=== PATIENT | female | born 1965 | race Caucasian/White ===

== ENCOUNTER 2016-09-12 19:22 | Inpatient (IN) | payer MEDICAID, MEDICARE ==
[~2016-09-12] VITALS: Ht 157.5 cm; Wt 50.3 kg
[~2016-09-12 19:22] MED LIST: ALBU18HF INH; ALBU2.5V15 IH; ATRINH INH; CYCL5TAB PO; DIF200 PO; GABA600T2 PO; GLUC1KIT IJ; HYDR-4003 PO; IBUP200C PO; INSU100I13 SUBQ; INSU100V28 SUBQ; LISI10TA2 PO; POTA99TA21 PO; PRAM0.252 PO; PRAV10TA2 PO; PREG100C PO; TRAM50TA2 PO; WOMENS DAILY FORMULA PO; ZOV800 PO
[2016-09-12 19:29] VITALS: BP 139/50; PULSE 108; RESP 23; O2SAT 100
--- NOTE | 2016-09-12 19:39 | ED.REPORT ---
HPI-General Illness Date of Service Sep 12, 2016 ED Provider: Jemal Rodriguez MD 51-year-old female insulin-dependent diabetic brought in by EMS. Found at home confused and agitated and hyperventilating. Glucose per EMS was too high to read. Diabetic ketoacidosis was suspected by EMS. On arrival here the patient is unable to provide any further history due to confusion and agitation. 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 Nursing Notes Stated Complaint: HYPERGLYCEMIA Chief Complaint: General Complaint Nursing Notes Reviewed: Yes Allergies: Coded Allergies: No Known Allergies (Verified Allergy, Unknown, 06/19/15) Scheduled ([Womens Daily Formula]) 1 CAP PO DAILY Fluconazole (Diflucan) 200 Mg Tab 200 MG PO DAILY Gabapentin (Gabapentin) 600 Mg Tablet 600 MG PO BID Glucagon,Human Recombinant (Glucagon Emergency Kit) 1 Mg Kit 1 MG IJ PRN UD Insulin Glargine (Lantus U100 Solostar Insulin Pen) 100 Unit/1 Ml Insuln.pen 15 UNIT SUBQ QPM-INSULIN Insulin Regular, Human (HUMulin-R U100 Insulin Vial) 100 Unit/1 Ml Vial 1 UNIT SUBQ TID-INSULIN SLIDING SCALE Ipratropium [place] (Atrovent HFA) 200 Puff/12.9 Gm Inhaler 2 PUFF INH Q 4HRS PRN Lisinopril (Lisinopril) 10 Mg Tablet 10 MG PO DAILY Potassium Gluconate (Potassium) 99 Mg Tablet 99 MG PO DAILY PLEASE VERIFY DOSAGE Pramipexole Dihydrochloride (Mirapex) 0.25 Mg Tablet 0.25 MG PO PM Pravastatin (Pravastatin) 10 Mg Tablet 10 MG PO HS Pregabalin (Lyrica) 100 Mg Capsule 100 MG PO TID Scheduled PRN Acyclovir (Acyclovir) 800 Mg Tab 800 MG PO BID PRN PRN PRN Albuterol Sulfate (Albuterol Inhalant Solution) 2.5 Mg/0.5 Ml Vial.neb 2.5 MG IH Q4 PRN PRN For Shortness of Breath Albuterol Sulfate (Ventolin HFA Inhaler) 200 Puff/18 Gm Inhaler 1-2 PUFF INH Q 4 -6HRS PRN PRN PRN For Wheezing Cyclobenzaprine (Cyclobenzaprine) N Tablet 5 MG PO BID PRN PRN For Spasm Hydrocodone-Acetaminophen 5-325 mg (Hydrocodone-Acetaminophen 5-325 mg) 1 Each Tablet 1 EACH PO TID PRN PRN For Pain Ibuprofen (Ibuprofen) 200 Mg Capsule 200 MG PO Q 6HRS PRN PRN PRN For Pain Tramadol (Tramadol) 50 Mg Tablet 50 MG PO Q6H PRN PRN For Pain General Time Seen by MD: 19:33 Chief Complaint Other (Hyperglycemia) Hx Obtained From: Patient, EMS Arrived By: Ambulance Onset Occurred: Onset unknown Past Medical History Past Medical History Reports: Asthma, COPD, Cancer (Cervical), Diabetes mellitus, GERD, Hyperlipidemia Past Surgical History R Humerus repair Reports: Hysterectomy Reports: Back/neck surgery Smoking History Current Every Day Smoker Social History Alcohol Use: Denies alcohol use Drug Use: Denies drug use Review of Systems Unable to Obtain ROS Patient condition Physical Exam Vital Signs Vital Signs Date Time Temp Pulse Resp B/P Pulse Ox O2 Delivery O2 Flow Rate FiO2 09/12/16 22:00 123 111/60 100 60 09/12/16 21:12 130 23 111/56 100 ET Tube 09/12/16 20:23 34.8 108 27 162/76 100 Room Air 09/12/16 19:29 108 23 139/50 100 Room Air Neck: Supple General/Constitutional: Awake, Well developed Alertness: Positive: Confused, Disoriented Behavior: Positive: Agitated Smells of ketones Head / Eyes: Atraumatic, Normocephalic, PERRL ENT: Airway patent, Pharynx NL, No facial swelling Mouth: Positive: Mucous membranes dry Respiratory / Chest: Breath sounds NL, Breath sounds = bilat Cardiovascular: Regular rhythm, Heart sounds NL Heart Rate / Rhythm: Positive: Tachycardia Periph CV / BP Differential: Positive: Capillary refill delayed (3 seconds ) Abdomen: BS normoactive, No palpable mass, No pulsatile mass Back: Atraumatic, Inspection NL Lymphatic: No gross adenopathy, No cervical adenopathy Skin: Dry, Intact Skin is cool to touch Neurologic: Speech NL, No motor deficits Mental Status: Positive: Confused, Disoriented to place, Disoriented to time Oriented x1 Moving all 4 extremities Interpretation & Diagnostics Interpretation & Diagnostics: Initial white count was 33,000. Initial glucose is greater than 600. Initial bicarbonate is 4. Initial potassium is greater than 5. Utox: positive benzodiazepines and tricyclic antidepressants. Lab Results Interpretation Result Diagram: 2/11/234 09/12/16 2314 Test 09/12/16 19:34 09/12/16 20:47 09/12/16 21:26 Metamyelocytes % 0% (0-0) Myelocytes % 1% (0-0) Prothrombin Time 10.0sec (8.1-12.5) Prothromb Time International Ratio 0.94ratio Activated Partial Thromboplast Time 40.4sec (22.8-33.0) Hold Blue Top Tube Received (Received) Magnesium Level 2.2mg/dL (1.6-2.6) Lipase 8U/L (13-60) Hold Red Top Tube Received (Received) Ketones 1:32 Urine Color Straw (YELLOW) Urine Appearance Clear (CLEAR,HAZY) Urine pH 5.5 (5.0-8.0) Urine Specific [place] 1.028 (1.003-1.035) Urine Protein 30mg/dL (NEG,TRACE) Urine Glucose (UA) 1000mg/dL (NEGATIVE) Urine Ketones 80mg/dL (NEGATIVE) Urine Occult Blood Moderate (NEGATIVE) Urine Nitrite Negative (NEGATIVE) Urine Bilirubin Negative (NEGATIVE) Urine Urobilinogen Normalmg/dL (NORMAL) Urine Leukocyte Esterase Negative (NEGATIVE) Urine RBC 3-10/hpf (0-2) Urine WBC 0-5/hpf (0-5) Urine Epithelial Cells None/hpf (NONE-MOD) Urine Crystals None seen (NONE SEEN) Urine Bacteria None/hpf (NONE-FEW) Urine Hyaline Casts None/lpf (NONE) Urine Granular Casts None seen (NONE SEEN) Urine Waxy Casts None seen (NONE SEEN) Urine Red Blood Cell Casts None seen (NONE SEEN) Urine White Blood Cell Casts None seen (NONE SEEN) Urine Mucus None seen (None Seen) Urine Trichomonas None seen (NONE SEEN) Urine Yeast None (NONE SEEN) Urinalysis Comment None Urine Culture Reflexed Not indicated CSF Appearance Hazy (CLEAR) CSF Color [place] (COLORLESS) CSF WBC 9/mm3 (0-5) CSF RBC 1125/mm3 CSF Mononuclear WBCs 65% CSF Polynuclear WBCs 35% CSF Other Cells 0 CSF Glucose 408mg/dL (45-90) CSF Total Protein 48mg/dL (15-45) ECG Interpretation ECG Interpretation: Sinus tachy rate 104 possible peaked T waves otherwise no acute ST segment changes Time: 20:03 Interpreted by: ED physician ABG Interpretation ABG Interpretation: venous 7:43 PM 09/12/2016 pH 6.867 pCO2 18 pO2 78.2 cHCO3- 3.1 cBase -29.4 Exam Performed by: Allied [facility] pract Exam Interpreted by: ED physician ABG Interpretation: Repeat: pH 6.685 pCO2 36 pO2 68.2 cHCO3- 4.3 cBase -29.8 X-Ray Chest Interpretation Chest Xray Interpretation: MPRESSION: No acute cardiopulmonary disease process. Dictated by: Reyna Walsh MD, PhD on 09/12/2016 at 20:19 Approved by: Reyna Walsh MD, PhD on 09/12/2016 at 20:20 View: Portable, 1 view Interpretation / Wet Read by: Interpret - Radiologist Chest Xray Interpretation: FINDINGS: Surgical changes and devices: ET tube is 4.1 cm superior to the alisa. NG tube crosses the GE junction.. Cervical spine fixation hardware Lungs and pleura: No pleural effusions or pneumothorax. Lungs are clear. Mediastinum: Mediastinal contours appear normal. Heart size is normal. Bones and chest wall: No suspicious bony lesions. Overlying soft tissues appear unremarkable. IMPRESSION: No acute cardiopulmonary disease process. Dictated by: Reyna Walsh MD, PhD on 09/12/2016 at 21:08 Approved by: Reyna Walsh MD, PhD on 09/12/2016 at 21:09 View: Portable, 1 view Interpretation / Wet Read by: Interpret - Radiologist CT Head Interpretation CT BRAIN: IMPRESSION: No acute intracranial disease process identified within limitations caused by motion artifact. Dictated by: Reyna Walsh MD, PhD on 09/12/2016 at 21:00 Approved by: Reyna Walsh MD, PhD on 09/12/2016 at 21:03 Study: Head CT no contrast Interpretation / Wet Read by: Interpret - Radiologist CT Abd / Pelvis Interpretation IMPRESSION: small amount of free pelvic fluid. No other acute findings. Lung base opacities atelectasis versus infiltrate. NG tube tip in the proximal stomach. Tatyana Mcdonald M.D. Study type: Abdominal CT IV contrast Interpretation / Wet Read by: Interpret - Radiologist Procedures Central Line Placement Central Line Placement Note: Patient was intubated prior to procedure. Timeout performed at 2317. Time: 23:23 Procedure Performed by: ED physician Consent / Setup / Site Prep: No consent - emergent, Time-out performed, Oxygen administered (Intubated ), Pulse oximeter applied, monitor car operator applied, Hand hygiene observed, Max barrier precaution, Sterile drapes applied, Position supine Skin Preparation Agent: Shurclens Local Anesthesia: Lidocaine 1% Procedural Sedation/Analgesia: Sedation: Etomidate, Sedation: Ketamine, Analgesia: Fentanyl Side / Location / Ultrasound: Internal jugular right, Ultrasound assisted Catheter / Lumen / Technique: Triple lumen, Good blood return, Secured w catheter device (15 cm) Post-Procedure / Complications: Condition improved, Tolerated procedure well , Patient stable Intubation Time: 20:20 Procedure Performed by: ED physician Consent / Setup / Site Prep: No consent - emergent, Time-out performed, Pulse oximeter applied, monitor car operator applied, Hand hygiene observed Patient Position: Sniff position Blade / ET Tube / Route: [place] scope Procedural Sedation/Analgesia: Sedation: Etomidate, Sedation: Ketamine, Analgesia: Fentanyl Neuromuscular Agent: Succinylcholine ET Confirmation: BS equal Secured / Marked: Tube marked at ___ cm (21), Tube marked at teeth Complications: None Post-Procedure: Tolerated procedure well Lumbar Puncture Text / Dict Note: Patient was intubation prior to procedure. Multiple unsuccessful passes made. Dr. Kent successfully obtained spinal fluid after multiple passes in L4 L5. Time: 21:20 Procedure Performed by: ED physician Consent / Setup / Site Prep: No consent - emergent, Time-out performed, Hand hygiene observed, Sterile drapes applied, Patient right lateral Skin Preparation Agent: Betadine Local Anesthesia: Lidocaine 1% Procedural Sedation/Analgesia: Sedation: Etomidate, Sedation: Ketamine, Analgesia: Fentanyl LP Needle Gauge: 22G Post-Procedure / Complications: No complications, Tolerated procedure well, Patient stable Re-Eval/Medical Decision Med Decision/Clinical Course 51-year-old female who presents critically ill with diabetic ketoacidosis. Minimal history is available, it is presently unclear what might a productive precipitated this episode of diabetic ketoacidosis. He was treated with IV normal saline hydration and once potassium was known and insulin drip was initiated. She was pancultured and started on empiric coverage of meropenem after discussion with the medicine service. Imaging does not reveal an acute abdominal or intracranial process that would explain her presentation. On chest x-ray appears that she may be developing a pneumonia as we hydrated her. Because of her profound acidosis, she was given IV bicarbonate. The patient was intubated due to severe agitation which we were not able to sedate her out of 12 point where she can be managed effectively. Admitted to the hospitalist service in critical condition. Lumbar puncture results are noted, she has a very small number of white blood cells and the presence of a traumatic tap. CSF protein is not significantly elevated above normal. I do not believe that her LP results are suggestive of meningitis. Time of Eval: 20:57 Patient Status: Mild relief Re-Evaluation/Progress Note: Rechecked patient. Less agitated and tolerating intubation. Time of Eval: 21:23 Patient Status: Mild relief Re-Evaluation/Progress Note: Rechecked patient. Tolerating intubation well. Time of Eval: 22:20 Re-Evaluation/Progress Note: Rechecked patient. Stable. Time of Eval: 22:47 Re-Evaluation/Progress Note: Rechecked patient. Stable Consultation #1: Referral / Consult Name: Patricia Oliveira DO Consulted With: Hospitalist Call Returned at: 22:14 Lead Ruby On Rails Developer: Will see patient, Agrees with eval, Agrees with plan, Accepts admit Note: Discussed patient's case. Accepts admit. Requests CT abd/pelvis. Consultation #2: Referral / Consult Name: Patricia Oliveira DO Consulted With: Hospitalist Call Returned at: 00:02 Lead Ruby On Rails Developer: Will see patient, Agrees with eval, Agrees with plan, Accepts admit Note: CT and LP results discussed. Discharge & Departure Primary Impression: Diabetic keto-acidosis Diabetes mellitus type: type 1 Diabetes mellitus complication detail: without coma Qualified Code: E10.10 - Type 1 diabetes mellitus with ketoacidosis without coma Additional Impression: Altered mental status Disposition: ADMITTED TO HOSPITAL Referrals: Katrina Dueñas (PCP) Crit Care Except Billable Proc Time Spent: 75-104 minutes Services Performed: Patient management by me, Time spent at bedside, Reviewing test results, Reviewing imaging, Discussing patient care, Documentation in record Scribe Attestation Portions of this note were transcribed by Venkat Portillo. I, Dr. Rodriguez personally performed the history, physical exam and medical decision-making; I reviewed and confirmed the accuracy of the information in the transcribed note. Signed by: Venkat Portillo 09/13/16, 0053 copies to: Katrina Dueñas Donald L MD Sep 12, 2016 19:39 BANDARVENKAT Sep 12, 2016 20:01 FINDINGS: Surgical changes and devices: ET tube is 4.1 cm superior to the alisa. NG tube crosses the GE junction.. Cervical spine fixation hardware Lungs and pleura: No pleural effusions or pneumothorax. Lungs are clear. Mediastinum: Mediastinal contours appear normal. Heart size is normal. Bones and chest wall: No suspicious bony lesions. Overlying soft tissues appear unremarkable. IMPRESSION: No acute cardiopulmonary disease process. Dictated by: Reyna Walsh MD, PhD on 09/12/2016 at 21:08 Approved by: Reyna Walsh MD, PhD on 09/12/2016 at 21:09 View: Portable, 1 view Interpretation / Wet Read by: Interpret - Radiologist CT Head Interpretation CT BRAIN: IMPRESSION: No acute intracranial disease process identified within limitations caused by motion artifact. Dictated by: Reyna Walsh MD, PhD on 09/12/2016 at 21:00 Approved by: Reyna Walsh MD, PhD on 09/12/2016 at 21:03 Study: Head CT no contrast Interpretation / Wet Read by: Interpret - Radiologist CT Abd / Pelvis Interpretation IMPRESSION: small amount of free pelvic fluid. No other acute findings. Lung base opacities atelectasis versus infiltrate. NG tube tip in the proximal stomach. Tatyana Mcdonald M.D. Study type: Abdominal CT IV contrast Interpretation / Wet Read by: Interpret - Radiologist Procedures Central Line Placement Central Line Placement Note: Patient was intubated prior to procedure. Timeout performed at 2317. Time: 23:23 Procedure Performed by: ED physician Consent / Setup / Site Prep: No consent - emergent, Time-out performed, Oxygen administered (Intubated ), Pulse oximeter applied, monitor car operator applied, Hand hygiene observed, Max barrier precaution, Sterile drapes applied, Position supine Skin Preparation Agent: Shurclens Local Anesthesia: Lidocaine 1% Procedural Sedation/Analgesia: Sedation: Etomidate, Sedation: Ketamine, Analgesia: Fentanyl Side / Location / Ultrasound: Internal jugular right, Ultrasound assisted Catheter / Lumen / Technique: Triple lumen, Good blood return, Secured w catheter device (15 cm) Post-Procedure / Complications: Condition improved, Tolerated procedure well , Patient stable Intubation Time: 20:20 Procedure Performed by: ED physician Consent / Setup / Site Prep: No consent - emergent, Time-out performed, Pulse oximeter applied, monitor car operator applied, Hand hygiene observed Patient Position: Sniff position Blade / ET Tube / Route: [place] scope Procedural Sedation/Analgesia: Sedation: Etomidate, Sedation: Ketamine, Analgesia: Fentanyl Neuromuscular Agent: Succinylcholine ET Confirmation: BS equal Secured / Marked: Tube marked at ___ cm (21), Tube marked at teeth Complications: None Post-Procedure: Tolerated procedure well Lumbar Puncture Text / Dict Note: Patient was intubation prior to procedure. Multiple unsuccessful passes made. Dr. Kent successfully obtained spinal fluid after multiple passes in L4 L5. Time: 21:20 Procedure Performed by: ED physician Consent / Setup / Site Prep: No consent - emergent, Time-out performed, Hand hygiene observed, Sterile drapes applied, Patient right lateral Skin Preparation Agent: Betadine Local Anesthesia: Lidocaine 1% Procedural Sedation/Analgesia: Sedation: Etomidate, Sedation: Ketamine, Analgesia: Fentanyl LP Needle Gauge: 22G Post-Procedure / Complications: No complications, Tolerated procedure well, Patient stable Re-Eval/Medical Decision Time of Eval: 20:57 Patient Status: Mild relief Re-Evaluation/Progress Note: Rechecked patient. Less agitated and tolerating intubation. Time of Eval: 21:23 Patient Status: Mild relief Re-Evaluation/Progress Note: Rechecked patient. Tolerating intubation well. Consultation #1: Referral / Consult Name: Patricia Oliveira DO Consulted With: Hospitalist Call Returned at: 22:14 Lead Ruby On Rails Developer: Will see patient, Agrees with eval, Agrees with plan, Accepts admit Note: Discussed patient's case. Accepts admit. Requests CT abd/pelvis. Consultation #2: Referral / Consult Name: Patricia Oliveira DO Consulted With: Hospitalist Call Returned at: 00:02 Lead Ruby On Rails Developer: Will see patient, Agrees with eval, Agrees with plan, Accepts admit Note: CT and LP results discussed. Discharge & Departure Primary Impression: Diabetic keto-acidosis Disposition: ADMITTED TO HOSPITAL Referrals: Katrina Dueñas (PCP) copies to: Katrina Dueñas Donald L MD Sep 12, 2016 19:39 VENKAT PORTILLO Sep 12, 2016 20:01 copies to: Katrina Dueñas Donald L MD Sep 12, 2016 19:39 VENKAT PORTILLO Sep 12, 2016 20:01
--- NOTE | 2016-09-12 19:41 | ABG ---
DateTimeAnalyzed 19:35:00 -_ pH ____6.867 - pCO2 ___18.3__ -mmHg pO2 ___78.4__ -mmHg HCO3- ____3.1__ -mmol/L ABE __-29.4__ -mmol/L tHb ___11.1__ -g/dL O2Hb ___82.0__ -% COHb ____1.7__ -% MetHb ____1.4__ -% sO2 ___84.6__ -% FIO2 ___21.0__ -% Drawn By LT - Date/Time Notified____ 19:40:00 -_ Notified By LT - Notified Whom ___DR.SLACK - B 746 -mmHg tO2 ___12.9__ -Vol% Stan test N/A -
[2016-09-12] MEDS ORDERED: Ondansetron 2 mg/mL 2 mL Inj IV PRN (19:45)
[2016-09-12] MEDS ORDERED: 0.9% Sodium Chloride 1,000 ML IV ONE (19:45)
[2016-09-12] MEDS ORDERED: Haloperidol 5 mg/mL Inj IVPUSH ONE (19:55)
[2016-09-12 20:03] LABS: Mean Corpuscular Hemoglobin 19.6 pg (27.0-35.0); Platelet Count 581 bil/L (150-400)
[2016-09-12 20:10] LABS: Magnesium 2.2 mg/dL (1.6-2.6)
[2016-09-12] MEDS ORDERED: fentaNYL-PF 50 mCg/mL 2 mL Inj ONE (20:15)
[2016-09-12 20:19] LABS: BASOPHILS % (AUTO) 0 % (0-3); EOSINOPHILS % (AUTO) 0 % (0-5); MONOCYTES % (AUTO) 6 % (4-12); NEUTROPHILS % (AUTO) 85 % (40-74)
--- NOTE | 2016-09-12 20:21 | DRSVH ---
PROCEDURE: X-RAY CHEST ONE VIEW, PORTABLE ([id number]) INDICATIONS: diabetic dyspnea TECHNIQUE: One view of the chest was acquired. COMPARISON: [facility], CR, XR CHEST 2VW, 02/27/2016, 9:17. FINDINGS: Surgical changes and devices: Cervical spine fixation hardware Lungs and pleura: No pleural effusions or pneumothorax. Lungs are clear. Mediastinum: Mediastinal contours appear normal. Heart size is normal. Bones and chest wall: No suspicious bony lesions. Overlying soft tissues appear unremarkable. IMPRESSION: No acute cardiopulmonary disease process. Dictated by: Reyna Walsh MD, PhD on 09/12/2016 at 20:19 Approved by: Reyna Walsh MD, PhD on 09/12/2016 at 20:20
[2016-09-12 20:23] VITALS: BP 162/76; PULSE 108; RESP 27; O2SAT 100
[2016-09-12] MEDS ORDERED: Propofol 10,000 mCg/mL 100 mL Inj ONE (20:24)
[2016-09-12] MEDS ORDERED: Insulin Human REGular Inj 100 UNIT in 0.9% Sodium Chloride-Pha MIX 100 ML IV ONE (20:25)
[2016-09-12] MEDS: Propofol Inj 1,000,000 MCG in IV Premix 1 EACH IV SCH (20:30)
[2016-09-12 20:31] LABS: Lipase 8 U/L (13-60); Phosphorus 7.8 mg/dL (2.5-4.9)
[2016-09-12 20:43] LABS: TROPONIN T < 0.010 ug/L (0.0-0.011)
[2016-09-12] MEDS ORDERED: fentaNYL-PF 50 mCg/mL 2 mL Inj IVPUSH ONE (20:55)
[2016-09-12] MEDS ORDERED: Vecuronium 1,000 mCg/mL 10 mL Inj IVPUSH ONE (21:00)
--- NOTE | 2016-09-12 21:05 | DRSVH ---
PROCEDURE: CT BRAIN WITHOUT CONTRAST ([id number]) INDICATIONS: altered mental status TECHNIQUE: Noncontrast 4.5 mm thick angled axial sections acquired from the foramen magnum to the vertex, with c oronal reformats. COMPARISON: [facility], CT, BRAIN W/O CONTRAST, 08/21/2014, 16:07. FINDINGS: Image quality: Limited by patient motion. CSF spaces: Basal cisterns are patent. No extra-axial fluid collections. Ventricles are normal in size and shape. Brain: No midline shift. No intracranial masses or hemorrhage. Gomes-white matter interface is norm al. Skull and face: Calvarium and visualized facial bones are intact, without suspicious lesions. Sinuses: Visualized sinuses and mastoids are clear. IMPRESSION: No acute intracranial disease process identified within limitations caused by motion art ifact. Dictated by: Reyna Walsh MD, PhD on 09/12/2016 at 21:00 Approved by: Reyna Walsh MD, PhD on 09/12/2016 at 21:03
--- NOTE | 2016-09-12 21:10 | DRSVH ---
PROCEDURE: X-RAY CHEST ONE VIEW, PORTABLE ([id number]) INDICATIONS: post intubation TECHNIQUE: One view of the chest was acquired. COMPARISON: [facility], CR, XR CHEST 1VW (PORTABLE), 09/12/2016, 19:44. FINDINGS: Surgical changes and devices: ET tube is 4.1 cm superior to the alisa. NG tube crosses the GE junc tion.. Cervical spine fixation hardware Lungs and pleura: No pleural effusions or pneumothorax. Lungs are clear. Mediastinum: Mediastinal contours appear normal. Heart size is normal. Bones and chest wall: No suspicious bony lesions. Overlying soft tissues appear unremarkable. IMPRESSION: No acute cardiopulmonary disease process. Dictated by: Reyna Walsh MD, PhD on 09/12/2016 at 21:08 Approved by: Reyna Walsh MD, PhD on 09/12/2016 at 21:09
[2016-09-12 21:12] VITALS: BP 111/56; PULSE 130; RESP 23; O2SAT 100
[2016-09-12 21:28] LABS: APPEARANCE,URINE CLEAR (CLEAR,HAZY); COLOR,URINE STRAW (YELLOW); PH,URINE 5.5 (5.0-8.0)
[2016-09-12 21:29] LABS: OCCULT BLOOD,URINE MODERATE (NEGATIVE); UROBILINOGEN,URINE NORMAL (NORMAL)
--- NOTE | 2016-09-12 21:52 | ABG ---
DateTimeAnalyzed 21:45:00 -_ pH ____6.685 - pCO2 ___35.7__ -mmHg pO2 ___68.2__ -mmHg HCO3- ____4.3__ -mmol/L ABE __-29.8__ -mmol/L tHb ___10.9__ -g/dL O2Hb ___76.6__ -% COHb ____1.2__ -% MetHb ____0.5__ -% sO2 ___77.9__ -% FIO2 ___40.0__ -% PEEP ____5.0__ -cmH2O Set_RR 26 -b/min Vt __400.0__ -L Drawn By LT - Date/Time Notified____ 21:50:00 -_ Spontaneous_RR 26 -b/min Notified By LT - Notified Whom _DR SLACK - B 745 -mmHg K+ ____4.8__ -mmol/L tO2 ___11.8__ -Vol% Stan test _Positive -
[2016-09-12 22:00] VITALS: BP 111/60; O2SAT 100
[2016-09-12] MEDS ORDERED: Sodium Bicarb (50 mEq) 8.4% 1 mEq/mL 50 mL Syringe IVPUSH ONE (22:00)
[2016-09-12] MEDS ORDERED: Meropenem Inj 1,000 MG in IV Premix 1 EACH IV ONE (22:20)
[2016-09-12] MEDS ORDERED: Acetaminophen IV 1,000 MG in IV Premix 1 EACH IV PRN (22:20)
[2016-09-12] MEDS ORDERED: Sodium Bicarb(50 mEq) 8.4% Inj 150 MEQ in Dextrose 5% 1,000 ML IV SCH (22:23)
[2016-09-12] MEDS ORDERED: Succinylcholine Chloride 20 mg/mL 5 mL Inj ONE (22:37)
[2016-09-12 23:09] LABS: APPEARANCE,CSF HAZY (CLEAR); COLOR,CSF PINK (COLORLESS); WHITE BLOOD CELL,CSF 9 /mm3 (0-5)
[2016-09-13] VITALS (14 sets, daily range): BP systolic 85–114; BP diastolic 44–62; PULSE 108–126; RESP 24–26; O2SAT 96–100
--- NOTE | 2016-09-13 00:09 | PCM.HPMED ---
Subjective Date of Service Sep 13, 2016 Primary Provider: Admitting Physician: Patricia Oliveira DO Primary Care Physician: Katrina Dueñas Attending Physician: Patricia Oliveira DO Admit Status: From the Emergency Department Chief Complaint: AMS History of Present Illness: 51yoF with history of type one diabetes, fibromyalgia, polysubstance abuse brought by EMS for further evaluation. On admission it is unclear how EMS was notified to assess the patient. As per ED RN boyfriend was with patient upon arrival. She was alert and oriented to self on presentation and intubated shortly after arrival due to respiratory failure and airway protection. Discussion with her aunt, Ammy Irizarry ), and her brother in [place], Santosh ([phone]), bring minimal information regarding past history. Social history of being estranged from her daughter and alone without close contacts. She used to live with her mother before she passed in 03/2016. Past history includes opioid abuse and ETOH use. Review of Systems: unable to obtain. patient sedated and intubated. Allergies Coded Allergies: No Known Allergies (Verified Allergy, Unknown, 06/19/15) Home Medications unknown PMH insulin dependant diabetes fibromyalgia reactive airway disease COPD/asthma GERD HLD Cervical cancer Surgical History R Humerus repair Reports: Hysterectomy Reports: Back/neck surgery Family History unable to obtain. patient sedated and intubated. Social History Hx Alcohol Use: No Hx Substance Use: Yes Hx Tobacco Use: Yes (38yrs) Smoking Status: Current Every Day Smoker Exam Vital Signs Vital Sign - Last Date Time Temp Pulse Resp B/P Pulse Ox O2 Delivery O2 Flow Rate FiO2 09/12/16 21:12 130 23 111/56 100 ET Tube 09/12/16 20:23 34.8 Intake and Output 09/12/16 09/12/16 09/13/16 Cumulative From/Thru 15:00 23:00 07:00 09/12/16 19:29 - 09/12/16 19:58 Intake Total 1000 ml 1000 ml Balance 1000 ml 1000 ml Intake IV Total 1000 ml 1000 ml Exam General: intubated and sedated Eyes: PERRL, Scleral Anicteric Mouth: Mucous Membranes dry/Homer/ dried blood around mouth, intubated Neck: Supple, no Thyromegaly, trachea central. Chest & Lungs: clear to auscultation, no wheezes, rhonchi, rales Cardiovascular: Normal S1, Normal S2, No Murmurs/Rubs/Gallops, Tachy/ Regular Rhythm, Other (No JVD, no peripheral edema) Pulses: Radial (present and equal), Dorsalis Pedi (present and equal) Abdomen: Soft, Non-distended, Normoactive bowel tones. : hwang in place Musculoskeletal: No erythema / edema joints Extremities: no edema, no cyanosis, no clubbing. Skin: No rashes. cool and dry, no erythematous areas, multiple abrasions of the lower extremities, eschars Neurological: Unable to assess. Non-responsive, sedated. PERRL Lymphatic: Lymph nodes Cervical and Axillary not palpable. psych: unable to assess Lab and Diagnostics Result Diagram: 09/12/16193309/12/162206 X-Rays, CTs and MRIs Patient Name: MAO TAYLOR MR#: [id number] Location: SED Ordering Phys: Jemal Rodriguez MD Date of Service: 09/12/162028 PROCEDURE: CT BRAIN WITHOUT CONTRAST ([id number]) INDICATIONS: altered mental status TECHNIQUE: Noncontrast 4.5 mm thick angled axial sections acquired from the foramen magnum to the vertex, with coronal reformats. COMPARISON: [facility], CT, BRAIN W/O CONTRAST, 08/21/2014, 16:07. FINDINGS: Image quality: Limited by patient motion. CSF spaces: Basal cisterns are patent. No extra-axial fluid collections. Ventricles are normal in size and shape. Brain: No midline shift. No intracranial masses or hemorrhage. Gomes-white matter interface is normal. Skull and face: Calvarium and visualized facial bones are intact, without suspicious lesions. Sinuses: Visualized sinuses and mastoids are clear. IMPRESSION: No acute intracranial disease process identified within limitations caused by motion artifact. Dictated by: Reyna Walsh MD, PhD on 09/12/2016 at 21:00 Approved by: Reyna Walsh MD, PhD on 09/12/2016 at 21:03 Patient Name: MAO TAYLOR MR#: [id number] Location: SED Ordering Phys: Jemal Rodriguez MD Date of Service: 09/12/162028 PROCEDURE: X-RAY CHEST ONE VIEW, PORTABLE ([id number]) INDICATIONS: post intubation TECHNIQUE: One view of the chest was acquired. COMPARISON: [facility], CR, XR CHEST 1VW (PORTABLE), 09/12/2016, 19: 44. FINDINGS: Surgical changes and devices: ET tube is 4.1 cm superior to the alisa. NG tube crosses the GE junction.. Cervical spine fixation hardware Lungs and pleura: No pleural effusions or pneumothorax. Lungs are clear. Mediastinum: Mediastinal contours appear normal. Heart size is normal. Bones and chest wall: No suspicious bony lesions. Overlying soft tissues appear unremarkable. IMPRESSION: No acute cardiopulmonary disease process. Dictated by: Reyna Walsh MD, PhD on 09/12/2016 at 21:08 Approved by: Reyna Walsh MD, PhD on 09/12/2016 at 21:09 CT Abd / Pelvis Interpretation IMPRESSION: small amount of free pelvic fluid. No other acute findings. Lung base opacities atelectasis versus infiltrate. NG tube tip in the proximal stomach. Tatyana Mcdonald M.D. Study type: Abdominal CT IV contrast Interpretation / Wet Read by: Interpret - Radiologist 12-lead ECG Sinus tach rate 104, no ST segment changes Additional Diagnostics: venous blood gas 7:43 PM 09/12/2016 pH 6.867 pCO2 18 pO2 78.2 cHCO3- 3.1 cBase -29.4 ABG Interpretation: Repeat: pH 6.685 pCO2 36 pO2 68.2 cHCO3- 4.3 cBase -29.8 Assessment & Plan 51yoF with history of type one diabetes, fibromyalgia, polysubstance abuse brought by EMS, found to be alert and oriented to self in DKA. Respiratory failure, acute, POA -intubated in ED -pulm consult, vent and critical care management, recs appreciate Septic shock, acute, POA -unclear source, most likely PNA -cont abx, norepinephrine with goal MAP >60 -follow up cx -ECHO pending DKA, acute, POA -severe metabolic acidosis on presentation pH 6.8 decreasing to 6.6 on repeat ABG, 2 gap 33 -1amp bicarb given in ED, bicarb gtt started upon arrival to floor - repeat ABG, likely decrease / dc bicarb when pH >6.9 -unclear etiology, possible non-compliance vs occult infection, trop neg -head CT negative, LP less likely meningitis, CT abd / pelvis with possible PNA , CXR neg -possible PNA, CAP vsHCAP - treatment with piperacillin-tazobactam / vanc ( pharm to dose) -DKA protocol Acute kidney disease, acute, POA -most likely pre-renal given DKA -continue to monitor, minimize nephrotoxic agents Leukocytosis, acute, POA -multifactorial, acute stress response 2/2 DKA possible underlying infection -broad coverage, piperacillin-tazobactam, vancomycin Anemia, microcytic, unknown chronicity -MCV 68 - decreased hgb from 12.3 to 10.4 following admission - BRB per OG tube - continue to monitor H&H q4HR - type and hold - INR / PTT pending - pantoprazole bolus and gtt started - DVT prophylaxis SCDs until proven stable H&H Type 1 Diabetes, chronic -history of uncontrolled diabetes -hgbA1c pending COPD, chronic -as per medical record Fibromyalgia -monitor H/o polysubstance abuse, chronic -as per brother history of narcotic use and ETOH use -monitor for withdrawal when appropriate -banana bag Tobacco dependence, chronic -as per EMR history of tobacco dependence 75 minutes of critical care time spent on patient management Pain Evaluation: Adequate Pain Control GI Prophylaxis: H2 ike VTE Prophylaxis Indicated: VTE on Admission VTE Prophylaxis: Sub-Q Heparin (Unfractionated) Resuscitation Status: CPR: Attempt Resuscitation Patricia Oliveira DO Sep 13, 2016 00:08
[2016-09-13] MEDS ORDERED: Pantoprazole Inj 80 MG in 0.9% Sodium Chloride 100 ML IV ONE (00:20)
[2016-09-13 00:29] LABS: Mean Corpuscular Hemoglobin 19.6 pg (27.0-35.0); Mean Corpuscular Volume 68.9 fL (81-100); Platelet Count 604 bil/L (150-400)
[2016-09-13] MEDS ORDERED: Heparin 5,000 Unit/mL Inj SUBQ SCH (00:30)
--- NOTE | 2016-09-13 00:30 | ABG ---
DateTimeAnalyzed 00:23:06 -_ pH ____6.887 - pCO2 ___32.7__ -mmHg pO2 ___74.2__ -mmHg HCO3- ____6.2__ -mmol/L ABE __-24.8__ -mmol/L tHb ___10.5__ -g/dL O2Hb ___88.7__ -% COHb ____1.3__ -% MetHb ____0.5__ -% sO2 ___90.3__ -% FIO2 ___21.0__ -% PEEP ____5.0__ -cmH2O Set_RR 26 -b/min Vt __400.0__ -L Drawn By RB - Date/Time Notified____ 00:29:00 -_ Spontaneous_RR 26 -b/min Notified Whom Dr - B 746 -mmHg K+ ____3.8__ -mmol/L tO2 ___13.2__ -Vol% Stan test _Positive -
[2016-09-13 00:41] LABS: INR 0.94 ratio
[2016-09-13 00:52] LABS: TROPONIN T 0.01 ug/L (0.0-0.011)
[2016-09-13] MEDS: Pantoprazole Inj 80 MG in 0.9% Sodium Chloride 80 ML IV SCH ×3 (00:58→21:46)
[2016-09-13 00:59] LABS: NEUTROPHILS % (AUTO) 79 % (40-74)
[2016-09-13 01:00] LABS: BASOPHILS % (AUTO) 1 % (0-3); EOSINOPHILS % (AUTO) 0 % (0-5); MONOCYTES % (AUTO) 5 % (4-12)
[2016-09-13] MEDS ORDERED: Insulin Human REGular-Omnicell 100 Unit/mL SUBQ PRN (01:05)
[2016-09-13] MEDS: Insulin Human REGular Inj 100 UNIT in 0.9% Sodium Chloride 100 ML IV SCH ×2 (01:05→07:57)
[2016-09-13] MEDS ORDERED: Vancomycin Inj 1,000 MG in IV Premix 1 EACH IV ONE (01:50)
[2016-09-13] MEDS: Propofol Inj 1,000,000 MCG in IV Premix 1 EACH IV SCH ×4 (01:55→22:53)
[2016-09-13] MEDS: Vancomycin Dose per Pharmacist XX SCH ×2 (01:56→08:47)
[2016-09-13] MEDS ORDERED: Piperacillin-Tazo 3.375 Gm Inj 3.375 GM in Dextrose 5% Minibag Plus 50 ML IV ONE (02:00)
[2016-09-13] MEDS: fentaNYL 2,500 mCg/250 mL 2,500 MCG in IV Premix 1 EACH IV SCH ×2 (02:07→22:52)
[2016-09-13] MEDS: Norepineph 8,000 mCg/250 mL NS 8,000 MCG in IV Premix 1 EACH IV SCH ×2 (02:07→18:25)
[2016-09-13] MEDS: Chlorhexidine 0.12% 15 mL Oral Solution MT SCH ×6 (02:07→21:45)
--- NOTE | 2016-09-13 02:40 | ABG ---
DateTimeAnalyzed 02:33:00 -_ pH ____7.098 - 7.350 7.450 pCO2 ___29.2__ -mmHg 35.0 45.0 pO2 238 -mmHg 69.0 116 HCO3- ____8.6__ -mmol/L 22.0 26.0 ABE __-19.7__ -mmol/L -2.0 2.0 tHb ____9.8__ -g/dL O2Hb ___96.2__ -% COHb ____1.9__ -% MetHb ____1.2__ -% sO2 ___99.3__ -% FIO2 ___60.0__ -% PRVC 439 - PEEP ____5.0__ -cmH2O Set_RR ___26.0__ -b/min Vt __400.0__ -L Drawn By RB - Date/Time Notified____ 02:39:00 -_ Spontaneous_RR ___26.0__ -b/min Notified By RB - Notified Whom DR - B 749 -mmHg tO2 ___13.9__ -Vol% Stan test _Positive -
[2016-09-13] MEDS ORDERED: Piper-Tazo 3.375 Gm/50 mL D5W Minibag Plus - Q8H over 4 hrs IV SCH ×2 (04:25)
[2016-09-13] MEDS: 0.9% Sodium Chloride 1,000 ML IV SCH ×2 (05:10→11:55)
[2016-09-13] MEDS: D5W1/2NS 1,000 mL IV PRN (05:11)
--- NOTE | 2016-09-13 06:19 | DRSVH ---
PROCEDURE: CT ABDOMEN AND PELVIS WITH CONTRAST ([id number]) INDICATIONS: 51-year-old intubated female with critical illness. TECHNIQUE: After the administration of intravenous contrast, 5 mm thick sections acquired from the diaphragm to the symphysis. 5 mm coronal and sagittal reformats were acquired. For radiation dose reduction, the following was used: automated exposure control, adjustment of mA and/or kV according to patient siz e. COMPARISON: [facility], CT, KUB - CT (ABD/PEL W/O CONT), 02/03/2014, 22:02. [facility], CT, CHEST/ABD/PELVIS W/CON (PNL), 05/08/2012, 21:35. FINDINGS: Preliminary interpretation rendered by [employer]. Image quality: Excellent. ABDOMEN: Lung bases: Patchy right lung base opacities are present. Heart size is normal. Nasogastric tube is present, with tip in the proximal gastric lumen. Solid organs: Liver and spleen are normal in size and enhancement. Gallbladder is now surgically ab sent. Biliary system is non dilated. Pancreas enhances normally. No adrenal nodules. Kidneys demo nstrate normal size and enhancement, without hydronephrosis. Peritoneum and bowel: Bowel loops demonstrate normal wall thickness and caliber. The appendix is un able to be visualized. No free fluid or air. Nodes and vessels: No retroperitoneal or mesenteric adenopathy by size criteria. Aorta and inferior vena cava are normal in size. There is mild aortoiliac atherosclerosis. Miscellaneous: No ventral hernias. PELVIS: Genitourinary: Bladder is incompletely decompressed by a Miles catheter. The uterus is surgically abs ent. The ovaries are nonvisualized, and may be small or surgically absent. Miscellaneous: No inguinal hernias or adenopathy. Bones: No suspicious bony lesions. No acute vertebral body compression fractures. Moderate T11-T12 and L3-L4 disc degeneration is again noted, along with mild nonacute T12 superior endplate compressio n fracture. IMPRESSION: 1. Status post interval cholecystectomy. No acute findings visualized within the abdomen or pelvis. 2. Patchy right lung base opacities, probably atelectasis. 3. Mild nonacute T12 vertebral body superior endplate compression fracture as before. No significant discrepancy with preliminary [employer] report. Dictated by: Azam Blanchard M.D. on 09/13/2016 at 6:05 Approved by: Azam Blanchard M.D. on 09/13/2016 at 6:17
--- NOTE | 2016-09-13 06:33 | ABG ---
DateTimeAnalyzed 06:28:00 -_ pH ____7.298 - 7.350 7.450 pCO2 ___33.6__ -mmHg 35.0 45.0 pO2 ___88.2__ -mmHg 69.0 116 HCO3- ___16.0__ -mmol/L 22.0 26.0 ABE ___-9.2__ -mmol/L -2.0 2.0 tHb ___10.2__ -g/dL O2Hb ___94.6__ -% COHb ____2.0__ -% MetHb ____1.2__ -% sO2 ___97.7__ -% FIO2 ___44.0__ -% PRVC 440 - PEEP ____5.0__ -cmH2O Set_RR ___26.0__ -b/min Vt __400.0__ -L Drawn By RB - Date/Time Notified____ 06:32:00 -_ Spontaneous_RR ___26.0__ -b/min Notified Whom RN - B 748 -mmHg tO2 ___13.7__ -Vol% Stan test _Positive -
--- NOTE | 2016-09-13 06:54 | PCM.CONPHA ---
Subjective Date of Service: Sep 13, 2016 Requesting Provider: Patricia Oliveira DO, AMS History of Present Illness DKA Reason for Pharmacy Consult: Vancomycin Dosing Objective Vital Signs Date Time Temp Pulse Resp B/P Pulse Ox O2 Delivery O2 Flow Rate FiO2 09/13/16 04:30 36.5 126 26 102/51 98 Mechanical Ventilator 09/13/16 00:50 108 24 111/52 100 ET Tube 09/13/16 00:30 36.5 118 26 95/47 100 Mechanical Ventilator 09/13/16 00:30 119 91/46 100 60 09/12/16 22:00 123 111/60 100 60 09/12/16 21:12 130 23 111/56 100 ET Tube 09/12/16 20:23 34.8 108 27 162/76 100 Room Air 09/12/16 19:29 108 23 139/50 100 Room Air Intake and Output 09/11/16 09/12/16 09/13/16 00:00 00:00 00:00 Intake Total 1000 ml Balance 1000 ml Weight (Kilograms): 48.300 Height (Feet): 5 Height (Inches): 2.00 Test 09/12/16 19:34 09/12/16 20:47 09/12/16 21:26 09/12/16 23:14 Metamyelocytes % 0% (0-0) Myelocytes % 1% (0-0) Prothrombin Time 10.0sec (8.1-12.5) Prothromb Time International Ratio 0.94ratio Activated Partial Thromboplast Time 40.4sec (22.8-33.0) Hold Blue Top Tube Received (Received) Magnesium Level 2.2mg/dL (1.6-2.6) Lipase 8U/L (13-60) Hold Red Top Tube Received (Received) Ketones 1:32 Urine Color Straw (YELLOW) Urine Appearance Clear (CLEAR,HAZY) Urine pH 5.5 (5.0-8.0) Urine Specific [place] 1.028 (1.003-1.035) Urine Protein 30mg/dL (NEG,TRACE) Urine Glucose (UA) 1000mg/dL (NEGATIVE) Urine Ketones 80mg/dL (NEGATIVE) Urine Occult Blood Moderate (NEGATIVE) Urine Nitrite Negative (NEGATIVE) Urine Bilirubin Negative (NEGATIVE) Urine Urobilinogen Normalmg/dL (NORMAL) Urine Leukocyte Esterase Negative (NEGATIVE) Urine RBC 3-10/hpf (0-2) Urine WBC 0-5/hpf (0-5) Urine Epithelial Cells None/hpf (NONE-MOD) Urine Crystals None seen (NONE SEEN) Urine Bacteria None/hpf (NONE-FEW) Urine Hyaline Casts None/lpf (NONE) Urine Granular Casts None seen (NONE SEEN) Urine Waxy Casts None seen (NONE SEEN) Urine Red Blood Cell Casts None seen (NONE SEEN) Urine White Blood Cell Casts None seen (NONE SEEN) Urine Mucus None seen (None Seen) Urine Trichomonas None seen (NONE SEEN) Urine Yeast None (NONE SEEN) Urinalysis Comment None Urine Culture Reflexed Not indicated CSF Appearance Hazy (CLEAR) CSF Color [place] (COLORLESS) CSF WBC 9/mm3 (0-5) CSF RBC 1125/mm3 CSF Mononuclear WBCs 65% CSF Polynuclear WBCs 35% CSF Other Cells 0 CSF Glucose 408mg/dL (45-90) CSF Total Protein 48mg/dL (15-45) White Blood Count 40.1th/mm3 (3.8-10.1) Red Blood Count 5.31mil/mm3 (3.90-5.20) Mean Corpuscular Volume 68.9fL (81-100) Mean Corpuscular Hemoglobin 19.6pg (27.0-35.0) Mean Corpuscular Hemoglobin Concent 28.4% (32.0-37.0) Red Cell Distribution Width 23.7% (12.3-15.4) Platelet Count 604bil/L (150-400) Neutrophils (%) (Auto) 79% (40-74) Lymphocytes (%) (Auto) 12% (14-46) Monocytes (%) (Auto) 5% (4-12) Eosinophils (%) (Auto) 0% (0-5) Basophils (%) (Auto) 1% (0-3) Band Neutrophils % 2% (1-5) Hold Purple Top Tube Received (Received) Lactic Acid Level 1.2mmol/L (0.4-2.0) Phosphorus Level 6.0mg/dL (2.5-4.9) Total Bilirubin 0.2mg/dL (0.0-1.2) Aspartate Amino Transf (AST/SGOT) 31U/L (0-50) Alanine Aminotransferase (ALT/SGPT) 46U/L (0-32) Alkaline Phosphatase 215U/L (25-150) Total Creatine Kinase 226U/L (21-215) Troponin T 0.010ug/L (0.0-0.011) Total Protein 6.2g/dL (6.4-8.4) Albumin 3.3g/dL (3.4-5.0) Triglycerides Level 446mg/dL (0-149) Cholesterol Level 159mg/dL (100-199) LDL Cholesterol, Calculated 46.800mg/dL (0-99) VLDL Cholesterol 89.200mg/dL HDL Cholesterol 23mg/dL (>39) Cholesterol/HDL Ratio 6.91 (0.0-4.4) Procalcitonin 1.38ng/mL (0.00-0.08) Hold [place] Top Tube Received (Received) Hold [place] Top Tube Received (Received) Test 09/13/16 02:30 Hemoglobin 9.8g/dL (12.0-15.6) Hematocrit 34.1% (35.0-46.0) Sodium Level 132mEq/L (134-144) Potassium Level 3.7mEq/L (3.5-5.2) Chloride Level 95mEq/L (97-108) Carbon Dioxide Level 9mmol/L (18-29) Blood Urea Nitrogen 39mg/dL (6-24) Creatinine 1.26mg/dL (0.57-1.00) Estimat Glomerular Filtration Rate 64mL/min (>59) Glucose Level 374mg/dL (60-99) Calcium Level 7.0mg/dL (8.5-10.1) Assessment/Plan Assessment/Plan A/ - 51 y/o female brought in ED by EMS for DKA. Patient is DM type 1, chronic renal injury, hx of cervical cancer, and polysubstance abuse. Shortly after arrived, she was intubated due to pH level dropped and increased shortness of breath. Vancomycin was ordered for empirical coverage - WBC: 33.5 at admission, then jumped up 40.1 at latter labs work. Blood cultures: pending - Wt: 47.7kg, ht:157.5 cm, SCr: 1.21 at admission, 1.26 at latter lab, estimated clearance ~ 39 mls/min - In ED, patient received Meropenem x1, and Vancomycin 1G iv loading dose @ 0240 when transferred onto the floor. Comitant antibiotic: Zosyn (dose renally adjusted) - Target trough: 15 - 20 P/ - Due to unstable SCr, day time pharmacy team will reassess and dose according after morning lab results Thank you Cornel Tello, PharmD, [facility] Jory Tello Sep 13, 2016 06:54
[2016-09-13] MEDS ORDERED: Influenza (Adult) Vaccine 0.5 mL Syringe IM ONE (08:30)
--- NOTE | 2016-09-13 08:42 | DRSVH ---
PROCEDURE: X-RAY CHEST ONE VIEW, PORTABLE ([id number]) INDICATIONS: 51 year-old female with central line placement. TECHNIQUE: One view of the chest was acquired. COMPARISON: [facility], CR, XR CHEST 1VW (PORTABLE), 09/12/2016, 20:39. [facility], CR, XR CHEST 1VW (PORTABLE), 09/12/2016, 19:44. [facility], CR, XR CHEST 2VW, , 9:17. FINDINGS: Surgical changes and devices: New right internal jugular central venous catheter is present, with tip in the upper superior vena cava. Endotracheal tube and esophagogastric tube remain in expected posit ions. Patient is status post lower cervical spine anterior fixation, cholecystectomy, and right humer al shaft fracture fixation as before. Lungs and pleura: No pleural effusions or pneumothorax. Lungs are clear, except for subtle patchy r ight lower lung opacities. Mediastinum: Mediastinal contours appear normal. Heart size is normal. Bones and chest wall: No suspicious bony lesions. Overlying soft tissues appear unremarkable. IMPRESSION: 1. Right internal jugular central venous catheter is in expected position. No pneumothorax. 2. Findings suggesting early right lower lung pneumonia or aspiration. Dictated by: Azam Blanchard M.D. on 09/13/2016 at 8:38 Approved by: Azam Blanchard M.D. on 09/13/2016 at 8:40
--- NOTE | 2016-09-13 09:50 | NUR ---
PT consult received but pt not alert/responsive for participation today. Min responsive only with flinching to oral care with nursing. Will recheck tomorrow.
--- NOTE | 2016-09-13 13:09 | PCM.PNMED ---
Subjective Date of Service Sep 13, 2016 Subjective Patient is intubated and sedated. She is reported to have been intubated in the field for unclear reasons and had been septic upon presentation with severe leukocytosis as well as hypotension. She has been fluid resuscitated and started on broad-spectrum antibiotics. There is a question of a small infiltrate in the right base of her lung. Her urine dip was positive for blood but otherwise negative. She has a history of polysubstance abuse but no clear history of injection use. Her urine tox in the ED was positive for benzos and TCA. Exam Vital Signs Vital Sign - Last Date Time Temp Pulse Resp B/P Pulse Ox O2 Delivery O2 Flow Rate FiO2 09/13/16 11:41 121 99/61 100 30 09/13/16 08:30 Ventilator 09/13/16 07:30 38.9 26 Intake and Output 09/12/16 09/12/16 09/13/16 Cumulative From/Thru 15:00 23:00 07:00 09/12/16 19:29 - 09/13/16 05:45 Intake Total 1000 ml 2564 ml 3564 ml Output Total 1850 ml 1850 ml Balance 1000 ml 714 ml 1714 ml Intake IV Total 1000 ml 2564 ml 3564 ml Output Urine Total 1250 ml 1250 ml Gastric Drainage Total 600 ml 600 ml Exam Intubated and sedated. No active breathing above the vent Anicteric sclera. Neck supple. Lungs are clear with no adventitious sounds. Heart is tachycardic without murmur or gallop. Abdomen is soft nontender Extremities are free of edema good pedal pulses Right buttock is examined there some chronic papules but no evidence of acute infection. Skin is otherwise fair rash or lesions. IVs and Medications Medications Reviewed: Medications were reviewed in detail Lab and Diagnostics Result Diagram: 09/13/16 0610 09/13/16 0610 X-Rays, CTs and MRIs Patient Name: MAO TAYLOR MR#: [id number] Location: SED Ordering Phys: Jemal Rodriguez MD Date of Service: 09/12/162028 PROCEDURE: CT BRAIN WITHOUT CONTRAST ([id number]) INDICATIONS: altered mental status TECHNIQUE: Noncontrast 4.5 mm thick angled axial sections acquired from the foramen magnum to the vertex, with coronal reformats. COMPARISON: [facility], CT, BRAIN W/O CONTRAST, 08/21/2014, 16:07. FINDINGS: Image quality: Limited by patient motion. CSF spaces: Basal cisterns are patent. No extra-axial fluid collections. Ventricles are normal in size and shape. Brain: No midline shift. No intracranial masses or hemorrhage. Gomse-white matter interface is normal. Skull and face: Calvarium and visualized facial bones are intact, without suspicious lesions. Sinuses: Visualized sinuses and mastoids are clear. IMPRESSION: No acute intracranial disease process identified within limitations caused by motion artifact. Dictated by: Reyna Walsh MD, PhD on 09/12/2016 at 21:00 Approved by: Reyna Walsh MD, PhD on 09/12/2016 at 21:03 Patient Name: MAO TAYLOR MR#: [id number] Location: SED Ordering Phys: Jemal Rodriguez MD Date of Service: 09/12/162028 PROCEDURE: X-RAY CHEST ONE VIEW, PORTABLE ([id number]) INDICATIONS: post intubation TECHNIQUE: One view of the chest was acquired. COMPARISON: [facility], CR, XR CHEST 1VW (PORTABLE), 09/12/2016, 19: 44. FINDINGS: Surgical changes and devices: ET tube is 4.1 cm superior to the alisa. NG tube crosses the GE junction.. Cervical spine fixation hardware Lungs and pleura: No pleural effusions or pneumothorax. Lungs are clear. Mediastinum: Mediastinal contours appear normal. Heart size is normal. Bones and chest wall: No suspicious bony lesions. Overlying soft tissues appear unremarkable. IMPRESSION: No acute cardiopulmonary disease process. Dictated by: Reyna Walsh MD, PhD on 09/12/2016 at 21:08 Approved by: Reyna Walsh MD, PhD on 09/12/2016 at 21:09 CT Abd / Pelvis Interpretation IMPRESSION: small amount of free pelvic fluid. No other acute findings. Lung base opacities atelectasis versus infiltrate. NG tube tip in the proximal stomach. Tatyana Mcdonald M.D. Study type: Abdominal CT IV contrast Interpretation / Wet Read by: Interpret - Radiologist 12-lead ECG Sinus tach rate 104, no ST segment changes Additional Diagnostics venous blood gas 7:43 PM 09/12/2016 pH 6.867 pCO2 18 pO2 78.2 cHCO3- 3.1 cBase -29.4 ABG Interpretation: Repeat: pH 6.685 pCO2 36 pO2 68.2 cHCO3- 4.3 cBase -29.8 Assessment & Plan 51yoF with history of type one diabetes, fibromyalgia, polysubstance abuse brought by EMS, found to be alert and oriented to self in DKA. 1. Acute hypoxic Respiratory failure,, POA -intubated in ED -pulm consult, vent and critical care management, recs appreciate . We will continue volume control with FiO2 0.3 and PEEP of 7. Currently sedated with propofol and fentanyl. 2. Septic shock, acute, POA -unclear source, most likely PNA -cont abx, norepinephrine with goal MAP >60 -follow up cx -ECHO pending, Continue fluid resuscitation for probable partial component of volume depletion. We will recheck a lactate her lactate was 1.2 at admission. We will check another white count as well. 3. DKA, acute, POA -severe metabolic acidosis on presentation pH 6.8 decreasing to 6.6 on repeat ABG, 2/2 gap 33 -1amp bicarb given in ED, bicarb gtt started upon arrival to floor - repeat ABG, likely decrease / dc bicarb when pH >6.9 -unclear etiology, possible non-compliance vs occult infection, trop neg -head CT negative, LP less likely meningitis, CT abd / pelvis with possible PNA , CXR neg -possible PNA, CAP vsHCAP - treatment with piperacillin-tazobactam / vanc ( pharm to dose) -DKA protocol, continue with IV fluids and insulin drip. 4. Acute kidney failure, acute, POA -most likely pre-renal given DKA -continue to monitor, minimize nephrotoxic agents 5. Leukocytosis, acute, POA -multifactorial, acute stress response 2/2 DKA possible underlying infection -broad coverage, piperacillin-tazobactam, vancomycin Follow clinically and with serial labs 6. Anemia, microcytic, unknown chronicity -MCV 68 - decreased hgb from 12.3 to 10.4 following admission - BRB per OG tube - continue to monitor H&H q4HR - type and hold - INR / PTT pending - pantoprazole bolus and gtt started - DVT prophylaxis SCDs until proven stable H&H 7. Type 1 Diabetes, chronic -history of uncontrolled diabetes -hgbA1c pending 8. COPD, chronic -as per medical record 9. Fibromyalgia -monitor 10. H/o polysubstance abuse, chronic -as per brother history of narcotic use and ETOH use -monitor for withdrawal when appropriate -banana bag Tobacco dependence, chronic -as per EMR history of tobacco dependence Pain Evaluation: Adequate Pain Control GI Prophylaxis: H2 ike VTE Prophylaxis: Sub-Q Heparin (Unfractionated) Resuscitation Status: CPR: Attempt Resuscitation Time spent 35 minutes Stan Flores MD Sep 13, 2016 13:09
[2016-09-13] MEDS ORDERED: Lactated Ringer's 1,000 ML IV ONE ×2 (13:25)
[2016-09-13] MEDS ORDERED: Sodium Chloride LOK Flush 10 mL Syringe IVFLUSH PRN ×2 (14:00)
[2016-09-13 14:40] LABS: Mean Corpuscular Hemoglobin 19.4 pg (27.0-35.0); Mean Corpuscular Volume 63.4 fL (81-100)
[2016-09-13] MEDS: Lactated Ringer's 1,000 ML IV SCH ×2 (16:12→22:52)
[2016-09-13] MEDS: Piper-Tazo 3.375 Gm/50 mL D5W Minibag Plus - Q8H over 4 hrs IV SCH ×2 (16:17)
--- NOTE | 2016-09-13 16:46 | CONS ---
[address] [address] CONSULTATION REPORT PATIENT: MAO TAYLOR : 1965 MR#: [id number] ADMIT: 09/12/2016 JOB ID: [id number] DATE OF SERVICE: 09/13/2016 PULMONARY CRITICAL CARE CONSULTATION NOTE: The patient is a 51-year-old woman, with history of polysubstance abuse and diabetes type 1, seen in consultation at the request of Dr. Burt for acute hypoxic respiratory failure and septic shock. HISTORY OF PRESENT ILLNESS: The patient is intubated by the time I met her, so all of the history is obtained per review of electronic medical record and emergency department physician notes. Patient reportedly has a history of opiate use and alcohol use, although it is not clear if there was any IV drug use history in the past. EMS was called to see the patient, who was reportedly alert but intubated shortly after due to respiratory failure. She is currently on mechanical ventilation, on vasopressors. In the emergency department, she had an abdominal CT that did not show any obvious source of sepsis except for some nonspecific right greater than left minimal pulmonary infiltrates. She is also in diabetic ketoacidosis with a pH of 6.86 on presentation. Past medical history, social history, review of systems, and family history could not be obtained directly from the patient because she is intubated. Per review of prior records, she does have a history of: 1. Right humerus osteomyelitis complicating fracture. 2. Type 1 diabetes. 3. Polysubstance abuse. 4. Right buttock wound. PHYSICAL EXAMINATION: Vital signs reviewed. T-max of 38.9, pulse 121, respirations 26, BP 113/58. Sats 98% on 35% FiO2. General: Intubated, sedated. Currently not responsive. Thin woman. Pupils equal, reactive. Neck: No cervical lymphadenopathy. HEENT: ET tube is in place. Tongue appears normal. Chest: Clear to auscultation. Heart: Regular rate, rhythm. Abdomen: Soft, nontender. No rebound or guarding. Skin: Skin over the arms has a few abrasions, specifically over the elbows. Skin over both legs has multiple superficial abrasions. There is nothing I can see that appears like track steve or joint swelling to suggest septic arthritis. No areas that would suggest cellulitis or necrotizing fasciitis. Extremities: No cyanosis, clubbing, or edema. No joint swelling. LABORATORIES: Reviewed. WBC up to 40 from 33. Platelets 600. Hemoglobin 10.1. Chemistry also reviewed. Creatinine 1.25. Serum bicarb is up to 14 from 9. Procalcitonin 1.38. Total CK of 220. Cultures, respiratory viral PCR is negative. Sputum and blood cultures are pending. Imaging of the abdomen shows that she has had a cholecystectomy and she has some patchy opacities at the right lung base. Arterial blood gas: On the initial blood gas at presentation, she had a pH of 7.86, pCO2 of 18, pO2 78, and bicarb of 3. The most recent blood gas shows pH of 7.29, pCO2 of 33, pO2 of 88, and bicarb 16. Chest x-ray reviewed and is actually clear except the ET tube seems somewhat low, barely 2 cm from the alisa. Lungs seemed clear. ASSESSMENT AND RECOMMENDATIONS: 1. Septic shock. 2. Acute hypoxic respiratory failure, on mechanical ventilation. 3. Severe leukocytosis, WBC 40. 4. Diabetic ketoacidosis. 5. Acute kidney injury. 6. Reported history of polysubstance abuse--urine tox positive for benzodiazepines and tricyclics only. A 51-year-old woman presenting, unresponsive with respiratory failure and diabetic ketoacidosis and presumed septic shock. She is currently on norepinephrine at 0.2 mcg. Of note, she did have a lumbar puncture in the emergency department which showed nine WBCs. There was concern for a traumatic tap, so I requested the lab to run another set of tests for cell count, glucose and protein on tube #3 or 4. This is in process. her glucose is high and her protein is slightly elevated. Overall, this is not particularly consistent with meningitis, but it would be reassuring to repeat the white cells. She had 1100 RBCs and nine WBCs which is in keeping with normal ratio for blood contamination rather than true meningitis. Also, she had some IV fluids in the emergency department, but I am going to repeat another liter bolus now to see if we can get her off pressors. For antibiotics, she is currently on vancomycin and Zosyn. I am going to add azithromycin for atypical coverage. I am going to recheck LFTs to make sure she does not have a hepatic process causing the sepsis. I suppose pneumonia is a possibility, but her pulmonary infiltrates are not particularly impressive at this time, so I would be cautious and look for other sources as well. She is on subcu heparin for DVT prophylaxis and famotidine for GI prophylaxis. She is on an insulin drip. She is getting propofol and fentanyl for sedation. CRITICAL CARE TIME: 60 minutes.
--- NOTE | 2016-09-13 17:27 | NUR ---
Endo/Cardiac: Pt's anion gap 14 as of 1418, MD aware, orders to continue insulin gtt for now. Tele ST 120s, MAP 50s-70s, Levophed gtt at 0.3mcg/kg/min. See CCU flowsheet for details. Q2h turn, heels floated. Pt minimally responsive, some flinching/gagging with suctioning, has not opened eyes, makes no attempts to follow commands. Propofol/Fentanyl for sedation. Multiple family phone calls, care ongoing.
[2016-09-13] MEDS ORDERED: Sodium Bicarb (50 mEq) 8.4% 1 mEq/mL 50 mL Syringe ONE (18:11)
--- NOTE | 2016-09-13 20:30 | DRSVH ---
[facility] [address] [place] [address] Echocardiogram Report Name: MAO TAYLORudy Date: 09/13/2016 Height: 62 in Hospital Exam Location: [facility] Weight: 110 lb Gender: Female BSA: 1.5 m2 : 1965 Age: 51 yrs BP: 121/59 mmHg Reason For Study: HYPOTENSION Ordering Physician: Performed By: Dede Talbot Referring Physician: Mckayla OSWALD Interpretation Summary Sinus tachycardia. Normal LV size,wall thickness, wall motion and LV systolic function. EF is 55 -60%. RV is mildly dilated and demonstrates normal function. No significant valvular abnormalities. Estimated PA systolic pressure is 50 mm Hg assuming RA pressure of 15 mm Hg. No prior study available for comparison. Procedure: A two-dimensional transthoracic echocardiogram with color flow and Doppler was performed. No parasternal window, off axis apical window. Patient is intubated. There is no prior echocardiogram noted for this patient. The study quality was technically adequate. The patient was in a tachycardic rhythm during the exam. Left Ventricle: The left ventricular cavity is small. There is normal left ventricular wall thickness. Left ventricular systolic function is normal. Right Ventricle: The right ventricle is normal in size and function. Atria: Both atria are normal in size. There is no Doppler evidence for an atrial septal defect. Mitral Valve: The mitral valve leaflets appear mildly thickened, but open well. There is no mitral regurgitation noted. Aortic Valve: The aortic valve opens well. The aortic valve is trileaflet. No aortic regurgitation is present. Tricuspid Valve: The tricuspid valve leaflets are thin and pliable. There is mild tricuspid regurgitation. Pulmonic Valve: The pulmonic valve is not well seen, but is grossly normal. There is no pulmonic valvular regurgitation. Great Vessels: The aortic root is normal size. The ascending aorta could not be visualized. The pulmonary artery is normal size. The IVC has a measurement of 19 mm. Pericardium/ Pleura There is no pericardial effusion. There is no pleural effusion. MMode/2D Measurements & Calculations LVIDd: 2.8 cm RA long axis LVOT diam: 1.9 cm LVIDs: 1.9 cm LA A4 area: 13.6 cm AoV Opening FS: 31.3 % LA length (vol) RA area IVSd: 0.83 cm Ao root diam LVPWd: 0.99 cm IVC diam: 1.9 cm : 7.8 cm RA vol Ao Arch Diam (Prox : 14.7 ml Trans): 2.3 cm RA : 9.9 mm/ RVDd major : 5.2 cm LV rosado. diameter/BSA LV sys. diameter/BSA RVD2 (mid) (cm/m^2): 1.9 (cm/m^2): 1.3 : 2.9 cm Doppler Measurements & Calculations Ao V2 max: 169.9 cm/sec MV E max enoc MV E/A: 0.86 TR max enoc Ao max P.6 mmHg : 37.3 cm/sec MV A dur : 293.8 cm/sec Ao mean P.6 mmHg MV A max enoc : 0.10 sec TR max PG LVOT Max Enoc : 43.5 cm/sec : 34.5 mmHg : 89.6 cm/sec MV P1/2t PA V2 max RUTH ANN(I,D): 1.5 cm : 25.5 msec : 114.3 cm/sec sev ratio: 0.52 PA mean PG PA Accel Time : 0.09 sec MV P1/2t max enoc Ao V2 mean LV V1 max PG PA V2 mean : 113.0 cm/sec : 77.9 cm/sec MVA(P1/2t): 8.6 cm2 Ao V2 VTI: 17.1 cm LV V1 VTI RUTH ANN(V,D): 1.5 cm2 : 8.9 cm RUTH ANN indexed to [facility] (cm^2/m^2): 1.0 Reading Physician:08:30 PM
[2016-09-14] VITALS (11 sets, daily range): BP systolic 94–145; BP diastolic 44–81; PULSE 91–107; RESP 22–26; O2SAT 97–100
[2016-09-14] MEDS: Chlorhexidine 0.12% 15 mL Oral Solution MT SCH ×6 (00:45→19:49)
[2016-09-14] MEDS ORDERED: Vancomycin Inj 750 MG in 0.9% Sodium Chloride 250 ML IV SCH ×2 (02:30→20:00)
[2016-09-14] MEDS: Piper-Tazo 3.375 Gm/50 mL D5W Minibag Plus - Q8H over 4 hrs IV SCH ×6 (04:52→17:02)
--- NOTE | 2016-09-14 05:01 | ABG ---
DateTimeAnalyzed 04:56:00 -_ pH ____7.375 - 7.350 7.450 pCO2 ___38.6__ -mmHg 35.0 45.0 pO2 ___36.9__ -mmHg 69.0 116 HCO3- ___22.1__ -mmol/L 22.0 26.0 ABE ___-2.3__ -mmol/L -2.0 2.0 tHb ___10.0__ -g/dL O2Hb ___70.5__ -% COHb ____1.4__ -% MetHb ____1.2__ -% sO2 ___72.4__ -% FIO2 ___30.0__ -% Drawn By RB - Date/Time Notified____ 05:01:00 -_ Notified By RB - Notified Whom RN - B 741 -mmHg tO2 ___10.0__ -Vol% Stan test _Positive -
--- NOTE | 2016-09-14 05:29 | ABG ---
DateTimeAnalyzed 05:14:00 -_ pH ____7.403 - pCO2 ___36.6__ -mmHg pO2 ___36.9__ -mmHg HCO3- ___22.4__ -mmol/L ABE ___-1.6__ -mmol/L tHb ____9.4__ -g/dL O2Hb ___72.3__ -% COHb ____1.5__ -% MetHb ____1.0__ -% sO2 ___74.2__ -% FIO2 ___30.0__ -% PEEP ____5.0__ -cmH2O Set_RR ___26.0__ -b/min Vt __400.0__ -L Drawn By RB - Date/Time Notified____ 05:27:00 -_ Spontaneous_RR ___26.0__ -b/min Notified By RB - Notified Whom Kammie Treviño RN - B 742 -mmHg tO2 ____9.6__ -Vol% Stan test _Positive -
--- NOTE | 2016-09-14 06:00 | NUR ---
BP/Blood sugar/temp Pt remains hypotensive through night requiring pressor agents to manage. Seemingly related to sedation as when pt is awake (with minimal stimulation) BP high. Increased sedation as pt was overbreathing vent and attempting to extubate along with extra movements. Not responsive or following any commands. Pt also remains on DKA protocol. Blood sugar stable throughout shift. Please see DKA flowsheet. Max temp 38.1. Placed fan on in room, and gave pt lukewarm bed bath for non pharmacological management. Will continue to monitor. Care ongoing
--- NOTE | 2016-09-14 06:08 | ABG ---
DateTimeAnalyzed 06:03:00 -_ pH ____7.431 - 7.350 7.450 pCO2 ___33.6__ -mmHg 35.0 45.0 pO2 ___71.1__ -mmHg 69.0 116 HCO3- ___21.9__ -mmol/L 22.0 26.0 ABE ___-1.4__ -mmol/L -2.0 2.0 tHb ____9.6__ -g/dL O2Hb ___94.6__ -% COHb ____1.6__ -% MetHb ____0.6__ -% sO2 ___96.7__ -% FIO2 ___30.0__ -% PEEP ____5.0__ -cmH2O Set_RR ___26.0__ -b/min Vt __400.0__ -L Drawn By md - Date/Time Notified____ 06:08:00 -_ Spontaneous_RR ___26.0__ -b/min Oxygen Device 1 VENTILATOR - Notified By blf - Notified Whom Kamey Treviño RN - B 742 -mmHg tO2 ___12.8__ -Vol% Stan test _Positive -
[2016-09-14] MEDS: Propofol Inj 1,000,000 MCG in IV Premix 1 EACH IV SCH ×2 (06:35→15:10)
[2016-09-14 07:35] LABS: BASOPHILS % (AUTO) 0.6 % (0-3); EOSINOPHILS % (AUTO) 1.7 % (0-5); MONOCYTES % (AUTO) 5.7 % (4-12); Mean Corpuscular Hemoglobin 19.5 pg (27.0-35.0); Mean Corpuscular Volume 62.2 fL (81-100); NEUTROPHILS % (AUTO) 76.5 % (40-74); Platelet Count 350 bil/L (150-400)
[2016-09-14] MEDS ORDERED: Polyethylene Glycol (PEG) 17 Gm Powder PO PRN (07:55)
[2016-09-14] MEDS: Senna-Docusate 8.6-50 mg Tablet PO SCH ×2 (08:30→19:49)
[2016-09-14] MEDS: Lactated Ringer's 1,000 ML IV SCH ×2 (08:47→17:01)
[2016-09-14] MEDS: Azithromycin Inj 500 MG in Dextrose 5% w/Vial Mate 250 ML IV SCH (08:48)
[2016-09-14] MEDS: KCl 40 mEq/100 mL IV Premix (K < 3 & Creat <2) IV SCH ×2 (08:49→12:33)
--- NOTE | 2016-09-14 10:17 | DRSVH ---
PROCEDURE: X-RAY CHEST ONE VIEW, PORTABLE ([id number]) INDICATIONS: intubated TECHNIQUE: One view of the chest was acquired. COMPARISON: [facility], CR, XR CHEST 1VW (PORTABLE), 09/12/2016, 23:41. FINDINGS: Surgical changes and devices: Stable positioning of ETT and right IJ CVL. Nasogastric tube has been slightly retracted and the tube tip now likely near the GE junction and the side port within the dist al esophagus. Lungs and pleura: No pleural effusions or pneumothorax. Subtle bibasilar patchy airspace opacity si milar to prior examination.. Mediastinum: Mediastinal contours appear normal. Heart size is normal. Bones and chest wall: No suspicious bony lesions. Overlying soft tissues appear unremarkable. IMPRESSION: 1. Slight interval retraction of nasogastric tube otherwise stable lines and tubes. 2. Bibasilar atelectasis versus aspiration or pneumonia not severely change. Dictated by: Laron Holm [facility] Interpreted: Fabián Talbot MD on 09/14/2016 at 10:15 Transcribed by: EVAN on 09/14/2016 at 10:16 Approved by: Fabián Talbot M.D. on 09/14/2016 at 12:11
[2016-09-14] MEDS ORDERED: Vancomycin Inj 750 MG in 0.9% Sodium Chloride 250 ML IV ONE (10:30)
[2016-09-14] MEDS ORDERED: KCl 40 mEq/D5W 500 mL 40 MEQ in IV Premix 1 EACH IV ONE (10:30)
[2016-09-14] MEDS: Pantoprazole Inj 80 MG in 0.9% Sodium Chloride 80 ML IV SCH ×2 (10:56→20:26)
--- NOTE | 2016-09-14 11:06 | PCM.PNMED ---
Subjective Date of Service Sep 14, 2016 Subjective ICU/pulmonary 51-year-old female who presented to the [facility] with acute mental status change and is currently on day 3 of intubation and a history of hospital stay. Overnight the patient had a recorded fever of 38.0. Patient has been unable to wean the ventilator due to reported agitation weaning of sedation. However when the sedation is reduced blood pressure is much better. currently still on Levophed. Exam Vital Signs Vital Sign - Last Date Time Temp Pulse Resp B/P Pulse Ox O2 Delivery O2 Flow Rate FiO2 09/14/16 07:43 96 123/62 97 30 09/14/16 05:00 38.0 26 Mechanical Ventilator Intake and Output 09/13/16 09/13/16 09/14/16 Cumulative From/Thru 15:00 23:00 07:00 09/12/16 19:29 - 09/14/16 06:00 Intake Total 3770 ml 3219 ml 87265 ml Output Total 1850 ml 2000 ml 5700 ml Balance 1920 ml 1219 ml 4853 ml Intake IV Total 3770 ml 3219 ml 95762 ml Output Urine Total 1150 ml 1600 ml 4000 ml Gastric Drainage Total 700 ml 400 ml 1700 ml # Bowel Movements 0 0 Exam Gen.: Patient is sedated and intubated, and some agitation with removal of sedation HEENT: NG tube in place, ET tube at 22 Cardio: Regular rate and rhythm no murmurs rubs gallops Respiratory: CTA bilaterally with wheezing throughout Abdomen: Positive bowel sounds, soft Extremities: No edema, appeared to be malnourished atrophy; mild swelling of the hands Psych: Agitated or sedated Neuro: Sedated Skin: No mass healing abrasion on the lower extremities, no rashes IVs and Medications Medications Reviewed: Medications were reviewed in detail Lab and Diagnostics Result Diagram: 09/14/1651409/14/16514 X-Rays, CTs and MRIs Patient Name: MAO TAYLOR MR#: [id number] Location: SED Ordering Phys: Jemal Rodriguez MD Date of Service: 09/12/162028 PROCEDURE: CT BRAIN WITHOUT CONTRAST ([id number]) INDICATIONS: altered mental status TECHNIQUE: Noncontrast 4.5 mm thick angled axial sections acquired from the foramen magnum to the vertex, with coronal reformats. COMPARISON: [facility], CT, BRAIN W/O CONTRAST, 08/21/2014, 16:07. FINDINGS: Image quality: Limited by patient motion. CSF spaces: Basal cisterns are patent. No extra-axial fluid collections. Ventricles are normal in size and shape. Brain: No midline shift. No intracranial masses or hemorrhage. Gomes-white matter interface is normal. Skull and face: Calvarium and visualized facial bones are intact, without suspicious lesions. Sinuses: Visualized sinuses and mastoids are clear. IMPRESSION: No acute intracranial disease process identified within limitations caused by motion artifact. Dictated by: Reyna Walsh MD, PhD on 09/12/2016 at 21:00 Approved by: Reyna Walsh MD, PhD on 09/12/2016 at 21:03 Patient Name: MAO TAYLOR MR#: [id number] Location: SED Ordering Phys: Jemal Rodriguez MD Date of Service: 09/12/162028 PROCEDURE: X-RAY CHEST ONE VIEW, PORTABLE ([id number]) INDICATIONS: post intubation TECHNIQUE: One view of the chest was acquired. COMPARISON: [facility], CR, XR CHEST 1VW (PORTABLE), 09/12/2016, 19: 44. FINDINGS: Surgical changes and devices: ET tube is 4.1 cm superior to the alisa. NG tube crosses the GE junction.. Cervical spine fixation hardware Lungs and pleura: No pleural effusions or pneumothorax. Lungs are clear. Mediastinum: Mediastinal contours appear normal. Heart size is normal. Bones and chest wall: No suspicious bony lesions. Overlying soft tissues appear unremarkable. IMPRESSION: No acute cardiopulmonary disease process. Dictated by: Reyna Walsh MD, PhD on 09/12/2016 at 21:08 Approved by: Reyna Walsh MD, PhD on 09/12/2016 at 21:09 CT Abd / Pelvis Interpretation IMPRESSION: small amount of free pelvic fluid. No other acute findings. Lung base opacities atelectasis versus infiltrate. NG tube tip in the proximal stomach. Tatyana Mcdonald M.D. Study type: Abdominal CT IV contrast Interpretation / Wet Read by: Interpret - Radiologist 12-lead ECG Sinus tach rate 104, no ST segment changes Additional Diagnostics venous blood gas 7:43 PM 09/12/2016 pH 6.867 pCO2 18 pO2 78.2 cHCO3- 3.1 cBase -29.4 ABG Interpretation: Repeat: pH 6.685 pCO2 36 pO2 68.2 cHCO3- 4.3 cBase -29.8 Assessment & Plan 51yoF with history of type one diabetes, fibromyalgia, polysubstance abuse brought by EMS due to acute mental status change and DKA. 1. Acute hypoxic Respiratory failure 2. Acute Septic shock 3. DKA; resolving 4. Acute kidney failure; resolved 5. Leukocytosis 6. Anemia, microcytic, unknown chronicity 7. Type 1 Diabetes, chronic 8. COPD, chronic 9. Fibromyalgia 10. H/o polysubstance abuse, chronic Neuro: Patient presents with acute mental status change her infection, however she did have a positive tox screen for benzos. Patient remains sedated with intermittent episodes of agitation. Right now we will attempt to wean down the propofol after the addition of 1 mg of lorazepam and scheduled 0.5 mg lorazepam IV with concern the patient may be going to benzo withdrawal. This will also help to control her agitation as we wean down the propofol should help her blood pressure and a spontaneous breathing trial tomorrow. We will wean down fentanyl as needed. Cardiovascular: The patient is stable on norepinephrine. There is a question as to whether the hypotension is due to septic shock versus propofol. Patient does have a high white count as discussed below propofol be weaned. Pressors will be weaned as well as needed. Respiratory: Blood gas this morning was improved with a pH of 7.4 and CO2 of 33.6. There was a small air leak and the cuff was able to be corrected with 3 situation tube. Patient is wheezy now be placed on DuoNeb's due to wheezing and her COPD. GI: Continue bowel regimen Infection: Patient presented with an exceedingly high white count of 40 which is resolving down into the mid teens. Pro-calcitonin is elevated but not remarkably increased. Patient continues on Zosyn, vancomycin, azithromycin. Repeat labs in the a.m. Endocrine: Patient's anion gap this morning he has resolved 14. Continuing on the insulin drip at this time with D10. We will consider stopping this after respiratory evaluation. Disposition: Patient is currently in stable condition in anticipation of decreasing sedation and hopefully trying for a spontaneous breathing trial tomorrow with extubation if she can tolerate breathing trial. GI Prophylaxis: H2 ike VTE Prophylaxis: Sub-Q Heparin (Unfractionated) Resuscitation Status: CPR: Attempt Resuscitation Attending Statement The patient was seen and examined together with Dr. Harris on 09/14/2016 and I agree with the history, exam and plan as outlined in the note above. Matt Harris DO Sep 14, 2016 11:06 Dougie Wayne MD Sep 20, 2016 13:31
[2016-09-14] MEDS: Norepineph 8,000 mCg/250 mL NS 8,000 MCG in IV Premix 1 EACH IV SCH (12:35)
--- NOTE | 2016-09-14 14:02 | PCM.PNMED ---
Subjective Date of Service Sep 14, 2016 Subjective Overnight: Remained hypotensive; pressors remained. T38.1. Today: No acute distress noted. Remains intubated and sedated. ROS could not be obtained. Febrile with T 38.0. Cooling measures in place. Info: Labs pending at time of examination include BMP; Hb remains stable at 9.4. Vent: PRVC FiO2 30, PEEP 5, R22, Vt 400 Exam Vital Signs Vital Sign - Last Date Time Temp Pulse Resp B/P Pulse Ox O2 Delivery O2 Flow Rate FiO2 09/14/16 07:43 96 123/62 97 30 09/14/16 05:00 38.0 26 Mechanical Ventilator Intake and Output 09/13/16 09/13/16 09/14/16 Cumulative From/Thru 15:00 23:00 07:00 09/12/16 19:29 - 09/14/16 06:00 Intake Total 3770 ml 3219 ml 91073 ml Output Total 1850 ml 2000 ml 5700 ml Balance 1920 ml 1219 ml 4853 ml Intake IV Total 3770 ml 3219 ml 40929 ml Output Urine Total 1150 ml 1600 ml 4000 ml Gastric Drainage Total 700 ml 400 ml 1700 ml # Bowel Movements 0 0 Exam General: Intubated and sedated; no acute distress HENT: Atraumatic; sclera anicteric, mucus membranes moist; ETT in place Neck: Soft, no lymphadenopathy; trachea midline by palpation Cardiac: Tachycardic rate and rhythm at time of examination; no murmurs appreciated Respiratory: Bilateral coarse sounds at bases extending to midfields with expiratory wheeze Abdomen: Soft, nontender, nondistended Extremities: No edema Skin: Warm and dry Neuro: Unable to assess secondary to intubation and sedation Psych: Unable to assess secondary to intubation and sedation Lab and Diagnostics Result Diagram: 09/14/16 0515 09/13/16 1419 X-Rays, CTs and MRIs Patient Name: MAO TAYLOR MR#: [id number] Location[place] [facility] [place] Ordering Phys: Jemal Rodriguez MD Date of Service: 09/12/162028 PROCEDURE: CT BRAIN WITHOUT CONTRAST ([id number]) INDICATIONS: altered mental status TECHNIQUE: Noncontrast 4.5 mm thick angled axial sections acquired from the foramen magnum to the vertex, with coronal reformats. COMPARISON: [facility], CT, BRAIN W/O CONTRAST, 08/21/2014, 16:07. FINDINGS: Image quality: Limited by patient motion. CSF spaces: Basal cisterns are patent. No extra-axial fluid collections. Ventricles are normal in size and shape. Brain: No midline shift. No intracranial masses or hemorrhage. Gomes-white matter interface is normal. Skull and face: Calvarium and visualized facial bones are intact, without suspicious lesions. Sinuses: Visualized sinuses and mastoids are clear. IMPRESSION: No acute intracranial disease process identified within limitations caused by motion artifact. Dictated by: Reyna Walsh MD, PhD on 09/12/2016 at 21:00 Approved by: Reyna Walsh MD, PhD on 09/12/2016 at 21:03 Patient Name: MAO TAYLOR MR#: [id number] Location: SED Ordering Phys: Jemal Rodriguez MD Date of Service: 09/12/162028 PROCEDURE: X-RAY CHEST ONE VIEW, PORTABLE ([id number]) INDICATIONS: post intubation TECHNIQUE: One view of the chest was acquired. COMPARISON: [facility], CR, XR CHEST 1VW (PORTABLE), 09/12/2016, 19: 44. FINDINGS: Surgical changes and devices: ET tube is 4.1 cm superior to the alisa. NG tube crosses the GE junction.. Cervical spine fixation hardware Lungs and pleura: No pleural effusions or pneumothorax. Lungs are clear. Mediastinum: Mediastinal contours appear normal. Heart size is normal. Bones and chest wall: No suspicious bony lesions. Overlying soft tissues appear unremarkable. IMPRESSION: No acute cardiopulmonary disease process. Dictated by: Reyna Walsh MD, PhD on 09/12/2016 at 21:08 Approved by: Reyna Walsh MD, PhD on 09/12/2016 at 21:09 CT Abd / Pelvis Interpretation IMPRESSION: small amount of free pelvic fluid. No other acute findings. Lung base opacities atelectasis versus infiltrate. NG tube tip in the proximal stomach. Tatyana Mcdonald M.D. Study type: Abdominal CT IV contrast Interpretation / Wet Read by: Interpret - Radiologist 12-lead ECG Sinus tach rate 104, no ST segment changes Additional Diagnostics venous blood gas 7:43 PM 09/12/2016 pH 6.867 pCO2 18 pO2 78.2 cHCO3- 3.1 cBase -29.4 ABG Interpretation: Repeat: pH 6.685 pCO2 36 pO2 68.2 cHCO3- 4.3 cBase -29.8 Assessment & Plan Ms. Mao Taylor is a 51yoF with history of type one diabetes, fibromyalgia, polysubstance abuse brought by EMS, found to be alert and oriented to self in DKA. She was later intubated in the ED secondary to respiratory distress and need to maintain her airway. She was admitted for evaluation and treatment of severe metabolic acidosis secondary to DKA with associated acute hypoxic respiratory failure, suspected PNA, and RAFA. - Hospital day 3 - Ventilator day 3 1. Acute hypoxic respiratory failure, POA; ongoing - intubated in ED secondary to respiratory distress and airway compromise - pulm consult, vent and critical care management, recs appreciated - vent: FiO2 0.3, PEEP 5, RR22, Vt 400 - propofol and fentanyl for sedation, decrease per pulm team for appropriateness of SBT/extubation plan - Ativan pushes prn for agitation - Consideration of changing propofol to ativan gtt for questionable history of use/abuse - Trend triglycerides q3d secondary to propofol use; previous TG level 10/10 elev at 446 2. Septic shock, acute, POA; ongoing - unclear source, most likely PNA - Resp PCR negative; BCx negative to date - CSF Cx/GS: No growth to date - cont abx: vanco, Zosyn, azithro - norepinephrine with goal MAP >60 3. DKA, acute, POA; improved -severe metabolic acidosis on presentation pH 6.8 decreasing to 6.6 on repeat ABG, 2/2 gap 33 - On admit: K 5.7; glc 623; + serum ketones - 1amp bicarb given in ED, bicarb gtt started upon arrival to floor; now DC'd - unclear etiology, possible non-compliance vs occult infection, trop neg - head CT negative, LP less likely meningitis, CT abd / pelvis with possible PNA , CXR neg - DKA protocol, continue with IV fluids and insulin drip - Med rec shows glargine 15U qhs + humulin-R sliding scale - Recheck gap with afternoon labs to ensure closure; transition to non-DKA gtt when stabilized 4. Hypokalemia, acute, not present on admission. Under therapy - K 2.6 - Replace with 80 mEq - Afternoon BMP - Replace prn 5. Acute kidney failure, acute, POA. Resolved -most likely pre-renal given DKA 6. Leukocytosis, acute, POA; improved - multifactorial, acute stress response 2/2 DKA vs possible underlying infection - possible PNA, CAP vs HCAP - treatment with piperacillin-tazobactam / vanc ( pharm to dose) - Follow clinically and with serial labs 7. Anemia, microcytic, hypochromic; unknown chronicity; stable - may be secondary to fluid resuscitation - decreased hgb from 12.3 to 10.4 to 9.8 following admission - pantoprazole bolus and gtt started Chronic Issues 8. Type 1 Diabetes, chronic -history of uncontrolled diabetes -hgbA1c pending 9. COPD, chronic -as per medical record 10. Fibromyalgia -monitor 11. H/o polysubstance abuse, chronic - On admit: UTox + benzos, + TCA -as per brother history of narcotic use and ETOH use -monitor for withdrawal when appropriate -banana bag given - Ativan IV prn pushes avail - Consideration of changing propofol to ativan, as noted above 12. Tobacco dependence, chronic -as per EMR history of tobacco dependence -consideration of patch/lozenge when stabilized - DVT: SCDs - GI: PPI gtt - Diet: NPO/none - PRN bowel, fever, antiemetic, pain - High risk meds: Norepi - Code: FULL CODE Dispo: Likely to remain > 2 days; patient remains intubated. Anticipate extubation within next 1-2 days, speech eval at that time to determine nutrition. Pain Evaluation: Adequate Pain Control GI Prophylaxis: H2 ike VTE Prophylaxis: Sub-Q Heparin (Unfractionated) Resuscitation Status: CPR: Attempt Resuscitation Time spent 45 minutes Attending Statement Patient seen and examined with resident, agree with all documentation. Jennifer Fox DO Sep 14, 2016 08:03 Stan Flores MD Sep 14, 2016 16:18
--- NOTE | 2016-09-14 14:40 | NUR ---
Wound Care K[facility] Patient assessed per pressure ulcer protocol. On CCU NAKUL bed. Patient intubated with soft wrist restraints. Nursing turning q2 hours, however RN reports patient fidgets and is restless in bed, often turning self back opposite way from how she was positioned. No redness or areas of pressure noted to skin. Recommended continue NAKUL bed and q2 hour turning schedule. Wound care to follow up as needed.
[2016-09-14] MEDS: LORazepam 100 mg/100 mL NS 100 MG in IV Premix 100 EACH IV SCH (15:02)
--- NOTE | 2016-09-14 15:24 | NUR ---
NUTRITION ASSESSMENT Assess: 51 yo female is a Type I Diabetic admitted w/ DKA and associated acute hypoxic respiratory failure. She is currently intubated and sedated. Attempts to wean from ventilator unsuccessful d/t pt agitation. Upon admission, pt experienced acute kidney failure, likely related to DKA, which has resolved. PMHx: Type I DM, COPD, Fibromyalgia, polysubstance abuse, tobacco dependence, cervical cancer LABS: K 2.6, Cl 110, Sales Professional 0.51, Gluc 149, Ca 7.0, Alb 2.3, Procalcitonin 1.74 MEDICATIONS: Propofol @ 12 ml/hr providing 317 kcal, Fentanyl, Norepinephrine, Insulin, Zofran CURRENT DIET: NPO x 2 days GI symptoms/stool: 0 BM noted SKIN: Obed 8 WC pending ANTHROPOMETRICS: Current Wt: 52.2 kg BMI: 21.0 kg/m2 IBW: 50.0 kg ESTIMATED NEEDS: Vented Calories: 9227-6702 kcal/day (20-25 kcal/kg BW) Protein: 80-95 g/day (1.5-1.8 g/kg BW) Fluids: ~1500 ml/day (Approx 1 ml/kcal/d) NUTRITION DIAGNOSIS: 1) Inadequate oral intake related to decreased ability to consume sufficient energy as evidenced by current NPO status x 2 days. INTERVENTION: 1) Recommend starting nutrition support if pt remains NPO another 24-28 hours. MONITOR/EVALUATE: NPO/vent status, labs, wt, GI, POC. Will continue to monitor per high nutritional risk guidelines. Addendum: 09/14/16 at [address] Auxiliary student documentation reviewed. I agree with above documentation. Eliezer Whittaker RDN, CD
[2016-09-14] MEDS: Albuterol-Ipratropium 3 mL Inhalation Solution NEB SCH ×2 (15:49→20:13)
[2016-09-14] MEDS ORDERED: 0.9% Sodium Chloride 250 ML ONE (16:17)
--- NOTE | 2016-09-14 18:48 | NUR ---
RESTLESSNESS/SEDATION/RESPIRATORY/HEMODYNAMICS Patient restless for most of shift, requiring multiple bolus doses of Fentanyl and Ativan, so Ativan gtt started at 2 mg/hr and Propofol slowly weaned, currently off. Patient currently sedated w/ Fentanyl at 50 mcg/hr and Ativan gtt at 2 mg/hr, and remains passive w/ these doses. Continues on ventilator at 30% FiO2/5 PEEP/22 Rate/400 Vt, she does not appear to be in respiratory distress, tolerating ventilator well. Continues to require Levophed at 0.15 mcg/kg/min to maintain MAP >65, BP decreased when attempted to wean. Will continue to monitor.
[2016-09-14] MEDS ORDERED: KCl 40 mEq/100 mL Premix (K 3 - 3.7 & Creat < 2) IV ONE (21:10)
--- NOTE | 2016-09-14 21:10 | CONS ---
[address] [address] CONSULTATION REPORT PATIENT: MAO TAYLOR : 1965 MR#: [id number] ADMIT: 09/12/2016 JOB ID: [id number] DATE OF SERVICE: 09/14/2016 REASON FOR FOLLOWUP: Sepsis as cause of diabetic ketoacidosis. I thank Dr. Norma Fox for this timely consult. HISTORY OF PRESENT ILLNESS: The patient is an unfortunate 51-year-old woman with underlying type 1 diabetes and a history of osteomyelitis of her right arm as well as polysubstance abuse. She was admitted other under rather unclear circumstances yesterday. Someone apparently called EMS to assess the patient and the boyfriend apparently came with her to the ED where she was initially found to be short of breath but alert and oriented. Very shortly after admission, though she became more short of breath, developed respiratory failure and required emergent intubation. Attempts by the ED and Internal Medicine staff to contact relatives indicated that she is estranged from her family and there was very little additional history available. Apparently, she lives with her mother and her mother about six months ago and, since then, it is a little unclear where she has been or what she has been doing. There is clearly a history of opioid and alcohol abuse in the past. We do have [facility] notes available from summer 2015 that report a right buttock deep decubitus ulcer as well as an abscess. The history from the [facility] indicates she did a lot of sitting to the point she developed a decubitus ulcer. Their notes indicate the patient was taking a variety of medicines when seen in the [facility] this summer including acyclovir, albuterol, fluconazole, gabapentin, insulin, lisinopril and tramadol. Review of the chart also indicates the patient had chronic cholecystitis in the past and underwent cholecystectomy. Otherwise, there is not too much to be learned from her old records. This afternoon, the patient is intubated and sedated on vasopressors in the ICU. I am obviously unable to get any more history. PAST MEDICAL HISTORY: 1. Type 1 diabetes mellitus. 2. Polysubstance abuse including opiates. 3. History of alcoholism. 4. Asthma. 5. GERD. 6. Hyperlipidemia. 7. History of decubitus ulcer March 2016, right buttock. 8. History of right humerus osteomyelitis, resolved. SOCIAL HISTORY: Positive for the opiate and alcohol use. The patient is also reported to be a heavy and ongoing cigarette smoker for the past 35-40 years. FAMILY HISTORY: Cannot be obtained. REVIEW OF SYSTEMS: Cannot be done as the patient is intubated and sedated. PHYSICAL EXAMINATION: Reveals a critically ill woman lying supine in the ICU. During her 36 hours in the hospital, she has had temperatures as high as 38.9 which was yesterday morning just after admission. This morning though she was still 38 degrees though right now she is 36.9. Her pulse is approximately 100, blood pressure 113/63, but she is on moderately high doses of norepinephrine to sustain that blood pressure. She is only on 30% FiO2 and 5 of PEEP and is saturating well. The respiratory therapist in the room says there are scant greenish secretions from her airway. Examination of the head reveals no evidence of trauma. The eyes are without conjunctival or scleral abnormalities. The nose is normal. Oral endotracheal tube and oral gastric tube in good position. The patient's neck is supple. Her right arm does not show evidence of ongoing infection or septic joint. The patient's multiple peripheral and central IV lines were examined and all appear uninfected which is not unexpected as they were all placed in the last 36 hours. An A-line is also present. The patient's lungs are notable for extensive wheezing bilaterally with a few crackles at both bases. Cardiac tones: Regular rate and rhythm without notable murmur. The abdomen is soft and nontender. A Miles catheter is present, draining clear yellow urine. The lower extremities are notable for multiple crusted lesions which would indicate recurrent minor trauma to the lower extremities on both sides. The feet are reasonably well perfused and without any heel ulcers. No skin rashes noted. Neurologic exam is not possible as the patient is intubated and sedated. There is no synovitis involving the joints or other notable abnormality. LABS: Include white count 17,000 yesterday, today 13. Platelets 350. Differential white count relatively normal. Creatinine is 0.51, down from 0.93 yesterday. Lactic acid 1.3. LFTs completely normal. Albumin 2.3. Pro calcitonin is 1.74, up from 1.38 when she was in the ED the night before last. Tox screen positive for amphetamines and cannabinoids. On prior visits, I do not see a tox screen from this admission. Ketones in urine positive 1-32. Note that a lumbar puncture was done which showed 9 white blood cells and 1100 red cells. The diff was 65% monocytes, 35% polys. The total protein was 47 in the spinal fluid and the glucose 412. Blood cultures negative. Sputum with rare polys and mixed luis felipe seen on Gram stain, but it is actually growing Staph aureus. The culture of the cerebrospinal fluid is negative and MRSA screen negative. Respiratory viral PCR panel negative. IMAGING: Includes a chest x-ray which shows bibasilar atelectasis versus pneumonia. These infiltrates are quite subtle. An abdominal CT was done shortly after admission. It shows that the gallbladder has been surgically removed. There are no acute findings in the abdomen and some patchy infiltrates at the bases consistent with atelectasis. A brain CT done because of her altered mental status was basically normal. IMPRESSION: This is a difficult case in that the woman presents with almost no history. Apparently, she was brought to the ED by EMS but her boyfriend came with her but left shortly thereafter. She was awake briefly in the ED and then developed respiratory failure requiring intubation. She was found to have diabetic ketoacidosis with a pH of only 6.8, and efforts are underway to correct her diabetic ketoacidosis and profound ketoacidosis. The precipitating cause of her DKA remains unclear though possibilities here might include a pulmonary infection or meningitis. There is nothing on the exam to suggest intra-abdominal infection or any other localizing source of soft tissue infection. Of interest is her sputum which is already growing Staph aureus, though her x-ray looks more like some minimal atelectasis bilaterally than a referring MRSA or MSSA pneumonia. Also of concern is her spinal fluid. Patient had only 9 cells but this is not normal. She did have 1100 white cells which could probably decrease her CSF white count to about 7, but this would still be slightly above the 6 cut-off we usually employee for a cut-off abnormality. RECOMMENDATIONS: 1. I have ordered that the CSF be tested with the multiplex PCR. The CSF is just on the borderline of being normal in terms a cell count, but I am nonetheless worried about the bizarre sequence of events which has led to this patient's intubation. I think it is incumbent upon us to make sure there is not evidence for a viral encephalitis or bacterial meningitis. 2. The patient is on azithromycin and Zosyn and received a single dose of vancomycin. These are reasonable places to start in terms of treating a possible pneumonia, as the Vanco will last for awhile while we figure out the nature of the Staph aureus present in her sputum. 3. ID will continue to follow closely in this most interesting case with you. I would leave open the possibility that the patient actually has no infection and that she rather just suffered a DKA with some other noninfectious cause, but I do agree at this point it is reasonable to keep her broadly covered as we sort things out.
[2016-09-14] MEDS: Insulin Human REGular Inj 100 UNIT in 0.9% Sodium Chloride 100 ML IV SCH (23:30)
[2016-09-15] VITALS (16 sets, daily range): BP systolic 87–125; BP diastolic 46–92; PULSE 96–108; RESP 18–28; O2SAT 96–100
[2016-09-15] MEDS: Chlorhexidine 0.12% 15 mL Oral Solution MT SCH ×6 (00:32→19:46)
[2016-09-15] MEDS: Norepineph 8,000 mCg/250 mL NS 8,000 MCG in IV Premix 1 EACH IV SCH ×2 (00:45→13:05)
[2016-09-15] MEDS: Lactated Ringer's 1,000 ML IV SCH ×4 (00:45→21:49)
[2016-09-15] MEDS: Pantoprazole Inj 80 MG in 0.9% Sodium Chloride 80 ML IV SCH ×2 (02:20→06:48)
[2016-09-15] MEDS: Piper-Tazo 3.375 Gm/50 mL D5W Minibag Plus - Q8H over 4 hrs IV SCH ×6 (02:40→17:06)
[2016-09-15] MEDS: fentaNYL 2,500 mCg/250 mL 2,500 MCG in IV Premix 1 EACH IV SCH (02:40)
[2016-09-15 03:03] LABS: BASOPHILS % (AUTO) 0.7 % (0-3); MONOCYTES % (AUTO) 5.7 % (4-12); Mean Corpuscular Hemoglobin 19.4 pg (27.0-35.0); Mean Corpuscular Volume 62.7 fL (81-100); NEUTROPHILS % (AUTO) 72.3 % (40-74); Platelet Count 338 bil/L (150-400)
[2016-09-15] MEDS ORDERED: Vancomycin Serum Trough XX ONE (03:30)
[2016-09-15 03:52] LABS: Magnesium 1.4 mg/dL (1.6-2.6); Phosphorus 1.9 mg/dL (2.5-4.9)
--- NOTE | 2016-09-15 04:53 | ABG ---
DateTimeAnalyzed 04:47:00 -_ pH ____7.462 - 7.350 7.450 pCO2 ___35.5__ -mmHg 35.0 45.0 pO2 ___75.6__ -mmHg 69.0 116 HCO3- ___25.0__ -mmol/L 22.0 26.0 ABE ____1.7__ -mmol/L -2.0 2.0 tHb ____9.1__ -g/dL O2Hb ___94.4__ -% COHb ____1.8__ -% MetHb ____0.9__ -% sO2 ___97.0__ -% FIO2 ___30.0__ -% PRVC 22 - PEEP ____5.0__ -cmH2O Set_RR ___22.0__ -b/min Vt __400.0__ -L Drawn By MM - Date/Time Notified____ 04:53:00 -_ Spontaneous_RR ___22.0__ -b/min Oxygen Device 1 VENTILATOR - Notified By MM - Notified Whom RN - B 750 -mmHg tO2 ___12.1__ -Vol% Stan test N/A -
[2016-09-15] MEDS ORDERED: DEXTROSE 5% IV ONE (05:45)
[2016-09-15] MEDS ORDERED: SODIUM PHOSPHATE IV ONE (05:45)
[2016-09-15] MEDS ORDERED: Mag Sulf 4 Gm/100 mL IV Premix (Mag < 1.6 & Creat < 2) IV ONE (05:45)
--- NOTE | 2016-09-15 05:45 | NUR ---
BP/Sedation/ Pt BP stable throughout night. Able to almost wean pt completely off Levophed gtt. Sedated with Ativan and Fentanyl with no signs of restlessness, overbreathing vent like previous NOC shift. Able to start to wean sedation as well, and pt tolerating fine. Will continue to monitor pt. Care ongoing
[2016-09-15] MEDS: Albuterol-Ipratropium 3 mL Inhalation Solution NEB SCH ×4 (06:19→20:40)
[2016-09-15] MEDS: Azithromycin Inj 500 MG in Dextrose 5% w/Vial Mate 250 ML IV SCH (07:31)
[2016-09-15] MEDS: Senna-Docusate 8.6-50 mg Tablet PO SCH ×2 (07:31→19:46)
[2016-09-15] MEDS ORDERED: Lactated Ringer's 500 ML IV ONE (07:55)
--- NOTE | 2016-09-15 09:27 | DRSVH ---
PROCEDURE: X-RAY CHEST ONE VIEW, PORTABLE ([id number]) INDICATIONS: intubated TECHNIQUE: One view of the chest was acquired. COMPARISON: [facility], CR, XR CHEST 1VW (PORTABLE), 09/14/2016, 9:42. FINDINGS: Surgical changes and devices: Stable position of ETT and right IJ CVL. Nasogastric tube has been fur ther advanced. Lungs and pleura: No pleural effusions or pneumothorax. Lungs are clear. Mediastinum: Mediastinal contours appear normal. Heart size is normal. Bones and chest wall: No suspicious bony lesions. Overlying soft tissues appear unremarkable. IMPRESSION: 1. Support lines and tubes as above. 2. No definite acute cardiopulmonary process. Dictated by: Laron Holm RRA Interpreted: Fabián Talbot MD on 09/15/2016 at 9:26 Transcribed by: EVAN on 09/15/2016 at 9:26 Approved by: Fabián Talbot M.D. on 09/15/2016 at 19:07
--- NOTE | 2016-09-15 09:32 | PCM.PNMED ---
Subjective Date of Service Sep 15, 2016 Subjective Overnight: No acute events reported, less agitation and restlessness noted with change to ativan from propofol. Today: Remains intubated and sedated. No acute distress noted. ROS could not be obtained. Aroused to touch, but non-purposeful. Vent: PRVC FiO2 30 PEEP 5 R22 Vt 400 Info: Mg 1.4, WBC 12.2, Phos 1.9, albu 2.3 Net + approx 5L; 24h UOP 4250 Exam Vital Signs Vital Sign - Last Date Time Temp Pulse Resp B/P Pulse Ox O2 Delivery O2 Flow Rate FiO2 09/15/16 07:16 105 90/46 98 30 09/15/16 04:35 37.5 22 Mechanical Ventilator Intake and Output 09/14/16 09/14/16 09/15/16 Cumulative From/Thru 15:00 23:00 07:00 09/12/16 19:29 - 09/15/16 05:41 Intake Total 2926 ml 1601 ml 24562 ml Output Total 2900 ml 1150 ml 9750 ml Balance 26 ml 451 ml 5330 ml Intake IV Total 2926 ml 1601 ml 63834 ml Output Urine Total 2650 ml 1000 ml 7650 ml Gastric Drainage Total 250 ml 150 ml 2100 ml # Bowel Movements 0 0 0 Exam General: Intubated and sedated; no acute distress HENT: Atraumatic; sclera anicteric, mucus membranes moist; ETT in place Neck: Soft, no lymphadenopathy; trachea midline by palpation Cardiac: Tachycardic rate and rhythm at time of examination; no murmurs appreciated Respiratory: Bilateral faint coarse sounds at bases extending to midfields without expiratory wheeze Abdomen: Soft, nontender, nondistended Extremities: No edema Skin: Warm and dry; cool distal extremities Neuro: Unable to assess secondary to intubation and sedation Psych: Unable to assess secondary to intubation and sedation Lab and Diagnostics Result Diagram: 09/15/1623409/15/16234 X-Rays, CTs and MRIs Patient Name: MAO TAYLOR MR#: [id number] Location: [facility] [place] Ordering Phys: Jemal Rodriguez MD Date of Service: 09/12/162028 PROCEDURE: CT BRAIN WITHOUT CONTRAST ([id number]) INDICATIONS: altered mental status TECHNIQUE: Noncontrast 4.5 mm thick angled axial sections acquired from the foramen magnum to the vertex, with coronal reformats. COMPARISON: [facility], CT, BRAIN W/O CONTRAST, 08/21/2014, 16:07. FINDINGS: Image quality: Limited by patient motion. CSF spaces: Basal cisterns are patent. No extra-axial fluid collections. Ventricles are normal in size and shape. Brain: No midline shift. No intracranial masses or hemorrhage. Gomes-white matter interface is normal. Skull and face: Calvarium and visualized facial bones are intact, without suspicious lesions. Sinuses: Visualized sinuses and mastoids are clear. IMPRESSION: No acute intracranial disease process identified within limitations caused by motion artifact. Dictated by: Reyna Walsh MD, PhD on 09/12/2016 at 21:00 Approved by: Ryena Walsh MD, PhD on 09/12/2016 at 21:03 Patient Name: MAO TAYLOR MR#: [id number] Location: [facility] Ordering Phys: Jemal Rodriguez MD Date of Service: 09/12/162028 PROCEDURE: X-RAY CHEST ONE VIEW, PORTABLE ([id number]) INDICATIONS: post intubation TECHNIQUE: One view of the chest was acquired. COMPARISON: [facility], CR, XR CHEST 1VW (PORTABLE), 09/12/2016, 19: 44. FINDINGS: Surgical changes and devices: ET tube is 4.1 cm superior to the alisa. NG tube crosses the GE junction.. Cervical spine fixation hardware Lungs and pleura: No pleural effusions or pneumothorax. Lungs are clear. Mediastinum: Mediastinal contours appear normal. Heart size is normal. Bones and chest wall: No suspicious bony lesions. Overlying soft tissues appear unremarkable. IMPRESSION: No acute cardiopulmonary disease process. Dictated by: Reyna Walsh MD, PhD on 09/12/2016 at 21:08 Approved by: Reyna Walsh MD, PhD on 09/12/2016 at 21:09 CT Abd / Pelvis Interpretation IMPRESSION: small amount of free pelvic fluid. No other acute findings. Lung base opacities atelectasis versus infiltrate. NG tube tip in the proximal stomach. Tatyana Mcdonald M.D. Study type: Abdominal CT IV contrast Interpretation / Wet Read by: Interpret - Radiologist 12-lead ECG Sinus tach rate 104, no ST segment changes Additional Diagnostics venous blood gas 7:43 PM 09/12/2016 pH 6.867 pCO2 18 pO2 78.2 cHCO3- 3.1 cBase -29.4 ABG Interpretation: Repeat: pH 6.685 pCO2 36 pO2 68.2 cHCO3- 4.3 cBase -29.8 Assessment & Plan Ms. Mao Taylor is a 51yoF with history of type one diabetes, fibromyalgia, polysubstance abuse brought by EMS, found to be alert and oriented to self in DKA. She was later intubated in the ED secondary to respiratory distress and need to maintain her airway. She was admitted for evaluation and treatment of severe metabolic acidosis secondary to DKA with associated acute hypoxic respiratory failure, suspected PNA, and RAFA. - Hospital day 4 - Ventilator day 4 1. Acute hypoxic respiratory failure, present on admission; ongoing - intubated in ED secondary to respiratory distress and presumed airway compromise - pulm consult, vent and critical care management, recs appreciated - vent: FiO2 0.3, PEEP 5, RR22, Vt 400 - Ativan and fentanyl for sedation, decrease per pulm team for appropriateness of SBT/extubation plan - Ativan utilized secondary to suspected benzo dependence/history of use, and effectiveness compared to propofol - Trended triglycerides q3d secondary to propofol use; previous TG level 10/10 elev at 446; repeat 09/15 74 - Decrease fentanyl as tolerated; maintain Ativan; continual assessments 2. Septic shock, acute, present on admission; ongoing - unclear source, most likely PNA - Sputum Cx: + probable staph - MRSA screen negative - Resp PCR negative; BCx negative to date - Initial CSF Cx/GS: No growth to date - cont abx: Merlysyn, bhaskarro - ID has been consulted, appreciate time and recommendations. We are failing to find a infectious source for sepsis at this point. We will attempt to wean vasopressors off with fluid resuscitation and will likely stop empiric antibiotics on September 16 if cultures remain negative. - Eval CSF PCR, completely negative - norepinephrine with goal MAP >60 - LR bolus 500 x1; repeat prn 3. DKA, acute, POA; improved - severe metabolic acidosis on presentation pH 6.8 decreasing to 6.6 on repeat ABG, 09/10 gap 33 - On admit: K 5.7; glc 623; + serum ketones - 1amp bicarb given in ED, bicarb gtt started upon arrival to floor; now DC'd - unclear etiology, possible non-compliance vs occult infection, trop neg - head CT negative, LP less likely meningitis, CT abd / pelvis with possible PNA , CXR neg - Non-DKA protocol initiated with D5 1/2 as solution - Med rec shows glargine 15U qhs + humulin-R sliding scale 4. Hypokalemia, acute, not present on admission. Resolved - K 2.6 09/14 - Replaced with 80 mEq - Replace prn 5. Acute kidney failure, acute, POA. Resolved -most likely pre-renal given DKA 6. Leukocytosis, acute, POA; improved - multifactorial, acute stress response 2/2 DKA vs possible underlying infection - possible PNA, CAP vs HCAP - treatment with piperacillin-tazobactam (pharm to dose) - Follow clinically and with serial labs 7. Anemia, microcytic, hypochromic; unknown chronicity; stable - may be secondary to fluid resuscitation - decreased hgb from 12.3 to 10.4 to 9.8 following admission - pantoprazole bolus and gtt started; change from gtt to pushes: 40mg IV BID Chronic Issues 8. Type 1 Diabetes, chronic -history of uncontrolled diabetes -hgbA1c pending 9. COPD, chronic -as per medical record 10. Fibromyalgia -monitor 11. H/o polysubstance abuse, chronic - On admit: UTox + benzos, + TCA - as per brother history of narcotic use and ETOH use - monitor for withdrawal when appropriate - banana bag given - Receiving ativan gtt for sedation - DUST BOX TENDER consult when appropriate 12. Tobacco dependence, chronic -as per EMR history of tobacco dependence -consideration of patch/lozenge when stabilized - DVT: SCDs - GI: PPI - Diet: NPO/none - PRN bowel, fever, antiemetic, pain - High risk meds: Norepi - Code: FULL CODE Dispo: Likely to remain > 2 days; patient remains intubated. Anticipate extubation within next 1-2 days, speech eval at that time to determine nutrition. D[employer] BOX TENDER needs may later include substance use counseling/services, when patient able to communicate use history and needs. Pain Evaluation: Adequate Pain Control GI Prophylaxis: H2 ike VTE Prophylaxis: Sub-Q Heparin (Unfractionated) Resuscitation Status: CPR: Attempt Resuscitation Time spent 60 minutes Attending Statement Patient was seen and examined with resident, agree with all attached documentation Jennifer Fox DO Sep 15, 2016 07:38 Stan Flores MD Sep 15, 2016 18:20
--- NOTE | 2016-09-15 11:03 | NUR ---
NUTRITION FOLLOW UP Assess: 51 yo female is a Type I Diabetic admitted w/ DKA and associated acute hypoxic respiratory failure. She is currently intubated and sedated. Attempts to wean from ventilator unsuccessful d/t pt agitation. Pt changed from propofol to ativan. Upon admission, pt experienced acute kidney failure, likely related to DKA, which has resolved. Mg and Phos low replacements scheduled. Per verbal orders from MD, start enteral feedings today. PMHx: Type I DM, COPD, Fibromyalgia, polysubstance abuse, tobacco dependence, cervical cancer LABS: Cl 110, BUN 5, Exit Booth Agent 0.34, Gluc 122, Ca 7.1, Phos 1.9, Mg 1.4, Alb 2.3, Procalcitonin 0.33 MEDICATIONS: Fentanyl, Norepinephrine, Insulin, Sodium Phosphate, Ativan CURRENT DIET: NPO x 3 days GI symptoms/stool: 0 BM noted Receiving Senna SKIN: Obed 8 No pressure ulcer per [facility] ANTHROPOMETRICS: Current Wt: 50 kg BMI: 20.2 kg/m2 IBW: 50.0 kg Admit Wt: 48.3 kg ESTIMATED NEEDS: Vented Calories: 3370-2098 kcal/day (20-25 kcal/kg BW) Protein: 75-90 g/day (1.5-1.8 g/kg BW) Fluids: 8280-0591 ml/day (Approx 1 ml/kcal/d) NUTRITION DIAGNOSIS: 1) Inadequate oral intake related to decreased ability to consume sufficient energy as evidenced by current NPO status x 2 days.---PERSISTS NPO X 3 DAYS INTERVENTION: 1) Recommend starting enteral nutrition of Glucerna 1.5 @ 10 ml/hr for 24 hours. Will monitor closely for refeeding. 2) Once tolerated, recommend increasing TF rate by 10 ml/hr q 4 hrs to goal rate of 38 ml/hr to provide 1254 kcal and 69g of protein, meeting 100% of calorie needs and 86% of protein needs. 3) Once tolerated, recommend adding one packet of Prosource to increase total protein intake to 80g, meeting 100% of needs. MONITOR/EVALUATE: TF start/lilly, vent status, labs, wt, GI, POC. Will continue to monitor per high nutritional risk guidelines. Addendum: 09/15/16 at [address] I have read and agree with above student documentation. Taylor Garza RD, CD
[2016-09-15] MEDS: D5W1/2NS 1,000 mL IV PRN (13:04)
--- NOTE | 2016-09-15 13:50 | PROG NOTE ---
[address] [address] PROGRESS NOTE PATIENT: MAO TAYLOR : 1965 MR#: [id number] ADMIT: 09/12/2016 JOB ID: [id number] DATE: 09/15/2016 INFECTIOUS DISEASE FOLLOWUP NOTE: REASON FOR FOLLOWUP: DKA with possible underlying sepsis. INTERVAL HISTORY: The patient remains intubated, sedated on the ventilator, and requiring vasopressor agents. When she is examined today she seems to withdraw, but otherwise is not interactive in any way and does not open her eyes or follow commands to voice. This case was discussed extensively during ICU rounds and personally with the attending physician, Dr. Flores. PHYSICAL EXAMINATION: Reveals a woman who is intermittently febrile. She was febrile yesterday to 38.9 and today 38.4 at 8 a.m. She is afebrile right now at 37. Pulse 96, respiratory rate 20, blood pressure 99/48. She is saturating well on the vent on 30% FiO2 and only 5 of PEEP. Examination of the head reveals no notable abnormalities. The eyes are without conjunctivitis. Oral endotracheal tube and orogastric tube were present. There are no herpetic lesions of the lips. Neck is supple. Lungs clear to auscultation bilaterally. Cardiac tones regular rate and rhythm to sinus rhythm on the monitor. Pulse in the 90s. The abdomen is slightly firm, perhaps diffusely to palpation, but this may be as the patient may anxious as she does withdrawal when she is touched and maybe reacting to her ICU situation. In any event, I cannot palpate liver, spleen, or anything abnormal. Miles catheter is present. There is no significant edema, cellulitis, or swelling of the lower extremities. LABORATORIES: Include a white count of 12,200, which is steadily coming down. Normal diff at this time. Creatinine 0.34. LFTs normal. Albumin 2.3. Procalcitonin was 1.74 yesterday and is all the way down to 0.33 today. Urinalysis had no pyuria on admission. Ketones were 1-32 on admission, not repeated. The spinal fluid recall had 9 cells with elevated glucose of course, given the patient's glucose was extremely elevated. The PCR of the spinal fluid was just reported as completely negative and the cultures of the spinal fluid are negative so far. Blood cultures are negative. MRSA screen is negative. A sputum culture is growing mixed organisms including what appears to be some Staph aureus and maybe some enterococci. The chest x-ray today is read as basically normal. No infiltrate. The abdominal CT done previously shows what appears to be atelectasis at the bases and no significant other abnormality. IMPRESSION: This is a bit of a confusing case of a woman on whom we have little history who presented with diabetic ketoacidosis related to her diabetes. Her pH was extraordinarily low and she required very aggressive resuscitation and intubation. Since her arrival here, now three and half days ago, she has been persistently hypotensive and continues to require moderate doses of norepinephrine to support her blood pressure. Because of her ongoing fevers and elevated procalcitonin we have certainly been concerned that a bacterial infection may be "pushing" her diabetic ketoacidosis. So far we have little evidence for that, as a lumbar puncture is basically normal with a borderline number of white cells but a negative PCR and culture. Likewise, there is little to suggest pulmonary infection, even though her airway does appear to be colonized with Staph aureus. We have basically a normal chest x-ray today and she oxygenates very well on 30% and produces minimal sputum. Her abdomen was completely CT'ed when she came in and it is also normal, and her urine is without pyuria. Despite all that, I think we should continue broad-spectrum antibiotics at least for the next day or so as she does have a dropping procalcitonin with antibiotics and intermittent spiking fevers. RECOMMENDATIONS: 1. Will continue with azithromycin and Zosyn. 2. We await further maturation of our multiple cultures including especially the blood cultures. 3. Attempts are underway to continue to wean off her vasopressor agents. 4. No additional MRSA drugs are indicated at this time as we so far have no evidence for a MRSA type infection. This case was discussed with Dr. Flores.
[2016-09-15] MEDS ORDERED: Albumin 25% 50 GM in IV Premix 1 EACH IV ONE (15:00)
[2016-09-15] MEDS: Pantoprazole 4 mg/mL 10 mL Inj IVPUSH SCH (16:42)
--- NOTE | 2016-09-15 16:50 | PCM.PNMED ---
Subjective Date of Service Sep 15, 2016 Subjective ICU/pulmonary Patient is doing well on Ativan overnight. Patient is very mildly arousable on Ativan 1 mg per hour. Unable to review systems is patient is unable to converse. Exam Vital Signs Vital Sign - Last Date Time Temp Pulse Resp B/P Pulse Ox O2 Delivery O2 Flow Rate FiO2 09/15/16 16:08 96 111/92 96 30 09/15/16 15:52 Ventilator 09/15/16 15:45 37.5 28 Intake and Output 09/14/16 09/14/16 09/15/16 Cumulative From/Thru 15:00 23:00 07:00 09/12/16 19:29 - 09/15/16 05:41 Intake Total 2926 ml 1601 ml 30542 ml Output Total 2900 ml 1150 ml 9750 ml Balance 26 ml 451 ml 5330 ml Intake IV Total 2926 ml 1601 ml 25712 ml Output Urine Total 2650 ml 1000 ml 7650 ml Gastric Drainage Total 250 ml 150 ml 2100 ml # Bowel Movements 0 0 0 Exam Gen.: Patient is sedated and intubated, and some agitation with removal of sedation HEENT: NG tube in place, ET tube at 22 Cardio: Regular rate and rhythm no murmurs rubs gallops Respiratory: Mild wheezes and periphery. Abdomen: Positive bowel sounds, soft Extremities: No edema, appeared to be malnourished atrophy; mild swelling of the hands Psych: Agitated or sedated Neuro: Sedated Skin: No mass healing abrasion on the lower extremities, no rashes IVs and Medications Medications Reviewed: Medications were reviewed in detail Lab and Diagnostics Result Diagram: 09/15/1623409/15/16234 X-Rays, CTs and MRIs Patient Name: MAO TAYLOR MR#: [id number] Location: SED Ordering Phys: Jemal Rodriguez MD Date of Service: 09/12/162028 PROCEDURE: CT BRAIN WITHOUT CONTRAST ([id number]) INDICATIONS: altered mental status TECHNIQUE: Noncontrast 4.5 mm thick angled axial sections acquired from the foramen magnum to the vertex, with coronal reformats. COMPARISON: [facility], CT, BRAIN W/O CONTRAST, 08/21/2014, 16:07. FINDINGS: Image quality: Limited by patient motion. CSF spaces: Basal cisterns are patent. No extra-axial fluid collections. Ventricles are normal in size and shape. Brain: No midline shift. No intracranial masses or hemorrhage. Gomes-white matter interface is normal. Skull and face: Calvarium and visualized facial bones are intact, without suspicious lesions. Sinuses: Visualized sinuses and mastoids are clear. IMPRESSION: No acute intracranial disease process identified within limitations caused by motion artifact. Dictated by: Reyna Walsh MD, PhD on 09/12/2016 at 21:00 Approved by: Reyna Walsh MD, PhD on 09/12/2016 at 21:03 Patient Name: MAO TAYLOR MR#: [id number] Location: SED Ordering Phys: Jemal Rodriguez MD Date of Service: 09/12/162028 PROCEDURE: X-RAY CHEST ONE VIEW, PORTABLE ([id number]) INDICATIONS: post intubation TECHNIQUE: One view of the chest was acquired. COMPARISON: [facility], CR, XR CHEST 1VW (PORTABLE), 09/12/2016, 19: 44. FINDINGS: Surgical changes and devices: ET tube is 4.1 cm superior to the alisa. NG tube crosses the GE junction.. Cervical spine fixation hardware Lungs and pleura: No pleural effusions or pneumothorax. Lungs are clear. Mediastinum: Mediastinal contours appear normal. Heart size is normal. Bones and chest wall: No suspicious bony lesions. Overlying soft tissues appear unremarkable. IMPRESSION: No acute cardiopulmonary disease process. Dictated by: Reyna Walsh MD, PhD on 09/12/2016 at 21:08 Approved by: Reyna Walsh MD, PhD on 09/12/2016 at 21:09 CT Abd / Pelvis Interpretation IMPRESSION: small amount of free pelvic fluid. No other acute findings. Lung base opacities atelectasis versus infiltrate. NG tube tip in the proximal stomach. Tatyana Mcdonald M.D. Study type: Abdominal CT IV contrast Interpretation / Wet Read by: Interpret - Radiologist 12-lead ECG Sinus tach rate 104, no ST segment changes Additional Diagnostics venous blood gas 7:43 PM 09/12/2016 pH 6.867 pCO2 18 pO2 78.2 cHCO3- 3.1 cBase -29.4 ABG Interpretation: Repeat: pH 6.685 pCO2 36 pO2 68.2 cHCO3- 4.3 cBase -29.8 Assessment & Plan 51yoF with history of type one diabetes, fibromyalgia, polysubstance abuse brought by EMS due to acute mental status change and DKA. 1. Acute hypoxic Respiratory failure 2. Acute Septic shock 3. DKA; resolving 4. Acute kidney failure; resolved 5. Leukocytosis 6. Anemia, microcytic, unknown chronicity 7. Type 1 Diabetes, chronic 8. COPD, chronic 9. Fibromyalgia 10. H/o polysubstance abuse, chronic Neuro: Patient currently sedated on fentanyl and Ativan receiving 1 mg an hour. Patient moves and can be agitated on this dose. Plan today is to reduce the Ativan to 0.5 and attempt SBT which was completed around 2 PM. Cardiovascular: Patient is currently stable on norepinephrine at 0.07. Patient still appears to be dry analyses received many liters of fluid, her urine output is also very high. She is currently fluid responsive with boluses of 500 and 250 increase her blood pressure. Respiratory: Blood gas this morning revealed a pH of 7.46, PCO2 of 35.5, PO2 of 75.6, a carb of 25, O2 sats ration 97%, on 5 of PEEP, and respiratory rate of 22. Spontaneous breathing trial was accomplished with the patient pulling approximately 400 mL tidal volume on 5 over 5 for a 1 hour duration. He is unlikely this patient will be awake and alert within the next few days and attempt tomorrow will be to extubate. Patient did well with spontaneous breathing trial and currently refill it is safe to attempt extubation she is able to duplicate results tomorrow. GI: Continue bowel regimen Infection: Patient is an extremely high white count but is so far not produced any concrete evidence of infection. It is possible that the patient presented in DKA noncompliance and recent viral infection that has yet to be identified. The white count was quick to resolve with fluid but still does not explain the elevated temperature the patient presented with. Endocrine: DKA is resolved. Patient on non-DKA insulin drip until extubation. Disposition: Patient is estimated tomorrow pending no further applications. Time spent: 45 minutes GI Prophylaxis: H2 ike VTE Prophylaxis: Sub-Q Heparin (Unfractionated) Resuscitation Status: CPR: Attempt Resuscitation Attending Statement The patient was seen and examined together with Dr. Harris on 09/15/2016 and I agree with the history, exam and plan as outlined in the note above. Matt Harris DO Sep 15, 2016 16:50 Dougie Wayne MD Oct 21, 2016 10:27
[2016-09-15] MEDS ORDERED: Calcium GLUCO 10% (Gm) 1 Gm/10 mL 50 mL Inj IV ONE (18:05)
[2016-09-15] MEDS ORDERED: Calcium GLUCOnate 10% 1 Gm/50 mL NS IV ONE ×2 (18:15)
--- NOTE | 2016-09-15 18:43 | NUR ---
Cardiac/Hemo/Respiratory/ SR/ST per manager cardiac. Maintaing MAP 65 or >, Levophed titrated down to 0.02mcg/kg/min this evening. Continues on PRVC with 30% fi02 & 5 peep. Ativan 0.5mg/hr and fentanyl 25mcg/hr for ventilator tolerance and pain management. Potassium 3.4, replacement ordered per protocol. Glucerna tube feeding at 10cchr & 30cc free water flushes q 4hrs. Blood glucose 8, insulin gtt paused. Will continue to monitor.
[2016-09-15] MEDS ORDERED: KCl 40 mEq/100 mL Premix (K 3 - 3.7 & Creat < 2) IV ONE (20:10)
[2016-09-15] MEDS: Propofol Inj 1,000,000 MCG in IV Premix 1 EACH IV SCH (20:40)
[2016-09-15] MEDS ORDERED: 0.9% Sodium Chloride 250 ML ONE (21:47)
[2016-09-15] MEDS: LORazepam 100 mg/100 mL NS 100 MG in IV Premix 100 EACH IV SCH (22:52)
[2016-09-15] MEDS ORDERED: Albumin 25% 25 GM in IV Premix 1 EACH IV ONE (23:00)
[2016-09-16] VITALS (13 sets, daily range): BP systolic 104–136; BP diastolic 50–90; PULSE 84–98; RESP 16–23; O2SAT 97–100
[2016-09-16] MEDS: Chlorhexidine 0.12% 15 mL Oral Solution MT SCH ×6 (00:20→19:49)
--- NOTE | 2016-09-16 00:48 | NUR ---
P) Cardiac/Respiratory/fever/LOC Pt.'s cardiac rhythm sinus/sinus tach, no ectopy noted so far this shift, was able to put norepinephrine on standby at 2030, so far maintaining MAP's above 65, good urine output. Edema noted in hands and sclera, per another RN her face is puffier. Peripheral pulses weak but present. Lungs with coarse breath sounds bilat and expiratory rales scattered throughout, suctioning a moderate amount of clear, yellow phlegm from ET tube, weak, spontaneous cough. Febrile again tonight, T-max so far 37.9c orally. Pt. initially very agitated, sitting up and rocking with face turning purple/red with eyes closed, pupils reactive to light but not opening eyes spontaneously that I have seen, does not track or follow any commands. I) Titrating sedation and pain meds for pt. comfort, passive cooling measures, turning q2h and floating heels, meds per 's orders, cont. close monitoring. E) Pt. now resting more quietly between care, still responds with agitation to any touch or turning but is more settled as soon as left alone.
[2016-09-16] MEDS: Piper-Tazo 3.375 Gm/50 mL D5W Minibag Plus - Q8H over 4 hrs IV SCH ×6 (01:38→17:36)
[2016-09-16] MEDS: fentaNYL 2,500 mCg/250 mL 2,500 MCG in IV Premix 1 EACH IV SCH ×2 (01:53→22:23)
[2016-09-16 02:24] LABS: Phosphorus 2.1 mg/dL (2.5-4.9)
[2016-09-16] MEDS: Lactated Ringer's 1,000 ML IV SCH ×3 (04:36→17:35)
[2016-09-16 04:57] LABS: BASOPHILS % (AUTO) 0.7 % (0-3); EOSINOPHILS % (AUTO) 2.5 % (0-5); MONOCYTES % (AUTO) 6.4 % (4-12); Mean Corpuscular Hemoglobin 19.7 pg (27.0-35.0); Mean Corpuscular Volume 63.8 fL (81-100); NEUTROPHILS % (AUTO) 69.1 % (40-74); Platelet Count 266 bil/L (150-400)
--- NOTE | 2016-09-16 05:31 | ABG ---
DateTimeAnalyzed 05:22:00 -_ pH ____7.420 - 7.350 7.450 pCO2 ___40.6__ -mmHg 35.0 45.0 pO2 ___78.1__ -mmHg 69.0 116 HCO3- ___25.9__ -mmol/L 22.0 26.0 ABE ____1.8__ -mmol/L -2.0 2.0 tHb ____8.4__ -g/dL O2Hb ___93.5__ -% COHb ____1.7__ -% MetHb ____0.9__ -% sO2 ___96.0__ -% FIO2 ___40.0__ -% PEEP ____5.0__ -cmH2O Set_RR ___16.0__ -b/min Vt __400.0__ -L Drawn By MD - Date/Time Notified____ 05:30:00 -_ Spontaneous_RR ___16.0__ -b/min Oxygen Device 1 VENTILATOR - Notified By MD - Notified Whom RN K. CARLIE - B 757 -mmHg tO2 ___11.1__ -Vol% Stan test N/A -
[2016-09-16 05:42] LABS: Phosphorus 2.5 mg/dL (2.5-4.9)
[2016-09-16] MEDS: Pantoprazole 4 mg/mL 10 mL Inj IVPUSH SCH ×2 (07:48→16:08)
[2016-09-16] MEDS: Azithromycin Inj 500 MG in Dextrose 5% w/Vial Mate 250 ML IV SCH (07:48)
[2016-09-16] MEDS: Albuterol-Ipratropium 3 mL Inhalation Solution NEB SCH ×4 (08:29→21:07)
[2016-09-16] MEDS: Senna-Docusate 8.6-50 mg Tablet PO SCH ×2 (08:58→19:48)
[2016-09-16] MEDS: D5W1/2NS 1,000 mL IV PRN (08:58)
--- NOTE | 2016-09-16 09:39 | PROG NOTE ---
[address] [address] PROGRESS NOTE PATIENT: MAO TAYLOR : 1965 MR#: [id number] ADMIT: 09/12/2016 JOB ID: [id number] DATE: 09/16/2016 REASON FOR FOLLOWUP: Sepsis in a patient with DKA. INTERVAL HISTORY: The patient remains intubated and sedated. She is not on vasopressor agents, and her overall situation seems to be stabilizing. PHYSICAL EXAMINATION: Reveals an afebrile, intubated woman. Her temperatures had been quite high during September 13, but in the last 24 hours, she has been afebrile, with a T-max 37.9 at midnight, now 37.6. Her pulse is in the 90s, blood pressure 114/64. She is oxygenating well on 30% and 5 of PEEP. There are no longer any vasopressor agents being employed here. The patient has no skin rash. Her eyes are without conjunctivitis. Oral endotracheal tube, orogastric tube in good position. The right neck central line is also in good position without evidence of inflammation. The lungs are quite clear to auscultation. Cardiac tones without murmur. The abdomen is soft, and without mass nor any apparent tenderness. Miles catheter is present. LABORATORIES: Include a white count that was initially quite elevated at 33,000, and is now down to 8000 after basically 4-1/2 days in the hospital. Her platelet count is now normal 266, and her diff on the white count is completely normal. Her procalcitonin was as high as 1.74 shortly after admission, is now down to 0.14, and approaching normal. Other LFTs are normal. A urinalysis was negative. No urine culture was done. Blood cultures have been consistently negative since admission. Cerebrospinal fluid showed 9 white cells, and a little over 1000 red cells, which is on the borderline of normal in terms of CSF white count. The CSF PCR panel was negative and the respiratory viral panel negative. A sputum did grow MSSA. Her chest x-rays have been basically clear. IMPRESSION: This is a difficult case of a woman who presented with severe acidosis due to diabetic ketoacidosis. She is now 4-1/2 days into a complicated hospital stay, and her blood pressure and fluid balance are stabilized. She initially had a very profound leukocytosis with fever of unknown source. It still remains unclear to me exactly where her fevers come from. Her sputum did grow methicillin-sensitive Staphylococcus aureus, but I suspect this is colonization rather than true infection as she never manifested much in the way of respiratory symptoms or findings on auscultation chest x-ray or nasotracheal suction. We have not identified any viral or bacterial cause in the cerebrospinal fluid, and I do not think that meningitis was part of her initial presentation. Likewise, her abdominal CT was normal. Nonetheless, the patient's fevers are moderating, and her procalcitonin and white count are rapidly dropping towards normal with our empiric antibiotics which include azithromycin and Zosyn. Though it is not elegant, I think we should continue these relatively broad-spectrum antibiotics as they seem to be having a salutary effect and we really do not know what the source of what appears to be a significant infection which precipitated her diabetic ketoacidosis. RECOMMENDATIONS: 1. Will continue with azithromycin and Zosyn for a probable seven day course which will take us for about three more days. 2. We continue to follow multiple cultures. 3. Will closely monitor her temperature curve over the next few days.
--- NOTE | 2016-09-16 09:57 | DRSVH ---
PROCEDURE: X-RAY CHEST ONE VIEW, PORTABLE ([id number]) INDICATIONS: intubated TECHNIQUE: One view of the chest was acquired. COMPARISON: [facility], CR, XR CHEST 1VW (PORTABLE), 09/15/2016, 5:42. FINDINGS: Surgical changes and devices: ETT tip projected 4.8 cm above the alisa. Stable positioning of nasog astric tube and right IJ CVL. Lower cervical spine fixation hardware redemonstrated. Lungs and pleura: No pleural effusions or pneumothorax. Bibasilar airspace opacities present increa sed from prior examination.. Mediastinum: Mediastinal contours appear normal. Heart size is normal. Bones and chest wall: No suspicious bony lesions. Overlying soft tissues appear unremarkable. IMPRESSION: Bibasilar atelectasis versus aspiration or pneumonia. Correlate clinically. Dictated by: Laron Holm [facility] Interpreted: Reyna Walsh MD on 09/16/2016 at 9:56 Transcribed by: LOCO on 09/16/2016 at 9:57 Approved by: Reyna Walsh MD, PhD on 09/16/2016 at 17:07
--- NOTE | 2016-09-16 10:13 | PCM.PNMED ---
Subjective Date of Service Sep 16, 2016 Subjective Overnight: No acute events. Mild temp elevation at T37.9, with intermittent periods of agitation. Today: Resting comfortably in bed, no acute distress. Molly remains on standby , BP stabilized at this time. Awakens to verbal stimuli, not following commands at this time. Labs: WBC 8.9; PCT 0.14 Net IO + 9458; 24hUOP 2300 Vent: FiO2 30 PEEP 5 Exam Vital Signs Vital Sign - Last Date Time Temp Pulse Resp B/P Pulse Ox O2 Delivery O2 Flow Rate FiO2 09/16/16 08:29 93 114/64 100 30 09/16/16 07:42 Ventilator 09/16/16 07:40 37.6 16 Intake and Output 09/15/16 09/15/16 09/16/16 Cumulative From/Thru 15:00 23:00 07:00 09/12/16 19:29 - 09/16/16 06:18 Intake Total 4001 ml 3427 ml 74898 ml Output Total 1400 ml 1900 ml 41737 ml Balance 2601 ml 1527 ml 9458 ml Intake IV Total 4001 ml 3109 ml 46933 ml Tube Feeding 128 ml 128 ml Tube Irrigant 190 ml 190 ml Output Urine Total 1300 ml 1900 ml 66924 ml Gastric Drainage Total 100 ml 2200 ml # Bowel Movements 0 Exam General: Intubated and sedated; no acute distress HENT: Atraumatic; sclera anicteric, mucus membranes moist; ETT in place Neck: Soft, no lymphadenopathy; trachea midline by palpation Cardiac: Tachycardic rate and rhythm in low 90s at time of examination; no murmurs appreciated Respiratory: Bilateral faint coarse sounds at bases extending to midfields without expiratory wheeze Abdomen: Soft, nontender, nondistended Extremities: No edema Skin: Warm and dry; cool distal extremities Neuro: Unable to assess secondary to intubation and sedation Psych: Unable to assess secondary to intubation and sedation Lab and Diagnostics Result Diagram: 09/16/1643909/16/16439 X-Rays, CTs and MRIs Patient Name: MAO TAYLOR MR#: [id number] Location: [facility] [place] Ordering Phys: Jemal Rodriguez MD Date of Service: 09/12/162028 PROCEDURE: CT BRAIN WITHOUT CONTRAST ([id number]) INDICATIONS: altered mental status TECHNIQUE: Noncontrast 4.5 mm thick angled axial sections acquired from the foramen magnum to the vertex, with coronal reformats. COMPARISON: [facility], CT, BRAIN W/O CONTRAST, 08/21/2014, 16:07. FINDINGS: Image quality: Limited by patient motion. CSF spaces: Basal cisterns are patent. No extra-axial fluid collections. Ventricles are normal in size and shape. Brain: No midline shift. No intracranial masses or hemorrhage. Gomes-white matter interface is normal. Skull and face: Calvarium and visualized facial bones are intact, without suspicious lesions. Sinuses: Visualized sinuses and mastoids are clear. IMPRESSION: No acute intracranial disease process identified within limitations caused by motion artifact. Dictated by: Reyna Walsh MD, PhD on 09/12/2016 at 21:00 Approved by: Reyna Walsh MD, PhD on 09/12/2016 at 21:03 Patient Name: MAO TAYLOR MR#: [id number] Location: SED Ordering Phys: Jemal Rodriguez MD Date of Service: 09/12/162028 PROCEDURE: X-RAY CHEST ONE VIEW, PORTABLE ([id number]) INDICATIONS: post intubation TECHNIQUE: One view of the chest was acquired. COMPARISON: [facility], CR, XR CHEST 1VW (PORTABLE), 09/12/2016, 19: 44. FINDINGS: Surgical changes and devices: ET tube is 4.1 cm superior to the alisa. NG tube crosses the GE junction.. Cervical spine fixation hardware Lungs and pleura: No pleural effusions or pneumothorax. Lungs are clear. Mediastinum: Mediastinal contours appear normal. Heart size is normal. Bones and chest wall: No suspicious bony lesions. Overlying soft tissues appear unremarkable. IMPRESSION: No acute cardiopulmonary disease process. Dictated by: Reyna Walsh MD, PhD on 09/12/2016 at 21:08 Approved by: Reyna Walsh MD, PhD on 09/12/2016 at 21:09 CT Abd / Pelvis Interpretation IMPRESSION: small amount of free pelvic fluid. No other acute findings. Lung base opacities atelectasis versus infiltrate. NG tube tip in the proximal stomach. Tatyana Mcdonald M.D. Study type: Abdominal CT IV contrast Interpretation / Wet Read by: Interpret - Radiologist 12-lead ECG Sinus tach rate 104, no ST segment changes Additional Diagnostics venous blood gas 7:43 PM 09/12/2016 pH 6.867 pCO2 18 pO2 78.2 cHCO3- 3.1 cBase -29.4 ABG Interpretation: Repeat: pH 6.685 pCO2 36 pO2 68.2 cHCO3- 4.3 cBase -29.8 Assessment & Plan Ms. Mao Taylor is a 51yoF with history of type one diabetes, fibromyalgia, polysubstance abuse brought by EMS, found to be alert and oriented to self in DKA. She was later intubated in the ED secondary to respiratory distress and need to maintain her airway. She was admitted for evaluation and treatment of severe metabolic acidosis secondary to DKA with associated acute hypoxic respiratory failure, suspected PNA, and RAFA. - Hospital day 5 - Ventilator day 5 1. Acute hypoxic respiratory failure, present on admission; ongoing - intubated in ED secondary to respiratory distress and presumed airway compromise - pulm consult, vent and critical care management, recs appreciated - vent: FiO2 0.3, PEEP 5, RR22, Vt 400 - Ativan and fentanyl for sedation, decrease per pulm team for appropriateness of SBT/extubation plan - Ativan utilized secondary to suspected benzo dependence/history of use, and effectiveness compared to propofol - Trended triglycerides q3d secondary to propofol use; previous TG level 10/10 elev at 446; repeat 09/15 74 - Decrease fentanyl as tolerated; maintain Ativan; continual assessments - Possible extubation later today pending stability of SBT - Speech eval to be ordered post-extubation 2. Septic shock, acute, present on admission; resolved - unclear source, most likely PNA - Sputum Cx: + probable staph - MRSA screen negative - Resp PCR negative; BCx negative to date - Initial CSF Cx/GS: No growth to date - ID has been consulted, appreciated time and recommendations. - Eval CSF PCR: completely negative - Per ID, continue abx until 09/18: azithro and Zosyn 3. DKA, acute, POA; Resolved - severe metabolic acidosis on presentation pH 6.8 decreasing to 6.6 on repeat ABG, 09/10 gap 33 - On admit: K 5.7; glc 623; + serum ketones - 1amp bicarb given in ED, bicarb gtt started upon arrival to floor; now DC'd - unclear etiology, possible non-compliance vs occult infection, trop neg - head CT negative, LP less likely meningitis, CT abd / pelvis with possible PNA , CXR remains neg - Non-DKA protocol initiated with D5 1/2 as solution; will transition to correctional scale post-extubation/swallow eval - Med rec shows glargine 15U qhs + humulin-R sliding scale 4. Hypokalemia, acute, not present on admission. Resolved - K 2.6 09/14 - Replaced with 80 mEq - Replace prn 5. Acute kidney failure, acute, POA. Resolved -most likely pre-renal given DKA 6. Leukocytosis, acute, POA; Resolved - multifactorial, acute stress response 2/2 DKA vs possible underlying infection - possible PNA, CAP vs HCAP - treatment with piperacillin-tazobactam (pharm to dose); completed - Follow clinically and with serial labs 7. Anemia, microcytic, hypochromic; unknown chronicity; stable - may be secondary to fluid resuscitation - decreased hgb from 12.3 to 10.4 to 9.8 to 8.2 following admission - pantoprazole bolus and gtt started; change from gtt to pushes: 40mg IV BID - Repeat afternoon - Monitor daily Chronic Issues 8. Type 1 Diabetes, chronic -history of uncontrolled diabetes -hgbA1c pending 9. COPD, chronic -as per medical record 10. Fibromyalgia -monitor 11. 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 Tobacco dependence, chronic -as per EMR history of tobacco dependence -consideration of patch/lozenge when stabilized - DVT: SCDs - GI: PPI - Diet: Tube feeds - PRN bowel, fever, antiemetic, pain - High risk meds: Norepi - Code: FULL CODE Dispo: Likely to remain > 2 days; patient remains intubated. Anticipate extubation within next 1-2 days, speech eval at that time to determine dietary tolerance. DESIGN PRINTING MACHINE SET UP OPERATOR needs may later include substance use counseling/services, when patient able to communicate use history and needs. GI Prophylaxis: H2 ike VTE Prophylaxis: Sub-Q Heparin (Unfractionated) VTE Mechanical Devices: Intermittant Pneumatic CD Resuscitation Status: CPR: Attempt Resuscitation Attending Statement The patient was seen and examined together with Dr. Fox on 09/16/16 and I agree with the history, exam and plan as outlined in the note above. Jennifer Fox DO Sep 16, 2016 08:57 Jocelyn Holt DO Sep 16, 2016 16:37
--- NOTE | 2016-09-16 11:13 | NUR ---
NUTRITION FOLLOW UP Assess: 51 yo female is a Type I Diabetic admitted w/ DKA and associated acute hypoxic respiratory failure. She is currently intubated and sedated. Trickle TF started last night around 15:00, and appears to be tolerating w/ limited residuals. Per MD notes, possible extubation today. Mg and Phos WNL. PMHx: Type I DM, COPD, Fibromyalgia, polysubstance abuse, tobacco dependence, cervical cancer LABS: BUN 4, Hospital Pharmacy Director 0.30, Gluc 127, Ca 7.4, Alb 2.9, Prealbumin 6, Procalcitonin 0.14 MEDICATIONS: Fentanyl, Norepinephrine, Insulin CURRENT DIET: NPO x 4 days NUTRITION SUPPORT: Glucerna 1.5 @ 10 ml/hr. GI symptoms/stool: 0 BM noted - Receiving Senna SKIN: Obed 12 - No pressure ulcer per [facility] ANTHROPOMETRICS: Current Wt: 55 kg BMI: 22.2 kg/m2 IBW: 50.0 kg Admit Wt: 48.3 kg (BMI: 19.5 kg/m2) ESTIMATED NEEDS: Vented Calories: 0421-9009 kcal/day (22-25 kcal/kg Admit BW) Protein: 70-85 g/day (1.5-1.8 g/kg Admit BW) Fluids: 0123-0346 ml/day (Approx 1 ml/kcal/d) NUTRITION DIAGNOSIS: 1) Inadequate oral intake related to decreased ability to consume sufficient energy as evidenced by current NPO status x 2 days.--- IMPROVED W/ TRICKLE TF STARTED 09/15 INTERVENTION: 1) After 24 hrs, recommend increasing TF rate by 10 ml/hr q 4 hrs to goal rate of 38 ml/hr to provide 1254 kcal and 69g of protein, meeting 100% of calorie needs and 99% of protein needs. 2) Once tolerated, recommend adding one packet of Prosource to increase total protein intake to 80g, meeting 100% of needs. MONITOR/EVALUATE: TF lilly/adv, vent status, labs, wt, GI, POC. Will continue to monitor per high nutritional risk guidelines. Addendum: 09/16/16 at [address] Student documentation reviewed and I agree w/ the above assessment. Ivania Perez, MS, RDN, CD
[2016-09-16] MEDS: LORazepam 100 mg/100 mL NS 100 MG in IV Premix 100 EACH IV SCH (14:07)
[2016-09-16] MEDS: Dexmedetomidine 400 mCg/100 mL NS Premix IV SCH (15:46)
--- NOTE | 2016-09-16 16:32 | PCM.PNMED ---
Subjective Date of Service Sep 16, 2016 Subjective Mild temperature elevation overnight. Patient is comfortable on 1 mg per hour of Ativan. Responds to verbal stimulus but does not follow commands, does not make attempt to respond verbally or open eyes. Exam Vital Signs Vital Sign - Last Date Time Temp Pulse Resp B/P Pulse Ox O2 Delivery O2 Flow Rate FiO2 09/16/16 16:06 37.2 97 17 116/61 98 Mechanical Ventilator 30 Intake and Output 09/15/16 09/15/16 09/16/16 Cumulative From/Thru 15:00 23:00 07:00 09/12/16 19:29 - 09/16/16 06:18 Intake Total 4001 ml 3427 ml 18071 ml Output Total 1400 ml 1900 ml 59793 ml Balance 2601 ml 1527 ml 9458 ml Intake IV Total 4001 ml 3109 ml 94487 ml Tube Feeding 128 ml 128 ml Tube Irrigant 190 ml 190 ml Output Urine Total 1300 ml 1900 ml 96859 ml Gastric Drainage Total 100 ml 2200 ml # Bowel Movements 0 Exam General: Intubated and sedated; no acute distress HENT: ETT in place Neck: Soft, no lymphadenopathy; trachea midline by palpation Cardiac: Tachycardic rate and rhythm Respiratory: Bilateral coarse sounds Abdomen: Soft, nontender, nondistended Extremities: No edema Skin: Warm and dry; cool distal extremities Neuro: Unable to assess secondary to intubation and sedation Psych: Unable to assess secondary to intubation and sedation IVs and Medications Medications Reviewed: Medications were reviewed in detail Lab and Diagnostics Result Diagram: 09/16/1643909/16/16439 X-Rays, CTs and MRIs Patient Name: MAO TAYLOR MR#: [id number] Location: [facility] Ordering Phys: Jemal Rodriguez MD Date of Service: 09/12/162028 PROCEDURE: CT BRAIN WITHOUT CONTRAST ([id number]) INDICATIONS: altered mental status TECHNIQUE: Noncontrast 4.5 mm thick angled axial sections acquired from the foramen magnum to the vertex, with coronal reformats. COMPARISON: [facility], CT, BRAIN W/O CONTRAST, 08/21/2014, 16:07. FINDINGS: Image quality: Limited by patient motion. CSF spaces: Basal cisterns are patent. No extra-axial fluid collections. Ventricles are normal in size and shape. Brain: No midline shift. No intracranial masses or hemorrhage. Gomes-white matter interface is normal. Skull and face: Calvarium and visualized facial bones are intact, without suspicious lesions. Sinuses: Visualized sinuses and mastoids are clear. IMPRESSION: No acute intracranial disease process identified within limitations caused by motion artifact. Dictated by: Reyna Walsh MD, PhD on 09/12/2016 at 21:00 Approved by: Reyna Walsh MD, PhD on 09/12/2016 at 21:03 Patient Name: MAO TAYLOR MR#: [id number] Location: [facility] Ordering Phys: Jemal Rodriguez MD Date of Service: 09/12/162028 PROCEDURE: X-RAY CHEST ONE VIEW, PORTABLE ([id number]) INDICATIONS: post intubation TECHNIQUE: One view of the chest was acquired. COMPARISON: [facility], CR, XR CHEST 1VW (PORTABLE), 09/12/2016, 19: 44. FINDINGS: Surgical changes and devices: ET tube is 4.1 cm superior to the alisa. NG tube crosses the GE junction.. Cervical spine fixation hardware Lungs and pleura: No pleural effusions or pneumothorax. Lungs are clear. Mediastinum: Mediastinal contours appear normal. Heart size is normal. Bones and chest wall: No suspicious bony lesions. Overlying soft tissues appear unremarkable. IMPRESSION: No acute cardiopulmonary disease process. Dictated by: Reyna Walsh MD, PhD on 09/12/2016 at 21:08 Approved by: Reyna Walsh MD, PhD on 09/12/2016 at 21:09 CT Abd / Pelvis Interpretation IMPRESSION: small amount of free pelvic fluid. No other acute findings. Lung base opacities atelectasis versus infiltrate. NG tube tip in the proximal stomach. Tatyana Mcdonald M.D. Study type: Abdominal CT IV contrast Interpretation / Wet Read by: Interpret - Radiologist 12-lead ECG Sinus tach rate 104, no ST segment changes Additional Diagnostics venous blood gas 7:43 PM 09/12/2016 pH 6.867 pCO2 18 pO2 78.2 cHCO3- 3.1 cBase -29.4 ABG Interpretation: Repeat: pH 6.685 pCO2 36 pO2 68.2 cHCO3- 4.3 cBase -29.8 Assessment & Plan 51yoF with history of type one diabetes, fibromyalgia, polysubstance abuse brought by EMS due to acute mental status change and DKA. 1. Acute hypoxic Respiratory failure 2. Acute Septic shock 3. DKA; resolved 4. Acute kidney failure; resolved 5. Leukocytosis 6. Anemia, microcytic, unknown chronicity 7. Type 1 Diabetes, chronic 8. COPD, chronic Neuro: Patient currently sedated on no and Ativan receiving 1 mg an hour. Plan to decrease sedation tomorrow during spontaneous breathing trial. Patient was not aware more alert enough to protect the airway and tomorrow we will attempt to decrease Ativan needs to improve her alertness but anticipate that will be difficult due to her agitation. If encephalopathy continues we will consider imaging. Cardiovascular: Blood pressure is stable off of pressors as afternoon. Her output has been over 4 L last 2 days but today was around 2L.. Patient has markedly improved will wait for her neurological status to improve before extubating. Respiratory: ABG this morning was excellent with a pH of 7.42, PCO2 of 40.6, PO2 of 78.1, bicarbonate 26, with an oxygen saturation of 96%. Patient is remarkably stable on the vent is doing well the spontaneous breathing trials but is not alert enough to protect airway should we extubated. Agitation that she will experience may be due to endotracheal tube and this will be given consideration when attempting to extubate an encephalopathic patient. No changes are being made to the vent will forego an ABG in the a.m. Patient did have a positive MSSA sputum culture was infectious disease believes may be a colonization rather than infecting organism. GI: Continue bowel regimen Infection: Her fevers are resolving white count improved calcitonin with a positive MSSA sputum culture. Infectious disease has been following and feels that this is likely colonization but is unable to be determined whether the MSSA was causing an active infection. Patient on azithromycin and Zosyn and Dr. Oquendo wishes to proceed with this regimen. Disposition: Attempt to extubate the patient tomorrow pending reassessment of her neurological status. Time spent: 45 minutes. GI Prophylaxis: H2 ike VTE Prophylaxis: Sub-Q Heparin (Unfractionated) VTE Mechanical Devices: Intermittant Pneumatic CD Resuscitation Status: CPR: Attempt Resuscitation Attending Statement The patient was seen and examined together with Dr. Harris on 09/16/2016 and I agree with the history, exam and plan as outlined in the note above. Matt Harris DO Sep 16, 2016 16:32 Dougie Wayne MD Oct 21, 2016 10:28
[2016-09-16] MEDS: Insulin Human REGular Inj 100 UNIT in 0.9% Sodium Chloride-Pha MIX 100 ML IV SCH (18:01)
--- NOTE | 2016-09-16 18:13 | NUR ---
Cardiac/respiratory/sedation Restlessness & agitation noted when stimulated by touch; however, her eyes remain closed & she continues to be unable to follow any verbal commands. Continues on PRVC. Pressure support trial failed today, plan to turn off fentanyl & ativan medication at 6:00 09/17 in preparation for pressure support trial.
[2016-09-16] MEDS: Propofol Inj 1,000,000 MCG in IV Premix 1 EACH IV SCH (18:59)
[2016-09-16] MEDS: Norepineph 8,000 mCg/250 mL NS 8,000 MCG in IV Premix 1 EACH IV SCH (18:59)
[2016-09-17] VITALS (14 sets, daily range): BP systolic 109–145; BP diastolic 56–81; PULSE 78–117; RESP 16–30; O2SAT 92–100
[2016-09-17] MEDS ORDERED: 0.9% Sodium Chloride 250 ML ONE ×2 (00:28→08:42)
[2016-09-17] MEDS: Dexmedetomidine 400 mCg/100 mL NS Premix IV SCH ×2 (00:30→23:13)
[2016-09-17] MEDS: Lactated Ringer's 1,000 ML IV SCH (00:30)
[2016-09-17] MEDS: Chlorhexidine 0.12% 15 mL Oral Solution MT SCH ×6 (00:31→20:15)
[2016-09-17] MEDS: Piper-Tazo 3.375 Gm/50 mL D5W Minibag Plus - Q8H over 4 hrs IV SCH ×6 (01:01→20:15)
[2016-09-17] MEDS: D5W1/2NS 1,000 mL IV PRN ×2 (04:09→23:14)
[2016-09-17 04:27] LABS: BASOPHILS % (AUTO) 0.3 % (0-3); EOSINOPHILS % (AUTO) 3.9 % (0-5); Mean Corpuscular Hemoglobin 19.7 pg (27.0-35.0); NEUTROPHILS % (AUTO) 67.6 % (40-74); Platelet Count 313 bil/L (150-400)
[2016-09-17 05:12] LABS: Magnesium 1.9 mg/dL (1.6-2.6); Phosphorus 3.1 mg/dL (2.5-4.9)
--- NOTE | 2016-09-17 06:03 | NUR ---
Sedation Pt is titrated off Fentanyl and Ativan since 2300. Definitely moves more with stimulation and activity including bed bath. Continues to follow no commands. HR and BP tolerated being somewhat awake and were stable throughout night. Will continue to monitor. Care ongoing
[2016-09-17] MEDS: Senna-Docusate 8.6-50 mg Tablet PO SCH ×2 (07:33→19:10)
[2016-09-17] MEDS: Pantoprazole 4 mg/mL 10 mL Inj IVPUSH SCH ×2 (07:33→16:21)
[2016-09-17] MEDS: Azithromycin Inj 500 MG in Dextrose 5% w/Vial Mate 250 ML IV SCH (07:35)
[2016-09-17] MEDS: Albuterol-Ipratropium 3 mL Inhalation Solution NEB SCH ×4 (07:54→20:00)
[2016-09-17] MEDS ORDERED: Furosemide 10 mg/mL 4 mL Inj IVPUSH ONE (08:30)
--- NOTE | 2016-09-17 11:18 | PROG NOTE ---
[address] [address] PROGRESS NOTE PATIENT: MAO TAYLOR : 1965 MR#: [id number] ADMIT: 09/12/2016 JOB ID: [id number] DATE: 09/17/2016 INFECTIOUS DISEASE FOLLOW UP NOTE: REASON FOR FOLLOW UP: DKA with sepsis. INTERVAL HISTORY: The patient continues to be intubated and sedated. Attempts are being made to lessen her sedation and the patient will open her eyes and track but follow no commands. She does not interact at all during my examination today other than to open her eyes and look at me, but beyond that, nothing else. PHYSICAL EXAMINATION: Reveals a woman who has been febrile to 38 degrees this morning. She is currently 37.3, pulse in the 70s to low 80s. Blood pressure 111/59. She is saturating very well on the ventilator at 30% FiO2 and 5 of PEEP. The eyes are without conjunctivitis. Oral cavity notable for oral endotracheal tube and orogastric tube. Lungs are notable for bilateral scattered rales at the bases. No rhonchi. Abdomen soft and nontender. Miles catheter is present. Right neck central line present. LABORATORIES: White blood count normalized at 8800. Creatinine less than 0.3. LFTs are normal. Procalcitonin has been steadily declining from a peak of 1.74 three days ago. It is now down to 0.11. The patient's blood cultures remain negative including some done on the . The sputum did grow MSSA which may be a colonizing organism rather than an infecting organism. Cerebrospinal fluid and nasopharyngeal multiplex PCR studies were negative. CSF culture is also negative. Yesterday's chest x-ray shows some bibasilar atelectasis. IMPRESSION: This is a woman who presented with severe DKA. The precipitant of her DKA was likely infection as she had unexplained fevers as well as a leukocytosis and elevated procalcitonin. We have not come up with a good source for infection though her sputum is colonized with MSSA which does not definitively implicate the Staph as a cause of her fevers. Other explorations including multiplex PCR studies and CT scanning have not shown a focal pneumonia or intra-abdominal process. The patient's fever curve and procalcitonins are improving but she is still spiking including this morning. RECOMMENDATIONS: 1. I would continue azithro and Zosyn for two more days through September 19 and then stop and watch. 2. I note that the azithro and Zosyn have been stopped already this morning and I will endeavor to figure out whose plan that was and discuss with them. I do not think it would be a terrible mistake by any means to stop today after five days of broad-spectrum antibiotics, but I think it may be reasonable to continue for a couple more days given that she still has some degree of fever and we are not exactly certain where this infection proceeded from.
--- NOTE | 2016-09-17 11:23 | PCM.PNMED ---
Subjective Date of Service Sep 17, 2016 Subjective Overnight: Ativan and fentanyl turned off at 2300; T38.0; tolerated PST well yesterday at 5/5 for 4 hours. Today: Remains unresponsive, precedex continued at 0.35. PST initiated, tolerating quite well. Tube feeds continued, BP stable. No acute distress. Vent: PST Net IO +13L; 24hUOP 3400 Labs: WBC 8.8; HH stable 8.6/28; K 5.5 Exam Vital Signs Vital Sign - Last Date Time Temp Pulse Resp B/P Pulse Ox O2 Delivery O2 Flow Rate FiO2 09/17/16 04:35 38.0 85 22 118/67 96 Mechanical Ventilator 30 Intake and Output 09/16/16 09/16/16 09/17/16 Cumulative From/Thru 15:00 23:00 07:00 09/12/16 19:29 - 09/17/16 05:59 Intake Total 2735 ml 3471 ml 75623 ml Output Total 1500 ml 1200 ml 91137 ml Balance 1235 ml 2271 ml 93440 ml Intake IV Total 2404 ml 3102 ml 29925 ml Tube Feeding 230 ml 339 ml 697 ml Tube Irrigant 101 ml 30 ml 321 ml Output Urine Total 1500 ml 1200 ml 48265 ml Gastric Drainage Total 2200 ml # Bowel Movements 1 1 Exam General: Intubated and sedated; no acute distress; not responsive to voice stimuli HENT: Atraumatic; sclera anicteric, mucus membranes moist; ETT in place Neck: Soft, no lymphadenopathy Cardiac: Regular rate and rhythm in 80s at time of examination; no murmurs appreciated Respiratory: Improved sounds; clear bilateral; adequate air flow all norman; no wheeze Abdomen: Soft, nontender, nondistended Extremities: No edema Skin: Warm and dry; cool distal extremities Neuro: Unable to assess secondary to intubation and sedation Psych: Unable to assess secondary to intubation and sedation Lab and Diagnostics Result Diagram: 09/17/1639909/17/16399 X-Rays, CTs and MRIs Patient Name: MAO TAYLOR MR#: [id number] Location: SED Ordering Phys: Jemal Rodriguez MD Date of Service: 09/12/162028 PROCEDURE: CT BRAIN WITHOUT CONTRAST ([id number]) INDICATIONS: altered mental status TECHNIQUE: Noncontrast 4.5 mm thick angled axial sections acquired from the foramen magnum to the vertex, with coronal reformats. COMPARISON: [facility], CT, BRAIN W/O CONTRAST, 08/21/2014, 16:07. FINDINGS: Image quality: Limited by patient motion. CSF spaces: Basal cisterns are patent. No extra-axial fluid collections. Ventricles are normal in size and shape. Brain: No midline shift. No intracranial masses or hemorrhage. Gomes-white matter interface is normal. Skull and face: Calvarium and visualized facial bones are intact, without suspicious lesions. Sinuses: Visualized sinuses and mastoids are clear. IMPRESSION: No acute intracranial disease process identified within limitations caused by motion artifact. Dictated by: Reyna Walsh MD, PhD on 09/12/2016 at 21:00 Approved by: Reyna Walsh MD, PhD on 09/12/2016 at 21:03 Patient Name: MAO TAYLOR MR#: [id number] Location: SED Ordering Phys: Jemal Rodriguez MD Date of Service: 09/12/162028 PROCEDURE: X-RAY CHEST ONE VIEW, PORTABLE ([id number]) INDICATIONS: post intubation TECHNIQUE: One view of the chest was acquired. COMPARISON: [facility], CR, XR CHEST 1VW (PORTABLE), 09/12/2016, 19: 44. FINDINGS: Surgical changes and devices: ET tube is 4.1 cm superior to the alisa. NG tube crosses the GE junction.. Cervical spine fixation hardware Lungs and pleura: No pleural effusions or pneumothorax. Lungs are clear. Mediastinum: Mediastinal contours appear normal. Heart size is normal. Bones and chest wall: No suspicious bony lesions. Overlying soft tissues appear unremarkable. IMPRESSION: No acute cardiopulmonary disease process. Dictated by: Reyna Walsh MD, PhD on 09/12/2016 at 21:08 Approved by: Reyna Walsh MD, PhD on 09/12/2016 at 21:09 CT Abd / Pelvis Interpretation IMPRESSION: small amount of free pelvic fluid. No other acute findings. Lung base opacities atelectasis versus infiltrate. NG tube tip in the proximal stomach. Tatyana Mcdonald M.D. Study type: Abdominal CT IV contrast Interpretation / Wet Read by: Interpret - Radiologist 12-lead ECG Sinus tach rate 104, no ST segment changes Additional Diagnostics venous blood gas 7:43 PM 09/12/2016 pH 6.867 pCO2 18 pO2 78.2 cHCO3- 3.1 cBase -29.4 ABG Interpretation: Repeat: pH 6.685 pCO2 36 pO2 68.2 cHCO3- 4.3 cBase -29.8 Assessment & Plan Ms. Mao Taylor is a 51yoF with history of type one diabetes, fibromyalgia, polysubstance abuse brought by EMS, found to be alert and oriented to self in DKA. She was later intubated in the ED secondary to respiratory distress and need to maintain her airway. She was admitted for evaluation and treatment of severe metabolic acidosis secondary to DKA with associated acute hypoxic respiratory failure, suspected PNA, and RAFA. - Hospital day 6 - Ventilator day 6 Acute hypoxic respiratory failure, present on admission; Resolved - intubated in ED secondary to respiratory distress and presumed airway compromise - pulm consult, vent and critical care management, recs appreciated - Ativan was utilized for sedation secondary to suspected benzo dependence/ history of use, and effectiveness compared to propofol - Trended triglycerides q3d secondary to propofol use; previous TG level 10/10 elev at 446; repeat 09/15 74 - OFF ativan and fentanyl: Precedex remains - Possible extubation later today pending stability of SBT and patient safety - Speech eval to be ordered post-extubation - Keep ativan and fentanyl OFF; decrease precedex as tolerated - Patient likely to remain intubated secondary to inability to keep airway secure, not due to poor pulmonary function - Will need to keep patient off sedatives to maximize alertness to maintain airway Septic shock, acute, present on admission; resolved - unclear source, most likely PNA - Sputum Cx: + MSSA - MRSA screen negative - Resp PCR negative; BCx negative to date - Initial CSF Cx/GS: No growth to date - ID has been consulted, appreciated time and recommendations. - Eval CSF PCR: completely negative - Per ID, continue abx until 09/18: kristen and Merlysyn DKA, acute, POA; Resolved - severe metabolic acidosis on presentation pH 6.8 decreasing to 6.6 on repeat ABG, / gap 33 - On admit: K 5.7; glc 623; + serum ketones - 1amp bicarb given in ED, bicarb gtt started upon arrival to floor; now DC'd - unclear etiology, possible non-compliance vs occult infection, trop neg - head CT negative, LP less likely meningitis, CT abd / pelvis with possible PNA , CXR remains neg - Non-DKA protocol initiated with D5 1/2 as solution; will transition to correctional scale post-extubation/swallow eval - Med rec shows glargine 15U qhs + humulin-R sliding scale Hyperkalemia, acute, not present on admission. Under therapy - K has been fluctuant throughout admission - 09/17: K 5.5 - Remains on insulin gtt; no FMS in place - DC'd LR - Lasix 40mg IV x1; repeat labs afternoon Hypokalemia, acute, not present on admission. Resolved - K 2.6 09/14 - Replaced with 80 mEq - Replace prn Acute kidney failure, acute, POA. Resolved - most likely pre-renal given DKA - Maintaining adequate UOP Leukocytosis, acute, POA; Resolved - multifactorial, acute stress response 2/2 DKA vs possible underlying infection - possible PNA, CAP vs HCAP - treatment with piperacillin-tazobactam (pharm to dose) - Follow clinically and with serial labs - Abx course as above Anemia, microcytic, hypochromic; unknown chronicity; stable - may be secondary to fluid resuscitation - decreased hgb from 12.3 to 10.4 to 9.8 to 8.2 following admission; currently stable - pantoprazole bolus and gtt started; change from gtt to pushes: 40mg IV BID - Monitor daily Chronic Issues Type 1 Diabetes, chronic -history of uncontrolled diabetes -hgbA1c 9.8 COPD, chronic -as per medical record Fibromyalgia -monitor H/o polysubstance abuse, chronic - On admit: UTox + benzos, + TCA - as per brother history of narcotic use and ETOH use - monitor for withdrawal when appropriate - banana bag given - Receiving ativan gtt for sedation - SECOND MATE consult when appropriate Tobacco dependence, chronic -as per EMR history of tobacco dependence -consideration of patch/lozenge when stabilized - DVT: hep q8 - GI: PPI - Diet: Tube feeds - PRN bowel, fever, antiemetic, pain - Code: FULL CODE Dispo: Likely to remain > 2 days; patient remains intubated. Anticipate extubation within next 1-2 days, speech eval at that time to determine dietary tolerance. SECOND MATE needs may later include substance use counseling/services, when patient able to communicate use history and needs. Pain Evaluation: Adequate Pain Control GI Prophylaxis: H2 ike VTE Prophylaxis: Sub-Q Heparin (Unfractionated) VTE Mechanical Devices: Intermittant Pneumatic CD Resuscitation Status: CPR: Attempt Resuscitation Attending Statement The patient was seen and examined together with Dr. Fox on 09/17/16 and I agree with the history, exam and plan as outlined in the note above. Jennifer Fox DO Sep 17, 2016 07:32 Jocelyn Holt DO Sep 17, 2016 17:10
[2016-09-17] MEDS: 0.9% Sodium Chloride 1,000 ML IV SCH ×2 (11:28→23:14)
--- NOTE | 2016-09-17 13:17 | NUR ---
NUTRITION FOLLOW UP Assess: 51 yo female is a Type I Diabetic admitted w/ DKA and associated acute hypoxic respiratory failure. She remains intubated but is weaning off Ativan and Fentayl. TF advanced to goal rate and tolerating well w/ minimal residuals. Per MD notes, possible extubation today. PMHx: Type I DM, COPD, Fibromyalgia, polysubstance abuse, tobacco dependence, cervical cancer LABS: K 5.5, Continuous Churn Buttermaker<0.30, Gluc 195, Ca 7.6, Alb 2.9, Prealbumin 6, Procalcitonin 0.11 MEDICATIONS: Insulin CURRENT DIET: NPO NUTRITION SUPPORT: Glucerna 1.5 @ 38 ml/hr GI symptoms/stool: 1 BM (09/17) - Receiving Senna SKIN: Obed 12 - No pressure ulcer per [facility] ANTHROPOMETRICS: Current Wt: 58 kg BMI: 23.4 kg/m2 IBW: 50.0 kg Admit Wt: 48.3 kg (BMI: 19.5 kg/m2) ESTIMATED NEEDS: Vented Calories: 9539-1112 kcal/day (22-25 kcal/kg Admit BW) Protein: 70-85 g/day (1.5-1.8 g/kg Admit BW) Fluids: 9894-0846 ml/day (Approx 1 ml/kcal/d) NUTRITION DIAGNOSIS: 1) Inadequate oral intake related to decreased ability to consume sufficient energy as evidenced by current NPO status x 2 days.--- IMPROVED W/ TF @ GOAL RATE INTERVENTION: 1) Recommend continuing enteral nutrition of Glucerna 1.5 at goal rate of 38 ml/hr to provide 1254 kcal and 69g of protein, meeting 100% of calorie needs and 99% of protein needs. 2) Recommend adding one packet of Prosource to increase total protein intake to 80g, meeting 100% of needs. MONITOR/EVALUATE: TF tolerance, vent status, labs, wt, GI, POC. Will continue to monitor per high nutritional risk guidelines. Addendum: 09/17/16 at [address] Student documentation reviewed and I agree with the above assessment. Ivania Perez, MS, RDN, CD
[2016-09-17] MEDS: LORazepam 100 mg/100 mL NS 100 MG in IV Premix 100 EACH IV SCH (14:07)
--- NOTE | 2016-09-17 14:32 | NUR ---
Pt to CT
[2016-09-17] MEDS ORDERED: Propofol 10,000 mCg/mL 100 mL Inj ONE (14:38)
[2016-09-17] MEDS ORDERED: Propofol 10 mg/mL 20 mL Inj IVPUSH ONE (14:55)
--- NOTE | 2016-09-17 15:03 | PCM.PNMED ---
Subjective Date of Service Sep 17, 2016 Subjective Patient was moved from sedation this evening. (Started for agitation patient has not awake and alert. Precedex was weaned and patient remains arousable but not awake. Vent is stable, patient was weaned from pressor support. Exam Vital Signs Vital Sign - Last Date Time Temp Pulse Resp B/P Pulse Ox O2 Delivery O2 Flow Rate FiO2 09/17/16 13:33 95 125/57 95 30 09/17/16 11:16 Ventilator 09/17/16 11:14 37.7 17 Intake and Output 09/16/16 09/16/16 09/17/16 Cumulative From/Thru 15:00 23:00 07:00 09/12/16 19:29 - 09/17/16 05:59 Intake Total 2735 ml 3471 ml 49217 ml Output Total 1500 ml 1200 ml 56380 ml Balance 1235 ml 2271 ml 36932 ml Intake IV Total 2404 ml 3102 ml 82681 ml Tube Feeding 230 ml 339 ml 697 ml Tube Irrigant 101 ml 30 ml 321 ml Output Urine Total 1500 ml 1200 ml 93510 ml Gastric Drainage Total 2200 ml # Bowel Movements 1 1 Exam General: Intubated and sedated; no acute distress HENT: ETT in place; pupils nonresponsive to light and approximate 2 mm Neck: Soft, no lymphadenopathy; trachea midline by palpation Cardiac: Regular rate and rhythm Respiratory: Bilateral coarse sounds that are improved from yesterday Abdomen: Soft, nontender, nondistended Extremities: No edema Skin: Warm and dry; cool distal extremities Neuro: Unable to assess secondary to intubation and sedation; pupils as above. Patient has intermittently opening her eyes but not tracking or focusing. Psych: Unable to assess secondary to intubation and sedation IVs and Medications Medications Reviewed: Medications were reviewed in detail Lab and Diagnostics Result Diagram: 09/17/16 0400 09/17/16 1350 X-Rays, CTs and MRIs Patient Name: MAO TAYLOR MR#: [id number] Location[place] [facility] [place] Ordering Phys: Jemal Rodriguez MD Date of Service: 09/12/162028 PROCEDURE: CT BRAIN WITHOUT CONTRAST ([id number]) INDICATIONS: altered mental status TECHNIQUE: Noncontrast 4.5 mm thick angled axial sections acquired from the foramen magnum to the vertex, with coronal reformats. COMPARISON: [facility], CT, BRAIN W/O CONTRAST, 08/21/2014, 16:07. FINDINGS: Image quality: Limited by patient motion. CSF spaces: Basal cisterns are patent. No extra-axial fluid collections. Ventricles are normal in size and shape. Brain: No midline shift. No intracranial masses or hemorrhage. Gomes-white matter interface is normal. Skull and face: Calvarium and visualized facial bones are intact, without suspicious lesions. Sinuses: Visualized sinuses and mastoids are clear. IMPRESSION: No acute intracranial disease process identified within limitations caused by motion artifact. Dictated by: Reyna Walsh MD, PhD on 09/12/2016 at 21:00 Approved by: Reyna Walsh MD, PhD on 09/12/2016 at 21:03 Patient Name: MAO TAYLOR MR#: [id number] Location: SED Ordering Phys: Jemal Rodriguez MD Date of Service: 09/12/162028 PROCEDURE: X-RAY CHEST ONE VIEW, PORTABLE ([id number]) INDICATIONS: post intubation TECHNIQUE: One view of the chest was acquired. COMPARISON: [facility], CR, XR CHEST 1VW (PORTABLE), 09/12/2016, 19: 44. FINDINGS: Surgical changes and devices: ET tube is 4.1 cm superior to the alisa. NG tube crosses the GE junction.. Cervical spine fixation hardware Lungs and pleura: No pleural effusions or pneumothorax. Lungs are clear. Mediastinum: Mediastinal contours appear normal. Heart size is normal. Bones and chest wall: No suspicious bony lesions. Overlying soft tissues appear unremarkable. IMPRESSION: No acute cardiopulmonary disease process. Dictated by: Reyna Walsh MD, PhD on 09/12/2016 at 21:08 Approved by: Reyna Walsh MD, PhD on 09/12/2016 at 21:09 CT Abd / Pelvis Interpretation IMPRESSION: small amount of free pelvic fluid. No other acute findings. Lung base opacities atelectasis versus infiltrate. NG tube tip in the proximal stomach. Tatyana Mcdonald M.D. Study type: Abdominal CT IV contrast Interpretation / Wet Read by: Interpret - Radiologist 12-lead ECG Sinus tach rate 104, no ST segment changes Additional Diagnostics venous blood gas 7:43 PM 09/12/2016 pH 6.867 pCO2 18 pO2 78.2 cHCO3- 3.1 cBase -29.4 ABG Interpretation: Repeat: pH 6.685 pCO2 36 pO2 68.2 cHCO3- 4.3 cBase -29.8 Assessment & Plan 51yoF with history of type one diabetes, fibromyalgia, polysubstance abuse brought by EMS due to acute mental status change and DKA. 1. Acute hypoxic Respiratory failure 2. Acute Septic shock 3. DKA; resolved 4. Acute kidney failure; resolved 5. Leukocytosis 6. Anemia, microcytic, unknown chronicity 7. Type 1 Diabetes, chronic 8. COPD, chronic 9. Encephalopathy Neuro: Patient remains arousable but non-responsive, unable to follow commands, unreactive pupils, movement and agitation intact. Patient is now off all forms of sedation including propofol, Ativan, fentanyl, and is also off Precedex. Patient will go for CT scan of the head this afternoon and we await the results. We will send her down with 2 mg of Ativan and 30 mg of propofol for any agitation. Cardiovascular: Patient is currently off of pressors as of yesterday afternoon. Blood pressure is stable heart rate is intermittently tachycardic due to agitation. Respiratory: Patient's ABG is stable and there are no issues with the vent. We are unable to history of this time due to encephalopathy and at this time extubation is entirely due to patient's neurological status. Infection: White count has normalized to 8.8, protest is normalizing, no new fevers overnight although patient was recorded at 37.7. Recommendation by Infectious Disease we will continue azithromycin and Zosyn next 2 days. Disposition: We await the CT scan results at this time will prolong her ventilation until she is able to protect her airway. Time spent: 45 minutes GI Prophylaxis: H2 ike VTE Prophylaxis: Sub-Q Heparin (Unfractionated) VTE Mechanical Devices: Intermittant Pneumatic CD Resuscitation Status: CPR: Attempt Resuscitation Attending Statement The patient was seen and examined together with Dr. Harris on 09/17/2016 and I agree with the history, exam and plan as outlined in the note above. Matt Harris DO Sep 17, 2016 15:03 Dougie Wayne MD Oct 09, 2016 09:07
--- NOTE | 2016-09-17 15:13 | DRSVH ---
PROCEDURE: CT BRAIN WITHOUT CONTRAST ([id number]) INDICATIONS: encephalopathy TECHNIQUE: Noncontrast 4.5 mm thick angled axial sections acquired from the foramen magnum to the vertex, with c oronal reformats. COMPARISON: [facility], CT, CT BRAIN WO CON, 09/12/2016, 20:38. FINDINGS: Image quality: Excellent. CSF spaces: Basal cisterns are patent. No extra-axial fluid collections. The ventricles are symmet lianne in size and shape. Brain: No intracranial bleeds or masses. There is cerebral volume loss for age, with resultant vent ricular and sulcal prominence. There are periventricular and deep white matter chronic small vessel ischemic changes. There is intracranial internal carotid artery atherosclerosis. Skull and face: Calvarium and visualized facial bones appear intact, without suspicious lesions. Sinuses: Visualized sinuses and mastoids are clear. IMPRESSION: 1. No acute intracranial findings. 2. Mild findings likely associated with chronic microvascular ischemic changes. Dictated by: Quita Roy M.D. on 09/17/2016 at 15:08 Approved by: Quita Roy M.D. on 09/17/2016 at 15:12
--- NOTE | 2016-09-17 15:18 | NUR ---
Social Work: Initial Assessment: Data & Assessment: EMR Reviewed. See Initial Assessment. Patient is a 51 y/o female that is vented and admitted due to DKA. SW completed initial assessment by speaking with patient's aunt Ammy Irizarry- [phone] who is also a patient at the hospital. SW also reviewed SW role and discussed possible discharge plans. Patient primary physician is Katrina ALMODOVAR. Patient primary insurance is Medicare. Patient does not have any LTC or VA benefits. Patient's re-admit score is high at 6. Patient does not have an Advance directive. SW provided patient's aunt with the information. Patient is independent at baseline and live in a 1 story home alone with two steps to enter. Patient does not have any DME and no HH or SNF history.Depending on patient's medical course, patient will either discharge home, possibly with HH, or go to SNF if needed. CLEANER AND PREPARER will continue to follow patient's progress and continue updating patient's family. patient's aunt also provided the following family members as people tot can be contacted in reference to the patient [id number]-[phone] and daughter Angeline Davila [phone] Plan: Patient will discharge when medically stable. SW will continue to follow and assist patient and family. Mamadou Turner LMSW, AUGUSTINA Addendum: 09/19/16 at 0914 by MAMADOU GANN Amended: Links added.
[2016-09-17] MEDS: Heparin 5,000 Unit/mL Inj SUBQ SCH (16:31)
--- NOTE | 2016-09-17 18:38 | NUR ---
Precedex gtt turned off shortly after 11:00 am this AM. 2mg ativan and propofol administered for CT; otherwise, pt has remained off sedation. Spontaneously opening eyes, does not track with eyes or follow verbal commands. Drawing legs up to chest, and shrugging shoulders. EEG planned. Continues on PRVC. Moderate amount of thin clear oral secretions. SR/ST per mold stacker. Afebrile. Tolerating glucerna tube feeding, residuals < 20cc. Insulin gtt continued per orders.
[2016-09-17] MEDS: fentaNYL 2,500 mCg/250 mL 2,500 MCG in IV Premix 1 EACH IV SCH (19:10)
[2016-09-17] MEDS: Norepineph 8,000 mCg/250 mL NS 8,000 MCG in IV Premix 1 EACH IV SCH (19:11)
--- NOTE | 2016-09-17 21:16 | NUR ---
Sedation/Neuro Sedation was turned off since start of shift. Pt awake with open eyes and agitated and seemingly confused. Does potentially follow some commands (asked to wiggle toes and she moved feet). Pt was also able to turn head in direction of voice (asked her questions from both sides of beds and she turned head towards me each time). Pupils equal and reactive. Still not following all commands, and is overbreathing vent. MD called. Was told plan was to not extubate at night, and received orders to restart Precedex and attempt to wean for day shift. Precedex started. Will continue to monitor pt closely. Care ongoing
[2016-09-18] VITALS (13 sets, daily range): BP systolic 113–140; BP diastolic 56–96; PULSE 78–88; RESP 16–32; O2SAT 97–100
--- NOTE | 2016-09-18 00:20 | NUR ---
Central line Pt had leaking R IJ at start of shift. IV therapy called to re-assess and redress. Per IV therapy, OK to continue to use. Central line continued to leak, and it appeared as if pt might not have been getting medications going into IJ (Pt would not calm down despite IV Precedex titration, and blood sugar increasing despite non DKA insulin gtt protocol.) PIV started and meds switched to PIV> will continue to monitor. Care ongoing
[2016-09-18] MEDS: Heparin 5,000 Unit/mL Inj SUBQ SCH ×4 (00:34→23:54)
[2016-09-18] MEDS: Chlorhexidine 0.12% 15 mL Oral Solution MT SCH ×7 (00:34→23:53)
[2016-09-18] MEDS ORDERED: fentaNYL-PF 50 mCg/mL 2 mL Inj IVPUSH PRN (00:50)
[2016-09-18] MEDS: Piper-Tazo 3.375 Gm/50 mL D5W Minibag Plus - Q8H over 4 hrs IV SCH ×6 (03:03→19:33)
[2016-09-18 06:16] LABS: BASOPHILS % (AUTO) 0.6 % (0-3); EOSINOPHILS % (AUTO) 3.6 % (0-5); MONOCYTES % (AUTO) 10.3 % (4-12); Mean Corpuscular Hemoglobin 19.5 pg (27.0-35.0); NEUTROPHILS % (AUTO) 69.5 % (40-74); Platelet Count 363 bil/L (150-400)
[2016-09-18 06:47] LABS: Magnesium 1.9 mg/dL (1.6-2.6)
[2016-09-18] MEDS: Senna-Docusate 8.6-50 mg Tablet PO SCH ×2 (07:59→19:50)
[2016-09-18] MEDS: Pantoprazole 4 mg/mL 10 mL Inj IVPUSH SCH ×2 (07:59→18:11)
--- NOTE | 2016-09-18 10:15 | DRSVH ---
PROCEDURE: X-RAY CHEST ONE VIEW, PORTABLE ([id number]) INDICATIONS: intubated TECHNIQUE: One view of the chest was acquired. COMPARISON: [facility], CR, XR CHEST 1VW (PORTABLE), 09/16/2016, 5:21. FINDINGS: Surgical changes and devices: ET tube tip projected 3.9 cm above the alisa. Stable position nasogas tric tube and right IJ CVL. Lungs and pleura: Slight decrease in bibasilar airspace opacities. Mediastinum: Mediastinal contours appear normal. Heart size is normal. Bones and chest wall: No suspicious bony lesions. Overlying soft tissues appear unremarkable. IMPRESSION: Decreasing bibasilar airspace opacities. Dictated by: Laron Holm RRA Interpreted: Eric Abdul MD on 09/18/2016 at 10:14 Transcribed by: DYANA on 09/18/2016 at 10:15 Approved by: Eric Abdul M.D. on 09/18/2016 at 13:45
--- NOTE | 2016-09-18 10:26 | PCM.PNMED ---
Subjective Date of Service Sep 18, 2016 Subjective All sedation was removed. Patient did receive 0.5 mg of Ativan last night as well as a standing order. Will DC this. Patient is on Precedex and this will be maintained on most part. Patient to undergo EEG today. Patient not is purposely responsive to command. However she is moving and intermittently initiating process on the ventilator. Exam Vital Signs Vital Sign - Last Date Time Temp Pulse Resp B/P Pulse Ox O2 Delivery O2 Flow Rate FiO2 09/18/16 10:01 30 09/18/16 08:13 80 113/67 100 09/18/16 04:35 37.5 22 Mechanical Ventilator Intake and Output 09/17/16 09/17/16 09/18/16 Cumulative From/Thru 15:00 23:00 07:00 09/12/16 19:29 - 09/18/16 06:45 Intake Total 1835 ml 2314 ml 11831 ml Output Total 4025 ml 1950 ml 32731 ml Balance -2190 ml 364 ml 12154 ml Intake IV Total 1374 ml 1731 ml 79043 ml Tube Feeding 371 ml 493 ml 1561 ml Tube Irrigant 90 ml 90 ml 501 ml Output Urine Total 4025 ml 1950 ml 89957 ml Gastric Drainage Total 2200 ml # Bowel Movements 4 5 Exam General: Intubated and not sedated; no acute distress; pt not purposefully responding to stimulus HEENT: ETT in place; Neck: Soft, no lymphadenopathy; trachea midline by palpation Cardiac: Regular rate and rhythm Respiratory: Bilateral coarse sounds that are improved from yesterday Abdomen: Soft, nontender, nondistended Extremities: No edema Skin: Warm and dry; cool distal extremities Neuro: Unable to assess secondary to intubation and sedation; pupils as above. Patient has intermittently opening her eyes but not tracking or focusing. Psych: Unable to assess secondary to intubation and sedation IVs and Medications Medications Reviewed: Medications were reviewed in detail Medications All sedation off; precedex continued Lab and Diagnostics Result Diagram: 09/18/1660909/18/16609 X-Rays, CTs and MRIs Patient Name: MAO TAYLOR MR#: [id number] Location: SED Ordering Phys: Jemal Rodriguez MD Date of Service: 09/12/162028 PROCEDURE: CT BRAIN WITHOUT CONTRAST ([id number]) INDICATIONS: altered mental status TECHNIQUE: Noncontrast 4.5 mm thick angled axial sections acquired from the foramen magnum to the vertex, with coronal reformats. COMPARISON: [facility], CT, BRAIN W/O CONTRAST, 08/21/2014, 16:07. FINDINGS: Image quality: Limited by patient motion. CSF spaces: Basal cisterns are patent. No extra-axial fluid collections. Ventricles are normal in size and shape. Brain: No midline shift. No intracranial masses or hemorrhage. Gomes-white matter interface is normal. Skull and face: Calvarium and visualized facial bones are intact, without suspicious lesions. Sinuses: Visualized sinuses and mastoids are clear. IMPRESSION: No acute intracranial disease process identified within limitations caused by motion artifact. Dictated by: Reyna Walsh MD, PhD on 09/12/2016 at 21:00 Approved by: Reyna Walsh MD, PhD on 09/12/2016 at 21:03 Patient Name: MAO TAYLOR MR#: [id number] Location: SED Ordering Phys: Jemal Rodriguez MD Date of Service: 09/12/162028 PROCEDURE: X-RAY CHEST ONE VIEW, PORTABLE ([id number]) INDICATIONS: post intubation TECHNIQUE: One view of the chest was acquired. COMPARISON: [facility], CR, XR CHEST 1VW (PORTABLE), 09/12/2016, 19: 44. FINDINGS: Surgical changes and devices: ET tube is 4.1 cm superior to the alisa. NG tube crosses the GE junction.. Cervical spine fixation hardware Lungs and pleura: No pleural effusions or pneumothorax. Lungs are clear. Mediastinum: Mediastinal contours appear normal. Heart size is normal. Bones and chest wall: No suspicious bony lesions. Overlying soft tissues appear unremarkable. IMPRESSION: No acute cardiopulmonary disease process. Dictated by: Reyna Walsh MD, PhD on 09/12/2016 at 21:08 Approved by: Reyna Walsh MD, PhD on 09/12/2016 at 21:09 CT Abd / Pelvis Interpretation IMPRESSION: small amount of free pelvic fluid. No other acute findings. Lung base opacities atelectasis versus infiltrate. NG tube tip in the proximal stomach. Tatyana Mcdonald M.D. Study type: Abdominal CT IV contrast Interpretation / Wet Read by: Interpret - Radiologist 12-lead ECG Sinus tach rate 104, no ST segment changes Additional Diagnostics venous blood gas 7:43 PM 09/12/2016 pH 6.867 pCO2 18 pO2 78.2 cHCO3- 3.1 cBase -29.4 ABG Interpretation: Repeat: pH 6.685 pCO2 36 pO2 68.2 cHCO3- 4.3 cBase -29.8 Assessment & Plan 51yoF with history of type one diabetes, fibromyalgia, polysubstance abuse brought by EMS due to acute mental status change and DKA. 1. Acute hypoxic Respiratory failure 2. Acute Septic shock 3. DKA; resolved 4. Acute kidney failure; resolved 5. Leukocytosis 6. Anemia, microcytic, unknown chronicity 7. Type 1 Diabetes, chronic 8. COPD, chronic 9. Encephalopathy Neuro: Patient remains arousable but non-responsive, unable to follow commands, pupils are reactive, movement and agitation intact. Patient is now off all forms of sedation including propofol, Ativan, fentanyl, but remains on Precedex. CT of the head did not reveal any new etiology for sedation. Cardiovascular: Stable Respiratory: Patient does well on the vent. Once more awake we will plan for extubation. Infection: White count has increased slightly to 10.3, pro-calcitonin, no new fevers overnight although patient was recorded at 37.7. Recommendation by Infectious Disease we will stop the azithromycin and Zosyn after today. Disposition: EEG is ordered although we doubt that this will shed much light on situation. Patient has more agitated today and hopefully wake up. Suspicions that she took some medication until such time screening. We will check with ED without any new drugs circulating in the community. Time spent: 30 minutes GI Prophylaxis: H2 ike VTE Prophylaxis: Sub-Q Heparin (Unfractionated) VTE Mechanical Devices: Intermittant Pneumatic CD Resuscitation Status: CPR: Attempt Resuscitation Attending Statement The patient was seen and examined together with Dr. Harris on 09/18/2016 and I agree with the history, exam and plan as outlined in the note above. Matt Harris DO Sep 18, 2016 10:26 Dougie Wayne MD Oct 09, 2016 09:15
--- NOTE | 2016-09-18 10:40 | PCM.PNMED ---
Subjective Date of Service Sep 18, 2016 Subjective Overnight: Reported possible leaking IJ; corrected. No fevers reported. No acute events. Ativan and fentanyl remained off. Tolerates SBT quite well. Today: Precedex at 0.3; fentanyl and ativan remain off. Movement noted, not purposeful; not following commands. No acute distress. Exam Vital Signs Vital Sign - Last Date Time Temp Pulse Resp B/P Pulse Ox O2 Delivery O2 Flow Rate FiO2 09/18/16 08:13 80 113/67 100 30 09/18/16 04:35 37.5 22 Mechanical Ventilator Intake and Output 09/17/16 09/17/16 09/18/16 Cumulative From/Thru 15:00 23:00 07:00 09/12/16 19:29 - 09/18/16 06:45 Intake Total 1835 ml 2314 ml 42108 ml Output Total 4025 ml 1950 ml 63195 ml Balance -2190 ml 364 ml 05427 ml Intake IV Total 1374 ml 1731 ml 64386 ml Tube Feeding 371 ml 493 ml 1561 ml Tube Irrigant 90 ml 90 ml 501 ml Output Urine Total 4025 ml 1950 ml 00269 ml Gastric Drainage Total 2200 ml # Bowel Movements 4 5 Exam General: Intubated and sedated; no acute distress; not responsive to voice stimuli; visible agitation without purposeful movement HENT: Atraumatic; sclera anicteric, mucus membranes moist; ETT in place Neck: Soft, no lymphadenopathy Cardiac: Regular rate and rhythm in 80s at time of examination; no murmurs appreciated Respiratory: Improved sounds; clear bilateral; adequate air flow all norman; no wheeze Abdomen: Soft, nontender, nondistended Extremities: No edema Skin: Warm and dry; cool distal extremities Neuro: Unable to assess secondary to intubation and sedation; does not follow commands Psych: Unable to assess secondary to intubation and sedation Lab and Diagnostics Result Diagram: 09/18/1660909/18/16609 X-Rays, CTs and MRIs Patient Name: MAO TAYLOR MR#: [id number] [place] [facility] [place] Phys: Jemal Rodriguez MD Date of Service: 09/12/162028 PROCEDURE: CT BRAIN WITHOUT CONTRAST ([id number]) INDICATIONS: altered mental status TECHNIQUE: Noncontrast 4.5 mm thick angled axial sections acquired from the foramen magnum to the vertex, with coronal reformats. COMPARISON: [facility], CT, BRAIN W/O CONTRAST, 08/21/2014, 16:07. FINDINGS: Image quality: Limited by patient motion. CSF spaces: Basal cisterns are patent. No extra-axial fluid collections. Ventricles are normal in size and shape. Brain: No midline shift. No intracranial masses or hemorrhage. Gomes-white matter interface is normal. Skull and face: Calvarium and visualized facial bones are intact, without suspicious lesions. Sinuses: Visualized sinuses and mastoids are clear. IMPRESSION: No acute intracranial disease process identified within limitations caused by motion artifact. Dictated by: Reyna Walsh MD, PhD on 09/12/2016 at 21:00 Approved by: Reyna Walsh MD, PhD on 09/12/2016 at 21:03 Patient Name: MAO TAYLOR MR#: [id number] Location: SED Ordering Phys: Jemal Rodriguez MD Date of Service: 09/12/162028 PROCEDURE: X-RAY CHEST ONE VIEW, PORTABLE ([id number]) INDICATIONS: post intubation TECHNIQUE: One view of the chest was acquired. COMPARISON: [facility], CR, XR CHEST 1VW (PORTABLE), 09/12/2016, 19: 44. FINDINGS: Surgical changes and devices: ET tube is 4.1 cm superior to the alisa. NG tube crosses the GE junction.. Cervical spine fixation hardware Lungs and pleura: No pleural effusions or pneumothorax. Lungs are clear. Mediastinum: Mediastinal contours appear normal. Heart size is normal. Bones and chest wall: No suspicious bony lesions. Overlying soft tissues appear unremarkable. IMPRESSION: No acute cardiopulmonary disease process. Dictated by: Reyna Walsh MD, PhD on 09/12/2016 at 21:08 Approved by: Reyna Walsh MD, PhD on 09/12/2016 at 21:09 CT Abd / Pelvis Interpretation IMPRESSION: small amount of free pelvic fluid. No other acute findings. Lung base opacities atelectasis versus infiltrate. NG tube tip in the proximal stomach. Tatyana Mcdonald M.D. Study type: Abdominal CT IV contrast Interpretation / Wet Read by: Interpret - Radiologist 12-lead ECG Sinus tach rate 104, no ST segment changes Additional Diagnostics venous blood gas 7:43 PM 09/12/2016 pH 6.867 pCO2 18 pO2 78.2 cHCO3- 3.1 cBase -29.4 ABG Interpretation: Repeat: pH 6.685 pCO2 36 pO2 68.2 cHCO3- 4.3 cBase -29.8 Assessment & Plan Ms. Mao Taylor is a 51yoF with history of type one diabetes, fibromyalgia, polysubstance abuse brought by EMS, found to be alert and oriented to self in DKA. She was later intubated in the ED secondary to respiratory distress and need to maintain her airway. She was admitted for evaluation and treatment of severe metabolic acidosis secondary to DKA with associated acute hypoxic respiratory failure, suspected PNA, and RAFA. - Hospital day 7 - Ventilator day 7 Acute hypoxic respiratory failure, present on admission; Resolved - intubated in ED secondary to respiratory distress and presumed airway compromise - pulm consult, vent and critical care management, recs appreciated - Ativan was utilized for sedation secondary to suspected benzo dependence/ history of use, and effectiveness compared to propofol - Trended triglycerides q3d secondary to propofol use; previous TG level 10/10 elev at 446; repeat 09/18 82 - OFF ativan and fentanyl: Precedex remains - Ct brain 09/17: No acute abnormalities to indicate reason for impaired neuro status - Possible extubation later today pending stability of SBT and patient safety - Speech eval to be ordered post-extubation - Keep ativan and fentanyl OFF; decrease precedex as tolerated - Patient likely to remain intubated secondary to inability to keep airway secure, not due to poor pulmonary function - Will need to keep patient off sedatives to maximize alertness to maintain airway - Discussion of EEG; may not be beneficial; and patient may not be able to remain still until completion - Current question: If any substances not seen on UTox present - Continue to monitor for neurological improvements throughout day Septic shock, acute, present on admission; resolved - unclear source, most likely PNA - Sputum Cx: + MSSA - MRSA screen negative - Resp PCR negative; BCx negative to date - Initial CSF Cx/GS: No growth to date - ID has been consulted, appreciated time and recommendations. - Eval CSF PCR: completely negative - Per ID, continue abx until 09/18: azithro and Zosyn; stop dates placed DKA, acute, POA; Resolved - severe metabolic acidosis on presentation pH 6.8 decreasing to 6.6 on repeat ABG, 2/2 gap 33 - On admit: K 5.7; glc 623; + serum ketones - 1amp bicarb given in ED, bicarb gtt started upon arrival to floor; now DC'd - unclear etiology, possible non-compliance vs occult infection, trop neg - head CT negative, LP less likely meningitis, CT abd / pelvis with possible PNA , CXR remains neg - Non-DKA protocol initiated with D5 1/2 as solution; will transition to correctional scale post-extubation/swallow eval - Med rec shows glargine 15U qhs + humulin-R sliding scale Hyperkalemia, acute, not present on admission. Resolved - K has been fluctuant throughout admission - 09/17: K 5.5 - Remains on insulin gtt; no FMS in place - DC'd LR Hypokalemia, acute, not present on admission. Resolved - K 2.6 09/14 - Replaced with 80 mEq - Replace prn Acute kidney failure, acute, POA. Resolved - most likely pre-renal given DKA - Maintaining adequate UOP Leukocytosis, acute, POA; Resolved - multifactorial, acute stress response 2/2 DKA vs possible underlying infection - possible PNA, CAP vs HCAP - treatment with piperacillin-tazobactam (pharm to dose) - Follow clinically and with serial labs - Abx course as above Anemia, microcytic, hypochromic; unknown chronicity; stable - may be secondary to fluid resuscitation - decreased hgb from 12.3 to 10.4 to 9.8 to 8.2 following admission; currently stable - pantoprazole bolus and gtt started; change from gtt to pushes: 40mg IV BID - Monitor daily Chronic Issues Type 1 Diabetes, chronic -history of uncontrolled diabetes -hgbA1c 9.8 COPD, chronic -as per medical record Fibromyalgia -monitor H/o polysubstance abuse, chronic - On admit: UTox + benzos, + TCA - as per brother history of narcotic use and ETOH use - monitor for withdrawal when appropriate - banana bag given - Receiving ativan gtt for sedation - BOTTOM SCRUBBER consult when appropriate Tobacco dependence, chronic -as per EMR history of tobacco dependence -consideration of patch/lozenge when stabilized - DVT: hep q8 - GI: PPI - Diet: Tube feeds - PRN bowel, fever, antiemetic, pain - Code: FULL CODE Dispo: Likely to remain > 2 days; patient remains intubated with minimal to zero sedation. Anticipate extubation within next 1-2 days, speech eval at that time to determine dietary tolerance. BOTTOM SCRUBBER needs may later include substance use counseling/services, when patient able to communicate use history and needs. Main barrier at this time is delay in extubation secondary to patient's inability to safely maintain airway, and why her neurological status has been slow to recover. Pain Evaluation: Adequate Pain Control GI Prophylaxis: H2 ike VTE Prophylaxis: Sub-Q Heparin (Unfractionated) VTE Mechanical Devices: Intermittant Pneumatic CD Resuscitation Status: CPR: Attempt Resuscitation Attending Statement The patient was seen and examined together with Dr. Fox on 09/18/16 I agree with the history, exam and plan as outlined in the note above. Jennifer Fox DO Sep 18, 2016 08:31 Jocelyn Holt DO Sep 18, 2016 14:37
--- NOTE | 2016-09-18 11:02 | ABG ---
DateTimeAnalyzed 10:55:00 -_ pH ____7.484 - 7.350 7.450 pCO2 ___37.6__ -mmHg 35.0 45.0 pO2 ___63.4__ -mmHg 69.0 116 HCO3- ___28.0__ -mmol/L 22.0 26.0 ABE ____4.6__ -mmol/L -2.0 2.0 tHb ____8.3__ -g/dL O2Hb ___91.4__ -% COHb ____1.5__ -% MetHb ____0.8__ -% sO2 ___93.6__ -% FIO2 ___30.0__ -% Pressure_Support ____5.0__ -cmH2O PEEP ____5.0__ -cmH2O Drawn By MT - Date/Time Notified____ 11:01:00 -_ Notified By MT - Notified Whom fry - B 748 -mmHg tO2 ___10.7__ -Vol% Stan test _Positive -
[2016-09-18] MEDS: Albuterol-Ipratropium 3 mL Inhalation Solution NEB SCH ×4 (12:37→20:55)
[2016-09-18] MEDS: 0.9% Sodium Chloride 1,000 ML IV SCH (13:12)
--- NOTE | 2016-09-18 13:24 | PROG NOTE ---
[address] [address] PROGRESS NOTE PATIENT: MAO TAYLOR : 1965 MR#: [id number] ADMIT: 09/12/2016 JOB ID: [id number] DATE: 09/18/2016 INFECTIOUS DISEASE FOLLOWUP NOTE: REASON FOR FOLLOWUP: DKA with sepsis. INTERVAL HISTORY: The patient continues to be intubated and sedated. She is now completely awake. When asked if she is okay, the patient shakes her head violently, otherwise attempts to communicate with her seem to be futile, but it is very clear that she is upset about her current state being restrained and intubated, and she would definitely like to be extubated. As far as I can tell she denies having have having fevers or chills but it is a bit difficult to get any history from her as her overall mean sentiment is one of being unhappy and wanting to get off the ventilator. PHYSICAL EXAMINATION: Shows an intubated woman who is not very sedated and completely awake in the ICU. She has been afebrile. Her most recent temp was 38 degrees at 4 a.m. yesterday, so about 30 hours ago. Her pulse is 80, blood pressure 113/67. She is saturating well on 30% and 5 of PEEP. Her eyes are without conjunctivitis or scleral icterus, though it does appear she has been crying. Her nose normal. Oral gastric and oral endotracheal tube in good position. Her central line is without evidence of inflammation. Her lungs are quite clear anteriorly. Cardiac tones crisp. Regular rate and rhythm. No murmur. Abdomen soft, nontender. No skin rashes noted. LABORATORIES: Include a white count 10,000 with completely normal diff. Creatinine less than 0.3. Procalcitonin yesterday was 0.11 and it has not been repeated. Micro studies include the sputum which grew MSSA Staph aureus; though the Gram stain showed only mixed luis felipe, the sputum did grow MSSA. Blood cultures are negative and a respiratory viral panel negative. IMAGING: Chest x-ray shows decreasing bibasilar infiltrates. IMPRESSION: The patient seems to be steadily improving. It would seem that an infection did precipitate her severe diabetic ketoacidosis as she did have unexplained leukocytosis as well as elevated procalcitonin which have responded to broad-spectrum antibiotics. Her sputum is colonized with MSSA but I am not sure that is the causative agent of any of her fever or any of her other problems. RECOMMENDATIONS: 1. We discussed this case extensively yesterday and today during rounds. The decision has been taken to stop her azithromycin and I agree with that. 2. I would continue Zosyn through tomorrow and then stop unless there are changes in her condition. 3. I will be out of town the next three days, but I can be reached by telephone or e-mail as needed to discuss this or any other case. 4. ID will go ahead and sign off as there is little in the way of active ID issues on this case right now, but if that changes give me a call.
[2016-09-18] MEDS: LORazepam 100 mg/100 mL NS 100 MG in IV Premix 100 EACH IV SCH ×2 (14:07→20:28)
--- NOTE | 2016-09-18 15:08 | NUR ---
BIBI Patient is vented. Patient daughter, Angeline Davila [phone], gave a verbal to sign BIBI via phone.
--- NOTE | 2016-09-18 15:12 | NUR ---
Evaluation completed. Please go to "Notes" then click on "Assessments and Notes" (bottom left corner of screen). Then select appropriate discipline tab on top of screen.
--- NOTE | 2016-09-18 15:30 | NUR ---
Mentation/Oxygenation.. Remains intubated, and after having precedex reduced was able to do pressure support trials throughout the morning and lilly this well. Has been increasingly more responsive, and nodding appropriately to questions asked. Becomes restless at times, kicking legs in the bed and pushing herself down in the bed. Was able to work with PT and dangled on the edge of the bed with assist. Is having loose diarrhea stools. Softners held. Is lilly tube feed well with minimal residuals
[2016-09-18] MEDS: Dexmedetomidine 400 mCg/100 mL NS Premix IV SCH (19:06)
[2016-09-18] MEDS: fentaNYL 2,500 mCg/250 mL 2,500 MCG in IV Premix 1 EACH IV SCH (20:49)
--- NOTE | 2016-09-18 20:50 | NUR ---
P) LOC/Agitation/fever Pt. extremely agitated at beginning of shift, refusing, ie. kicking off pillows for legs, kicking legs, trying to grab tubes, opening eyes spontaneously and appears to track nurse but does not follow any commands, did shake her head when asked if in pain, bolus'd Precedex, gave ativan and maxed Precedex rate with no positive result which lasted longer than 60 seconds. I) Restarted ativan gtt. to keep pt. in the bed, will try to titrate down in am. E) Currently has eyes closed, still moving legs.
[2016-09-18] MEDS: Norepineph 8,000 mCg/250 mL NS 8,000 MCG in IV Premix 1 EACH IV SCH (22:53)
[2016-09-18] MEDS: D5W1/2NS 1,000 mL IV PRN (22:53)
[2016-09-19] VITALS (12 sets, daily range): BP systolic 107–134; BP diastolic 51–74; PULSE 74–94; RESP 17–35; O2SAT 96–100
--- NOTE | 2016-09-19 02:23 | NUR ---
P) fever/weight Pt. continues febrile, T-max now 37.3c orally, gave full bedbath and moved pt. to a more appropriate bed now that one is available, IJ lost during transfer, no bleeding at site. Attempting to turn pt. q2h but she wiggles back on to her back almost immediately. Frequent loose stools and arturo area becoming macerated. I) Passive cooling measures, FMS placed, turning q2h, pt. will not tolerate floating heels, kicks pillows out immediately. E) Resting with eyes closed, frequently kicking even on sedation, wakes easily with ativan at 3mg/hr and precedex at 0.7mcg/kg/hr.
[2016-09-19] MEDS: 0.9% Sodium Chloride 1,000 ML IV SCH ×2 (02:45→16:33)
[2016-09-19] MEDS: Piper-Tazo 3.375 Gm/50 mL D5W Minibag Plus - Q8H over 4 hrs IV SCH ×4 (02:46→12:08)
[2016-09-19] MEDS: Chlorhexidine 0.12% 15 mL Oral Solution MT SCH ×5 (04:36→19:51)
[2016-09-19 04:37] LABS: BASOPHILS % (AUTO) 0.8 % (0-3); EOSINOPHILS % (AUTO) 4.7 % (0-5); MONOCYTES % (AUTO) 9.3 % (4-12); Mean Corpuscular Hemoglobin 19.9 pg (27.0-35.0); Mean Corpuscular Volume 64.7 fL (81-100); NEUTROPHILS % (AUTO) 65.1 % (40-74); Platelet Count 513 bil/L (150-400)
--- NOTE | 2016-09-19 04:45 | ABG ---
DateTimeAnalyzed 04:40:00 -_ pH ____7.457 - 7.350 7.450 pCO2 ___37.1__ -mmHg 35.0 45.0 pO2 101 -mmHg 69.0 116 HCO3- ___25.8__ -mmol/L 22.0 26.0 ABE ____2.3__ -mmol/L -2.0 2.0 tHb ____7.8__ -g/dL O2Hb ___96.1__ -% COHb ____1.4__ -% MetHb ____0.7__ -% sO2 ___98.2__ -% FIO2 ___30.0__ -% PEEP ____5.0__ -cmH2O Set_RR ___16.0__ -b/min Vt __400.0__ -L Drawn By AF - Date/Time Notified____ 04:45:00 -_ Oxygen Device 1 VENTILATOR - Notified By AF - Notified Whom ____Nurse - B 765 -mmHg tO2 ___10.7__ -Vol% Stan test N/A -
[2016-09-19] MEDS: Dexmedetomidine 400 mCg/100 mL NS Premix IV SCH (06:27)
[2016-09-19] MEDS: Insulin Human REGular Inj 100 UNIT in 0.9% Sodium Chloride-Pha MIX 100 ML IV SCH (06:30)
[2016-09-19] MEDS: Senna-Docusate 8.6-50 mg Tablet PO SCH ×2 (07:39→19:51)
[2016-09-19] MEDS: Albuterol-Ipratropium 3 mL Inhalation Solution NEB SCH ×4 (07:55→20:26)
[2016-09-19] MEDS: Heparin 5,000 Unit/mL Inj SUBQ SCH ×2 (08:41→16:10)
[2016-09-19] MEDS: Pantoprazole 4 mg/mL 10 mL Inj IVPUSH SCH ×2 (08:41→16:10)
--- NOTE | 2016-09-19 10:11 | DRSVH ---
PROCEDURE: X-RAY CHEST ONE VIEW, PORTABLE ([id number]) INDICATIONS: intubated TECHNIQUE: One view of the chest was acquired. COMPARISON: [facility], CR, XR CHEST 1VW (PORTABLE), 09/18/2016, 5:10. FINDINGS: Surgical changes and devices: Right central venous catheter has been removed. Cervical fixation hardw are is unchanged. The endotracheal tube and NG tube are unchanged. Lungs and pleura: No pleural effusions or pneumothorax. There is improved aeration of the bilateral lungs when compared with the prior study. Mediastinum: Mediastinal contours appear normal. Heart size is normal. Bones and chest wall: No suspicious bony lesions. Overlying soft tissues appear unremarkable. IMPRESSION: Improved aeration of the lungs when compared with the prior study. Dictated by: Quita Roy M.D. on 09/19/2016 at 10:09 Approved by: Quita Roy M.D. on 09/19/2016 at 10:09
--- NOTE | 2016-09-19 14:26 | NUR ---
NUTRITION FOLLOW UP Assess: 51 YO female is a type I Diabetic admitted w/ DKA and associated acute hypoxic respiratory failure. She remains intubated but is managing pressure support trials well. Unfortunately she requires Precedex, with the new addition of Ativan, due to agitation. Her behavior precludes extubation. PMHx: Type I DM, COPD, Fibromyalgia, polysubstance abuse, tobacco dependence, cervical cancer LABS: Reviewed. BUN 5, Cr < 0.30, Glu 108, Ca 7.8. MEDICATIONS: Insulin, Precedex, Ativan. CURRENT DIET: NPO NUTRITION SUPPORT: Glucerna 1.5 @ goal rate 38 ml/hr, providing 1254 kcal and 69g of protein, meeting 100% of calorie needs and 99% of protein needs. GI symptoms/stool: Frequent loose stools via FMA. SKIN: Obed 12 - No pressure ulcer per [facility]; however, nursing noting macerated arturo-area. ANTHROPOMETRICS: Current Wt: 58.6 kg BMI: 23.0 kg/m2 IBW: 50.0 kg Admit Wt: 48.3 kg (BMI: 19.5 kg/m2) ESTIMATED NEEDS: Vented Calories: 7131-1807 kcal/day (22-25 kcal/kg Admit BW) Protein: 70-85 g/day (1.5-1.8 g/kg Admit BW) Fluids: 0617-7766 ml/day (Approx 1 ml/kcal/d) NUTRITION DIAGNOSIS: 1) Inadequate oral intake related to decreased ability to consume sufficient energy as evidenced by current NPO status x 2 days - IMPROVED W/ TF @ GOAL RATE. INTERVENTION: 1) Recommend continuing enteral nutrition of Glucerna 1.5 at goal rate. MONITOR/EVALUATE: Enteral feeding tolerance, vent status, labs, wt, GI, POC. Will continue to monitor per high nutritional risk guidelines.
[2016-09-19] MEDS ORDERED: Propofol 10 mg/mL 20 mL Inj IVPUSH PRN (14:45)
--- NOTE | 2016-09-19 14:53 | PCM.PNMED ---
Subjective Date of Service Sep 19, 2016 Subjective Patient was seen and examined at bedside today. Patient is still intubated. Overnight the patient seemed to be agitated and restless and was then placed on an Ativan drip. The patient is now no longer responding to commands and does not seem to be able to protect her airway she is now on a propofol drip. Exam Vital Signs Vital Sign - Last Date Time Temp Pulse Resp B/P Pulse Ox O2 Delivery O2 Flow Rate FiO2 09/19/16 12:30 81 107/51 100 30 09/19/16 12:30 26 09/19/16 12:12 Ventilator 09/19/16 12:12 36.5 Intake and Output 09/18/16 09/18/16 09/19/16 Cumulative From/Thru 15:00 23:00 07:00 09/12/16 19:29 - 09/19/16 06:33 Intake Total 2131 ml 2469 ml 92541 ml Output Total 2200 ml 2350 ml 97682 ml Balance -69 ml 119 ml 73573 ml Intake IV Total 1601 ml 1855 ml 12610 ml Tube Feeding 440 ml 454 ml 2455 ml Tube Irrigant 90 ml 160 ml 751 ml Output Urine Total 2200 ml 2350 ml 93811 ml Gastric Drainage Total 2200 ml # Bowel Movements 3 1 9 Exam Physical Exam: GEN: Patient is intubated, not able to respond to commands HEENT: PERRLA,Neck soft supple, trachea midline, nomocephalic/atraumatic, ET tube in place CV: +S1/S2, RRR, no murmurs auscultated Respiratory: Coarse breath sounds, no wheezes, rales, rhonchi GI: +bowel sounds x4, soft, compressible EXT: no c/c/e skin: Warm, moist IVs and Medications Medications Reviewed: Medications were reviewed in detail Medications Current Medications Heparin Sodium (Porcine) 5,000 unit Q8 SUBQ Last administered on 09/19/16 08:41 ; Admin Dose 5,000 UNIT; Start 09/17/16 at 16:30 Fentanyl Citrate 50 mcg Q3H PRN IVPUSH Last administered on 09/18/16 01:14; Admin Dose 50 MCG; Start 09/18/16 at 00:50 Lab and Diagnostics Result Diagram: 2/11/17 0425 2/11/17 0425 X-Rays, CTs and MRIs Patient Name: MAO TAYLOR MR#: [id number] Location: SED Ordering Phys: Jemal Rodriguez MD Date of Service: 09/12/162028 PROCEDURE: CT BRAIN WITHOUT CONTRAST ([id number]) INDICATIONS: altered mental status TECHNIQUE: Noncontrast 4.5 mm thick angled axial sections acquired from the foramen magnum to the vertex, with coronal reformats. COMPARISON: [facility], CT, BRAIN W/O CONTRAST, 08/21/2014, 16:07. FINDINGS: Image quality: Limited by patient motion. CSF spaces: Basal cisterns are patent. No extra-axial fluid collections. Ventricles are normal in size and shape. Brain: No midline shift. No intracranial masses or hemorrhage. Gomes-white matter interface is normal. Skull and face: Calvarium and visualized facial bones are intact, without suspicious lesions. Sinuses: Visualized sinuses and mastoids are clear. IMPRESSION: No acute intracranial disease process identified within limitations caused by motion artifact. Dictated by: Reyna Walsh MD, PhD on 09/12/2016 at 21:00 Approved by: Reyna Walsh MD, PhD on 09/12/2016 at 21:03 Patient Name: MAO TAYLOR MR#: [id number] Location: SED Ordering Phys: Jemal Rodriguez MD Date of Service: 09/12/162028 PROCEDURE: X-RAY CHEST ONE VIEW, PORTABLE ([id number]) INDICATIONS: post intubation TECHNIQUE: One view of the chest was acquired. COMPARISON: [facility], CR, XR CHEST 1VW (PORTABLE), 09/12/2016, 19: 44. FINDINGS: Surgical changes and devices: ET tube is 4.1 cm superior to the alisa. NG tube crosses the GE junction.. Cervical spine fixation hardware Lungs and pleura: No pleural effusions or pneumothorax. Lungs are clear. Mediastinum: Mediastinal contours appear normal. Heart size is normal. Bones and chest wall: No suspicious bony lesions. Overlying soft tissues appear unremarkable. IMPRESSION: No acute cardiopulmonary disease process. Dictated by: Reyna Walsh MD, PhD on 09/12/2016 at 21:08 Approved by: Reyna Walsh MD, PhD on 09/12/2016 at 21:09 CT Abd / Pelvis Interpretation IMPRESSION: small amount of free pelvic fluid. No other acute findings. Lung base opacities atelectasis versus infiltrate. NG tube tip in the proximal stomach. Tatyana Mcdonald M.D. Study type: Abdominal CT IV contrast Interpretation / Wet Read by: Interpret - Radiologist 12-lead ECG Sinus tach rate 104, no ST segment changes Additional Diagnostics venous blood gas 7:43 PM 09/12/2016 pH 6.867 pCO2 18 pO2 78.2 cHCO3- 3.1 cBase -29.4 ABG Interpretation: Repeat: pH 6.685 pCO2 36 pO2 68.2 cHCO3- 4.3 cBase -29.8 Assessment & Plan Ms. Mao Taylor is a 51yoF with history of type one diabetes, fibromyalgia, polysubstance abuse brought by EMS, found to be alert and oriented to self in DKA. She was later intubated in the ED secondary to respiratory distress and need to maintain her airway. She was admitted for evaluation and treatment of severe metabolic acidosis secondary to DKA with associated acute hypoxic respiratory failure, suspected PNA, and RAFA. - Hospital day 7 - Ventilator day 7 Acute hypoxic respiratory failure, present on admission; Resolved - intubated in ED secondary to respiratory distress and presumed airway compromise - pulm consult, vent and critical care management, recs appreciated - Ativan was utilized for sedation secondary to suspected benzo dependence/ history of use, and effectiveness compared to propofol - Trended triglycerides q3d secondary to propofol use; previous TG level 10/10 elev at 446; repeat 09/18 82 - OFF ativan and fentanyl: Precedex remains - Ct brain 09/17: No acute abnormalities to indicate reason for impaired neuro status - Possible extubation on Wednesday09/21/13 pending ability to maintain own airway and patient safety - Speech eval to be ordered post-extubation - Keep ativan and fentanyl OFF; decrease precedex as tolerated - Patient likely to remain intubated secondary to inability to keep airway secure, not due to poor pulmonary function - Will need to keep patient off sedatives to maximize alertness to maintain airway - Discussion of EEG; may not be beneficial; and patient may not be able to remain still until completion - Current question: If any substances not seen on UTox present - Continue to monitor for neurological improvements throughout day Septic shock, acute, present on admission; resolved - unclear source, most likely PNA - Sputum Cx: + MSSA - MRSA screen negative - Resp PCR negative; BCx negative to date - Initial CSF Cx/GS: No growth to date - ID has been consulted, appreciated time and recommendations. - Eval CSF PCR: completely negative - Per ID, discontinued abx today: azithro and Zosyn; patient has had a full course DKA, acute, POA; Resolved - severe metabolic acidosis on presentation pH 6.8 decreasing to 6.6 on repeat ABG, 2/ gap 33 - On admit: K 5.7; glc 623; + serum ketones - 1amp bicarb given in ED, bicarb gtt started upon arrival to floor; now DC'd - unclear etiology, possible non-compliance vs occult infection, trop neg - head CT negative, LP less likely meningitis, CT abd / pelvis with possible PNA , CXR remains neg - Non-DKA protocol initiated with D5 1/2 as solution; will transition to correctional scale post-extubation/swallow eval - Med rec shows glargine 15U qhs + humulin-R sliding scale Hyperkalemia, acute, not present on admission. Resolved - K has been fluctuant throughout admission - 09/17: K 5.5 - Remains on insulin gtt; no FMS in place - DC'd LR Hypokalemia, acute, not present on admission. Resolved - K 2.6 09/14 - Replaced with 80 mEq - Replace prn Acute kidney failure, acute, POA. Resolved - most likely pre-renal given DKA - Maintaining adequate UOP Leukocytosis, acute, POA; Resolved - multifactorial, acute stress response 2/2 DKA vs possible underlying infection - possible PNA, CAP vs HCAP - treatment with piperacillin-tazobactam (pharm to dose) - Follow clinically and with serial labs - Abx course as above Anemia, microcytic, hypochromic; unknown chronicity; stable - may be secondary to fluid resuscitation - decreased hgb from 12.3 to 10.4 to 9.8 to 8.2 following admission; currently stable - pantoprazole bolus and gtt started; change from gtt to pushes: 40mg IV BID - Monitor daily Chronic Issues Type 1 Diabetes, chronic -history of uncontrolled diabetes -hgbA1c 9.8 COPD, chronic -as per medical record Fibromyalgia -monitor H/o polysubstance abuse, chronic - On admit: UTox + benzos, + TCA - as per brother history of narcotic use and ETOH use - monitor for withdrawal when appropriate - banana bag given - Receiving ativan gtt for sedation - COOK SHORT ORDER consult when appropriate Tobacco dependence, chronic -as per EMR history of tobacco dependence -consideration of patch/lozenge when stabilized - DVT: hep q8 - GI: PPI - Diet: Tube feeds - PRN bowel, fever, antiemetic, pain - Code: FULL CODE Dispo: The plan was to x-ray the patient today however because she was placed back on an Ativan drip overnight she is once again become lethargic and not responding to commands. The patient is now on a propofol drip which is more easily reversible. Patient will most likely be extubated on Wednesday. The patient has done well on her weaning trials however today she seemed to be a little lethargic and working a little harder in order to maintain her breathing. We will give the patient one day of rest tomorrow and then stop the propofol drip and the Precedex and attempt a weaning trial with possible extubation on Wednesday. This plan was discussed with critical care Dr. Braun who agrees with this plan. Likely to remain > 2 days; patient remains intubated with minimal to zero sedation. Anticipate extubation within next 1-2 days, speech eval at that time to determine dietary tolerance. COOK SHORT ORDER needs may later include substance use counseling/services, when patient able to communicate use history and needs. Main barrier at this time is delay in extubation secondary to patient's inability to safely maintain airway, and why her neurological status has been slow to recover. GI Prophylaxis: H2 ike VTE Prophylaxis: Sub-Q Heparin (Unfractionated) VTE Mechanical Devices: Intermittant Pneumatic CD Resuscitation Status: CPR: Attempt Resuscitation Time spent Greater than 35 minutes Jocelyn Holt DO Sep 19, 2016 14:53
--- NOTE | 2016-09-19 15:29 | NUR ---
Mentation/Sedation/PS trial.. Pt noted to be a -2 to -3 RASS and unable to follow commands. Seen by MD and precedex and Ativan gtts weaned off. Pt has been slowly awakening throughout shift and is now able to nod slowly to questions asked. Is restless at times, kicking off blankets. Recognized family member at the bedside. Did several hours of pressure support trial and lilly well without any desats or resp distress. Pt's brother Santosh reached and updated on her status.
[2016-09-19] MEDS: Propofol Inj 1,000,000 MCG in IV Premix 1 EACH IV SCH (16:05)
--- NOTE | 2016-09-19 16:43 | PROG NOTE ---
[address] [address] PROGRESS NOTE PATIENT: MAO TAYLOR : 1965 MR#: [id number] ADMIT: 09/12/2016 JOB ID: [id number] DATE: 09/19/2016 PULMONARY CRITICAL CARE FOLLOWUP NOTE: PROBLEM LIST: 1. Acute hypoxemic respiratory failure. 2. Respiratory muscle weakness. 3. Encephalopathy. SUBJECTIVE: None. OBJECTIVE: Vital signs: Temperature 36.5 with T-max being 37.3, pulse 74-81, respiratory rate 17 on ventilator. Blood pressure 116/60. O2 sat on FiO2 of 30%, PEEP of 5, is 98%. I and O shows 4.4 liters in, 4.1 liters out. General appearance: Currently sedated. Chest: Fairly good breath sounds bilaterally. Clear. Heart: Somewhat distant heart tones. Heart tones seem normal otherwise. Abdomen: Soft. Quiet. Extremities: Maybe trace pretibial edema. LABORATORY DATA: Shows a white count of 10,100 with a normal differential. Hemoglobin stable at 8, platelet count rising at 513. Sodium 142, potassium 3.8, chloride 108, CO2 is 24, BUN 5, with a creatinine of less than 0.3. Calcium 7.8. Phosphorus 3 and magnesium 2. TSH low normal at 0.9. Free T4 somewhat low at 0.6, lower limits of normal being 0.82. Chest x-ray reported improved aeration of the lungs. The patient did a pressure support trial 10/5 today. Did about 4 hours. Did reasonably well. ASSESSMENT: Respiratory muscle weakness. Doing reasonably well with pressure support trials. Her oxygenation is improved. X-ray is clearing. The big problem is ventilatory muscle weakness. Yesterday she did fine on a pressure support trial of 10/5 but failed miserably a pressure support trial of 5/5 with tidal volumes in the mid 200s at best. I gather she was a bit more awake today, however would like to hold the Ativan so that is not a problem for us tomorrow. Will utilize propofol for any sedative needs. PLAN: 1. Pressure support trial 5/5 in the morning. 2. Discontinue all Ativan. 3. Propofol for sedation p.r.n.
[2016-09-19] MEDS ORDERED: 0.9% Sodium Chloride 250 ML ONE (18:06)
[2016-09-19] MEDS: D5W1/2NS 1,000 mL IV PRN (18:12)
[2016-09-19] MEDS: fentaNYL 2,500 mCg/250 mL 2,500 MCG in IV Premix 1 EACH IV SCH (22:23)
[2016-09-20] VITALS (11 sets, daily range): BP systolic 116–155; BP diastolic 55–86; PULSE 86–112; RESP 19–34; O2SAT 94–99
[2016-09-20] MEDS: Chlorhexidine 0.12% 15 mL Oral Solution MT SCH ×6 (00:03→20:49)
[2016-09-20] MEDS: Propofol Inj 1,000,000 MCG in IV Premix 1 EACH IV SCH ×4 (00:03→22:21)
[2016-09-20] MEDS: Heparin 5,000 Unit/mL Inj SUBQ SCH ×3 (00:10→16:12)
[2016-09-20] MEDS: Norepineph 8,000 mCg/250 mL NS 8,000 MCG in IV Premix 1 EACH IV SCH (00:12)
[2016-09-20 03:23] LABS: Mean Corpuscular Hemoglobin 19.7 pg (27.0-35.0); Mean Corpuscular Volume 64.6 fL (81-100)
--- NOTE | 2016-09-20 04:52 | ABG ---
DateTimeAnalyzed 04:47:00 -_ pH ____7.461 - 7.350 7.450 pCO2 ___37.3__ -mmHg 35.0 45.0 pO2 ___82.5__ -mmHg 69.0 116 HCO3- ___26.2__ -mmol/L 22.0 26.0 ABE ____2.7__ -mmol/L -2.0 2.0 tHb ____8.1__ -g/dL O2Hb ___95.2__ -% COHb ____1.3__ -% MetHb ____0.6__ -% sO2 ___97.0__ -% FIO2 ___21.0__ -% PEEP ____5.0__ -cmH2O Set_RR ___16.0__ -b/min Vt __400.0__ -L Drawn By MK - Date/Time Notified____ 04:52:00 -_ Oxygen Device 1 VENTILATOR - Notified By MK - B 769 -mmHg tO2 ___10.9__ -Vol% Stan test _Positive -
[2016-09-20] MEDS: 0.9% Sodium Chloride 1,000 ML IV SCH ×2 (05:31→19:37)
--- NOTE | 2016-09-20 06:37 | NUR ---
P) Fever/LOC Pt. continues febrile at night, T-max 37/6c orally, eyes seem to track what she is interested in, pupils equal and reactive, still does not follow any commands, legs moved almost constantly all night, bicycling but no swinging them over the side of the bed. I) Passive cooling, refrained from increasing sedation though I do not believe pt. slept at all until after 0600. E) Currently resting quietly with eyes closed.
[2016-09-20] MEDS: Senna-Docusate 8.6-50 mg Tablet PO SCH ×2 (07:46→20:49)
[2016-09-20] MEDS: Pantoprazole 4 mg/mL 10 mL Inj IVPUSH SCH ×2 (07:46→16:10)
[2016-09-20] MEDS: Albuterol-Ipratropium 3 mL Inhalation Solution NEB SCH ×4 (08:54→20:44)
--- NOTE | 2016-09-20 13:52 | PCM.PNMED ---
Subjective Date of Service Sep 20, 2016 Subjective Overnight: Mild temp T37.6; not following commands; eyes tracked. Remained active throughout night. Today: Remains on minimal propofol; Ativan remains off. At time of examination, eyes open, not following commands, no acute distress noted. ROS could not be obtained secondary to intubation and sedation. Info: Net IO + 11L; 24hUOP 4150, UOP today 2600; afebrile Exam Vital Signs Vital Sign - Last Date Time Temp Pulse Resp B/P Pulse Ox O2 Delivery O2 Flow Rate FiO2 09/20/16 09:00 94 137/72 97 30 09/20/16 08:01 Ventilator 09/20/16 08:01 37.1 20 Intake and Output 09/19/16 09/19/16 09/20/16 Cumulative From/Thru 15:00 23:00 07:00 09/12/16 19:29 - 09/20/16 06:36 Intake Total 2193 ml 2525 ml 78770 ml Output Total 1850 ml 2800 ml 34852 ml Balance 343 ml -275 ml 73903 ml Intake IV Total 1614 ml 1885 ml 29171 ml Tube Feeding 414 ml 455 ml 3324 ml Tube Irrigant 165 ml 185 ml 1101 ml Output Urine Total 1800 ml 2600 ml 56819 ml Stool Total 50 ml 200 ml 250 ml Gastric Drainage Total 2200 ml # Bowel Movements 1 10 Exam General: Intubated and sedated; no acute distress; not responsive to voice stimuli; eyes open; nonpurposeful movements HENT: Atraumatic; sclera anicteric, mucus membranes moist; ETT in place Neck: Soft, no lymphadenopathy Cardiac: Regular rate and rhythm in 80s at time of examination; no murmurs appreciated Respiratory: Improved sounds; clear bilateral; adequate air flow all norman; no wheeze Abdomen: Soft, nontender, nondistended Extremities: Significant left wrist pain with any palpation or range of motion. It was no pain in the elbow, shoulder or the hand. Skin: Warm and dry; cool distal extremities Neuro: Unable to assess secondary to intubation and sedation; does not follow commands Psych: Unable to assess secondary to intubation and sedation Lab and Diagnostics Result Diagram: 09/20/1630509/20/16305 Microbiology Name: MAO CHUNG Age/Sex: 51/F Attend Dr: Patricia Oliveira Acct: [id number] Unit: [id number] Status: ADM IN Location: [facility] [id number] Re09/12/16 Disch: Specimen: [id number] Collected: 09/13/16 Status: COMP Req#: [id number] Received: 09/13/16 Source: SPUTUM EXP Sp Desc : Subm Dr: Patricia Oliveira DO Ordered: GRAM SPT REFLEX, SPUTUM CULTURE Comments: Collected by Nurse/Unit? Y/N Y Procedure Result Verified Site Microbiology JELLY CULT SPUTUM GS Final 09/13/16-1410 SPT GRAM STAIN RARE POLYS RARE MIXED NORMAL LAZARO This Spec is of good Quality and acceptable for Cult RESPIRATORY CULTURE Final 09/16/16 Organism 1 STAPHYLOCOCCUS AUREUS COLONY COUNT/QUANTITY MODERATE GROWTH Oxacillin Susceptible Penicillin Resistant Staph spp. are Susceptible to Penicillin stable penicillins, Blactam/Blactamase inhibitor combinations, antistaphyloccal cephems, and carbapenems. 1. STAPHYLOCOCCUS AUREUS M.I.C Interp --------- ------ * CEFAZOLIN S * CLINDAMYCIN <=0.25 S * ERYTHROMYCIN <=0.25 S * LINEZOLID 2 S * MOXIFLOXACIN 2 R * OXACILLIN JELLY 1 S * RIFAMPIN <=0.5 S * TETRACYCLINE <=1 S * TRIMETHOPRIM/SULFAMETHOXAZOLE <=10 S * VANCOMYCIN <=0.5 S X-Rays, CTs and MRIs Patient Name: MAO CHUNG MR#: [id number] Location: SED Ordering Phys: Jemal Rodriguez MD Date of Service: 09/12/162028 PROCEDURE: CT BRAIN WITHOUT CONTRAST ([id number]) INDICATIONS: altered mental status TECHNIQUE: Noncontrast 4.5 mm thick angled axial sections acquired from the foramen magnum to the vertex, with coronal reformats. COMPARISON: [facility], CT, BRAIN W/O CONTRAST, 08/21/2014, 16:07. FINDINGS: Image quality: Limited by patient motion. CSF spaces: Basal cisterns are patent. No extra-axial fluid collections. Ventricles are normal in size and shape. Brain: No midline shift. No intracranial masses or hemorrhage. Gomes-white matter interface is normal. Skull and face: Calvarium and visualized facial bones are intact, without suspicious lesions. Sinuses: Visualized sinuses and mastoids are clear. IMPRESSION: No acute intracranial disease process identified within limitations caused by motion artifact. Dictated by: Reyna Walsh MD, PhD on 09/12/2016 at 21:00 Approved by: Reyna Walsh MD, PhD on 09/12/2016 at 21:03 Patient Name: MAO CHUNG MR#: [id number] Location: SED Ordering Phys: Jemal Rodriguez MD Date of Service: 09/12/162028 PROCEDURE: X-RAY CHEST ONE VIEW, PORTABLE ([id number]) INDICATIONS: post intubation TECHNIQUE: One view of the chest was acquired. COMPARISON: [facility], CR, XR CHEST 1VW (PORTABLE), 09/12/2016, 19: 44. FINDINGS: Surgical changes and devices: ET tube is 4.1 cm superior to the alisa. NG tube crosses the GE junction.. Cervical spine fixation hardware Lungs and pleura: No pleural effusions or pneumothorax. Lungs are clear. Mediastinum: Mediastinal contours appear normal. Heart size is normal. Bones and chest wall: No suspicious bony lesions. Overlying soft tissues appear unremarkable. IMPRESSION: No acute cardiopulmonary disease process. Dictated by: Reyna Walsh MD, PhD on 09/12/2016 at 21:08 Approved by: Reyna Walsh MD, PhD on 09/12/2016 at 21:09 CT Abd / Pelvis Interpretation IMPRESSION: small amount of free pelvic fluid. No other acute findings. Lung base opacities atelectasis versus infiltrate. NG tube tip in the proximal stomach. Tatyana Mcdonald M.D. Study type: Abdominal CT IV contrast Interpretation / Wet Read by: Interpret - Radiologist 12-lead ECG Sinus tach rate 104, no ST segment changes Cardiac Echo Impressions Echocardiogram Report Name: MAO CHUNG GStudy Date: 09/13/2016 Height: 62 in Hospital Exam Location: [facility] Weight: 110 lb Gender: Female BSA: 1.5 m2 : 1965 Age: 51 yrs BP: 121/59 mmHg Reason For Study: HYPOTENSION Ordering Physician: Performed By: Dede Talbot Referring Physician: Mckayla OSWALD Interpretation Summary Sinus tachycardia. Normal LV size,wall thickness, wall motion and LV systolic function. EF is 55 -60%. RV is mildly dilated and demonstrates normal function. No significant valvular abnormalities. Estimated PA systolic pressure is 50 mm Hg assuming RA pressure of 15 mm Hg. No prior study available for comparison Additional Diagnostics venous blood gas 7:43 PM 09/12/2016 pH 6.867 pCO2 18 pO2 78.2 cHCO3- 3.1 cBase -29.4 ABG Interpretation: Repeat: pH 6.685 pCO2 36 pO2 68.2 cHCO3- 4.3 cBase -29.8 Assessment & Plan Ms. Mao Chung is a 51yoF with history of type one diabetes, fibromyalgia, polysubstance abuse brought by EMS, found to be alert and oriented to self in DKA. She was later intubated in the ED secondary to respiratory distress and need to maintain her airway. She was admitted for evaluation and treatment of severe metabolic acidosis secondary to DKA with associated acute hypoxic respiratory failure, suspected PNA, and RAFA. - Hospital day 9 - Ventilator day 9 Acute hypoxic respiratory failure, present on admission; Resolved - intubated in ED secondary to respiratory distress and presumed airway compromise - pulm consult, vent and critical care management, recs appreciated - Ativan was utilized for sedation secondary to suspected benzo dependence/ history of use, and effectiveness compared to propofol - Trended triglycerides q3d secondary to propofol use; previous TG level 10/10 elev at 446; repeat 09/18 82 - OFF ativan and fentanyl: Precedex remains - Ct brain 09/17: No acute abnormalities to indicate reason for impaired neuro status - Possible extubation on Wednesday09/21/13 pending ability to maintain own airway and patient safety - Speech eval to be ordered post-extubation - Patient remains intubated secondary to inability to keep airway secure, not due to poor pulmonary function - Will need to keep patient off sedatives/minimize to maximize alertness to maintain airway - Discussion of EEG; may not be beneficial; and patient may not be able to remain still until completion - Current question: If any substances not seen on UTox present - Continue to monitor for neurological improvements throughout day - Continue breathing trials Septic shock, acute, present on admission; resolved - unclear source, most likely PNA - Sputum Cx: + MSSA - MRSA screen negative - Resp PCR negative; BCx negative to date - Initial CSF Cx/GS: No growth to date - ID has been consulted, appreciated time and recommendations. - Eval CSF PCR: completely negative - Per ID, discontinued abx azithro and Zosyn; patient has had a full course DKA, acute, POA; Resolved - severe metabolic acidosis on presentation pH 6.8 decreasing to 6.6 on repeat ABG, 2/ gap 33 - On admit: K 5.7; glc 623; + serum ketones - 1amp bicarb given in ED, bicarb gtt started upon arrival to floor; now DC'd - unclear etiology, possible non-compliance vs occult infection, trop neg - head CT negative, LP less likely meningitis, CT abd / pelvis with possible PNA , CXR remains neg - Non-DKA protocol initiated with D5 1/2 as solution; will transition to correctional scale post-extubation/swallow eval - D5 1/2NS currently off; glucose levels well controlled - Med rec shows glargine 15U qhs + humulin-R sliding scale Hyperkalemia, acute, not present on admission. Resolved - K has been fluctuant throughout admission - 09/17: K 5.5 - Remains on insulin gtt; no FMS in place - DC'd LR Hypokalemia, acute, not present on admission. Resolved - K 2.6 09/14 - Replaced with 80 mEq - Replace prn Acute kidney failure, acute, POA. Resolved - most likely pre-renal given DKA - Maintaining adequate UOP Leukocytosis, acute, POA; Resolved - multifactorial, acute stress response 2/2 DKA vs possible underlying infection - possible PNA, CAP vs HCAP - treatment with piperacillin-tazobactam (pharm to dose) - Follow clinically and with serial labs - Abx course completed as above Anemia, microcytic, hypochromic; unknown chronicity; stable - may be secondary to fluid resuscitation - decreased hgb from 12.3 to 10.4 to 9.8 to 8.2 following admission; currently stable - pantoprazole bolus and gtt started; change from gtt to pushes: 40mg IV BID - Monitor daily Chronic Issues Type 1 Diabetes, chronic -history of uncontrolled diabetes -hgbA1c 9.8 COPD, chronic -as per medical record Fibromyalgia -monitor H/o polysubstance abuse, chronic - On admit: UTox + benzos, + TCA - as per brother history of narcotic use and ETOH use - monitor for withdrawal when appropriate - banana bag given - Receiving ativan gtt for sedation - TIMING INSPECTOR consult when appropriate Tobacco dependence, chronic -as per EMR history of tobacco dependence -consideration of patch/lozenge when stabilized - DVT: hep q8 - GI: PPI - Diet: Tube feeds - PRN bowel, fever, antiemetic, pain - Code: FULL CODE Dispo: Likely to remain > 2 days; patient remains intubated with minimal to zero sedation. Anticipate extubation within next 1-2 days, speech eval at that time to determine dietary tolerance. TIMING INSPECTOR needs may later include substance use counseling/services, when patient able to communicate use history and needs. Main barrier at this time is delay in extubation secondary to patient's inability to safely maintain airway, and why her neurological status has been slow to recover. The patient is now on a propofol drip which is more easily reversible. Patient will most likely be extubated on Wednesday. We will give the patient one day of rest and then stop the propofol drip and attempt a weaning trial with possible extubation on Wednesday. GI Prophylaxis: H2 ike VTE Prophylaxis: Sub-Q Heparin (Unfractionated) VTE Mechanical Devices: Intermittant Pneumatic CD Resuscitation Status: CPR: Attempt Resuscitation Attending Statement Patient seen and examined. Patient chart reviewed and discussed with Dr. Norma Fox. I agree with the above note. Jennifer Fox DO Sep 20, 2016 11:37 Michael Tamez MD Sep 20, 2016 19:24
[2016-09-20] MEDS: Dexmedetomidine 400 mCg/100 mL NS Premix IV SCH (15:20)
--- NOTE | 2016-09-20 15:56 | NUR ---
BIBI signed Patient is vented. BIBI signed by patientEkta Irizarry
--- NOTE | 2016-09-20 15:57 | NUR ---
Social Work: Brief Note Data And Assessment: EMR Review. Patient discussed in daily rounds. Patient is on eight day of hospitalization and is still vented. Patient remains on minimal propofol. Depending on pt's medical progress, pt will either d/c home, possibly with HH, or go to SNF if needed. Allergist/Pediatric Pulmonologist will continue to follow pt's progress and continue updating pt's family. Plan: Patient will either discharge home with HH or to a SNF pending her medical course. SW will continue to follow patient and keep patient's family updated. Shauna Turner LMSW, ACCherry
--- NOTE | 2016-09-20 18:18 | NUR ---
Oxygenation... Pt remains intubated, and was able to do several hours of pressure support trial. Did lilly it well but displays her baseline restlessness. This afternoon sedation increased after her trial to allow her to get some sleep and this has been effective. Noted that her L hand is exquisitly tender and she grimaces every time the hand is moved. Dr Fox updated and hand/wrist films ordered and completed. Pt's daughter Angeline who lives in [place] was updated by phone today. In talking to her she states she has been in contact with her mother by phone usually once a week and has noted her behavior to not be herself the last couple weeks. Stated her mom has hx of narcotic abuse while she was growing up.
--- NOTE | 2016-09-20 18:40 | DRSVH ---
PROCEDURE: X-RAY LEFT WRIST COMPLETE, MINIMUM THREE VIEWS ([id number]) INDICATIONS: pain at L wrist TECHNIQUE: 4 views of the wrist were acquired. COMPARISON: None. FINDINGS: Bones: No fractures or dislocations. No suspicious bony lesions. Scaphoid view: No fracture Soft tissues: No suspicious soft tissue calcifications. IMPRESSION: No fracture Dictated by: Renny Nascimento M.D. on 09/20/2016 at 18:37 Approved by: Renny Nascimento M.D. on 09/20/2016 at 18:39
[2016-09-20] MEDS ORDERED: 0.9% Sodium Chloride 250 ML ONE (19:19)
[2016-09-20] MEDS: fentaNYL 2,500 mCg/250 mL 2,500 MCG in IV Premix 1 EACH IV SCH (21:00)
[2016-09-20] MEDS: Insulin Human REGular Inj 100 UNIT in 0.9% Sodium Chloride-Pha MIX 100 ML IV SCH (22:25)
[2016-09-21] VITALS (13 sets, daily range): BP systolic 106–129; BP diastolic 53–71; PULSE 77–104; RESP 18–30; O2SAT 96–100
[2016-09-21] MEDS: Heparin 5,000 Unit/mL Inj SUBQ SCH ×3 (00:30→16:56)
[2016-09-21] MEDS: Chlorhexidine 0.12% 15 mL Oral Solution MT SCH ×6 (00:30→20:34)
[2016-09-21] MEDS: Norepineph 8,000 mCg/250 mL NS 8,000 MCG in IV Premix 1 EACH IV SCH (01:29)
[2016-09-21] MEDS: Propofol Inj 1,000,000 MCG in IV Premix 1 EACH IV SCH ×3 (02:34→13:45)
[2016-09-21 03:40] LABS: EOSINOPHILS % (AUTO) 2.9 % (0-5); MONOCYTES % (AUTO) 10.4 % (4-12); Mean Corpuscular Hemoglobin 19.4 pg (27.0-35.0); Mean Corpuscular Volume 65.1 fL (81-100); NEUTROPHILS % (AUTO) 54.5 % (40-74); Platelet Count 913 bil/L (150-400)
--- NOTE | 2016-09-21 03:49 | NUR ---
vent/sedation .30 per vent, sats upper 90's, hob up, resp rate 16-/16, ls- rhonchi on right , course left, sx thin whitish sputum per ett, oral care done, pt on propofol at 50mcg/kg/min, pt intermittently restless legs, intermittent cough on vent, opens eyes to voice and [place] but does not follow direction, plan to decrease sedation in am for possible extubation in am, insulin gtt per non dka protocol, see ccu sheet for gtt rates, bg initially 254 now in low 100's, tf lilly well per orders with low residuals, liquid stool per fms, hob up, tele=sr, bp stable, afebrile, plan:ps trial in am, chest ct in am,
[2016-09-21 03:57] LABS: Magnesium 2.1 mg/dL (1.6-2.6); Phosphorus 4.3 mg/dL (2.5-4.9)
--- NOTE | 2016-09-21 04:46 | ABG ---
DateTimeAnalyzed 04:39:00 -_ pH ____7.459 - 7.350 7.450 pCO2 ___38.0__ -mmHg 35.0 45.0 pO2 ___77.5__ -mmHg 69.0 116 HCO3- ___26.6__ -mmol/L 22.0 26.0 ABE ____3.0__ -mmol/L -2.0 2.0 tHb ____7.6__ -g/dL O2Hb ___93.8__ -% COHb ____1.4__ -% MetHb ____0.8__ -% sO2 ___95.9__ -% FIO2 ___30.0__ -% PEEP ____5.0__ -cmH2O Set_RR ___16.0__ -b/min Vt __400.0__ -L Drawn By cf - Date/Time Notified____ 04:46:00 -_ Spontaneous_RR ___20.0__ -b/min Oxygen Device 1 VENTILATOR - Notified By cf - Notified Whom ___Dr. Fox, Jennifer - B 766 -mmHg tO2 ___10.2__ -Vol% Stan test N/A -
[2016-09-21] MEDS: Albuterol-Ipratropium 3 mL Inhalation Solution NEB SCH ×4 (07:59→20:17)
--- NOTE | 2016-09-21 08:27 | DRSVH ---
PROCEDURE: X-RAY CHEST ONE VIEW, PORTABLE ([id number]) INDICATIONS: 50 year-old woman intubated. TECHNIQUE: One view of the chest was acquired. COMPARISON: [facility], CR, XR CHEST 1VW (PORTABLE), 09/19/2016, 5:12. FINDINGS: Surgical changes and devices: ETT tip projected 4 cm above the alisa. Stable positioning of nasogas tric tube. Lungs and pleura: No pleural effusions or pneumothorax. Minimal residual airspace opacity involving the medial left lung base. Mediastinum: Mediastinal contours appear normal. Heart size is normal. Bones and chest wall: No suspicious bony lesions. Overlying soft tissues appear unremarkable. IMPRESSION: Subtle medial left basilar airspace opacity consistent with atelectasis or pneumonia. Dictated by: Laron Holm A Interpreted: Fabián Talbot MD on 09/21/2016 at 8:25 Transcribed by: EVAN on 09/21/2016 at 8:27 Approved by: Fabián Talbot M.D. on 09/21/2016 at 9:58
[2016-09-21] MEDS: 0.9% Sodium Chloride 1,000 ML IV SCH (08:40)
[2016-09-21] MEDS: Senna-Docusate 8.6-50 mg Tablet PO SCH ×2 (08:45→20:34)
[2016-09-21] MEDS: Pantoprazole 4 mg/mL 10 mL Inj IVPUSH SCH ×2 (08:46→17:05)
[2016-09-21] MEDS: Dexmedetomidine 400 mCg/100 mL NS Premix IV SCH ×2 (09:51→18:43)
--- NOTE | 2016-09-21 11:33 | NUR ---
NUTRITION FOLLOW UP Assess: 51 YO female is a type I Diabetic admitted w/ DKA and associated acute hypoxic respiratory failure. She remains intubated but is managing pressure support trials well. Attempt at extubation possible today. Pt remains agitated w/ attempts to wean. Pt back on Propofol, but plan to decrease sedation for possible extubation. TF at goal rate, and tolerating well. PMHx: Type I DM, COPD, Fibromyalgia, polysubstance abuse, tobacco dependence, cervical cancer LABS: Reviewed. Na 146, Cl 109, Security Installation Technician 0.34, Gluc 140, Ca 7.9, Alb 2.8 MEDICATIONS: Insulin, Senna, Propofol @ 15.2 ml/hr providing 401 kcal CURRENT DIET: NPO NUTRITION SUPPORT: Glucerna 1.5 @ goal rate 38 ml/hr, providing 1254 kcal and 69g of protein, meeting 100% of calorie and protein needs. GI symptoms/stool: 50 ml output via FMS (09/21) SKIN: Obed 14 - No pressure ulcer per [facility]. ANTHROPOMETRICS: Current Wt: 57 kg BMI: 23.0 kg/m2 IBW: 50.0 kg Admit Wt: 48.3 kg (BMI: 19.5 kg/m2) ESTIMATED NEEDS: COPD (Re-estimated 09/21) Calories: 9021-7551 kcal/day (30-35 kcal/kg Admit BW) Protein: 60-75 g/day (1.2-1.5 g/kg Admit BW) Fluids: 9160-4736 ml/day (Approx 1 ml/kcal/d) NUTRITION DIAGNOSIS: 1) Inadequate oral intake related to decreased ability to consume sufficient energy as evidenced by current NPO status. - IMPROVED W/ TF @ GOAL RATE. INTERVENTION: 1) Recommend continuing enteral nutrition of Glucerna 1.5 at goal rate of 38 ml/hr, providing 1655 kcal (1254 formula + 401 Propofol) and 69g protein. 2) Will monitor Propofol rate daily and adjust TF rate as needed. 3) If extubated, will monitor pt for diet advancement per ST evaluation. MONITOR/EVALUATE: Enteral feeding lilly, medications, vent status, labs, wt, GI, POC. Will continue to monitor per high nutritional risk guidelines. Addendum: 09/21/16 at [address] Student documentation reviewed and I agree with above note. MONE.
--- NOTE | 2016-09-21 13:03 | PCM.PNMED ---
Subjective Date of Service Sep 21, 2016 Subjective Overnight: No acute events reported. Tolerated breathing trials well yesterday. Left wrist ROM caused distress and appeared painful to patient; stat XR did not reveal any fractures. Today: Plan for CT chest with contrast today to eval septic emboli. No acute distress noted on exam. Tolerated 5/5 PST trial well for approx 1.5hours. RR increased into upper 20s-low 30s. Moving spontaneously; not following commands, non-purposeful movement. Exam Vital Signs Vital Sign - Last Date Time Temp Pulse Resp B/P Pulse Ox O2 Delivery O2 Flow Rate FiO2 09/21/16 09:15 103 120/59 98 30 09/21/16 08:30 37.3 30 Mechanical Ventilator Intake and Output 09/20/16 09/20/16 09/21/16 Cumulative From/Thru 15:00 23:00 07:00 09/12/16 19:29 - 09/21/16 06:00 Intake Total 1586 ml 1940 ml 20742 ml Output Total 2850 ml 1550 ml 22262 ml Balance -1264 ml 390 ml 99091 ml Intake IV Total 1058 ml 1380 ml 67418 ml Tube Feeding 363 ml 500 ml 4187 ml Tube Irrigant 165 ml 60 ml 1326 ml Output Urine Total 2850 ml 1500 ml 74177 ml Stool Total 50 ml 300 ml Gastric Drainage Total 2200 ml # Bowel Movements 1 11 Exam General: Intubated and sedated; no acute distress; not responsive to voice stimuli; eyes open; nonpurposeful movements HENT: Atraumatic; sclera anicteric, mucus membranes moist; ETT in place Neck: Soft, no lymphadenopathy Cardiac: Regular rate and rhythm in 80s at time of examination; no murmurs appreciated Respiratory: Improved sounds; clear bilateral; adequate air flow all norman; no wheeze Abdomen: Soft, nontender, nondistended Extremities: Significant left wrist pain continues with any palpation or range of motion.No pain elicited with RUE, L shoulder, or L elbow Skin: Warm and dry; cool distal extremities Neuro: Unable to assess secondary to intubation and sedation; does not follow commands Psych: Unable to assess secondary to intubation and sedation Lab and Diagnostics Result Diagram: 09/21/1630109/21/16301 Microbiology Name: MAO CHUNG Age/Sex: 51/F Attend Dr: Patricia Oliveira Acct: [id number] Unit: [id number] Status: ADM IN Location: [facility] [id number] Re09/12/16 Disch: Specimen: [id number] Collected: 09/13/16 Status: COMP Req#: [id number] Received: 09/13/16 Source: SPUTUM EXP Sp Desc : Subm Dr: Patricia Oliveira DO Ordered: GRAM SPT REFLEX, SPUTUM CULTURE Comments: Collected by Nurse/Unit? Y/N Y Procedure Result Verified Site Microbiology JELLY CULT SPUTUM GS Final 09/13/16-1410 SPT GRAM STAIN RARE POLYS RARE MIXED NORMAL LAZARO This Spec is of good Quality and acceptable for Cult RESPIRATORY CULTURE Final 09/16/16 Organism 1 STAPHYLOCOCCUS AUREUS COLONY COUNT/QUANTITY MODERATE GROWTH Oxacillin Susceptible Penicillin Resistant Staph spp. are Susceptible to Penicillin stable penicillins, Blactam/Blactamase inhibitor combinations, antistaphyloccal cephems, and carbapenems. 1. STAPHYLOCOCCUS AUREUS M.I.C Interp --------- ------ * CEFAZOLIN S * CLINDAMYCIN <=0.25 S * ERYTHROMYCIN <=0.25 S * LINEZOLID 2 S * MOXIFLOXACIN 2 R * OXACILLIN JELLY 1 S * RIFAMPIN <=0.5 S * TETRACYCLINE <=1 S * TRIMETHOPRIM/SULFAMETHOXAZOLE <=10 S * VANCOMYCIN <=0.5 S X-Rays, CTs and MRIs Patient Name: MAO CHUNG MR#: [id number] Location: SED Ordering Phys: Jemal Rodriguez MD Date of Service: 09/12/162028 PROCEDURE: CT BRAIN WITHOUT CONTRAST ([id number]) INDICATIONS: altered mental status TECHNIQUE: Noncontrast 4.5 mm thick angled axial sections acquired from the foramen magnum to the vertex, with coronal reformats. COMPARISON: [facility], CT, BRAIN W/O CONTRAST, 08/21/2014, 16:07. FINDINGS: Image quality: Limited by patient motion. CSF spaces: Basal cisterns are patent. No extra-axial fluid collections. Ventricles are normal in size and shape. Brain: No midline shift. No intracranial masses or hemorrhage. Gomes-white matter interface is normal. Skull and face: Calvarium and visualized facial bones are intact, without suspicious lesions. Sinuses: Visualized sinuses and mastoids are clear. IMPRESSION: No acute intracranial disease process identified within limitations caused by motion artifact. Dictated by: Reyna Walsh MD, PhD on 09/12/2016 at 21:00 Approved by: Reyna Walsh MD, PhD on 09/12/2016 at 21:03 Patient Name: MAO CHUNG MR#: [id number] Location: SED Ordering Phys: Jemal Rodriguez MD Date of Service: 09/12/162028 PROCEDURE: X-RAY CHEST ONE VIEW, PORTABLE ([id number]) INDICATIONS: post intubation TECHNIQUE: One view of the chest was acquired. COMPARISON: [facility], CR, XR CHEST 1VW (PORTABLE), 09/12/2016, 19: 44. FINDINGS: Surgical changes and devices: ET tube is 4.1 cm superior to the alisa. NG tube crosses the GE junction.. Cervical spine fixation hardware Lungs and pleura: No pleural effusions or pneumothorax. Lungs are clear. Mediastinum: Mediastinal contours appear normal. Heart size is normal. Bones and chest wall: No suspicious bony lesions. Overlying soft tissues appear unremarkable. IMPRESSION: No acute cardiopulmonary disease process. Dictated by: Reyna Walsh MD, PhD on 09/12/2016 at 21:08 Approved by: Reyna Walsh MD, PhD on 09/12/2016 at 21:09 CT Abd / Pelvis Interpretation IMPRESSION: small amount of free pelvic fluid. No other acute findings. Lung base opacities atelectasis versus infiltrate. NG tube tip in the proximal stomach. Tatyana Mcdonald M.D. Study type: Abdominal CT IV contrast Interpretation / Wet Read by: Interpret - Radiologist 12-lead ECG Sinus tach rate 104, no ST segment changes Cardiac Echo Impressions Echocardiogram Report Name: MAO CHUNG GStudy Date: 09/13/2016 Height: 62 in Hospital Exam Location: [facility] Weight: 110 lb Gender: Female BSA: 1.5 m2 : 1965 Age: 51 yrs BP: 121/59 mmHg Reason For Study: HYPOTENSION Ordering Physician: Performed By: Dede Talbot Referring Physician: Mckayla OSWALD Interpretation Summary Sinus tachycardia. Normal LV size,wall thickness, wall motion and LV systolic function. EF is 55 -60%. RV is mildly dilated and demonstrates normal function. No significant valvular abnormalities. Estimated PA systolic pressure is 50 mm Hg assuming RA pressure of 15 mm Hg. No prior study available for comparison Additional Diagnostics venous blood gas 7:43 PM 09/12/2016 pH 6.867 pCO2 18 pO2 78.2 cHCO3- 3.1 cBase -29.4 ABG Interpretation: Repeat: pH 6.685 pCO2 36 pO2 68.2 cHCO3- 4.3 cBase -29.8 Assessment & Plan Ms. Mao Chung is a 51yoF with history of type one diabetes, fibromyalgia, polysubstance abuse brought by EMS, found to be alert and oriented to self in DKA. She was later intubated in the ED secondary to respiratory distress and need to maintain her airway. She was admitted for evaluation and treatment of severe metabolic acidosis secondary to DKA with associated acute hypoxic respiratory failure, suspected PNA, and RAFA. - Hospital day 10 - Ventilator day 10 Acute hypoxic respiratory failure, present on admission; Resolved - Intubated in ED secondary to respiratory distress and presumed airway compromise - Pulm consult, vent and critical care management, recs appreciated - Ativan was utilized for sedation secondary to suspected benzo dependence/ history of use, and effectiveness compared to propofol. The Ativan was discontinued to reduce sedative effect. - Trended triglycerides q3d secondary to propofol use; previous TG level 10/10 elev at 446; repeat 09/18 82 - OFF ativan and fentanyl: Precedex remains. Patient will also receive propofol when necessary - Ct brain 09/17: No acute abnormalities to indicate reason for impaired neuro status - Possible extubation on 09/22 pending ability to maintain own airway and patient safety - Speech eval to be ordered post-extubation - Patient remains intubated secondary to inability to keep airway secure, not due to poor pulmonary function - Will need to keep patient off sedatives/minimize to maximize alertness to maintain airway - Discussion of EEG; may not be beneficial; and patient may not be able to remain still until completion - Current question: If any substances not seen on UTox present - Continue to monitor for neurological improvements throughout day - Continue breathing trials to strengthen respiratory muscles - Continue PT sessions to increase strength Septic shock, acute, present on admission; resolved - unclear source, most likely PNA - Sputum Cx: + MSSA - MRSA screen negative - Resp PCR negative; BCx negative to date - Initial CSF Cx/GS: No growth to date - ID has been consulted, appreciated time and recommendations. - Eval CSF PCR: completely negative - Per ID, discontinued abx azithro and Zosyn; patient has had a full course H/o polysubstance abuse, chronic - On admit: UTox + benzos, + TCA - as per brother history of narcotic use and ETOH use - monitor for withdrawal when appropriate - banana bag given - EXECUTIVE ASSOCIATE consult when appropriate - CT chest with contrast showed no evidence for septic emboli. However, did show bilateral pleural effusions and groundglass appearance suggestive of pulmonary edema. Will order Lasix 20 mg IV 1 tonight. And reassess in a.m. Left wrist pain, acute, unknown chronicity. Under evaluation - Left wrist exhibits acute distress when mobilized and palpated - XR left wrist 09/20: No fracture found - Consideration of additional studies, such as MR, when stabilized DKA, acute, POA; Resolved - severe metabolic acidosis on presentation pH 6.8 decreasing to 6.6 on repeat ABG, 2/ gap 33 - On admit: K 5.7; glc 623; + serum ketones - 1amp bicarb given in ED, bicarb gtt started upon arrival to floor; now DC'd - unclear etiology, possible non-compliance vs occult infection, trop neg - head CT negative, LP less likely meningitis, CT abd / pelvis with possible PNA , CXR remains neg - Non-DKA protocol initiated with D5 1/2 as solution; will transition to correctional scale post-extubation/swallow eval - Med rec shows glargine 15U qhs + humulin-R sliding scale Hyperkalemia, acute, not present on admission. Resolved - K has been fluctuant throughout admission - 09/17: K 5.5 - Remains on insulin gtt as needed; no FMS in place - DC'd LR Hypokalemia, acute, not present on admission. Resolved - K 2.6 09/14 - Replaced with 80 mEq - Replace prn Acute kidney failure, acute, POA. Resolved - most likely pre-renal given DKA - Maintaining adequate UOP Leukocytosis, acute, POA; Resolved - multifactorial, acute stress response 2/2 DKA vs possible underlying infection - possible PNA, CAP vs HCAP - treatment with piperacillin-tazobactam (pharm to dose) - Follow clinically and with serial labs - Abx course completed as above Anemia, microcytic, hypochromic; unknown chronicity; stable - may be secondary to fluid resuscitation - decreased hgb from 12.3 to 10.4 to 9.8 to 8.2 following admission; currently stable - pantoprazole bolus and gtt started; change from gtt to pushes: 40mg IV BID - Monitor daily Chronic Issues Type 1 Diabetes, chronic -history of uncontrolled diabetes -hgbA1c 9.8 COPD, chronic -as per medical record Fibromyalgia -monitor Tobacco dependence, chronic -as per EMR history of tobacco dependence -consideration of patch/lozenge when stabilized - DVT: hep q8 - GI: PPI - Diet: Tube feeds - PRN bowel, fever, antiemetic, pain - Code: FULL CODE Dispo: Likely to remain > 2 days; patient remains intubated with minimal to zero sedation. Anticipate extubation within next 1-2 days, speech eval at that time to determine dietary tolerance. EXECUTIVE ASSOCIATE needs may later include substance use counseling/services, when patient able to communicate use history and needs. Main barrier at this time is delay in extubation secondary to patient's inability to safely maintain airway, and why her neurological status has been slow to recover. The patient is now on a propofol drip which is more easily reversible. Patient will most likely be extubated on Wednesday. Pain Evaluation: Adequate Pain Control GI Prophylaxis: H2 ike VTE Prophylaxis: Sub-Q Heparin (Unfractionated) VTE Mechanical Devices: Intermittant Pneumatic CD Resuscitation Status: CPR: Attempt Resuscitation Attending Statement Patient seen and examined, chart reviewed and case discussed with Dr. Norma Fox. I agree with the above note. Jennifer Fox DO Sep 21, 2016 13:03 Michael Tamez MD Sep 21, 2016 19:22
[2016-09-21] MEDS: Dextrose 5% 0.45% NaCl 1,000 ML IV SCH (13:45)
--- NOTE | 2016-09-21 14:48 | PCM.PNMED ---
Subjective Date of Service Sep 21, 2016 Subjective Patient remains minimally responsive and intermittently agitated. Patient does turn eyes to voice. Currently off all pressors and sedation Exam Vital Signs Vital Sign - Last Date Time Temp Pulse Resp B/P Pulse Ox O2 Delivery O2 Flow Rate FiO2 09/21/16 12:45 37.1 79 19 108/54 98 Mechanical Ventilator 30 Intake and Output 09/20/16 09/20/16 09/21/16 Cumulative From/Thru 15:00 23:00 07:00 09/12/16 19:29 - 09/21/16 06:00 Intake Total 1586 ml 1940 ml 56334 ml Output Total 2850 ml 1550 ml 92362 ml Balance -1264 ml 390 ml 50725 ml Intake IV Total 1058 ml 1380 ml 71015 ml Tube Feeding 363 ml 500 ml 4187 ml Tube Irrigant 165 ml 60 ml 1326 ml Output Urine Total 2850 ml 1500 ml 92315 ml Stool Total 50 ml 300 ml Gastric Drainage Total 2200 ml # Bowel Movements 1 11 Exam General: Intubated and sedated; no acute distress; not responsive to voice stimuli; eyes open; nonpurposeful movements HENT: Atraumatic; sclera anicteric, mucus membranes moist; ETT in place Neck: Soft, no lymphadenopathy Cardiac: Regular rate and rhythm Respiratory: CTA bilaterally Abdomen: Soft, nontender, nondistended Extremities: No edema Skin: Warm and dry; cool distal extremities Neuro: Unable to assess secondary to intubation and sedation; does not follow commands Psych: Unable to assess secondary to intubation and sedation IVs and Medications Medications Reviewed: Medications were reviewed in detail Lab and Diagnostics Result Diagram: 09/21/1630109/21/16301 Microbiology Name: MAO TAYLOR Gonsalo Age/Sex: 51/F Attend Dr: Patricia Oliveira Acct: [id number] Unit: [id number] Status: ADM IN Location: U [id number] Re09/12/16 Disch: Specimen: [id number] Collected: 09/13/16 Status: JAMARCUS Morrell#: [id number] Received: 09/13/16 Source: SPUTUM EXP Sp Desc : Subm Dr: Patricia Oliveira DO Ordered: GRAM SPT REFLEX, SPUTUM CULTURE Comments: Collected by Nurse/Unit? Y/N Y Procedure Result Verified Site Microbiology JELLY CULT SPUTUM GS Final 09/13/16 SPT GRAM STAIN RARE POLYS RARE MIXED NORMAL LAZARO This Spec is of good Quality and acceptable for Cult RESPIRATORY CULTURE Final 09/16/16 Organism 1 STAPHYLOCOCCUS AUREUS COLONY COUNT/QUANTITY MODERATE GROWTH Oxacillin Susceptible Penicillin Resistant Staph spp. are Susceptible to Penicillin stable penicillins, Blactam/Blactamase inhibitor combinations, antistaphyloccal cephems, and carbapenems. 1. STAPHYLOCOCCUS AUREUS M.I.C Interp --------- ------ * CEFAZOLIN S * CLINDAMYCIN <=0.25 S * ERYTHROMYCIN <=0.25 S * LINEZOLID 2 S * MOXIFLOXACIN 2 R * OXACILLIN JELLY 1 S * RIFAMPIN <=0.5 S * TETRACYCLINE <=1 S * TRIMETHOPRIM/SULFAMETHOXAZOLE <=10 S * VANCOMYCIN <=0.5 S X-Rays, CTs and MRIs Patient Name: MAO TAYLOR MR#: [id number] Location: SED Ordering Phys: Jemal Rodriguez MD Date of Service: 09/12/162028 PROCEDURE: CT BRAIN WITHOUT CONTRAST ([id number]) INDICATIONS: altered mental status TECHNIQUE: Noncontrast 4.5 mm thick angled axial sections acquired from the foramen magnum to the vertex, with coronal reformats. COMPARISON: [facility], CT, BRAIN W/O CONTRAST, 08/21/2014, 16:07. FINDINGS: Image quality: Limited by patient motion. CSF spaces: Basal cisterns are patent. No extra-axial fluid collections. Ventricles are normal in size and shape. Brain: No midline shift. No intracranial masses or hemorrhage. Gomes-white matter interface is normal. Skull and face: Calvarium and visualized facial bones are intact, without suspicious lesions. Sinuses: Visualized sinuses and mastoids are clear. IMPRESSION: No acute intracranial disease process identified within limitations caused by motion artifact. Dictated by: Reyna Walsh MD, PhD on 09/12/2016 at 21:00 Approved by: Reyna Walsh MD, PhD on 09/12/2016 at 21:03 Patient Name: MAO TAYLOR MR#: [id number] Location: SED Ordering Phys: Jemal Rodriguez MD Date of Service: 09/12/162028 PROCEDURE: X-RAY CHEST ONE VIEW, PORTABLE ([id number]) INDICATIONS: post intubation TECHNIQUE: One view of the chest was acquired. COMPARISON: [facility], CR, XR CHEST 1VW (PORTABLE), 09/12/2016, 19: 44. FINDINGS: Surgical changes and devices: ET tube is 4.1 cm superior to the alisa. NG tube crosses the GE junction.. Cervical spine fixation hardware Lungs and pleura: No pleural effusions or pneumothorax. Lungs are clear. Mediastinum: Mediastinal contours appear normal. Heart size is normal. Bones and chest wall: No suspicious bony lesions. Overlying soft tissues appear unremarkable. IMPRESSION: No acute cardiopulmonary disease process. Dictated by: Reyna Walsh MD, PhD on 09/12/2016 at 21:08 Approved by: Reyna Walsh MD, PhD on 09/12/2016 at 21:09 CT Abd / Pelvis Interpretation IMPRESSION: small amount of free pelvic fluid. No other acute findings. Lung base opacities atelectasis versus infiltrate. NG tube tip in the proximal stomach. Tatyana Mcdonald M.D. Study type: Abdominal CT IV contrast Interpretation / Wet Read by: Interpret - Radiologist 12-lead ECG Sinus tach rate 104, no ST segment changes Cardiac Echo Impressions Echocardiogram Report Name: MAO TAYLOR GStudy Date: 09/13/2016 Height: 62 in Hospital Exam Location: [facility] Weight: 110 lb Gender: Female BSA: 1.5 m2 : 1965 Age: 51 yrs BP: 121/59 mmHg Reason For Study: HYPOTENSION Ordering Physician: Performed By: Dede Talbot Referring Physician: Mckayla OSWALD Interpretation Summary Sinus tachycardia. Normal LV size,wall thickness, wall motion and LV systolic function. EF is 55 -60%. RV is mildly dilated and demonstrates normal function. No significant valvular abnormalities. Estimated PA systolic pressure is 50 mm Hg assuming RA pressure of 15 mm Hg. No prior study available for comparison Additional Diagnostics venous blood gas 7:43 PM 09/12/2016 pH 6.867 pCO2 18 pO2 78.2 cHCO3- 3.1 cBase -29.4 ABG Interpretation: Repeat: pH 6.685 pCO2 36 pO2 68.2 cHCO3- 4.3 cBase -29.8 Assessment & Plan Problem list 1. Acute hypoxic Respiratory failure 2. Acute Septic shock 3. DKA; resolved 4. Acute kidney failure; resolved 5. Leukocytosis 6. Anemia, microcytic, unknown chronicity 7. Type 1 Diabetes, chronic 8. COPD, chronic 9. Encephalopathy Neuro: Patient remains arousable and minimally responsive. Unsure etiology at this time. Pupils are reactive and patient is moving well. All sedation has been withheld. Agitation was under control. Still awaiting patient to become more responsive. CT has been negative, and there does not seem to be any seizure activity. Cardiovascular: Stable Respiratory: Stable. Vent and ABG are appropriate Infection: No abnormalities stopped. White count is normalized. Disposition: EEG was knocked over the weekend. Unsure of the utility of this. We will continue to follow and see if we can extubate patient when she is more awake. GI Prophylaxis: H2 ike VTE Prophylaxis: Sub-Q Heparin (Unfractionated) VTE Mechanical Devices: Intermittant Pneumatic CD Resuscitation Status: CPR: Attempt Resuscitation Attending Statement The patient was seen and examined together with Dr. Harris on 09/21/2016 and I agree with the history, exam and plan as outlined in the note above. Matt Harris DO Sep 21, 2016 14:48 Dougie Wayne MD Oct 09, 2016 09:21
--- NOTE | 2016-09-21 15:35 | DRSVH ---
PROCEDURE: CT CHEST WITH CONTRAST ([id number]) INDICATIONS: possible septic emboli to lungs TECHNIQUE: After the administration of intravenous contrast, 5 mm thick sections acquired from the pulmonary api roxanna to the posterior costophrenic angles. 7 mm thick coronal and sagittal MIP reformats were acquire d. For radiation dose reduction, the following was used: automated exposure control, adjustment of mA and/or kV according to patient size. COMPARISON: [facility], CT, CT ABD PELVIS W CON, 09[facility]12[facility]2016[facility] 22:[facility]D/PELVIS W/CON (PNL), 05/08/2012, 21:35. [facility], CR, XR CHEST 1VW (PO RTABLE), 09/21/2016, 4:35. FINDINGS: Image quality: There is metallic streak artifact from patient's right humeral hardware. Lungs and pleura: There is an endotracheal tube redemonstrated with the tip approximately 2.6 cm fro m the alisa. There are small bilateral pleural effusions with associated compressive atelectasis as well as a small amount of posterior consolidation in the left lower lobe. There is mild septal thic kening with patchy indistinct ground glass opacities bilaterally likely reflecting pulmonary edema. No pneumothorax. Mediastinum: Heart size is normal. No pericardial effusion. There is coronary arterial vascular ca lcification. Thoracic aorta and central pulmonary arteries are normal in size. There are a few mild ly enlarged mediastinal lymph nodes including a precarinal node measuring up to 1.1 cm short axis. T here is a nasogastric tube extending into the stomach with the tip not included on the current study. Bones and chest wall: No suspicious bony lesions. No vertebral body compression fractures. No axil karoline or supraclavicular adenopathy by size criteria. Thyroid gland is partially visualized and demon strates small thyroid nodules measuring up to approximately 1.1 cm within the right lobe. Abdomen: Visualized upper abdomen demonstrates heterogeneous appearance of the liver with scattered ill-defined small foci of hypervascular enhancement. IMPRESSION: 1. Small bilateral pleural effusions with compressive atelectasis and a small region of consolidatio n in the left lower lobe which may represent pneumonia. No definite specific findings of septic embo li. 2. Mild septal thickening and scattered indistinct ground glass opacities in the lungs suggestive of pulmonary edema. 3. Mildly enlarged mediastinal lymph nodes are nonspecific and may be reactive. 4. Heterogeneous enhancement of the liver with small scattered indistinct foci of hypervascular enha ncement. The finding is new compared to the prior studies and may reflect possible vascular shunting versus scattered hepatic lesions. Further evaluation may be obtained with ultrasound or a liver pro tocol CT/MRI. 5. Endotracheal tube tip approximately 2.6 cm from the alisa. Consider withdrawal by approximately 1.5 cm. 6. Small right thyroid nodule measuring up to 1.1 cm. Further evaluation may be obtained with thyro id ultrasound. Dictated by: Clay Angeles M.D. on 09/21/2016 at 15:18 Approved by: Clay Angeles M.D. on 09/21/2016 at 15:33
--- NOTE | 2016-09-21 17:50 | NUR ---
Neuro/respiratory Precedex gtt infusing at 0.7mcg/kg/hr & propofol titrated down from 40mcg/kg/min to 15mcg/kg/min. Pt restless, sitting with eyes open. Nodding "yes" and "no" to questions and following some verbal commands this evening. Continues on PRVC. SR per track repair supervisor. Normotensive. MD notified of change in pt status, plan to d/c propofol gtt and add seroquel at HS.
[2016-09-21] MEDS ORDERED: Propofol 10 mg/mL 20 mL Inj IVPUSH PRN (18:15)
[2016-09-21] MEDS ORDERED: Furosemide 10 mg/mL 2 mL Inj IVPUSH ONE (19:15)
[2016-09-21] MEDS: fentaNYL 2,500 mCg/250 mL 2,500 MCG in IV Premix 1 EACH IV SCH (20:34)
[2016-09-21] MEDS: Nystatin 100,000 Unit/Gm 15 Gm Powder TOPICAL SCH (23:33)
[2016-09-22] VITALS (14 sets, daily range): BP systolic 102–141; BP diastolic 49–72; PULSE 69–92; RESP 16–25; O2SAT 94–100
[2016-09-22] MEDS: Heparin 5,000 Unit/mL Inj SUBQ SCH ×4 (00:18→23:51)
[2016-09-22] MEDS: Norepineph 8,000 mCg/250 mL NS 8,000 MCG in IV Premix 1 EACH IV SCH ×2 (00:18→19:16)
[2016-09-22] MEDS: Chlorhexidine 0.12% 15 mL Oral Solution MT SCH ×6 (00:18→19:17)
[2016-09-22 02:59] LABS: BASOPHILS % (AUTO) 1.4 % (0-3); EOSINOPHILS % (AUTO) 4.4 % (0-5); Mean Corpuscular Hemoglobin 19.7 pg (27.0-35.0); Mean Corpuscular Volume 65.4 fL (81-100); NEUTROPHILS % (AUTO) 55.2 % (40-74)
[2016-09-22] MEDS: Dextrose 5% 0.45% NaCl 1,000 ML IV SCH ×2 (03:19→16:29)
[2016-09-22 03:26] LABS: Platelet Count 1135 bil/L (150-400)
--- NOTE | 2016-09-22 03:56 | NUR ---
P) LOC/Respiratory/Skin Pt. initially not following commands, explained to her in order to remove the ET tube we need to know how aware she is, pt. then tracking, shaking her head and nodding to questions, much easier with her care and moving her legs less tonight. Lungs decreased and suctioning small to moderate amounts of white phlegm from ET tube with cough. Has developed red rash withtiny raised areas in R groin and bilateral posterior axilla, may be yeast or appears like an eczema rash though when I asked pt. if she had any history of eczema she thought about it a minute and then shook er head. T-max so far 37.1c orally. I) Meds per 's orders, cont. to encourage interaction, turning q2h and floating heels. E) Resting quietly with eyes closed, legs not bicycling tonight.
[2016-09-22 03:58] LABS: Phosphorus 3.6 mg/dL (2.5-4.9)
--- NOTE | 2016-09-22 04:28 | ABG ---
DateTimeAnalyzed 04:19:58 -_ pH ____7.482 - 7.350 7.450 pCO2 ___40.3__ -mmHg 35.0 45.0 pO2 ___72.4__ -mmHg 70.0 100 HCO3- ___30.2__ -mmol/L 22.0 26.0 ABE ____6.1__ -mmol/L -2.0 2.0 tHb ____8.6__ -g/dL 12.0 18.0 O2Hb ___94.5__ -% 95.0 COHb ____1.2__ -% 1.5 MetHb ___-0.2__ -% 0.4 1.5 sO2 ___95.5__ -% FIO2 ___30.0__ -% PEEP ____5.0__ -cmH2O Set_RR 16 -b/min Vt __400.0__ -L Drawn By AF - Date/Time Notified____ 04:27:00 -_ Spontaneous_RR 20 -b/min Oxygen Device 1 VENTILATOR - Notified By AF - Notified Whom ____NURSE - B 758 -mmHg K+ ____3.6__ -mmol/L tO2 ___11.5__ -Vol% Stan test _Positive -
[2016-09-22] MEDS: Dexmedetomidine 400 mCg/100 mL NS Premix IV SCH (05:38)
[2016-09-22] MEDS: Pantoprazole 4 mg/mL 10 mL Inj IVPUSH SCH ×2 (07:29→16:29)
[2016-09-22] MEDS: Senna-Docusate 8.6-50 mg Tablet PO SCH ×2 (07:29→19:17)
[2016-09-22] MEDS: Nystatin 100,000 Unit/Gm 15 Gm Powder TOPICAL SCH ×2 (07:30→19:37)
[2016-09-22] MEDS: Albuterol-Ipratropium 3 mL Inhalation Solution NEB SCH ×4 (07:48→20:02)
--- NOTE | 2016-09-22 10:42 | DRSVH ---
PROCEDURE: X-RAY CHEST ONE VIEW, PORTABLE ([id number]) INDICATIONS: intubated TECHNIQUE: One view of the chest was acquired. COMPARISON: [facility], CT, CT CHEST W CON, 09/21/2016, 14:30. [facility], C R, XR CHEST 1VW (PORTABLE), 09/21/2016, 4:35. FINDINGS: Surgical changes and devices: Stable position of ETT and nasogastric tube. Lower cervical spine fixa tion. Lungs and pleura: Mild pulmonary edema present in small pleural effusions. Mediastinum: Mediastinal contours appear normal. Heart size is normal. Bones and chest wall: No suspicious bony lesions. Overlying soft tissues appear unremarkable. IMPRESSION: Pulmonary edema and small effusions redemonstrated. Dictated by: Laron GARRETT Interpreted: Kayleen Kennedy MD on 09/22/2016 at 10:40 Transcribed by: MONSERRAT on 09/22/2016 at 10:41 Approved by: Kayleen Kennedy M.D. on 09/22/2016 at 15:01
--- NOTE | 2016-09-22 11:30 | PCM.PNMED ---
Subjective Date of Service Sep 22, 2016 Subjective Patient improving. More awake today than yesterday. She is maintained on Seroquel, propofol, and Precedex as needed overnight. Patient will require the Seroquel and propofol. Patient awake this morning and able to give a meaningful answers to questions. His tube still in place. Vent and ABG looked great. Exam Vital Signs Vital Sign - Last Date Time Temp Pulse Resp B/P Pulse Ox O2 Delivery O2 Flow Rate FiO2 09/22/16 09:40 80 116/58 94 30 09/22/16 09:40 20 09/22/16 07:24 Ventilator 09/22/16 07:17 36.9 Intake and Output 09/21/16 09/21/16 09/22/16 Cumulative From/Thru 15:00 23:00 07:00 09/12/16 19:29 - 09/22/16 06:30 Intake Total 1519 ml 1893 ml 36202 ml Output Total 2400 ml 2575 ml 02736 ml Balance -881 ml -682 ml 8819 ml Intake IV Total 1083 ml 1193 ml 52683 ml Tube Feeding 376 ml 509 ml 5072 ml Tube Irrigant 60 ml 191 ml 1577 ml Output Urine Total 2300 ml 2525 ml 53020 ml Stool Total 100 ml 50 ml 450 ml Gastric Drainage Total 2200 ml # Bowel Movements 11 Exam General: Intubated; no acute distress; responsive to voice and answering questions HENT: Atraumatic; sclera anicteric, mucus membranes moist; ETT in place Neck: Soft, no lymphadenopathy Cardiac: Regular rate and rhythm Respiratory: CTA bilaterally Abdomen: Soft, nontender, nondistended Extremities: No edema Skin: Warm and dry; cool distal extremities Neuro: Unable to assess secondary to intubation and sedation; does not follow commands Psych: Unable to assess secondary to intubation and sedation IVs and Medications Medications Reviewed: Medications were reviewed in detail Lab and Diagnostics Result Diagram: 09/22/1623609/22/16236 Microbiology Name: MAO TAYLOR Age/Sex: 51/F Attend Dr: Patricia Oliveira Acct: [id number] Unit: [id number] Status: ADM IN Location: CCU [id number] Re09/12/16 Disch: Specimen: [id number] Collected: 09/13/16 Status: JAMARCUS Re#: [id number] Received: 09/13/16 Source: SPUTUM EXP Sp Desc : Subm Dr: Patricia Oliveira DO Ordered: GRAM SPT REFLEX, SPUTUM CULTURE Comments: Collected by Nurse/Unit? Y/N Y Procedure Result Verified Site Microbiology JELLY CULT SPUTUM GS Final 09/13/16141 SPT GRAM STAIN RARE POLYS RARE MIXED NORMAL LAZARO This Spec is of good Quality and acceptable for Cult RESPIRATORY CULTURE Final 09/16/16 Organism 1 STAPHYLOCOCCUS AUREUS COLONY COUNT/QUANTITY MODERATE GROWTH Oxacillin Susceptible Penicillin Resistant Staph spp. are Susceptible to Penicillin stable penicillins, Blactam/Blactamase inhibitor combinations, antistaphyloccal cephems, and carbapenems. 1. STAPHYLOCOCCUS AUREUS M.I.C Interp --------- ------ * CEFAZOLIN S * CLINDAMYCIN <=0.25 S * ERYTHROMYCIN <=0.25 S * LINEZOLID 2 S * MOXIFLOXACIN 2 R * OXACILLIN JELLY 1 S * RIFAMPIN <=0.5 S * TETRACYCLINE <=1 S * TRIMETHOPRIM/SULFAMETHOXAZOLE <=10 S * VANCOMYCIN <=0.5 S X-Rays, CTs and MRIs Patient Name: MAO TAYLOR MR#: [id number] Location: SED Ordering Phys: Jemal Rodriguez MD Date of Service: 09/12/162028 PROCEDURE: CT BRAIN WITHOUT CONTRAST ([id number]) INDICATIONS: altered mental status TECHNIQUE: Noncontrast 4.5 mm thick angled axial sections acquired from the foramen magnum to the vertex, with coronal reformats. COMPARISON: [facility], CT, BRAIN W/O CONTRAST, 08/21/2014, 16:07. FINDINGS: Image quality: Limited by patient motion. CSF spaces: Basal cisterns are patent. No extra-axial fluid collections. Ventricles are normal in size and shape. Brain: No midline shift. No intracranial masses or hemorrhage. Gomes-white matter interface is normal. Skull and face: Calvarium and visualized facial bones are intact, without suspicious lesions. Sinuses: Visualized sinuses and mastoids are clear. IMPRESSION: No acute intracranial disease process identified within limitations caused by motion artifact. Dictated by: Reyna Walsh MD, PhD on 09/12/2016 at 21:00 Approved by: Reyna Walsh MD, PhD on 09/12/2016 at 21:03 Patient Name: MAO TAYLOR MR#: [id number] Location: SED Ordering Phys: Jemal Rodriguez MD Date of Service: 09/12/162028 PROCEDURE: X-RAY CHEST ONE VIEW, PORTABLE ([id number]) INDICATIONS: post intubation TECHNIQUE: One view of the chest was acquired. COMPARISON: [facility], CR, XR CHEST 1VW (PORTABLE), 09/12/2016, 19: 44. FINDINGS: Surgical changes and devices: ET tube is 4.1 cm superior to the alisa. NG tube crosses the GE junction.. Cervical spine fixation hardware Lungs and pleura: No pleural effusions or pneumothorax. Lungs are clear. Mediastinum: Mediastinal contours appear normal. Heart size is normal. Bones and chest wall: No suspicious bony lesions. Overlying soft tissues appear unremarkable. IMPRESSION: No acute cardiopulmonary disease process. Dictated by: Reyna Walsh MD, PhD on 09/12/2016 at 21:08 Approved by: Reyna Walsh MD, PhD on 09/12/2016 at 21:09 CT Abd / Pelvis Interpretation IMPRESSION: small amount of free pelvic fluid. No other acute findings. Lung base opacities atelectasis versus infiltrate. NG tube tip in the proximal stomach. Tatyana Mcdonald M.D. Study type: Abdominal CT IV contrast Interpretation / Wet Read by: Interpret - Radiologist 12-lead ECG Sinus tach rate 104, no ST segment changes Cardiac Echo Impressions Echocardiogram Report Name: MAO TAYLOR GStudy Date: 09/13/2016 Height: 62 in Hospital Exam Location: [facility] Weight: 110 lb Gender: Female BSA: 1.5 m2 : 1965 Age: 51 yrs BP: 121/59 mmHg Reason For Study: HYPOTENSION Ordering Physician: Performed By: Dede Talbot Referring Physician: Mckayla OSWALD Interpretation Summary Sinus tachycardia. Normal LV size,wall thickness, wall motion and LV systolic function. EF is 55 -60%. RV is mildly dilated and demonstrates normal function. No significant valvular abnormalities. Estimated PA systolic pressure is 50 mm Hg assuming RA pressure of 15 mm Hg. No prior study available for comparison Additional Diagnostics venous blood gas 7:43 PM 09/12/2016 pH 6.867 pCO2 18 pO2 78.2 cHCO3- 3.1 cBase -29.4 ABG Interpretation: Repeat: pH 6.685 pCO2 36 pO2 68.2 cHCO3- 4.3 cBase -29.8 Assessment & Plan Problem list 1. Acute hypoxic Respiratory failure 2. Acute Septic shock 3. DKA; resolved 4. Acute kidney failure; resolved 5. Leukocytosis 6. Anemia, microcytic, unknown chronicity 7. Type 1 Diabetes, chronic 8. COPD, chronic 9. Encephalopathy Neuro: Patient remains arousable and minimally responsive. Unsure etiology at this time. Pupils are reactive and patient is moving well. All sedation has been withheld. Agitation was under control. Still awaiting patient to become more responsive. CT has been negative, and there does not seem to be any seizure activity. Cardiovascular: Stable Respiratory: Stable. Vent and ABG are appropriate; plan for extubation today Infection: No abnormalities stopped. White count is normalized. Disposition: Patient was extubated. We will sign off at this time. Are there any other questions please let us know. We are more than happy to assist in any meaningful way we can Time spent: One hour GI Prophylaxis: H2 ike VTE Prophylaxis: Sub-Q Heparin (Unfractionated) VTE Mechanical Devices: Intermittant Pneumatic CD Resuscitation Status: CPR: Attempt Resuscitation Attending Statement The patient was seen and examined together with Dr. Harris on 09/22/2016 and I agree with the history, exam and plan as outlined in the note above. Matt Harris DO Sep 22, 2016 11:30 Dougie Wayne MD Oct 09, 2016 09:39
--- NOTE | 2016-09-22 14:12 | PCM.PNMED ---
Subjective Date of Service Sep 22, 2016 Subjective Overnight: No acute events; improved in mentation overnight Today: Patient was alert and responsive; appropriately following commands. Denied pain. Patient was resting in room without need of additional sedatives or behaviour control medications. Precedex continued. Propofol and fentanyl remained off. Exam Vital Signs Vital Sign - Last Date Time Temp Pulse Resp B/P Pulse Ox O2 Delivery O2 Flow Rate FiO2 09/22/16 11:49 73 16 98 Nasal Cannula 3.00 09/22/16 11:32 36.7 108/56 09/22/16 09:40 30 Intake and Output 09/21/16 09/21/16 09/22/16 Cumulative From/Thru 15:00 23:00 07:00 09/12/16 19:29 - 09/22/16 06:30 Intake Total 1519 ml 1893 ml 00671 ml Output Total 2400 ml 2575 ml 17207 ml Balance -881 ml -682 ml 8819 ml Intake IV Total 1083 ml 1193 ml 13560 ml Tube Feeding 376 ml 509 ml 5072 ml Tube Irrigant 60 ml 191 ml 1577 ml Output Urine Total 2300 ml 2525 ml 52681 ml Stool Total 100 ml 50 ml 450 ml Gastric Drainage Total 2200 ml # Bowel Movements 11 Exam General: Intubated; no acute distress; responded to voice stimuli, and able to follow commands HENT: Atraumatic; sclera anicteric, mucus membranes moist; ETT in place Neck: Soft, no lymphadenopathy Cardiac: Regular rate and rhythm in 70s at time of examination; no murmurs appreciated Respiratory: Improved sounds; clear bilateral; adequate air flow all norman; no wheeze Abdomen: Soft, nontender, nondistended Extremities: No pain of left wrist noted on today's examination Skin: Warm and dry; cool distal extremities Neuro: Unable to fully assess secondary to medication load, but she is following commands and responding appropriately to yes/no questions Psych: Unable to assess secondary to intubation and sedation at this time Lab and Diagnostics Result Diagram: 09/22/1623609/22/16236 Microbiology Name: MAO CHUNG Age/Sex: 51/F Attend Dr: Patricia Oliveira Acct: [id number] Unit: [id number] Status: ADM IN Location: CCU [id number] Re09/12/16 Disch: Specimen: [id number] Collected: 09/13/16 Status: COMP Req#: [id number] Received: 09/13/16 Source: SPUTUM EXP Sp Desc : Subm Dr: Patricia Oliveira DO Ordered: GRAM SPT REFLEX, SPUTUM CULTURE Comments: Collected by Nurse/Unit? Y/N Y Procedure Result Verified Site Microbiology JELLY CULT SPUTUM GS Final 09/13/16 SPT GRAM STAIN RARE POLYS RARE MIXED NORMAL LAZARO This Spec is of good Quality and acceptable for Cult RESPIRATORY CULTURE Final 09/16/16 Organism 1 STAPHYLOCOCCUS AUREUS COLONY COUNT/QUANTITY MODERATE GROWTH Oxacillin Susceptible Penicillin Resistant Staph spp. are Susceptible to Penicillin stable penicillins, Blactam/Blactamase inhibitor combinations, antistaphyloccal cephems, and carbapenems. 1. STAPHYLOCOCCUS AUREUS M.I.C Interp --------- ------ * CEFAZOLIN S * CLINDAMYCIN <=0.25 S * ERYTHROMYCIN <=0.25 S * LINEZOLID 2 S * MOXIFLOXACIN 2 R * OXACILLIN JELLY 1 S * RIFAMPIN <=0.5 S * TETRACYCLINE <=1 S * TRIMETHOPRIM/SULFAMETHOXAZOLE <=10 S * VANCOMYCIN <=0.5 S X-Rays, CTs and MRIs Patient Name: MAO CHUNG MR#: [id number] Location: SED Ordering Phys: Jemal Rodriguez MD Date of Service: 09/12/162028 PROCEDURE: CT BRAIN WITHOUT CONTRAST ([id number]) INDICATIONS: altered mental status TECHNIQUE: Noncontrast 4.5 mm thick angled axial sections acquired from the foramen magnum to the vertex, with coronal reformats. COMPARISON: [facility], CT, BRAIN W/O CONTRAST, 08/21/2014, 16:07. FINDINGS: Image quality: Limited by patient motion. CSF spaces: Basal cisterns are patent. No extra-axial fluid collections. Ventricles are normal in size and shape. Brain: No midline shift. No intracranial masses or hemorrhage. Gomes-white matter interface is normal. Skull and face: Calvarium and visualized facial bones are intact, without suspicious lesions. Sinuses: Visualized sinuses and mastoids are clear. IMPRESSION: No acute intracranial disease process identified within limitations caused by motion artifact. Dictated by: Reyna Walsh MD, PhD on 09/12/2016 at 21:00 Approved by: Reyna Walsh MD, PhD on 09/12/2016 at 21:03 Patient Name: MAO CHUNG MR#: [id number] Location: SED Ordering Phys: Jemal Rodriguez MD Date of Service: 09/12/162028 PROCEDURE: X-RAY CHEST ONE VIEW, PORTABLE ([id number]) INDICATIONS: post intubation TECHNIQUE: One view of the chest was acquired. COMPARISON: [facility], CR, XR CHEST 1VW (PORTABLE), 09/12/2016, 19: 44. FINDINGS: Surgical changes and devices: ET tube is 4.1 cm superior to the alisa. NG tube crosses the GE junction.. Cervical spine fixation hardware Lungs and pleura: No pleural effusions or pneumothorax. Lungs are clear. Mediastinum: Mediastinal contours appear normal. Heart size is normal. Bones and chest wall: No suspicious bony lesions. Overlying soft tissues appear unremarkable. IMPRESSION: No acute cardiopulmonary disease process. Dictated by: Reyna Walsh MD, PhD on 09/12/2016 at 21:08 Approved by: Reyna Walsh MD, PhD on 09/12/2016 at 21:09 CT Abd / Pelvis Interpretation IMPRESSION: small amount of free pelvic fluid. No other acute findings. Lung base opacities atelectasis versus infiltrate. NG tube tip in the proximal stomach. Tatyana Mcdonald M.D. Study type: Abdominal CT IV contrast Interpretation / Wet Read by: Interpret - Radiologist 12-lead ECG Sinus tach rate 104, no ST segment changes Cardiac Echo Impressions Echocardiogram Report Name: MAO CHUNG GStudy Date: 09/13/2016 Height: 62 in Hospital Exam Location: [facility] Weight: 110 lb Gender: Female BSA: 1.5 m2 : 1965 Age: 51 yrs BP: 121/59 mmHg Reason For Study: HYPOTENSION Ordering Physician: Performed By: Dede Talbot Referring Physician: Mcakyla OSWALD Interpretation Summary Sinus tachycardia. Normal LV size,wall thickness, wall motion and LV systolic function. EF is 55 -60%. RV is mildly dilated and demonstrates normal function. No significant valvular abnormalities. Estimated PA systolic pressure is 50 mm Hg assuming RA pressure of 15 mm Hg. No prior study available for comparison Additional Diagnostics venous blood gas 7:43 PM 09/12/2016 pH 6.867 pCO2 18 pO2 78.2 cHCO3- 3.1 cBase -29.4 ABG Interpretation: Repeat: pH 6.685 pCO2 36 pO2 68.2 cHCO3- 4.3 cBase -29.8 Assessment & Plan Ms. Mao Chung is a 51yoF with history of type one diabetes, fibromyalgia, polysubstance abuse brought by EMS, found to be alert and oriented to self in DKA. She was later intubated in the ED secondary to respiratory distress and need to maintain her airway. She was admitted for evaluation and treatment of severe metabolic acidosis secondary to DKA with associated acute hypoxic respiratory failure, suspected PNA, and RAFA. - Hospital day 11 - Ventilator day total: 11 Acute hypoxic respiratory failure, present on admission; Resolved - Intubated in ED secondary to respiratory distress and presumed airway compromise - Pulm consult, vent and critical care management, recs appreciated - Trended triglycerides q3d secondary to propofol use; previous TG level 10/10 elev at 446; repeat 09/18 82 - OFF ativan and fentanyl: Precedex remains. Patient will also receive propofol when necessary - Ct brain 09/17: No acute abnormalities to indicate reason for impaired neuro status - Possible extubation on 09/22 pending ability to maintain own airway and patient safety - Speech eval to be ordered post-extubation - Continue to monitor for neurological improvements throughout day - Continue PT sessions to increase strength Septic shock, acute, present on admission; resolved - unclear source, most likely PNA - Sputum Cx: + MSSA - MRSA screen negative - Resp PCR negative; BCx negative to date - Initial CSF Cx/GS: No growth to date - ID has been consulted, appreciated time and recommendations. 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 However, did show bilateral pleural effusions and groundglass appearance suggestive of pulmonary edema - Consider additional Lasix 20mg Left wrist pain, acute, unknown chronicity. Under evaluation - Left wrist exhibits acute distress when mobilized and palpated - XR left wrist 09/20: No fracture found - Consideration of additional studies, such as MR, when stabilized - Re-evaluate post-extubation Thrombocytosis, acute, not present on admission. Monitored - Increased to 1135 09/22 - ASA therapy initiated DKA, acute, POA; Resolved - severe metabolic acidosis on presentation pH 6.8 decreasing to 6.6 on repeat ABG, 2/2 gap 33 - On admit: K 5.7; glc 623; + serum ketones - 1amp bicarb given in ED, bicarb gtt started upon arrival to floor; now DC'd - unclear etiology, possible non-compliance vs occult infection, trop neg - head CT negative, LP less likely meningitis, CT abd / pelvis with possible PNA , CXR remains neg - Non-DKA protocol initiated with D5 1/2 as solution; will transition to correctional scale post-extubation/swallow eval - Med rec shows glargine 15U qhs + humulin-R sliding scale Hyperkalemia, acute, not present on admission. Resolved - K has been fluctuant throughout admission - 09/17: K 5.5 - Remains on insulin gtt as needed; no FMS in place - DC'd LR Hypokalemia, acute, not present on admission. Resolved - K 2.6 09/14 - Replaced with 80 mEq - Replace prn Acute kidney failure, acute, POA. Resolved - most likely pre-renal given DKA - Maintaining adequate UOP Leukocytosis, acute, POA; Resolved - multifactorial, acute stress response 2/2 DKA vs possible underlying infection - possible PNA, CAP vs HCAP - treatment with piperacillin-tazobactam (pharm to dose) - Follow clinically and with serial labs - Abx course completed as above Anemia, microcytic, hypochromic; unknown chronicity; stable - may be secondary to fluid resuscitation - decreased hgb from 12.3 to 10.4 to 9.8 to 8.2 following admission; currently stable - pantoprazole bolus and gtt started; change from gtt to pushes: 40mg IV BID - Monitor daily Chronic Issues Type 1 Diabetes, chronic -history of uncontrolled diabetes -hgbA1c 9.8 COPD, chronic -as per medical record Fibromyalgia -monitor Tobacco dependence, chronic -as per EMR history of tobacco dependence -consideration of patch/lozenge when stabilized - DVT: hep q8 - GI: PPI - Diet: Tube feeds - PRN bowel, fever, antiemetic, pain - Code: FULL CODE Dispo: Likely to remain > 2 days; patient remains intubated with minimal to zero sedation. Anticipate extubation today, speech eval at that time to determine dietary tolerance. LENS GRINDING MACHINE OPERATOR needs may later include substance use counseling/services, when patient able to communicate use history and needs. Patient will most likely be extubated today. Pain Evaluation: Adequate Pain Control GI Prophylaxis: H2 ike VTE Prophylaxis: Sub-Q Heparin (Unfractionated) VTE Mechanical Devices: Intermittant Pneumatic CD Resuscitation Status: CPR: Attempt Resuscitation Time spent Time taken to care for this critically ill patient was over 60 minutes, over half of which was involved in counseling and coordination of care. Attending Statement Patient seen and examined. Case chart reviewed and case discussed with Dr. Norma Fox at length. I agree with the above note. Jennifer Fox DO Sep 22, 2016 14:12 Michael Tamez MD Sep 22, 2016 19:09
--- NOTE | 2016-09-22 15:38 | NUR ---
Evaluation completed. Please go to "Notes" then click on "Assessments and Notes" (bottom left corner of screen). Then select appropriate discipline tab on top of screen.
--- NOTE | 2016-09-22 17:25 | NUR ---
Patient status Pt calm and cooperative. Oriented to person, place and occasionally time. Denies pain. Precedex gtt off. SR per playground monitor. Normotensive. Oxygen saturation >92% on 1L 02 per NC. Denies SOA. Ambulated in room with walker and assist x 1, tolerating activity. Insulin gtt continued per orders. Will continue to monitor.
[2016-09-22] MEDS: fentaNYL 2,500 mCg/250 mL 2,500 MCG in IV Premix 1 EACH IV SCH (19:16)
[2016-09-22] MEDS: Insulin Human REGular Inj 100 UNIT in 0.9% Sodium Chloride-Pha MIX 100 ML IV SCH (20:39)
[2016-09-23] VITALS (7 sets, daily range): BP systolic 121–143; BP diastolic 64–77; PULSE 86–106; RESP 16–24; O2SAT 92–95
[2016-09-23] MEDS: Dextrose 5% 0.45% NaCl 1,000 ML IV SCH (04:50)
--- NOTE | 2016-09-23 05:02 | NUR ---
Mentation/Resp/Cardiac/GI Patient awake and alert all shift watching TV, did not sleep this shift, A&Ox4 and pleasant, no confusion noted this shift, did will on 1L NC O2 and sats 94-97%, Afebrile and VSS, BP 130's/60's, 1 BM this shift, NPO except ice chips, patient stated she is hungry and would like to eat, explained that she needs to pass swallow evaluation with speech therapy, insulin gtt at 0.8units/hr and D51/2NS at 75, BS averaging in the 120's, uneventful shift, denies pain, will continue to monitor. Addendum: 09/23/16 at 0507 by SEDA REICH RN Amended: Links added.
[2016-09-23 05:26] LABS: Mean Corpuscular Hemoglobin 19.6 pg (27.0-35.0); Mean Corpuscular Volume 65.8 fL (81-100)
[2016-09-23 05:28] LABS: BASOPHILS % (AUTO) 1.8 % (0-3); EOSINOPHILS % (AUTO) 3.4 % (0-5); MONOCYTES % (AUTO) 7.8 % (4-12); NEUTROPHILS % (AUTO) 58.3 % (40-74); Platelet Count 1241 bil/L (150-400)
[2016-09-23 05:31] LABS: Magnesium 1.9 mg/dL (1.6-2.6)
[2016-09-23] MEDS: Pantoprazole 4 mg/mL 10 mL Inj IVPUSH SCH ×2 (07:16→15:48)
[2016-09-23] MEDS: Chlorhexidine 0.12% 15 mL Oral Solution MT SCH (07:16)
[2016-09-23] MEDS: Nystatin 100,000 Unit/Gm 15 Gm Powder TOPICAL SCH ×2 (07:25→20:30)
[2016-09-23] MEDS ORDERED: Albuterol-Ipratropium 3 mL Inhalation Solution NEB PRN (07:25)
[2016-09-23] MEDS: Heparin 5,000 Unit/mL Inj SUBQ SCH ×3 (08:30→22:10)
[2016-09-23] MEDS: Senna-Docusate 8.6-50 mg Tablet PO SCH ×2 (08:30→20:30)
--- NOTE | 2016-09-23 10:36 | DRSVH ---
PROCEDURE: X-RAY CHEST ONE VIEW, PORTABLE ([id number]) INDICATIONS: post-extubation TECHNIQUE: One view of the chest was acquired. COMPARISON: [facility], CR, XR CHEST 1VW (PORTABLE), 09/22/2016, 4:35. FINDINGS: Surgical changes and devices: Lower cervical spine fixation hardware. Lungs and pleura: Mild interstitial prominence suggesting mild pulmonary edema. Mediastinum: Mediastinal contours appear normal. Heart size is normal. Bones and chest wall: No suspicious bony lesions. Overlying soft tissues appear unremarkable. IMPRESSION: 1. ? Mild pulmonary edema. Dictated by: Laron Holm RRA Interpreted: Fabián Talbot MD on 09/23/2016 at 10:34 Transcribed by: EVAN on 09/23/2016 at 10:35 Approved by: Fabián Talbot M.D. on 09/23/2016 at 12:35
--- NOTE | 2016-09-23 13:20 | NUR ---
NUTRITION FOLLOW UP Assess: 51 YO female is a type I Diabetic admitted w/ DKA and associated acute hypoxic respiratory failure. Pt was extubated on 09/22. Pt is weak, but awake and alert. Per notes, pt states feeling hungry. Pt advanced to stimulation diet per ST on 09/23. Observed pt eating magic cup and applesauce at lunch. PMHx: Type I DM, COPD, Fibromyalgia, polysubstance abuse, tobacco dependence, cervical cancer LABS: Reviewed. BUN 4, Insurance Claims Supervisor <0.30, Gluc 131, Ca 8.3, Alb 2.8 MEDICATIONS: Insulin CURRENT DIET: Stimulation diet w/ mashed potatoes & gravy, yogurt all trays per ST 09/23 GI symptoms/stool: BMx1 (09/23) SKIN: Obed 17 - No pressure ulcer per [facility]. ANTHROPOMETRICS: Current Wt: 51.5 kg BMI: 20.8 kg/m2 IBW: 50.0 kg Admit Wt: 48.3 kg (BMI: 19.5 kg/m2) ESTIMATED NEEDS: COPD (Re-estimated 09/21) Calories: 4407-4791 kcal/day (30-35 kcal/kg Admit BW) Protein: 60-75 g/day (1.2-1.5 g/kg Admit BW) Fluids: 1143-6592 ml/day (Approx 1 ml/kcal/d) NUTRITION DIAGNOSIS: 1) Inadequate oral intake related to decreased ability to consume sufficient energy as evidenced by current NPO status. - IMPROVED W/ DIET ADVANCEMENT. INTERVENTION: 1) Will monitor pt for diet advancement per ST recommendations. 2) Will consider adding supplements to ensure adequate calorie and protein intake once diet advanced. MONITOR/EVALUATE: PO intake, medications, labs, wt, GI, nutrition status, POC. Will continue to monitor per moderate nutritional risk guidelines. Addendum: 09/23/16 at [address] Student documentation reviewed and I agree with the above assessment. Ivania Perez, MS, RDN, CD
[2016-09-23] MEDS ORDERED: Glucose 40% Oral Gel 15 Gm Tube PO PRN (14:45)
[2016-09-23] MEDS: 0.9% NaCl + KCl 20 mEq/L 1,000 ML IV SCH (15:48)
--- NOTE | 2016-09-23 16:24 | NUR ---
Mentation/Oxygenation... Has been increasingly more alert, and conversant. Was able to transition to room air and no desats or resp distress noted this shift. Was able to work with PT, amb around the bed and has been up to the chair for several hours and lilly well. Was started on a stim diet. Noted to have rare cough, but otherwise is lilly well. Is having diarrhea stools. Leonardo marie.
--- NOTE | 2016-09-23 17:12 | NUR ---
Social Work Note: Continued Discharge Planning Data& Assessment: Pt has been extubated. PT is recommending SNF at this time. SW met with pt at bedside to check in and provide SNF list for preferences. Pt plans to think about SNF stay and review the list. SW to follow up with pt regarding preferences. Pt denies any other needs at this time. SW to continue to follow. Plan: Anticipated discharge to SNF when medically ready. SW to follow up with pt regarding preferences. Pt denies any other needs at this time. SW to continue to follow. CARLIE Stephens
[2016-09-23] MEDS: Insulin LISPRO 300 Unit/3 mL Inj SUBQ SCH ×2 (18:23→22:07)
--- NOTE | 2016-09-23 19:06 | PCM.PNMED ---
Subjective Date of Service Sep 23, 2016 Subjective Yesterday/overnight: Patient was successfully extubated 09/22; no complications overnight Today: Patient denied any pain; reported that she felt hungry. Had not yet worked with PT at time of examination. Denied SOB, chest pain, nausea, vomiting , fever, chills. Does not recall events prior to admission, other than she had asked her roommate to call 9-1-1 for her because she felt 'ill.' Does not recall her home insulin schedule or regimen. States her recollection is foggy. Exam Vital Signs Vital Sign - Last Date Time Temp Pulse Resp B/P Pulse Ox O2 Delivery O2 Flow Rate FiO2 09/23/16 16:09 Supplement Oxygen 09/23/16 16:00 36.8 104 24 143/69 93 09/23/16 08:51 1.00 09/22/16 20:01 95 Intake and Output 09/22/16 09/22/16 09/23/16 Cumulative From/Thru 15:00 23:00 07:00 09/12/16 19:29 - 09/23/16 05:00 Intake Total 884 ml 61044 ml Output Total 1725 ml 73545 ml Balance -841 ml 7978 ml IV Total 884 ml 03267 ml Tube Feeding 0 ml 5072 ml Tube Irrigant 0 ml 1577 ml Output Urine Total 1725 ml 95012 ml Stool Total 450 ml Gastric Drainage Total 2200 ml # Bowel Movements 1 12 Exam General: Awake, alert, responsive; oriented to self, place; appears fatigued; follows commands HENT: Atraumatic; sclera anicteric, mucus membranes moist Neck: Soft, no lymphadenopathy; No pain with ROM Cardiac: Regular rate and rhythm in 80s at time of examination; no murmurs appreciated Respiratory: Clear bilaterally; adequate air flow all norman; no wheeze Abdomen: Soft, nontender, nondistended Extremities: No pain of left wrist reported this morning on examination Skin: Warm and dry Neuro: CNII-XII grossly intact; speech without slur; facial expressions symmetric Psych: Appropriate mood, affect somewhat flat, and responses to questioning; admits to confusion at time of admission, and at current Lab and Diagnostics Result Diagram: 09/23/1643609/23/16436 Microbiology Name: CHUNGMAO G Age/Sex: 51/F Attend Dr: Patricia Oliveira Acct: [id number] Unit: [id number] Status: ADM IN Location: [facility] [id number] Re09/12/16 Disch: Specimen: [id number] Collected: 09/13/16 Status: COMP Req#: [id number] Received: 09/13/16 Source: SPUTUM EXP Sp Desc : Subm Dr: Patricia Oliveira DO Ordered: GRAM SPT REFLEX, SPUTUM CULTURE Comments: Collected by Nurse/Unit? Y/N Y Procedure Result Verified Site Microbiology JELLY CULT SPUTUM GS Final 09/13/16 SPT GRAM STAIN RARE POLYS RARE MIXED NORMAL LAZARO This Spec is of good Quality and acceptable for Cult RESPIRATORY CULTURE Final 09/16/16 Organism 1 STAPHYLOCOCCUS AUREUS COLONY COUNT/QUANTITY MODERATE GROWTH Oxacillin Susceptible Penicillin Resistant Staph spp. are Susceptible to Penicillin stable penicillins, Blactam/Blactamase inhibitor combinations, antistaphyloccal cephems, and carbapenems. 1. STAPHYLOCOCCUS AUREUS M.I.C Interp --------- ------ * CEFAZOLIN S * CLINDAMYCIN <=0.25 S * ERYTHROMYCIN <=0.25 S * LINEZOLID 2 S * MOXIFLOXACIN 2 R * OXACILLIN JELLY 1 S * RIFAMPIN <=0.5 S * TETRACYCLINE <=1 S * TRIMETHOPRIM/SULFAMETHOXAZOLE <=10 S * VANCOMYCIN <=0.5 S X-Rays, CTs and MRIs Patient Name: MAO CHUNG MR#: [id number] Location: [facility] Ordering Phys: Jemal Rodriguez MD Date of Service: 09/12/162028 PROCEDURE: CT BRAIN WITHOUT CONTRAST ([id number]) INDICATIONS: altered mental status TECHNIQUE: Noncontrast 4.5 mm thick angled axial sections acquired from the foramen magnum to the vertex, with coronal reformats. COMPARISON: [facility], CT, BRAIN W/O CONTRAST, 08/21/2014, 16:07. FINDINGS: Image quality: Limited by patient motion. CSF spaces: Basal cisterns are patent. No extra-axial fluid collections. Ventricles are normal in size and shape. Brain: No midline shift. No intracranial masses or hemorrhage. Gomes-white matter interface is normal. Skull and face: Calvarium and visualized facial bones are intact, without suspicious lesions. Sinuses: Visualized sinuses and mastoids are clear. IMPRESSION: No acute intracranial disease process identified within limitations caused by motion artifact. Dictated by: Reyna Walsh MD, PhD on 09/12/2016 at 21:00 Approved by: Reyna Walsh MD, PhD on 09/12/2016 at 21:03 Patient Name: MAO CHUNG MR#: [id number] Location: SED Ordering Phys: Jemal Rodriguez MD Date of Service: 09/12/162028 PROCEDURE: X-RAY CHEST ONE VIEW, PORTABLE ([id number]) INDICATIONS: post intubation TECHNIQUE: One view of the chest was acquired. COMPARISON: [facility], CR, XR CHEST 1VW (PORTABLE), 09/12/2016, 19: 44. FINDINGS: Surgical changes and devices: ET tube is 4.1 cm superior to the alisa. NG tube crosses the GE junction.. Cervical spine fixation hardware Lungs and pleura: No pleural effusions or pneumothorax. Lungs are clear. Mediastinum: Mediastinal contours appear normal. Heart size is normal. Bones and chest wall: No suspicious bony lesions. Overlying soft tissues appear unremarkable. IMPRESSION: No acute cardiopulmonary disease process. Dictated by: Reyna Walsh MD, PhD on 09/12/2016 at 21:08 Approved by: Reyna Walsh MD, PhD on 09/12/2016 at 21:09 CT Abd / Pelvis Interpretation IMPRESSION: small amount of free pelvic fluid. No other acute findings. Lung base opacities atelectasis versus infiltrate. NG tube tip in the proximal stomach. Tatyana Mcdonald M.D. Study type: Abdominal CT IV contrast Interpretation / Wet Read by: Interpret - Radiologist 12-lead ECG Sinus tach rate 104, no ST segment changes Cardiac Echo Impressions Echocardiogram Report Name: MAO CHUNG GStudy Date: 09/13/2016 Height: 62 in Hospital Exam Location: [facility] Weight: 110 lb Gender: Female BSA: 1.5 m2 : 1965 Age: 51 yrs BP: 121/59 mmHg Reason For Study: HYPOTENSION Ordering Physician: Performed By: Dede Talbot Referring Physician: Mckayla OSWALD Interpretation Summary Sinus tachycardia. Normal LV size,wall thickness, wall motion and LV systolic function. EF is 55 -60%. RV is mildly dilated and demonstrates normal function. No significant valvular abnormalities. Estimated PA systolic pressure is 50 mm Hg assuming RA pressure of 15 mm Hg. No prior study available for comparison Additional Diagnostics venous blood gas 7:43 PM 09/12/2016 pH 6.867 pCO2 18 pO2 78.2 cHCO3- 3.1 cBase -29.4 ABG Interpretation: Repeat: pH 6.685 pCO2 36 pO2 68.2 cHCO3- 4.3 cBase -29.8 Assessment & Plan Ms. Mao Chung is a 51yoF with history of type one diabetes, fibromyalgia, polysubstance abuse brought by EMS, found to be alert and oriented to self in DKA. She was later intubated in the ED secondary to respiratory distress and need to maintain her airway. She was admitted for evaluation and treatment of severe metabolic acidosis secondary to DKA with associated acute hypoxic respiratory failure, suspected PNA, and RAFA. - Hospital day 12 - Ventilator day total: 11 Diabetes mellitus, type 1, insulin-dependent, chronic. Presumed stable - Admitting Dx: DKA - 09/12 A1c 9.8 - Patient unable to recall home medication - Low dose correctional scale in place at this time - Add long acting when appropriate and calculated - Med rec shows glargine 15U qhs + humulin-R sliding scale: will need to verify with patient home dosing Acute hypoxic respiratory failure, present on admission; Resolved - Intubated in ED secondary to respiratory distress and presumed airway compromise - Pulm consult, vent and critical care management, recs appreciated - Trended triglycerides q3d secondary to propofol use; previous TG level 10/10 elev at 446; repeat 09/18 82 - OFF ativan and fentanyl: Precedex remains. Patient will also receive propofol when necessary - Ct brain 09/17: No acute abnormalities to indicate reason for impaired neuro status - Continue to monitor for neurological improvements throughout day and ability to recall events leading to admission - Continue PT sessions to increase strength - Continue speech eval/swallow eval to advance diet H/o polysubstance abuse, chronic - On admit: UTox + benzos, + TCA - as per brother history of narcotic use and ETOH use; daughter conformed similar history - banana bag given - CT chest with contrast showed no evidence for septic emboli. 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 - Eval CSF PCR: completely negative - Per ID, discontinued abx azithro and Zosyn; patient has had a full course Left wrist pain, acute, unknown chronicity. Under evaluation - Left wrist exhibits acute distress when mobilized and palpated - XR left wrist 09/20: No fracture found - Consideration of additional studies, such as MR, when stabilized - Re-evaluation did not reveal pain - Continue to monitor as patient progresses Thrombocytosis, acute, not present on admission. Monitored - Increased to 1135 09/22; 1241 09/23 - ASA therapy initiated DKA, acute, POA; Resolved - severe metabolic acidosis on presentation pH 6.8 decreasing to 6.6 on repeat ABG, 09/10 gap 33 - On admit: K 5.7; glc 623; + serum ketones - 1amp bicarb given in ED, bicarb gtt started upon arrival to floor; now DC'd - unclear etiology, possible non-compliance vs occult infection, trop neg - head CT negative, LP less likely meningitis, CT abd / pelvis with possible PNA , CXR remains neg - utilized DKA gtt wth transition to non-DKA until extubation Hyperkalemia, acute, not present on admission. Resolved - K has been fluctuant throughout admission - Max achieved 09/12, K 5.7, and 09/17: K 5.5 - Monitor Hypokalemia, acute, not present on admission. Resolved - K 2.6 09/14 - Replaced with 80 mEq - Replace prn Acute kidney failure, acute, POA. Resolved - most likely pre-renal given DKA - Maintaining adequate UOP Leukocytosis, acute, POA; Resolved - multifactorial, acute stress response 2/ DKA vs possible underlying infection - possible PNA, CAP vs HCAP - Abx course completed as above Anemia, microcytic, hypochromic; unknown chronicity; stable - may be secondary to fluid resuscitation - decreased hgb from 12.3 to 10.4 to 9.8 to 8.2 following admission; currently stable - pantoprazole bolus and gtt started; change from gtt to pushes: 40mg IV BID - Monitor daily Chronic Issues COPD, chronic -as per medical record Fibromyalgia -monitor Tobacco dependence, chronic -as per EMR history of tobacco dependence -consideration of patch/lozenge when stabilized - DVT: hep q8 - GI: PPI - Diet: Stim, adv per ST - PRN bowel, fever, antiemetic, pain - Code: FULL CODE Dispo: Likely to remain > 2 days; Needs include PT sessions. Current rec is SNF. 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 Daughter has contacted staff, and confirms that patient does have history of substance use, known narcotic abuse. Pain Evaluation: Adequate Pain Control GI Prophylaxis: H2 ike VTE Prophylaxis: Sub-Q Heparin (Unfractionated) VTE Mechanical Devices: Intermittant Pneumatic CD Resuscitation Status: CPR: Attempt Resuscitation Attending Statement Patient was seen and examined. Case was discussed with Dr. Norma Fox at length. Chart was reviewed. I agree with the above note. Jennifer Fox DO Sep 23, 2016 19:06 Michael Tamez MD Sep 23, 2016 20:19
--- NOTE | 2016-09-23 21:11 | NUR ---
TRANSFER/MENTATION Pt was transferred [facility] @ 1930, tele on SR-ST 90-100's. Pt off insulin drip and was given 4 units of coverage insulin by day shift before shift change for 308 BS. Pt A&Ox3, able to make needs known. Tolerating stim diet well, states that she is "hungry for real food" tomorrow morning. Pt on RA sating low 90's, no pain noted other than right wrist was tender, no PRN pain meds requested. No other issues noted at this time.
[2016-09-24] VITALS (8 sets, daily range): BP systolic 124–145; BP diastolic 68–76; PULSE 87–118; RESP 16–20; O2SAT 90–97
[2016-09-24] MEDS: 0.9% NaCl + KCl 20 mEq/L 1,000 ML IV SCH ×2 (04:10→20:59)
[2016-09-24 05:35] LABS: Mean Corpuscular Hemoglobin 19.8 pg (27.0-35.0)
[2016-09-24 05:38] LABS: BASOPHILS % (AUTO) 1.4 % (0-3); EOSINOPHILS % (AUTO) 1.3 % (0-5); MONOCYTES % (AUTO) 5.9 % (4-12); NEUTROPHILS % (AUTO) 66.1 % (40-74); Platelet Count 1209 bil/L (150-400)
[2016-09-24 05:51] LABS: Magnesium 1.9 mg/dL (1.6-2.6); Phosphorus 3.2 mg/dL (2.5-4.9)
[2016-09-24] MEDS: Pantoprazole 4 mg/mL 10 mL Inj IVPUSH SCH (08:04)
[2016-09-24] MEDS: Insulin LISPRO 300 Unit/3 mL Inj SUBQ SCH ×4 (08:05→21:03)
[2016-09-24] MEDS: Heparin 5,000 Unit/mL Inj SUBQ SCH ×2 (08:06→18:25)
[2016-09-24] MEDS: Senna-Docusate 8.6-50 mg Tablet PO SCH ×2 (08:30→20:30)
--- NOTE | 2016-09-24 09:59 | NUR ---
Mentation/Ambulation/Temp Pt able to answer and respond to questions appropriately. Pt states she is ready to get up and ambulate in room. Pt temperature 37.2. Notified MD. Care continues.
[2016-09-24 11:07] LABS: Hepatitis A Antibody IgM Negative (Negative); Hepatitis B Core Antibody IgM Negative (Negative)
[2016-09-24] MEDS ORDERED: Albuterol-Ipratropium 3 mL Inhalation Solution NEB PRN (11:25)
[2016-09-24] MEDS: Nystatin 100,000 Unit/Gm 15 Gm Powder TOPICAL SCH ×2 (13:11→21:00)
--- NOTE | 2016-09-24 15:27 | PCM.PNMED ---
Subjective Date of Service Sep 24, 2016 Subjective Overnight: No acute events Today: Denies pain, SOB, nausea, vomiting, fever, and chills. Does not recall events prior to admission, other than calling her roommate to ask him to dial 9- 1-1. Denies any EtOH, substance use. Tolerating po intake well, on stim diet at time of examination. Exam Vital Signs Vital Sign - Last Date Time Temp Pulse Resp B/P Pulse Ox O2 Delivery O2 Flow Rate FiO2 09/24/16 13:24 37.0 90 124/68 96 Room Air 09/24/16 11:24 18 09/23/16 08:51 1.00 09/22/16 20:01 95 Intake and Output 09/23/16 09/23/16 09/24/16 Cumulative From/Thru 15:00 23:00 07:00 09/12/16 19:29 - 09/24/16 06:43 Intake Total 1149 ml 1050 ml 48975 ml Output Total 1550 ml 500 ml 82860 ml Balance -401 ml 550 ml 8127 ml Intake Oral 145 ml 200 ml 345 ml IV Total 1004 ml 850 ml 21373 ml Tube Feeding 5072 ml Tube Irrigant 1577 ml Output Urine Total 1350 ml 500 ml 68882 ml Stool Total 200 ml 650 ml Gastric Drainage Total 2200 ml # Bowel Movements 0 12 Exam General: Awake, alert, responsive; appears fatigued and confused; follows commands HENT: Atraumatic; sclera anicteric, mucus membranes moist Neck: No pain with ROM, trachea midline Cardiac: Regular rate and rhythm in 80s at time of examination; no murmurs appreciated Respiratory: Clear bilaterally; adequate air flow all norman; mild wheeze bilateral upper norman Abdomen: Soft, nontender, nondistended Extremities: No edema Skin: Warm and dry Neuro: CNII-XII grossly intact; speech without slur; facial expressions symmetric Psych: Appropriate mood, affect somewhat flat, and appropiate responses to questioning; admits to confusion, and states she feels 'brain ' Lab and Diagnostics Result Diagram: 09/24/1644409/24/16444 Microbiology Name: MAO CHUNG Age/Sex: 51/F Attend Dr: Patricia Oliveira Acct: [id number] Unit: [id number] Status: ADM IN Location: CCU [id number] Re09/12/16 Disch: Specimen: [id number] Collected: 09/13/16 Status: JAMARCUS Req#: [id number] Received: 09/13/16 Source: SPUTUM EXP Sp Desc : Subm Dr: Patricia Oliveira DO Ordered: GRAM SPT REFLEX, SPUTUM CULTURE Comments: Collected by Nurse/Unit? Y/N Y Procedure Result Verified Site Microbiology JELLY CULT SPUTUM GS Final 09/13/16-141 SPT GRAM STAIN RARE POLYS RARE MIXED NORMAL LAZARO This Spec is of good Quality and acceptable for Cult RESPIRATORY CULTURE Final 09/16/16 Organism 1 STAPHYLOCOCCUS AUREUS COLONY COUNT/QUANTITY MODERATE GROWTH Oxacillin Susceptible Penicillin Resistant Staph spp. are Susceptible to Penicillin stable penicillins, Blactam/Blactamase inhibitor combinations, antistaphyloccal cephems, and carbapenems. 1. STAPHYLOCOCCUS AUREUS M.I.C Interp --------- ------ * CEFAZOLIN S * CLINDAMYCIN <=0.25 S * ERYTHROMYCIN <=0.25 S * LINEZOLID 2 S * MOXIFLOXACIN 2 R * OXACILLIN JELLY 1 S * RIFAMPIN <=0.5 S * TETRACYCLINE <=1 S * TRIMETHOPRIM/SULFAMETHOXAZOLE <=10 S * VANCOMYCIN <=0.5 S X-Rays, CTs and MRIs Patient Name: MAO CHUNG MR#: [id number] Location: SED Ordering Phys: Jemal Rodriguez MD Date of Service: 09/12/162028 PROCEDURE: CT BRAIN WITHOUT CONTRAST ([id number]) INDICATIONS: altered mental status TECHNIQUE: Noncontrast 4.5 mm thick angled axial sections acquired from the foramen magnum to the vertex, with coronal reformats. COMPARISON: [facility], CT, BRAIN W/O CONTRAST, 08/21/2014, 16:07. FINDINGS: Image quality: Limited by patient motion. CSF spaces: Basal cisterns are patent. No extra-axial fluid collections. Ventricles are normal in size and shape. Brain: No midline shift. No intracranial masses or hemorrhage. Gomes-white matter interface is normal. Skull and face: Calvarium and visualized facial bones are intact, without suspicious lesions. Sinuses: Visualized sinuses and mastoids are clear. IMPRESSION: No acute intracranial disease process identified within limitations caused by motion artifact. Dictated by: Reyna Walsh MD, PhD on 09/12/2016 at 21:00 Approved by: Reyna Walsh MD, PhD on 09/12/2016 at 21:03 Patient Name: MAO CHUNG MR#: [id number] Location: SED Ordering Phys: Jemal Rodriguez MD Date of Service: 09/12/162028 PROCEDURE: X-RAY CHEST ONE VIEW, PORTABLE ([id number]) INDICATIONS: post intubation TECHNIQUE: One view of the chest was acquired. COMPARISON: [facility], CR, XR CHEST 1VW (PORTABLE), 09/12/2016, 19: 44. FINDINGS: Surgical changes and devices: ET tube is 4.1 cm superior to the alisa. NG tube crosses the GE junction.. Cervical spine fixation hardware Lungs and pleura: No pleural effusions or pneumothorax. Lungs are clear. Mediastinum: Mediastinal contours appear normal. Heart size is normal. Bones and chest wall: No suspicious bony lesions. Overlying soft tissues appear unremarkable. IMPRESSION: No acute cardiopulmonary disease process. Dictated by: Reyna Walsh MD, PhD on 09/12/2016 at 21:08 Approved by: Reyna Walsh MD, PhD on 09/12/2016 at 21:09 CT Abd / Pelvis Interpretation IMPRESSION: small amount of free pelvic fluid. No other acute findings. Lung base opacities atelectasis versus infiltrate. NG tube tip in the proximal stomach. Tatyana Mcdonald M.D. Study type: Abdominal CT IV contrast Interpretation / Wet Read by: Interpret - Radiologist 12-lead ECG Sinus tach rate 104, no ST segment changes Cardiac Echo Impressions Echocardiogram Report Name: MAO CHUNG GStudy Date: 09/13/2016 Height: 62 in Hospital Exam Location: [facility] Weight: 110 lb Gender: Female BSA: 1.5 m2 : 1965 Age: 51 yrs BP: 121/59 mmHg Reason For Study: HYPOTENSION Ordering Physician: Performed By: Dede Talbot Referring Physician: Mckayla OSWALD Interpretation Summary Sinus tachycardia. Normal LV size,wall thickness, wall motion and LV systolic function. EF is 55 -60%. RV is mildly dilated and demonstrates normal function. No significant valvular abnormalities. Estimated PA systolic pressure is 50 mm Hg assuming RA pressure of 15 mm Hg. No prior study available for comparison Additional Diagnostics venous blood gas 7:43 PM 09/12/2016 pH 6.867 pCO2 18 pO2 78.2 cHCO3- 3.1 cBase -29.4 ABG Interpretation: Repeat: pH 6.685 pCO2 36 pO2 68.2 cHCO3- 4.3 cBase -29.8 Assessment & Plan Ms. Mao Chung is a 51yoF with history of type one diabetes, fibromyalgia, polysubstance abuse brought by EMS, found to be alert and oriented to self in DKA. She was later intubated in the ED secondary to respiratory distress and need to maintain her airway. She was admitted for evaluation and treatment of severe metabolic acidosis secondary to DKA with associated acute hypoxic respiratory failure, suspected PNA, and RAFA. - Hospital day 13 - Ventilator day total: 11 Diabetes mellitus, type 1, insulin-dependent, chronic. Presumed stable - Admitting Dx: DKA; Dx when patient was 19 years of age - 02/04 A1c 9.8 - Patient unable to recall home medication - Low dose correctional scale in place at this time - [facility] records 09/03 PCP: Lantus 14U qam + 16U qpm + Humalog 7-9U per meal - Start Lantus 09/24 pm at 8U, titrate up - Will decide am dose based on overnight readings Acute hypoxic respiratory failure, present on admission; Resolved. Patient has a history of severe COPD per outpatient notes dated September [address] Terrence Mejia - Intubated in ED secondary to respiratory distress and presumed airway compromise - Pulm consult, vent and critical care management, recs appreciated - Trended triglycerides q3d secondary to propofol use; previous TG level 10/10 elev at 446; repeat 09/18 82 - OFF ativan and fentanyl: Precedex remains. Patient will also receive propofol when necessary - Ct brain 09/17: No acute abnormalities to indicate reason for impaired neuro status - Continue to monitor for neurological improvements throughout day and ability to recall events leading to admission - Continue PT sessions to increase strength - Continue speech eval/swallow eval to advance diet H/o polysubstance abuse, chronic - On admit: UTox + benzos, + TCA - as per brother history of narcotic use and ETOH use; daughter conformed similar history - banana bag given - CT chest with contrast showed no evidence for septic emboli. However, did show bilateral pleural effusions and groundglass appearance suggestive of pulmonary edema - Per outpatient pulm documentation: H/o cocaine, methamphetamine use; No EtOH or marijuana at that time - PCP OV 09/03/16: Reports of recent DUI 04/2016 - AFFILIATE MARKETING MANAGER consult for possible substance use Altered mental status, acute, uncertain if present on admission. Ongoing - May be secondary to prolonged intubation and hospitalization - Promote healthy sleep hygiene: Awake and up to chair during day, sleep at night - Continue Seroquel nightly - MMSE to assess cognition Septic shock, acute, present on admission; resolved - unclear source, most likely PNA - Sputum Cx: + MSSA - MRSA screen negative - Resp PCR negative; BCx negative to date - Initial CSF Cx/GS: No growth to date - ID had been consulted, appreciated time and recommendations. - Eval CSF PCR: completely negative - Per ID, discontinued abx azithro and Zosyn; patient has had a full course Left wrist pain, acute, unknown chronicity. Under evaluation - Left wrist exhibits acute distress when mobilized and palpated - XR left wrist 09/20: No fracture found - Consideration of additional studies, such as MR, when stabilized - Re-evaluation did not reveal pain - Continue to monitor as patient progresses Thrombocytosis, acute, not present on admission. Monitored - Increased to 1135 09/22; 1241 09/23 - ASA therapy initiated DKA, acute, POA; Resolved - Severe metabolic acidosis on presentation pH 6.8 decreasing to 6.6 on repeat ABG, 09/10 gap 33 - On admit: K 5.7; glc 623; + serum ketones - 1amp bicarb given in ED, bicarb gtt started upon arrival to floor; now DC'd - Unclear etiology, possible non-compliance vs occult infection, trop neg - Head CT negative, LP less likely meningitis, CT abd / pelvis with possible PNA , CXR remains neg - We utilized DKA protocol drip wth transition to non-DKA protocol drip until extubation Hyperkalemia, acute, not present on admission. Resolved - K has been fluctuant throughout admission - Max achieved 09/12, K 5.7, and 09/17: K 5.5 - Monitor Hypokalemia, acute, not present on admission. Resolved - K 2.6 09/14 - Replaced with 80 mEq - Replace prn we will continue to monitor electrolytes daily Acute kidney failure, acute, POA. Resolved - most likely pre-renal given DKA - Maintaining adequate UOP Leukocytosis, acute, POA; Resolved - multifactorial, acute stress response 2/ DKA vs possible underlying infection - possible PNA, CAP vs HCAP - Abx course completed as above Anemia, microcytic, hypochromic; unknown chronicity; stable - May be secondary to fluid resuscitation - Possibly due to acute blood loss anemia. However, blood counts are normal stable. - Decreased hgb from 12.3 to 10.4 to 9.8 to 8.2 following admission; currently stable - Pantoprazole po daily - Monitor daily Chronic Issues Depression, chronic. 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 Current rec is SNF. AFFILIATE MARKETING MANAGER needs may later include substance use counseling/services, when patient able to communicate substance use history and needs. Daughter has contacted staff, and confirms that patient does have history of substance use, known narcotic abuse. Unknown mentation baseline, as patient appears delayed. Will continue to monitor. Pain Evaluation: Adequate Pain Control GI Prophylaxis: H2 ike VTE Prophylaxis: Sub-Q Heparin (Unfractionated) VTE Mechanical Devices: Intermittant Pneumatic CD Resuscitation Status: CPR: Attempt Resuscitation Jennifer Fox DO Sep 24, 2016 15:27 Michael Tamez MD Sep 24, 2016 19:15
--- NOTE | 2016-09-24 17:36 | NUR ---
Social Work: Continued Discharge Planning D: Pt discussed in am rounds. Pt not medically stable for discharge at this time. Pt anticipated to be ready in 1-2 days. MD requesting CD assessment on pt as family has expressed concern for narcotic abuse. GAS ENGINEER met with pt at bedside to review discharge plan and to engage pt in CD conversation. GAS ENGINEER reviewed PT notes and recommendation with pt. Pt states she does not want to go to a SNF and that she wants to go home with her s/o who lives in [place]. Through much reflection and open ended conversation, pt is agreeable to dual planning and referrals sent for possible SNF placement if she needs it at time of discharge. SNF choice List Provided. Pt preference [facility] although she hopes to be able to go home directly. PASSR lvl II Exemption required- in folder for MD signature. GAS ENGINEER attempted to engage pt with CD assessment however pt decline to speak with GAS ENGINEER about narcotic use. Pt requesting that GAS ENGINEER return at a later date. GAS ENGINEER agreed and will return to complete assessment prior to d/c. A: Pt who is ambulating 30 feet with PT. P: Evolving; Anticipate SNF discharge if pt does not progress with mobility; [facility] are reviewing. GAS ENGINEER to continue to follow CARLIE Mtz
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
[2016-09-24] MEDS ORDERED: Insulin GLARgine 100 Unit/mL Syringe SUBQ SCH (21:00)
[2016-09-25] VITALS (9 sets, daily range): BP systolic 116–179; BP diastolic 67–90; PULSE 68–98; RESP 15–18; O2SAT 93–98
[2016-09-25] MEDS: Heparin 5,000 Unit/mL Inj SUBQ SCH ×4 (01:09→20:11)
[2016-09-25 04:18] LABS: Mean Corpuscular Hemoglobin 19.6 pg (27.0-35.0); Mean Corpuscular Volume 65.8 fL (81-100); Platelet Count 1172 bil/L (150-400)
[2016-09-25 04:19] LABS: BASOPHILS % (AUTO) 1.9 % (0-3); MONOCYTES % (AUTO) 6.7 % (4-12); NEUTROPHILS % (AUTO) 60.5 % (40-74)
[2016-09-25 04:32] LABS: Magnesium 1.9 mg/dL (1.6-2.6); Phosphorus 2.9 mg/dL (2.5-4.9)
--- NOTE | 2016-09-25 05:15 | NUR ---
NEURO Pt A&O to self and place. Pt's communication to nursing staff was better than reported during day shift report. Pt had 342 BS, given 8 units Lantus and 3 units Lispro. BS current BS 163. Pt was ambulating off and on back and forth to the chair throughout the night. Pt slept very little, slightly restless. Pt c/o of a slight lower back ache from the bed, no pain PRN meds administered. Continue to monitor neuros.
[2016-09-25] MEDS: 0.9% NaCl + KCl 20 mEq/L 1,000 ML IV SCH ×2 (07:53→20:09)
[2016-09-25] MEDS: Pantoprazole 40 mg ER24 Tablet PO SCH (07:54)
[2016-09-25] MEDS: Insulin LISPRO 300 Unit/3 mL Inj SUBQ SCH ×4 (07:56→20:12)
[2016-09-25] MEDS: Nystatin 100,000 Unit/Gm 15 Gm Powder TOPICAL SCH ×2 (08:05→20:13)
[2016-09-25] MEDS: Senna-Docusate 8.6-50 mg Tablet PO SCH ×2 (08:30→20:13)
[2016-09-25] MEDS ORDERED: Insulin GLARgine 100 Unit/mL Syringe SUBQ SCH (08:30)
--- NOTE | 2016-09-25 08:56 | NUR ---
NUTRITION FOLLOW UP Assess: 51 YO female is a type I Diabetic admitted w/ DKA and associated acute hypoxic respiratory failure. Pt was extubated on 09/22. Diet advanced per ST to soft diet w/ nectar thickened liquids. Per nursing, pt alert and oriented to self and place. PMHx: Type I DM, COPD, Fibromyalgia, polysubstance abuse, tobacco dependence, cervical cancer LABS: Reviewed. Cr 0.37, Glu 224, Ca 8.2 MEDICATIONS: Reviewd. Insulin CURRENT DIET: Soft w/ NTL, PO 50-100% GI symptoms/stool: BMx1 (09/23) SKIN: Obed 17 - No pressure ulcer per WCS. ANTHROPOMETRICS: Current Wt: 51.1 kg BMI: 20.6 kg/m2 IBW: 50.0 kg Admit Wt: 48.3 kg (BMI: 19.5 kg/m2) ESTIMATED NEEDS: COPD (Re-estimated 09/21) Calories: 8368-4579 kcal/day (30-35 kcal/kg Admit BW) Protein: 60-75 g/day (1.2-1.5 g/kg Admit BW) Fluids: 2447-1481 ml/day (Approx 1 ml/kcal/d) NUTRITION DIAGNOSIS: 1) Inadequate oral intake related to decreased ability to consume sufficient energy as evidenced by current NPO status. - IMPROVED INTERVENTION: 1) Diet per ST recommendations. Will not add supplements as pt has adequate PO intake. MONITOR/EVALUATE: PO intake, labs, wt, GI, nutrition status, POC. Will continue to monitor per moderate nutritional risk guidelines.
--- NOTE | 2016-09-25 12:25 | NUR ---
Ambulate w/Nsg Pt is released to ambulate w/nsg w/FWW 2-3x/day as pt tolerates. PT will cont to see 2x/week for progression of AD.
[2016-09-25] MEDS: Albuterol-Ipratropium 3 mL Inhalation Solution NEB SCH ×2 (12:50→20:30)
--- NOTE | 2016-09-25 15:39 | NUR ---
[facility] denied pt for acceptance.
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
--- NOTE | 2016-09-25 18:11 | NUR ---
Mentation Pt. oriented to person, place and situation this morning, but thought it was October. This afternoon, she was AOX4. However, pt. is forgetful at times and high fall risk. She forgets to use call light, and today she stood up and grabbed her walker saying she needed to "go to the third floor to get coffee". Reminded pt. of fall risk. [place] alarm on.
[2016-09-25] MEDS: Insulin GLARgine 100 Unit/mL Syringe SUBQ SCH (20:10)
--- NOTE | 2016-09-25 20:35 | NUR ---
MENTATION/AMBULATION Pt was A&Ox3 with in and out confusion. Pt able to communicate some needs, nursing staff to anticipate all other needs. Pt is forgetful of her IV pull and impulsive at times, fall risk. Pt has [place] alarm on for safety. Pt's gait was slightly unsteady at times, SBA for ambulation to bathroom. Addendum: 09/26/16 at 0526 by CECY SEGOVIA RN Pt became more confused throughout the night and did start to hallucinate that there were spiders on the whiteboard. Pt still tried to get out of bed even though she was repeatedly reminded to push her call light for assistance. Pt still high fall risk with unsteady gait, impulsiveness and inability to move IV pole.
--- NOTE | 2016-09-25 20:43 | PCM.PNMED ---
Subjective Date of Service Sep 25, 2016 Subjective Overnight: Reports of back pain and restlessness. No acute events Today: Sitting upright at edge of bed working with PT, no apparent difficulties. Still appears slowed, delayed, but apparent improvement in energy compared to previous examinations. Tolerating po intake well. Urinating well. Pleasant and willing to work with staff. Does not wish to go to skilled facility. Exam Vital Signs Vital Sign - Last Date Time Temp Pulse Resp B/P Pulse Ox O2 Delivery O2 Flow Rate FiO2 09/25/16 12:08 Room Air 09/25/16 11:37 36.9 68 15 179/78 95 09/24/16 19:29 0.00 09/22/16 20:01 95 Intake and Output 09/24/16 09/24/16 09/25/16 Cumulative From/Thru 15:00 23:00 07:00 09/12/16 19:29 - 09/25/16 06:50 Intake Total 1268 ml 1200 ml 62912 ml Output Total 1450 ml 1600 ml 77013 ml Balance -182 ml -400 ml 7545 ml Intake Oral 450 ml 400 ml 1195 ml IV Total 818 ml 800 ml 51103 ml Tube Feeding 5072 ml Tube Irrigant 1577 ml Output Urine Total 1450 ml 1600 ml 71509 ml Stool Total 650 ml Gastric Drainage Total 2200 ml # Bowel Movements 12 Exam General: Awake, alert, responsive; appears fatigued and confused; follows commands; working with PT at edge of bed HEENT: Atraumatic; sclera anicteric, external ears without defect; mucus membranes moist Neck: No pain with ROM, trachea midline Cardiac: Regular rate and rhythm in 70-80s at time of examination; no murmurs appreciated Respiratory: Clear bilaterally; adequate air flow all norman; mild wheeze bilateral mid-upper norman Abdomen: Soft, nontender, nondistended Extremities: No edema; bilateral anterior lower leg scrapes x2 without active bleeding or surrounding erythema Skin: Warm and dry Neuro: CNII-XII grossly intact; speech without slur; facial expressions symmetric Psych: Appropriate mood, affect somewhat flat but improved, and appropriate responses to questioning; delayed recall and slowed speech, but not slurred Lab and Diagnostics Result Diagram: 09/25/16 0350 09/25/16 035 Microbiology Name: BRANDONJIE G Age/Sex: 51/F Attend Dr: Patricia Oliveira Acct: [id number] Unit: [id number] Status: ADM IN Location: [facility] [id number] Re09/12/16 Disch: Specimen: [id number] Collected: 09/13/16 Status: COMP Req#: [id number] Received: 09/13/16 Source: SPUTUM EXP Sp Desc : Subm Dr: Patricia Oliveira DO Ordered: GRAM SPT REFLEX, SPUTUM CULTURE Comments: Collected by Nurse/Unit? Y/N Y Procedure Result Verified Site Microbiology JELLY CULT SPUTUM GS Final 09/13/16141 SPT GRAM STAIN RARE POLYS RARE MIXED NORMAL LAZARO This Spec is of good Quality and acceptable for Cult RESPIRATORY CULTURE Final 09/16/16 Organism 1 STAPHYLOCOCCUS AUREUS COLONY COUNT/QUANTITY MODERATE GROWTH Oxacillin Susceptible Penicillin Resistant Staph spp. are Susceptible to Penicillin stable penicillins, Blactam/Blactamase inhibitor combinations, antistaphyloccal cephems, and carbapenems. 1. STAPHYLOCOCCUS AUREUS M.I.C Interp --------- ------ * CEFAZOLIN S * CLINDAMYCIN <=0.25 S * ERYTHROMYCIN <=0.25 S * LINEZOLID 2 S * MOXIFLOXACIN 2 R * OXACILLIN JELLY 1 S * RIFAMPIN <=0.5 S * TETRACYCLINE <=1 S * TRIMETHOPRIM/SULFAMETHOXAZOLE <=10 S * VANCOMYCIN <=0.5 S X-Rays, CTs and MRIs Patient Name: JIE CHUNG MR#: [id number] Location: [facility] Ordering Phys: Jemal Rodriguez MD Date of Service: 09/12/162028 PROCEDURE: CT BRAIN WITHOUT CONTRAST ([id number]) INDICATIONS: altered mental status TECHNIQUE: Noncontrast 4.5 mm thick angled axial sections acquired from the foramen magnum to the vertex, with coronal reformats. COMPARISON: [facility], CT, BRAIN W/O CONTRAST, 08/21/2014, 16:07. FINDINGS: Image quality: Limited by patient motion. CSF spaces: Basal cisterns are patent. No extra-axial fluid collections. Ventricles are normal in size and shape. Brain: No midline shift. No intracranial masses or hemorrhage. Gomes-white matter interface is normal. Skull and face: Calvarium and visualized facial bones are intact, without suspicious lesions. Sinuses: Visualized sinuses and mastoids are clear. IMPRESSION: No acute intracranial disease process identified within limitations caused by motion artifact. Dictated by: Reyna Walsh MD, PhD on 09/12/2016 at 21:00 Approved by: Reyna Walsh MD, PhD on 09/12/2016 at 21:03 Patient Name: JIE CHUNG MR#: [id number] Location: [facility] Ordering Phys: Jemal Rodriguez MD Date of Service: 09/12/162028 PROCEDURE: X-RAY CHEST ONE VIEW, PORTABLE ([id number]) INDICATIONS: post intubation TECHNIQUE: One view of the chest was acquired. COMPARISON: [facility], CR, XR CHEST 1VW (PORTABLE), 09/12/2016, 19: 44. FINDINGS: Surgical changes and devices: ET tube is 4.1 cm superior to the alisa. NG tube crosses the GE junction.. Cervical spine fixation hardware Lungs and pleura: No pleural effusions or pneumothorax. Lungs are clear. Mediastinum: Mediastinal contours appear normal. Heart size is normal. Bones and chest wall: No suspicious bony lesions. Overlying soft tissues appear unremarkable. IMPRESSION: No acute cardiopulmonary disease process. Dictated by: Reyna Walsh MD, PhD on 09/12/2016 at 21:08 Approved by: Reyna Walsh MD, PhD on 09/12/2016 at 21:09 CT Abd / Pelvis Interpretation IMPRESSION: small amount of free pelvic fluid. No other acute findings. Lung base opacities atelectasis versus infiltrate. NG tube tip in the proximal stomach. Tatyana Mcdonald M.D. Study type: Abdominal CT IV contrast Interpretation / Wet Read by: Interpret - Radiologist 12-lead ECG Sinus tach rate 104, no ST segment changes Cardiac Echo Impressions Echocardiogram Report Name: JIE CHUNG GStudy Date: 09/13/2016 Height: 62 in Hospital Exam Location: [facility] Weight: 110 lb Gender: Female BSA: 1.5 m2 : 1965 Age: 51 yrs BP: 121/59 mmHg Reason For Study: HYPOTENSION Ordering Physician: Performed By: Dede Talbot Referring Physician: Mckayla OSWALD Interpretation Summary Sinus tachycardia. Normal LV size,wall thickness, wall motion and LV systolic function. EF is 55 -60%. RV is mildly dilated and demonstrates normal function. No significant valvular abnormalities. Estimated PA systolic pressure is 50 mm Hg assuming RA pressure of 15 mm Hg. No prior study available for comparison Additional Diagnostics venous blood gas 7:43 PM 09/12/2016 pH 6.867 pCO2 18 pO2 78.2 cHCO3- 3.1 cBase -29.4 ABG Interpretation: Repeat: pH 6.685 pCO2 36 pO2 68.2 cHCO3- 4.3 cBase -29.8 Assessment & Plan Ms. Jie Chung is a 51yoF with history of type one diabetes, fibromyalgia, polysubstance abuse brought by EMS, found to be alert and oriented to self in DKA. She was later intubated in the ED secondary to respiratory distress and need to maintain her airway. She was admitted for evaluation and treatment of severe metabolic acidosis secondary to DKA with associated acute hypoxic respiratory failure, suspected PNA, and RAFA. - Hospital day 14 - Ventilator day total: 11 Diabetes mellitus, type 1, insulin-dependent, chronic. Presumed stable - Admitting Dx: DKA; Dx when patient was 19 years of age - 02/04 A1c 9.8 - Patient unable to recall home medication - Low dose correctional scale in place at this time - [facility] records 09/03 PCP: Lantus 14U qam + 16U qpm + Humalog 7-9U per meal - Current: Lantus 10U qam + Lantus 10 qpm + low dose correctional Acute hypoxic respiratory failure, present on admission; Resolved. - Patient has a history of severe COPD per outpatient notes dated September [address] Kisha Mejia - Intubated in ED secondary to respiratory distress and presumed airway compromise - Pulm/critical care managed mechanical ventilation - Trended triglycerides q3d secondary to propofol use; previous TG level 10/10 elev at 446; repeat 09/18 82 - Ct brain 09/17: No acute abnormalities to indicate reason for impaired neuro status - Continue to monitor for neurological improvements throughout day and ability to recall events leading to admission - Continue PT sessions to increase strength; current DC recs HHPT - Continue speech eval/swallow eval to safely advance diet: ST also recs outpatient barium swallow study H/o polysubstance abuse, chronic - On admit: UTox: + benzos, + TCA - Home meds per chart review include tramadol - as per brother history of narcotic use and ETOH use; daughter conformed similar history - banana bag given - CT chest with contrast showed no evidence for septic emboli. 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 Ongoing, but slightly improved - May be secondary to prolonged intubation and hospitalization - Promote healthy sleep hygiene: Awake and up to chair during day, sleep at night - Continue Seroquel nightly - MMSE to assess cognition. Patient scored a 20 out of 30. Septic shock, acute, present on admission; resolved - unclear source, most likely PNA - Sputum Cx: + MSSA - MRSA screen negative - Resp PCR negative; BCx negative to date - Initial CSF Cx/GS: No growth to date - ID had been consulted, appreciated time and recommendations. - Eval CSF PCR: completely negative - Per ID, discontinued abx azithro and Zosyn; patient has had a full course Left wrist pain, acute, unknown chronicity. Resolved - Left wrist exhibited acute distress when mobilized and palpated when pt was intubated - XR left wrist 09/20: No fracture found - Consideration of additional studies, such as MR, when stabilized and if pain persists/returns - Re-evaluation today did not reveal pain; working well with PT - Continue to monitor as patient progresses Thrombocytosis, acute, not present on admission. Monitored - Increased to 1135 09/22; 1241 09/23; 1172 09/25 - ASA therapy initiated DKA, acute, POA; Resolved - Severe metabolic acidosis on presentation pH 6.8 decreasing to 6.6 on repeat ABG, / gap 33 - On admit: K 5.7; glc 623; + serum ketones - 1amp bicarb given in ED, bicarb gtt started upon arrival to floor; now DC'd - Unclear etiology, possible non-compliance vs occult infection, trop neg - Head CT negative, LP less likely meningitis, CT abd / pelvis with possible PNA , CXR remains neg - We utilized DKA protocol drip with transition to non-DKA protocol drip until extubation - Currently stable with Lantus and correctional scale Hyperkalemia, acute, not present on admission. Resolved - K has been fluctuant throughout admission - Max achieved 09/12, K 5.7, and 09/17: K 5.5 - Monitor Hypokalemia, acute, not present on admission. Resolved - K 2.6 09/14 - Replaced with 80 mEq - Replace prn we will continue to monitor electrolytes daily Acute kidney failure, acute, POA. Resolved - most likely pre-renal given DKA - Maintaining adequate UOP Leukocytosis, acute, POA; Resolved - multifactorial, acute stress response 2/2 DKA vs possible underlying infection - possible PNA, CAP vs HCAP - Abx course completed as above Anemia, microcytic, hypochromic; unknown chronicity; stable - May be secondary to fluid resuscitation - Possibly due to acute blood loss anemia. However, blood counts are normal stable. - Decreased hgb from 12.3 to 10.4 to 9.8 to 8.2 following admission; currently stable - Pantoprazole po daily - Monitor daily Chronic Issues Depression, chronic. 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 Current rec is HH, + PT. Will need to determine if patient has support at home to care for her while she is weak and unsteady. [employer]ITT[employer] MACHINE OPERATOR needs may later include substance use counseling/services, when patient able to communicate substance use history and needs. Daughter has contacted staff, and confirms that patient does have history of substance use, known narcotic abuse. Unknown mentation baseline, as patient appears delayed. Will continue to monitor. Family visited 09/25: Stated that patient is not safe to return home, and will not be able to care for self. Family reports she is not compliant with diabetic medications and glucose checks. Family is concerned that she will need more intensive care at discharge. They have spoken to [employer] KNITTING MACHINE OPERATOR about their concerns. MMSE completed by speech therapy 09/25 revealed a score 20: moderate cognitive impairment; patient continually reported during MMSE that she was 'brain .' Anticipate DC 1-2 days pending stability and ability to set up services at DC. Pain Evaluation: Adequate Pain Control GI Prophylaxis: H2 ike VTE Prophylaxis: Sub-Q Heparin (Unfractionated) VTE Mechanical Devices: Intermittant Pneumatic CD Resuscitation Status: CPR: Attempt Resuscitation Attending Statement Patient was seen and examined with Dr. Norma Fox. Chart reviewed and case was discussed with Dr. Norma Monsivais at length. I agree with the above note. Jennifer Fox DO Sep 25, 2016 13:51 Michael Tamez MD Sep 25, 2016 20:43
[2016-09-26] VITALS (8 sets, daily range): BP systolic 119–138; BP diastolic 56–81; PULSE 72–98; RESP 15–18; O2SAT 97–98
[2016-09-26 04:01] LABS: Magnesium 1.9 mg/dL (1.6-2.6); Phosphorus 3.4 mg/dL (2.5-4.9)
[2016-09-26 04:11] LABS: Mean Corpuscular Hemoglobin 20.2 pg (27.0-35.0); Mean Corpuscular Volume 65.6 fL (81-100)
[2016-09-26 04:14] LABS: BASOPHILS % (AUTO) 1.4 % (0-3); EOSINOPHILS % (AUTO) 1.5 % (0-5); MONOCYTES % (AUTO) 6.2 % (4-12); Platelet Count 1168 bil/L (150-400)
[2016-09-26] MEDS: Insulin LISPRO 300 Unit/3 mL Inj SUBQ SCH ×4 (07:53→21:31)
[2016-09-26] MEDS: Nystatin 100,000 Unit/Gm 15 Gm Powder TOPICAL SCH ×2 (07:54→20:19)
[2016-09-26] MEDS: Pantoprazole 40 mg ER24 Tablet PO SCH (07:54)
[2016-09-26] MEDS: Senna-Docusate 8.6-50 mg Tablet PO SCH ×2 (07:55→20:19)
[2016-09-26] MEDS: Heparin 5,000 Unit/mL Inj SUBQ SCH ×2 (07:56→18:19)
[2016-09-26] MEDS: Insulin GLARgine 100 Unit/mL Syringe SUBQ SCH ×2 (07:58→21:34)
[2016-09-26] MEDS: Albuterol-Ipratropium 3 mL Inhalation Solution NEB SCH ×2 (08:30→20:30)
[2016-09-26] MEDS: 0.9% NaCl + KCl 20 mEq/L 1,000 ML IV SCH ×2 (09:39→22:57)
--- NOTE | 2016-09-26 11:35 | PCM.PNMED ---
Subjective Date of Service Sep 26, 2016 Subjective - Pt seen and examined this morning. c/o mild low back pain. Denies any chest pain, shortness of breath. Exam Vital Signs Vital Sign - Last Date Time Temp Pulse Resp B/P Pulse Ox O2 Delivery O2 Flow Rate FiO2 09/26/16 10:07 87 09/26/16 07:42 36.8 18 134/69 98 Room Air 09/24/16 19:29 0.00 09/22/16 20:01 95 Intake and Output 09/25/16 09/25/16 09/26/16 Cumulative From/Thru 15:00 23:00 07:00 09/12/16 19:29 - 09/26/16 06:13 Intake Total 1544 ml 1190 ml 05681 ml Output Total 1450 ml 1660 ml 85025 ml Balance 94 ml -470 ml 7169 ml Intake Oral 680 ml 300 ml 2175 ml IV Total 864 ml 890 ml 93343 ml Tube Feeding 5072 ml Tube Irrigant 1577 ml Output Urine Total 1450 ml 1660 ml 95112 ml Stool Total 650 ml Gastric Drainage Total 2200 ml # Voids 4 4 # Bowel Movements 2 0 14 Exam General: Awake, alert, responsive; appears fatigued and confused; follows commands; working with PT at edge of bed HEENT: Atraumatic; sclera anicteric, external ears without defect; mucus membranes moist Neck: No pain with ROM, trachea midline Cardiac: Regular rate and rhythm in 70-80s at time of examination; no murmurs appreciated Respiratory: Clear bilaterally; adequate air flow all norman; mild wheeze bilateral mid-upper norman Abdomen: Soft, nontender, nondistended Extremities: No edema; bilateral anterior lower leg scrapes x2 without active bleeding or surrounding erythema Skin: Warm and dry Neuro: CNII-XII grossly intact; speech without slur; facial expressions symmetric Psych: Appropriate mood, affect somewhat flat but improved, and appropriate responses to questioning; delayed recall and slowed speech, but not slurred IVs and Medications Medications Reviewed: Medications were reviewed in detail Lab and Diagnostics Result Diagram: 09/26/16 0300 09/26/16 0300 Microbiology Name: MAO CHUNG Age/Sex: 51/F Attend Dr: Patricia Oliveira Acct: [id number] Unit: [id number] Status: ADM IN Location: CCU [id number] Re09/12/16 Disch: Specimen: [id number] Collected: 09/13/16 Status: COMP Req#: [id number] Received: 09/13/16 Source: SPUTUM EXP Sp Desc : Subm Dr: Patricia Oliveira DO Ordered: GRAM SPT REFLEX, SPUTUM CULTURE Comments: Collected by Nurse/Unit? Y/N Y Procedure Result Verified Site Microbiology JELLY CULT SPUTUM GS Final 09/13/16-1410 SPT GRAM STAIN RARE POLYS RARE MIXED NORMAL LAZARO This Spec is of good Quality and acceptable for Cult RESPIRATORY CULTURE Final 09/16/16 Organism 1 STAPHYLOCOCCUS AUREUS COLONY COUNT/QUANTITY MODERATE GROWTH Oxacillin Susceptible Penicillin Resistant Staph spp. are Susceptible to Penicillin stable penicillins, Blactam/Blactamase inhibitor combinations, antistaphyloccal cephems, and carbapenems. 1. STAPHYLOCOCCUS AUREUS M.I.C Interp --------- ------ * CEFAZOLIN S * CLINDAMYCIN <=0.25 S * ERYTHROMYCIN <=0.25 S * LINEZOLID 2 S * MOXIFLOXACIN 2 R * OXACILLIN JELLY 1 S * RIFAMPIN <=0.5 S * TETRACYCLINE <=1 S * TRIMETHOPRIM/SULFAMETHOXAZOLE <=10 S * VANCOMYCIN <=0.5 S X-Rays, CTs and MRIs Patient Name: MAO CHUNG MR#: [id number] Location: SED Ordering Phys: Jemal Rodriguez MD Date of Service: 09/12/162028 PROCEDURE: CT BRAIN WITHOUT CONTRAST ([id number]) INDICATIONS: altered mental status TECHNIQUE: Noncontrast 4.5 mm thick angled axial sections acquired from the foramen magnum to the vertex, with coronal reformats. COMPARISON: [facility], CT, BRAIN W/O CONTRAST, 08/21/2014, 16:07. FINDINGS: Image quality: Limited by patient motion. CSF spaces: Basal cisterns are patent. No extra-axial fluid collections. Ventricles are normal in size and shape. Brain: No midline shift. No intracranial masses or hemorrhage. Gomes-white matter interface is normal. Skull and face: Calvarium and visualized facial bones are intact, without suspicious lesions. Sinuses: Visualized sinuses and mastoids are clear. IMPRESSION: No acute intracranial disease process identified within limitations caused by motion artifact. Dictated by: Reyna Walsh MD, PhD on 09/12/2016 at 21:00 Approved by: Reyna Walsh MD, PhD on 09/12/2016 at 21:03 Patient Name: MAO CHUNG MR#: [id number] Location: SED Ordering Phys: Jemal Rodriguez MD Date of Service: 09/12/162028 PROCEDURE: X-RAY CHEST ONE VIEW, PORTABLE ([id number]) INDICATIONS: post intubation TECHNIQUE: One view of the chest was acquired. COMPARISON: [facility], CR, XR CHEST 1VW (PORTABLE), 09/12/2016, 19: 44. FINDINGS: Surgical changes and devices: ET tube is 4.1 cm superior to the alisa. NG tube crosses the GE junction.. Cervical spine fixation hardware Lungs and pleura: No pleural effusions or pneumothorax. Lungs are clear. Mediastinum: Mediastinal contours appear normal. Heart size is normal. Bones and chest wall: No suspicious bony lesions. Overlying soft tissues appear unremarkable. IMPRESSION: No acute cardiopulmonary disease process. Dictated by: Reyna Walsh MD, PhD on 09/12/2016 at 21:08 Approved by: Reyna Walsh MD, PhD on 09/12/2016 at 21:09 CT Abd / Pelvis Interpretation IMPRESSION: small amount of free pelvic fluid. No other acute findings. Lung base opacities atelectasis versus infiltrate. NG tube tip in the proximal stomach. Tatyana Mcdonald M.D. Study type: Abdominal CT IV contrast Interpretation / Wet Read by: Interpret - Radiologist 12-lead ECG Sinus tach rate 104, no ST segment changes Cardiac Echo Impressions Echocardiogram Report Name: MAO CHUNG GStudy Date: 09/13/2016 Height: 62 in Hospital Exam Location: [facility] Weight: 110 lb Gender: Female BSA: 1.5 m2 : 1965 Age: 51 yrs BP: 121/59 mmHg Reason For Study: HYPOTENSION Ordering Physician: Performed By: Dede Talbot Referring Physician: Mckayla OSWALD Interpretation Summary Sinus tachycardia. Normal LV size,wall thickness, wall motion and LV systolic function. EF is 55 -60%. RV is mildly dilated and demonstrates normal function. No significant valvular abnormalities. Estimated PA systolic pressure is 50 mm Hg assuming RA pressure of 15 mm Hg. No prior study available for comparison Additional Diagnostics venous blood gas 7:43 PM 09/12/2016 pH 6.867 pCO2 18 pO2 78.2 cHCO3- 3.1 cBase -29.4 ABG Interpretation: Repeat: pH 6.685 pCO2 36 pO2 68.2 cHCO3- 4.3 cBase -29.8 Assessment & Plan Ms. Mao Chung is a 51yoF with history of type one diabetes, fibromyalgia, polysubstance abuse brought by EMS, found to be alert and oriented to self in DKA. She was later intubated in the ED secondary to respiratory distress and need to maintain her airway. She was admitted for evaluation and treatment of severe metabolic acidosis secondary to DKA with associated acute hypoxic respiratory failure, suspected PNA, and RAFA. Diabetes mellitus, type 1, insulin-dependent, chronic. Presumed stable - Admitting Dx: DKA; Dx when patient was 19 years of age - 02/04 A1c 9.8 - Patient unable to recall home medication - Low dose correctional scale in place at this time - [facility] records 09/03 PCP: Lantus 14U qam + 16U qpm + Humalog 7-9U per meal - Current: Lantus 10U qam + Lantus 10 qpm + low dose correctional Acute hypoxic respiratory failure, present on admission; Resolved. - Patient has a history of severe COPD per outpatient notes dated September [address] Kisha Mejia - Intubated in ED secondary to respiratory distress and presumed airway compromise - Ct brain 09/17: No acute abnormalities to indicate reason for impaired neuro status - s/p extubation on 09/21 H/o polysubstance abuse, chronic - On admit: UTox: + benzos, + TCA - Home meds per chart review include tramadol - as per brother history of narcotic use and ETOH use; daughter conformed similar history - CT chest with contrast showed no evidence for septic emboli. However, did show bilateral pleural effusions and groundglass appearance suggestive of pulmonary edema - Per outpatient pulm documentation: H/o cocaine, methamphetamine use; No EtOH or marijuana at that time - PCP OV 09/03/16: Reports of recent DUI 04/2016 - FILING CLERK consult for possible substance use Altered mental status, acute, uncertain if present on admission. Ongoing, but slightly improved - May be secondary to prolonged intubation and hospitalization - Promote healthy sleep hygiene: Awake and up to chair during day, sleep at night - Continue Seroquel nightly - MMSE to assess cognition. Patient scored a 20 out of 30. Septic shock, acute, present on admission; resolved - unclear source, most likely PNA - Sputum Cx: + MSSA - MRSA screen negative - Resp PCR negative; BCx negative to date - Initial CSF Cx/GS: No growth to date - ID had been consulted, appreciated time and recommendations. - Eval CSF PCR: completely negative - Per ID, discontinued abx azithro and Zosyn; patient has had a full course Left wrist pain, acute, unknown chronicity. Resolved - Left wrist exhibited acute distress when mobilized and palpated when pt was intubated - XR left wrist 09/20: No fracture found - Consideration of additional studies, such as MR, when stabilized and if pain persists/returns - Re-evaluation today did not reveal pain; working well with PT - Continue to monitor as patient progresses Thrombocytosis, acute, not present on admission. Monitored - Platelet count trending down - ASA therapy initiated DKA, acute, POA; Resolved - Severe metabolic acidosis on presentation pH 6.8 decreasing to 6.6 on repeat ABG, 2/ gap 33 - On admit: K 5.7; glc 623; + serum ketones - 1amp bicarb given in ED, bicarb gtt started upon arrival to floor; now DC'd - Unclear etiology, possible non-compliance vs occult infection, trop neg - Head CT negative, LP less likely meningitis, CT abd / pelvis with possible PNA , CXR remains neg - We utilized DKA protocol drip with transition to non-DKA protocol drip until extubation - Currently stable with Lantus and correctional scale Acute kidney failure, acute, POA. Resolved - most likely pre-renal given DKA - Maintaining adequate UOP Leukocytosis, acute, POA; Resolved - multifactorial, acute stress response 2/2 DKA vs possible underlying infection - possible PNA, CAP vs HCAP - Abx course completed as above Anemia, microcytic, hypochromic; unknown chronicity; stable - May be secondary to fluid resuscitation - Possibly due to acute blood loss anemia. However, blood counts are normal stable. - Decreased hgb from 12.3 to 10.4 to 9.8 to 8.2 following admission; currently stable - Pantoprazole po daily - Monitor daily Chronic Issues Depression, chronic. 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 Current rec is HH, + PT. Will need to determine if patient has support at home to care for her while she is weak and unsteady. FILING CLERK needs may later include substance use counseling/services, when patient able to communicate substance use history and needs. Daughter has contacted staff, and confirms that patient does have history of substance use, known narcotic abuse. Unknown mentation baseline, as patient appears delayed. Will continue to monitor. Family visited 09/25: Stated that patient is not safe to return home, and will not be able to care for self. Family reports she is not compliant with diabetic medications and glucose checks. Family is concerned that she will need more intensive care at discharge. They have spoken to FILING CLERK about their concerns. MMSE completed by speech therapy 09/25 revealed a score 20: moderate cognitive impairment; patient continually reported during MMSE that she was 'brain .' Anticipate DC 1-2 days pending stability and ability to set up services at DC. GI Prophylaxis: H2 ike VTE Prophylaxis: Sub-Q Heparin (Unfractionated) VTE Mechanical Devices: Intermittant Pneumatic CD Resuscitation Status: CPR: Attempt Resuscitation Ryan Funes MD Sep 26, 2016 11:35
[2016-09-27] MEDS: Heparin 5,000 Unit/mL Inj SUBQ SCH ×2 (02:27→08:04)
[2016-09-27 03:35] VITALS: BP 127/76; PULSE 56; RESP 16; O2SAT 99
[2016-09-27 05:58] VITALS: PULSE 71
--- NOTE | 2016-09-27 06:40 | NUR ---
Anxiety/Mentation/BGs Pt repeatedly tried to get OOB without using the call light to put clothing on with the anticipation of being discharged at that moment. Pt was reoriented to the time and that the doctor's would not be discharging at this time and pt would then lie back down and go to sleep. Pt has a bertha pad on the bed and the chair by the bedside to ensure that staff knows that pt is up and ambulating in the room since pt forgets the IV line and does not carry the pole to prevent the IV catheter from dislodging from pt's arm. Pt's HS BG was 190 and no coverage was needed.
[2016-09-27 07:46] VITALS: BP 114/74; PULSE 79; RESP 16; O2SAT 96
[2016-09-27] MEDS: Pantoprazole 40 mg ER24 Tablet PO SCH (08:04)
[2016-09-27] MEDS: Senna-Docusate 8.6-50 mg Tablet PO SCH (08:04)
[2016-09-27] MEDS: Insulin GLARgine 100 Unit/mL Syringe SUBQ SCH (08:11)
[2016-09-27] MEDS: Insulin LISPRO 300 Unit/3 mL Inj SUBQ SCH (08:11)
[2016-09-27] MEDS: Nystatin 100,000 Unit/Gm 15 Gm Powder TOPICAL SCH (08:12)
[2016-09-27 10:04] VITALS: PULSE 95
--- NOTE | 2016-09-27 10:16 | PCM.DIMED ---
Discharge Instructions Date of Service Sep 27, 2016 Dates of Hospitalization Sep 12, 2016 at 22:36 Discharge Diagnosis Discharge Diagnosis - Diabetic ketoacidosis - Acute hypoxic respiratory failure - Altered mental status Call your provider Shortness of breath, Bleeding, Chest pain, Vomitting, Excessive diarrhea, Weakness (unilateral), Other Patient Instructions - Follow up with your primary physician within one week of discharge. Follow-up with PCP in: 1 week Ryan Funes MD Sep 27, 2016 10:16
[2016-09-27] MEDS ORDERED: ASPI81TA3 PO (10:19)
--- NOTE | 2016-09-27 10:44 | PCM.DC.MED ---
Discharge Summary Date of Service Sep 27, 2016 Dates of Hospitalization Date of Hospital Admission Sep 12, 2016 at 22:36 Date of Discharge: Sep 27, 2016 Providers: Admitting Physician: Patricia Oliveira DO Primary Care Physician: Katrina Oswald Attending Physician: Patricia Oliveira DO Diagnosis at Time of Discharge Diagnosis at Time of Discharge - Diabetic ketoacidosis - Acute hypoxic respiratory failure - Altered mental status Procedures XRay, CTs & MRIs Patient Name: JIE CHUNG MR#: [id number] Location: SED Ordering Phys: Jemal oRdriguez MD Date of Service: 09/12/162028 PROCEDURE: CT BRAIN WITHOUT CONTRAST ([id number]) INDICATIONS: altered mental status TECHNIQUE: Noncontrast 4.5 mm thick angled axial sections acquired from the foramen magnum to the vertex, with coronal reformats. COMPARISON: [facility], CT, BRAIN W/O CONTRAST, 08/21/2014, 16:07. FINDINGS: Image quality: Limited by patient motion. CSF spaces: Basal cisterns are patent. No extra-axial fluid collections. Ventricles are normal in size and shape. Brain: No midline shift. No intracranial masses or hemorrhage. Gomes-white matter interface is normal. Skull and face: Calvarium and visualized facial bones are intact, without suspicious lesions. Sinuses: Visualized sinuses and mastoids are clear. IMPRESSION: No acute intracranial disease process identified within limitations caused by motion artifact. Dictated by: Reyna Walsh MD, PhD on 09/12/2016 at 21:00 Approved by: Reyna Walsh MD, PhD on 09/12/2016 at 21:03 Patient Name: JIE CHUNG MR#: [id number] Location: SED Ordering Phys: Jemal Rodriguez MD Date of Service: 09/12/162028 PROCEDURE: X-RAY CHEST ONE VIEW, PORTABLE ([id number]) INDICATIONS: post intubation TECHNIQUE: One view of the chest was acquired. COMPARISON: [facility], CR, XR CHEST 1VW (PORTABLE), 09/12/2016, 19: 44. FINDINGS: Surgical changes and devices: ET tube is 4.1 cm superior to the alisa. NG tube crosses the GE junction.. Cervical spine fixation hardware Lungs and pleura: No pleural effusions or pneumothorax. Lungs are clear. Mediastinum: Mediastinal contours appear normal. Heart size is normal. Bones and chest wall: No suspicious bony lesions. Overlying soft tissues appear unremarkable. IMPRESSION: No acute cardiopulmonary disease process. Dictated by: Reyna Walsh MD, PhD on 09/12/2016 at 21:08 Approved by: Reyna Walsh MD, PhD on 09/12/2016 at 21:09 CT Abd / Pelvis Interpretation IMPRESSION: small amount of free pelvic fluid. No other acute findings. Lung base opacities atelectasis versus infiltrate. NG tube tip in the proximal stomach. Tatyana Mcdonald M.D. Study type: Abdominal CT IV contrast Interpretation / Wet Read by: Interpret - Radiologist ECG 12 Lead Sinus tach rate 104, no ST segment changes Cardiac Echo Impression Echocardiogram Report Name: JIE CHUNG GStudy Date: 09/13/2016 Height: 62 in Hospital Exam Location: [facility] Weight: 110 lb Gender: Female BSA: 1.5 m2 : 1965 Age: 51 yrs BP: 121/59 mmHg Reason For Study: HYPOTENSION Ordering Physician: Performed By: Dede Talbot Referring Physician: Mckayla OSWALD Interpretation Summary Sinus tachycardia. Normal LV size,wall thickness, wall motion and LV systolic function. EF is 55 -60%. RV is mildly dilated and demonstrates normal function. No significant valvular abnormalities. Estimated PA systolic pressure is 50 mm Hg assuming RA pressure of 15 mm Hg. No prior study available for comparison Other Diagnostics venous blood gas 7:43 PM 09/12/2016 pH 6.867 pCO2 18 pO2 78.2 cHCO3- 3.1 cBase -29.4 ABG Interpretation: Repeat: pH 6.685 pCO2 36 pO2 68.2 cHCO3- 4.3 cBase -29.8 Brief History 51yoF with history of type one diabetes, fibromyalgia, polysubstance abuse brought by EMS for further evaluation. On admission it is unclear how EMS was notified to assess the patient. As per ED RN boyfriend was with patient upon arrival. She was alert and oriented to self on presentation and intubated shortly after arrival due to respiratory failure and airway protection. Discussion with her aunt, Ammy Irizarry ), and her brother in [place], Santosh ([phone]), bring minimal information regarding past history. Social history of being estranged from her daughter and alone without close contacts. She used to live with her mother before she passed in 03/2016. Past history includes opioid abuse and ETOH use. Hospital Course Ms. Jie Chung is a 51yoF with history of type one diabetes, fibromyalgia, polysubstance abuse brought by EMS, found to be alert and oriented to self in DKA. She was later intubated in the ED secondary to respiratory distress and need to maintain her airway. She was admitted for evaluation and treatment of severe metabolic acidosis secondary to DKA with associated acute hypoxic respiratory failure, suspected PNA, and RAFA. Diabetes mellitus, type 1, insulin-dependent, chronic. Presumed stable - Admitting Dx: DKA; Dx when patient was 19 years of age - 02/04 A1c 9.8 - Patient unable to recall home medication - Low dose correctional scale in place at this time - [facility] records 09/03 PCP: Lantus 14U qam + 16U qpm + Humalog 7-9U per meal Acute hypoxic respiratory failure, present on admission; Resolved. - Patient has a history of severe COPD per outpatient notes dated September [address] Kisha Mejia - Intubated in ED secondary to respiratory distress and presumed airway compromise - Ct brain 09/17: No acute abnormalities to indicate reason for impaired neuro status - s/p extubation on 09/21 H/o polysubstance abuse, chronic - On admit: UTox: + benzos, + TCA - Home meds per chart review include tramadol - as per brother history of narcotic use and ETOH use; daughter conformed similar history - CT chest with contrast showed no evidence for septic emboli. However, did show bilateral pleural effusions and groundglass appearance suggestive of pulmonary edema - Per outpatient pulm documentation: H/o cocaine, methamphetamine use; No EtOH or marijuana at that time - PCP OV 09/03/16: Reports of recent DUI 04/2016 - [employer] consult for possible substance use Altered mental status, acute, uncertain if present on admission. Ongoing, but slightly improved - May be secondary to prolonged intubation and hospitalization - Promote healthy sleep hygiene: Awake and up to chair during day, sleep at night - Continue Seroquel nightly - MMSE to assess cognition. Patient scored a 20 out of 30. Septic shock, acute, present on admission; resolved - unclear source, most likely PNA - Sputum Cx: + MSSA - MRSA screen negative - Resp PCR negative; BCx negative to date - Initial CSF Cx/GS: No growth to date - ID had been consulted, appreciated time and recommendations. - Eval CSF PCR: completely negative - Per ID, discontinued abx azithro and Zosyn; patient has had a full course Left wrist pain, acute, unknown chronicity. Resolved - Left wrist exhibited acute distress when mobilized and palpated when pt was intubated - XR left wrist 09/20: No fracture found - Consideration of additional studies, such as MR, when stabilized and if pain persists/returns - Re-evaluation today did not reveal pain; working well with PT - Continue to monitor as patient progresses Thrombocytosis, acute, not present on admission. Monitored - Platelet count trending down - ASA therapy initiated DKA, acute, POA; Resolved - Severe metabolic acidosis on presentation pH 6.8 decreasing to 6.6 on repeat ABG, 2/ gap 33 - On admit: K 5.7; glc 623; + serum ketones - 1amp bicarb given in ED, bicarb gtt started upon arrival to floor; now DC'd - Unclear etiology, possible non-compliance vs occult infection, trop neg - Head CT negative, LP less likely meningitis, CT abd / pelvis with possible PNA , CXR remains neg - We utilized DKA protocol drip with transition to non-DKA protocol drip until extubation - Currently stable with Lantus and correctional scale Acute kidney failure, acute, POA. Resolved - most likely pre-renal given DKA - Maintaining adequate UOP Leukocytosis, acute, POA; Resolved - multifactorial, acute stress response 2/2 DKA vs possible underlying infection - possible PNA, CAP vs HCAP - Abx course completed as above Anemia, microcytic, hypochromic; unknown chronicity; stable - May be secondary to fluid resuscitation - Possibly due to acute blood loss anemia. However, blood counts are normal stable. - Decreased hgb from 12.3 to 10.4 to 9.8 to 8.2 following admission; currently stable - Pantoprazole po daily - Monitor daily Chronic Issues Depression, chronic. 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 Family reports she is not compliant with diabetic medications and glucose checks. Family is concerned that she will need more intensive care at discharge. They have spoken to [employer] about their concerns. MMSE completed by speech therapy 09/25 revealed a score 20: moderate cognitive impairment; patient continually reported during MMSE that she was 'brain .' Exam Vital Signs (Last) Date Time Temp Pulse Resp B/P Pulse Ox O2 Delivery O2 Flow Rate FiO2 09/27/16 10:04 95 09/27/16 07:46 36.5 16 114/74 96 Room Air 09/24/16 19:29 0.00 09/22/16 20:01 95 Exam General: Awake, alert, responsive; appears fatigued and confused; follows commands; working with PT at edge of bed HEENT: Atraumatic; sclera anicteric, external ears without defect; mucus membranes moist Neck: No pain with ROM, trachea midline Cardiac: Regular rate and rhythm in 70-80s at time of examination; no murmurs appreciated Respiratory: Clear bilaterally; adequate air flow all norman; mild wheeze bilateral mid-upper norman Abdomen: Soft, nontender, nondistended Extremities: No edema; bilateral anterior lower leg scrapes x2 without active bleeding or surrounding erythema Skin: Warm and dry Neuro: CNII-XII grossly intact; speech without slur; facial expressions symmetric Psych: Appropriate mood, affect somewhat flat but improved, and appropriate responses to questioning; delayed recall and slowed speech, but not slurred Test 09/12/16 19:34 09/12/16 20:47 09/12/16 21:26 09/12/16 23:14 Metamyelocytes % 0% (0-0) Myelocytes % 1% (0-0) Prothrombin Time 10.0sec (8.1-12.5) Prothromb Time International Ratio 0.94ratio Activated Partial Thromboplast Time 40.4sec (22.8-33.0) Lipase 8U/L (13-60) Hold Red Top Tube Received (Received) Ketones 1:32 Urine Color Straw (YELLOW) Urine Appearance Clear (CLEAR,HAZY) Urine pH 5.5 (5.0-8.0) Urine Specific [place] 1.028 (1.003-1.035) Urine Protein 30mg/dL (NEG,TRACE) Urine Glucose (UA) 1000mg/dL (NEGATIVE) Urine Ketones 80mg/dL (NEGATIVE) Urine Occult Blood Moderate (NEGATIVE) Urine Nitrite Negative (NEGATIVE) Urine Bilirubin Negative (NEGATIVE) Urine Urobilinogen Normalmg/dL (NORMAL) Urine Leukocyte Esterase Negative (NEGATIVE) Urine RBC 3-10/hpf (0-2) Urine WBC 0-5/hpf (0-5) Urine Epithelial Cells None/hpf (NONE-MOD) Urine Crystals None seen (NONE SEEN) Urine Bacteria None/hpf (NONE-FEW) Urine Hyaline Casts None/lpf (NONE) Urine Granular Casts None seen (NONE SEEN) Urine Waxy Casts None seen (NONE SEEN) Urine Red Blood Cell Casts None seen (NONE SEEN) Urine White Blood Cell Casts None seen (NONE SEEN) Urine Mucus None seen (None Seen) Urine Trichomonas None seen (NONE SEEN) Urine Yeast None (NONE SEEN) Urinalysis Comment None Urine Culture Reflexed Not indicated CSF Appearance Hazy (CLEAR) CSF Color [place] (COLORLESS) CSF WBC 9/mm3 (0-5) CSF RBC 1125/mm3 CSF Mononuclear WBCs 65% CSF Polynuclear WBCs 35% CSF Other Cells 0 CSF Glucose 412mg/dL (45-90) CSF Total Protein 47mg/dL (15-45) Hemoglobin A1c 9.8% (4.8-5.6) Total Creatine Kinase 226U/L (21-215) Troponin T 0.010ug/L (0.0-0.011) Cholesterol Level 159mg/dL (100-199) LDL Cholesterol, Calculated 46.800mg/dL (0-99) VLDL Cholesterol 89.200mg/dL HDL Cholesterol 23mg/dL (>39) Cholesterol/HDL Ratio 6.91 (0.0-4.4) Hold Hernandez Top Tube Received (Received) Test 09/13/16 14:19 09/14/16 05:15 09/16/16 04:40 09/18/16 06:10 Lactic Acid Level 1.3mmol/L (0.4-2.0) Hold Purple Top Tube Received (Received) Hold Blue Top Tube Received (Received) Hold Hankinson Top Tube Received (Received) Prealbumin 6mg/dL (20-40) Triglycerides Level 82mg/dL (0-149) Test 09/19/16 04:25 09/20/16 03:06 09/21/16 03:02 09/23/16 08:45 Thyroid Stimulating Hormone (TSH) 0.900uIU/mL (0.450-4.500) Free Thyroxine 0.61ng/dL (0.82-1.77) Total Bilirubin 0.2mg/dL (0.0-1.2) Aspartate Amino Transf (AST/SGOT) 11U/L (0-50) Alanine Aminotransferase (ALT/SGPT) 12U/L (0-32) Alkaline Phosphatase 95U/L (25-150) Total Protein 5.0g/dL (6.4-8.4) Albumin 2.8g/dL (3.4-5.0) Pro-B-Type Natriuretic Peptide 402.8pg/mL (0-249) Hepatitis A IgM Antibody Negative (Negative) Hepatitis B Surface Antigen Negative (Negative) Hepatitis B Core IgM Antibody Negative (Negative) Hepatitis C Antibody <0.1s/co ratio (0.0-0.9) Hepatitis C Comment Comment (.) HIV (1&2) Ag and Ab, 4th Generation Non reactive (Non Reactive) Test 09/24/16 15:17 09/25/16 03:50 09/26/16 03:00 Ammonia 45ug/dL (18-53) Procalcitonin 0.25ng/mL (0.00-0.08) White Blood Count 9.8th/mm3 (3.8-10.1) Red Blood Count 5.06mil/mm3 (3.90-5.20) Hemoglobin 10.2g/dL (12.0-15.6) Hematocrit 33.2% (35.0-46.0) Mean Corpuscular Volume 65.6fL (81-100) Mean Corpuscular Hemoglobin 20.2pg (27.0-35.0) Mean Corpuscular Hemoglobin Concent 30.7% (32.0-37.0) Red Cell Distribution Width 25.1% (12.3-15.4) Platelet Count 1168bil/L (150-400) Neutrophils (%) (Auto) 56.0% (40-74) Lymphocytes (%) (Auto) 34.6% (14-46) Monocytes (%) (Auto) 6.2% (4-12) Eosinophils (%) (Auto) 1.5% (0-5) Basophils (%) (Auto) 1.4% (0-3) Band Neutrophils % 0% (1-5) Hematology Comments Sodium Level 141mEq/L (134-144) Potassium Level 4.2mEq/L (3.5-5.2) Chloride Level 106mEq/L (97-108) Carbon Dioxide Level 25mmol/L (18-29) Blood Urea Nitrogen 9mg/dL (6-24) Creatinine 0.31mg/dL (0.57-1.00) Estimat Glomerular Filtration Rate 321mL/min (>59) Glucose Level 72mg/dL (60-99) Calcium Level 8.6mg/dL (8.5-10.1) Phosphorus Level 3.4mg/dL (2.5-4.9) Magnesium Level 1.9mg/dL (1.6-2.6) Microbiology Results Name: JIE CHUNG Age/Sex: 51/F Attend Dr: Patricia Oliveira Acct: [id number] Unit: [id number] Status: ADM IN Location: [facility] [id number] Re09/12/16 Disch: Specimen: [id number] Collected: 09/13/16 Status: JAMARCUS Morrell#: [id number] Received: 09/13/16 Source: SPUTUM EXP Sp Desc : Subm Dr: Patricia Oliveira DO Ordered: GRAM SPT REFLEX, SPUTUM CULTURE Comments: Collected by Nurse/Unit? Y/N Y Procedure Result Verified Site Microbiology JELLY CULT SPUTUM GS Final 09/13/16 SPT GRAM STAIN RARE POLYS RARE MIXED NORMAL LAZARO This Spec is of good Quality and acceptable for Cult RESPIRATORY CULTURE Final 09/16/16 Organism 1 STAPHYLOCOCCUS AUREUS COLONY COUNT/QUANTITY MODERATE GROWTH Oxacillin Susceptible Penicillin Resistant Staph spp. are Susceptible to Penicillin stable penicillins, Blactam/Blactamase inhibitor combinations, antistaphyloccal cephems, and carbapenems. 1. STAPHYLOCOCCUS AUREUS M.I.C Interp --------- ------ * CEFAZOLIN S * CLINDAMYCIN <=0.25 S * ERYTHROMYCIN <=0.25 S * LINEZOLID 2 S * MOXIFLOXACIN 2 R * OXACILLIN JELLY 1 S * RIFAMPIN <=0.5 S * TETRACYCLINE <=1 S * TRIMETHOPRIM/SULFAMETHOXAZOLE <=10 S * VANCOMYCIN <=0.5 S Discharge Medications Discharge Medications ([Womens Daily Formula]) 1 CAP PO DAILY (Reported) Aspirin Chew (Aspirin Chew) 81 Mg Chew 81 MG PO DAILY Prescribed by: DANNA BUSTILLO MD Gabapentin (Gabapentin) 600 Mg Tablet 600 MG PO BID (Reported) Glucagon,Human Recombinant (Glucagon Emergency Kit) 1 Mg Kit 1 MG IJ PRN UD ( Reported) Insulin Glargine (Lantus U100 Solostar Insulin Pen) 100 Unit/1 Ml Insuln.pen 15 UNIT SUBQ QPM-INSULIN (Reported) Insulin Regular, Human (HUMulin-R U100 Insulin Vial) 100 Unit/1 Ml Vial 1 UNIT SUBQ TID-INSULIN (Reported) SLIDING SCALE Ipratropium Alvaton (Atrovent HFA) 200 Puff/12.9 Gm Inhaler 2 PUFF INH Q 4HRS PRN (Reported) Lisinopril (Lisinopril) 10 Mg Tablet 10 MG PO DAILY (Reported) Potassium Gluconate (Potassium) 99 Mg Tablet 99 MG PO DAILY (Reported) PLEASE VERIFY DOSAGE Pramipexole Dihydrochloride (Mirapex) 0.25 Mg Tablet 0.25 MG PO PM (Reported) Pravastatin (Pravastatin) 10 Mg Tablet 10 MG PO HS (Reported) Pregabalin (Lyrica) 100 Mg Capsule 100 MG PO TID (Reported) As needed Acyclovir (Acyclovir) 800 Mg Tab 800 MG PO BID PRN PRN PRN (Reported) Albuterol Sulfate (Albuterol Inhalant Solution) 2.5 Mg/0.5 Ml Vial.neb 2.5 MG IH Q4 PRN PRN For Shortness of Breath (Reported) Albuterol Sulfate (Ventolin HFA Inhaler) 200 Puff/18 Gm Inhaler 1-2 PUFF INH Q 4 -6HRS PRN PRN PRN For Wheezing (Reported) Cyclobenzaprine (Cyclobenzaprine) N Tablet 5 MG PO BID PRN PRN For Spasm ( Reported) Hydrocodone-Acetaminophen 5-325 mg (Hydrocodone-Acetaminophen 5-325 mg) 1 Each Tablet 1 EACH PO TID PRN PRN For Pain (Reported) Ibuprofen (Ibuprofen) 200 Mg Capsule 200 MG PO Q 6HRS PRN PRN PRN For Pain ( Reported) Tramadol (Tramadol) 50 Mg Tablet 50 MG PO Q6H PRN PRN For Pain (Reported) Followup Plan Patient Instructions - Follow up with your primary physician within one week of discharge. Follow-up with PCP in: 1 week Danna Bustillo MD Sep 27, 2016 10:44
--- NOTE | 2016-09-27 12:24 | NUR ---
Discharge Pt very eager to discharge this am. Discharge order placed, touched base with and home health set up per . Pt discharged to home with friend at ~1215. Pt given discharge educational materials on aspirin and DKA. Pt's IV access D/C'd and intact. Pt instructed to f/u with PCP in 1 week. Pt verbalized understanding of all discharge instructions. All belongings accompanied Pt at time of discharge.
--- NOTE | 2016-09-27 12:48 | NUR ---
Social Work: Discharge D&A: Per in AM rounds, pt to d/c today home with Addis Carcamo (RN/ P.T.). CAR SALES REPRESENTATIVE contacted Tito Dumont, who confirms Addis to open with pt tomorrow, 09/28. Pt an MD updates, all parties agreeable. Pt reports friend to provide transport via POV. CAR SALES REPRESENTATIVE faxed completed Face to Face to Addis Carcamo P: Per , pt to d/c home today with Addis Carcamo (RN/ P.T.) via POV. CARLIE Colby
== END 2016-09-27 12:15 | disposition home health service (06) | DRG 637 ==
LOC: SED 19:22 → CCU 22:36 → PCC 09-23 09:10
PROVIDERS: ADMIT Internal Medicine; ATTEND Internal Medicine
PROC: 5A1955Z Respiratory Ventilation, Greater than 96 Consecutive Hours (ICD-10-PCS; principal; 2016-09-12)
PROC: 4A033R1 Measurement of Arterial Saturation, Peripheral, Percutaneous Approach (ICD-10-PCS; 2016-09-12)
PROC: 0BH17EZ Insertion of Endotracheal Airway into Trachea, Via Natural or Artificial Opening (ICD-10-PCS; 2016-09-12)
PROC: 009U3ZX Drainage of Spinal Canal, Percutaneous Approach, Diagnostic (ICD-10-PCS; 2016-09-12)
PROC: 3E0234Z Introduction of Serum, Toxoid and Vaccine into Muscle, Percutaneous Approach (ICD-10-PCS; 2016-09-13)
DX: E10.10 Type 1 diabetes mellitus with ketoacidosis without coma (principal); J96.01 Acute respiratory failure with hypoxia; J18.9 Pneumonia, unspecified organism; A41.9 Sepsis, unspecified organism; G93.41 Metabolic encephalopathy; R65.21 Severe sepsis with septic shock; N17.9 Acute kidney failure, unspecified; K21.9 Gastro-esophageal reflux disease without esophagitis; E78.5 Hyperlipidemia, unspecified; F17.210 Nicotine dependence, cigarettes, uncomplicated; J44.9 Chronic obstructive pulmonary disease, unspecified; E87.5 Hyperkalemia; E87.6 Hypokalemia; M25.532 Pain in left wrist; D47.3 Essential (hemorrhagic) thrombocythemia; Z23 Encounter for immunization

== ENCOUNTER 2016-11-07 18:27 | Emergency (ER) | payer MEDICAID, MEDICARE ==
[2016-11-07] VITALS (14 sets, daily range): BP systolic 76–180; BP diastolic 53–97; PULSE 120–151; RESP 20–31; O2SAT 93–100
[~2016-11-07] VITALS: Ht 152.4 cm; Wt 55.7 kg
[~2016-11-07 18:27] MED LIST changes: +ASPI81TA3 PO; -DIF200 PO
[2016-11-07] MEDS ORDERED: Succinylcholine Chloride 20 mg/mL 5 mL Inj ONE (18:28)
[2016-11-07] MEDS ORDERED: Propofol 10,000 mCg/mL 20 mL Inj ONE (18:28)
--- NOTE | 2016-11-07 18:33 | ED.REPORT ---
HPI-General Illness Date of Service Nov 07, 2016 ED Provider: Dr. Avilez History is given to us by EMS. Jie Chung is 51. She is a diabetic with a litany of health problems including COPD. Evidently family member have not heard from her for 2 days. Someone must have done a welfare check and found her to be in bed unresponsive. EMS was called. They found her to be lying in bed actively seizing with generalized tonic-clonic activity, tongue biting and she was incontinent of urine. She is given 10 mg of IM Versed and she is brought to me as a priority activation. Nursing Notes Stated Complaint: UNRESPONSIVE,SEIZURE Chief Complaint: Critical Care/Intubated Nursing Notes Reviewed: Yes Allergies: Coded Allergies: No Known Allergies (Verified Allergy, Unknown, 11/07/16) Scheduled ([Womens Daily Formula]) 1 CAP PO DAILY Aspirin Chew (Aspirin Chew) 81 Mg Chew 81 MG PO DAILY Gabapentin (Gabapentin) 600 Mg Tablet 600 MG PO BID Glucagon,Human Recombinant (Glucagon Emergency Kit) 1 Mg Kit 1 MG IJ PRN UD Insulin Glargine (Lantus U100 Solostar Insulin Pen) 100 Unit/1 Ml Insuln.pen 15 UNIT SUBQ QPM-INSULIN Insulin Regular, Human (HUMulin-R U100 Insulin Vial) 100 Unit/1 Ml Vial 1 UNIT SUBQ TID-INSULIN SLIDING SCALE Ipratropium [place] (Atrovent HFA) 200 Puff/12.9 Gm Inhaler 2 PUFF INH Q 4HRS PRN Lisinopril (Lisinopril) 10 Mg Tablet 10 MG PO DAILY Potassium Gluconate (Potassium) 99 Mg Tablet 99 MG PO DAILY PLEASE VERIFY DOSAGE Pramipexole Dihydrochloride (Mirapex) 0.25 Mg Tablet 0.25 MG PO PM Pravastatin (Pravastatin) 10 Mg Tablet 10 MG PO HS Pregabalin (Lyrica) 100 Mg Capsule 100 MG PO TID Scheduled PRN Acyclovir (Acyclovir) 800 Mg Tab 800 MG PO BID PRN PRN PRN Albuterol Sulfate (Albuterol Inhalant Solution) 2.5 Mg/0.5 Ml Vial.neb 2.5 MG IH Q4 PRN PRN For Shortness of Breath Albuterol Sulfate (Ventolin HFA Inhaler) 200 Puff/18 Gm Inhaler 1-2 PUFF INH Q 4 -6HRS PRN PRN PRN For Wheezing Cyclobenzaprine (Cyclobenzaprine) N Tablet 5 MG PO BID PRN PRN For Spasm Hydrocodone-Acetaminophen 5-325 mg (Hydrocodone-Acetaminophen 5-325 mg) 1 Each Tablet 1 EACH PO TID PRN PRN For Pain Ibuprofen (Ibuprofen) 200 Mg Capsule 200 MG PO Q 6HRS PRN PRN PRN For Pain Tramadol (Tramadol) 50 Mg Tablet 50 MG PO Q6H PRN PRN For Pain General Time Seen by MD: 18:33 Chief Complaint Altered mental status, Seizure Hx Obtained From: EMS Unable to Obtain Hx: Patient condition, Mental status Arrived By: Ambulance Past Medical History Past Medical History Hypertension, Hyperlipidemia, COPD, Asthma, hx Pneumonia, GERD, hx Kidney stones, hx UTI, Chronic neck and back pain, Diabetes, Depression, Anxiety, Cervical cancer Past Surgical History R Humerus repair Reports: Hysterectomy Reports: Back/neck surgery Smoking History Current Every Day Smoker Social History Alcohol Use: Denies alcohol use Drug Use: Denies drug use Ambulatory Status Independent Review of Systems Unable to Obtain ROS Patient condition, Mental status Physical Exam Vital Signs Vital Signs Date Time Temp Pulse Resp B/P Pulse Ox O2 Delivery O2 Flow Rate FiO2 11/07/16 22:20 36.4 132 30 132/92 100 Mechanical Ventilator 11/07/16 22:02 132 30 132/92 100 Mechanical Ventilator 11/07/16 21:53 134 30 76/53 100 Mechanical Ventilator 11/07/16 21:46 120 25 84/56 100 Mechanical Ventilator 11/07/16 21:30 134 31 123/76 100 Mechanical Ventilator 11/07/16 21:26 134 30 105/70 100 Mechanical Ventilator 11/07/16 21:01 140 28 123/72 100 Mechanical Ventilator 11/07/16 20:22 96 11/07/16 20:00 148 20 157/82 94 Mechanical Ventilator 11/07/16 19:49 151 20 179/97 93 ET Tube 11/07/16 19:30 149 24 180/97 93 Mechanical Ventilator 11/07/16 19:00 138 30 135/90 100 Non-Rebreather 15 11/07/16 18:45 135 30 128/76 100 Non-Rebreather 15 11/07/16 18:38 36.4 129 26 120/62 100 Simple Mask 10 Initial VS: Reviewed, Vital signs abnormal Neck: Supple Abdomen / GI: Soft, No distention Extremities: Vascular intact, Neuro intact, No swelling, No tenderness Skin: Warm, Dry Alertness: Positive: Unresponsive Appears to be bearing down with subtle seizure-like activity Slight posturing with deep painful stimuli Head / Eyes: Atraumatic, Normocephalic Pupils 4 mm bilaterally with roving eye movements ENT: Atraumatic, Airway patent Tongue is bitten multiple times and swollen Respiratory / Chest: Atraumatic, No stridor, No chest wall deformity, No crepitus Kussmaul breathing Coarse bilaterally Cardiovascular: Regular rhythm, Heart sounds NL, No gallop, No murmurs, No rubs , Cap refill not delayed, Peripheral circulation NL Heart Rate / Rhythm: Positive: Tachycardia Mental Status: Positive: Unresponsive Appears to be seizing Interpretation & Diagnostics Lab Results Interpretation Result Diagram: 11/07/16 1851 11/07/16 1949 Test 11/07/16 18:38 11/07/16 18:51 11/07/16 19:49 Urine Color Yellow (YELLOW) Urine Appearance Clear (CLEAR,HAZY) Urine pH 6.5 (5.0-8.0) Urine Specific [place] 1.020 (1.003-1.035) Urine Protein 100mg/dL (NEG,TRACE) Urine Glucose (UA) 1000mg/dL (NEGATIVE) Urine Ketones Tracemg/dL (NEGATIVE) Urine Occult Blood Trace (NEGATIVE) Urine Nitrite Negative (NEGATIVE) Urine Bilirubin Negative (NEGATIVE) Urine Urobilinogen Normalmg/dL (NORMAL) Urine Leukocyte Esterase Negative (NEGATIVE) Urine RBC 0-2/hpf (0-2) Urine WBC 0-5/hpf (0-5) Urine Epithelial Cells Few/hpf (NONE-MOD) Urine Crystals None seen (NONE SEEN) Urine Bacteria Few/hpf (NONE-FEW) Urine Hyaline Casts None/lpf (NONE) Urine Granular Casts None seen (NONE SEEN) Urine Waxy Casts None seen (NONE SEEN) Urine Red Blood Cell Casts None seen (NONE SEEN) Urine White Blood Cell Casts None seen (NONE SEEN) Urine Mucus None seen (None Seen) Urine Trichomonas None seen (NONE SEEN) Urine Yeast None (NONE SEEN) Urinalysis Comment None Urine Culture Reflexed Not indicated Urine Opiates Screen Negative Urine Methadone Screen Positive Urine Barbiturates Screen Negative Urine Amphetamines Screen Negative Urine Benzodiazepines Screen Negative Urine Cocaine Metabolite Screen Negative Urine Cannabinoids Screen Positive White Blood Count 18.7th/mm3 (3.8-10.1) Red Blood Count 6.32mil/mm3 (3.90-5.20) Hemoglobin 14.0g/dL (12.0-15.6) Hematocrit 45.4% (35.0-46.0) Mean Corpuscular Volume 71.8fL (81-100) Mean Corpuscular Hemoglobin 22.2pg (27.0-35.0) Mean Corpuscular Hemoglobin Concent 30.8% (32.0-37.0) Red Cell Distribution Width 28.0% (12.3-15.4) Platelet Count 429bil/L (150-400) Neutrophils (%) (Auto) 89.8% (40-74) Lymphocytes (%) (Auto) 4.3% (14-46) Monocytes (%) (Auto) 5.6% (4-12) Eosinophils (%) (Auto) 0% (0-5) Basophils (%) (Auto) 0.1% (0-3) Hold Hernandez Top Tube Received (Received) Sodium Level 140mEq/L (134-144) Potassium Level 4.1mEq/L (3.5-5.2) Chloride Level 102mEq/L (97-108) Carbon Dioxide Level 23mmol/L (18-29) Blood Urea Nitrogen 18mg/dL (6-24) Creatinine 0.33mg/dL (0.57-1.00) Estimat Glomerular Filtration Rate 299mL/min (>59) Glucose Level 182mg/dL (60-99) Calcium Level 8.9mg/dL (8.5-10.1) Total Bilirubin 0.4mg/dL (0.0-1.2) Aspartate Amino Transf (AST/SGOT) 53U/L (0-50) Alanine Aminotransferase (ALT/SGPT) 27U/L (0-32) Alkaline Phosphatase 123U/L (25-150) Total Protein 7.7g/dL (6.4-8.4) Albumin 3.9g/dL (3.4-5.0) ECG Interpretation ECG Interpretation: Sinus tachycardia rate 139 APCs Old anterior infarct Nonspecific T abnormalities lateral leads Time: 19:19 Interpreted by: ED physician Normal ECG Interpretation: No acute ischemic changes ECG Interpretation: Sinus tachycardia rate 136 No change from prior Time: 21:07 Interpreted by: ED physician Normal ECG Interpretation: No acute ischemic changes, No change from prior ECGs ABG Interpretation ABG Interpretation: DateTimeAnalyzed 18:49:00 -_ pH ____7.419 - 7.350 7.450 pCO2 ___38.5__ -mmHg 35.0 45.0 pO2 445 -mmHg 69.0 116 HCO3- ___24.4__ -mmol/L 22.0 26.0 ABE ____0.6__ -mmol/L -2.0 2.0 tHb ___13.3__ -g/dL O2Hb ___97.5__ -% COHb ____1.9__ -% MetHb ____0.8__ -% sO2 __100.2__ -% FIO2 __100.0__ -% Drawn By LT - Date/Time Notified____ 18:51:00 -_ Notified By LT - Notified Whom __DR BEIA - B 763 -mmHg tO2 ___19.3__ -Vol% OrderingPhysicianInitials tb - Stan test _Positive - Exam Performed by: [facility] pract Exam Interpreted by: ED physician SHERIN Interpretation: DateTimeAnalyzed 20:09:00 -_ pH ____7.079 - 7.350 7.450 pCO2 ___99.0__ -mmHg 35.0 45.0 pO2 ___92.9__ -mmHg 69.0 116 HCO3- ___27.9__ -mmol/L 22.0 26.0 ABE ___-5.5__ -mmol/L -2.0 2.0 tHb ___14.2__ -g/dL O2Hb ___90.7__ -% COHb ____1.1__ -% MetHb ____0.9__ -% sO2 ___92.6__ -% FIO2 ___50.0__ -% Drawn By LT - Date/Time Notified____ 20:12:00 -_ Notified By LT - Notified Whom __DR BEIA - B 764 -mmHg tO2 ___18.2__ -Vol% OrderingPhysicianInitials tb - Stan test _Positive - Exam Performed by: [facility] pract Exam Interpreted by: ED physician ABG Interpretation: DateTimeAnalyzed 20:50:00 -_ pH ____7.044 - 7.350 7.450 pCO2 ___16.2__ -mmHg 35.0 45.0 pO2 ___66.0__ -mmHg 69.0 116 HCO3- ____4.2__ -mmol/L 22.0 26.0 ABE __-24.3__ -mmol/L -2.0 2.0 tHb ____2.0__ -g/dL O2Hb ___84.7__ -% COHb ____1.7__ -% MetHb ____1.0__ -% sO2 ___87.1__ -% FIO2 ___50.0__ -% Drawn By LT - Date/Time Notified____ 20:53:00 -_ Notified By LT - Notified Whom __DR BEIA - B 764 -mmHg tO2 ____2.6__ -Vol% OrderingPhysicianInitials tb - Stan test _Positive - Exam Performed by: [facility] pract Exam Interpreted by: ED physician X-Ray Chest Interpretation Chest Xray Interpretation: IMPRESSION: No acute cardiopulmonary disease. Dictated by: Azma Blanchard M.D. on 11/07/2016 at 19:00 Approved by: Azam Blanchard M.D. on 11/07/2016 at 19:00 View: Portable, 1 view Interpretation / Wet Read by: Interpret - Radiologist Chest Xray Interpretation: IMPRESSION: 1. Status post interval intubation, with endotracheal tube tip 2.2 cm above the alisa. 2. No acute cardiopulmonary disease. Dictated by: Azam Blanchard M.D. on 11/07/2016 at 19:25 Approved by: Azam Blanchard M.D. on 11/07/2016 at 19:26 View: Portable, 1 view Interpretation / Wet Read by: Interpret - Radiologist CT Head Interpretation IMPRESSION: No acute intracranial abnormalities. Dictated by: Azam Blanchard M.D. on 11/07/2016 at 19:44 Approved by: Azam Blanchard M.D. on 11/07/2016 at 19:45 Study: Head CT no contrast Interpretation / Wet Read by: Interpret - Radiologist Procedures Intubation Time: 18:52 Procedure Performed by: ED physician Consent / Setup / Site Prep: No consent - emergent, Time-out performed, Oxygen administered, Pulse oximeter applied, negative assembler applied, Hand hygiene observed, Stand sterile technique Patient Position: Sniff position Blade / ET Tube / Route: Mac, Route: oral Procedural Sedation/Analgesia: Sedation: Etomidate Neuromuscular Agent: Succinylcholine ET Confirmation: Direct visualization, BS equal, End tidal CO2 device, CXR, Rising O2 sat Secured / Marked: ET tube device, Tube marked at teeth (23) Complications: None Post-Procedure: Condition improved, Tolerated procedure well, Patient stable Re-Eval/Medical Decision Med Decision/Clinical Course Patient presents essentially comatose. She received 10 mg of IM Versed was brought to our emergency department. We immediately placed her in a resuscitation room and large-bore IVs were placed. She is placed on cardiac monitoring. Primary survey showed her to be deeply somnolent with Sallie Coma Scale of 3. Her pupils were 5 mm and reactive bilateral. She did have roving eye movement that almost look like vertical nystagmus. Her jaw was clenched down and bilateral masseter spasm was noted. Her neck muscles were also rather tense. She had tachycardia without murmur. Lungs showed coarse breath sounds bilateral. Abdomen was soft. Limbs without signs of trauma. Neurologic GCS varied anywhere from 3-5. At one point time with brisk sternal rubbing she either D cerebra postured or was actually reaching up towards my right hand. After that she became flaccid then she had generalized motor activity it look like a tonic-clonic seizure. She received IV Valium and IV fluids. She received Narcan in the event that this was an opiate overdose. No response to the Narcan. Her mentation did not improve with observation and her respiratory pattern became almost Kussmaul and course. She was rapid sequence intubated for airway control. Portable chest x-ray shows ET tube to be about 2 cm above the alisa. EKG shows sinus tachycardia without STEMI. CBC shows a leukocytosis without anemia. Metabolic panel is very reassuring. She is not hyper or hypoglycemic. Blood gases initially she had a reassuring blood gas however she became precipitously acidotic I suspect that she had another seizure. Her pCO2 went up to 99. Shortly thereafter after increasing her minute ventilation and sedation a pCO2 dropped to below 15. She still acidotic. She is getting ongoing fluid resuscitation. CT scan of the brain did not show anything acute. Regarding the potential generalized status. She has received IV Keppra, IV benzodiazepines and propofol. I consulted with Dr. Richardson the neurologist at [facility]. She recommends IV phenytoin so 20 mg per kg of fosphenytoin is ordered. We are going to continue to oxygenate and ventilate her. She will receive some bicarbonate with the fact that she still acidotic. She did receive Zosyn for potential sepsis as well. Overall she seems to be showing hemodynamic stability. Her heart rate is coming down. She has satting 99%. Her lungs are essentially clear. She does still have periods where she will bite down on the ET tube and shake his if she were seizing. This is in spite of anti-epileptics. Dr. Richardson has except her for transfer however she wants her to be seen in the emergency department. I spoke with your doctor Dr. Calvin. We discussed the case. They have graciously accepted her. Hopefully we will be transferring her by helicopter shortly. Ms. Chung did become hypotensive. Her lungs were clear. No signs of tension pneumothorax on examination. He can plateau pressures were reassuring on the vent. I believe this was from the propofol. We held the propofol. She had a fluid bolus and norepinephrine. Blood pressure rapidly rises to 134. Her perfusion was well. She is transferred in critical condition. Time of Eval: 18:50 Patient Status: Condition unchanged Re-Evaluation/Progress Note: Remains altered. Not responsive to deep painful stimuli. No change with Narcan. Plan to intubate. Time of Eval: 19:17 Re-Evaluation/Progress Note: ET tube pulled back 1 cm Time of Eval: 19:22 Re-Evaluation/Progress Note: Appears to be seizing. Plan to paralyze with Vecuronium and obtain CT. Time of Eval: 20:35 Re-Evaluation/Progress Note: Plan to start Ativan drip. Consultation #1: Consulted With: Hospitalist Call Returned at: 20:30 Gis Technician: Agrees with eval, Agrees with plan Note: Recommends transfer to [facility] for higher level of care. Consultation #2: Call Returned at: 20:45 Gis Technician: Agrees with eval, Agrees with plan Note: Discussed case [facility] neurologist Dr. Richardson. Recommends phenytoin. Accepts transfer. Counseled Regarding: Diagnosis, Lab results, Need for transfer Discharge & Departure Primary Impression: Status epilepticus Additional Impressions: Acidosis Coma Coma depth: [place] coma 3-8 Qualified Code: R40.243 - Sallie coma scale score 3-8 Endotracheally intubated Disposition: Transfer, Acute Care Facility Transfer Requested at: 20:51 Call returned time (2050) Transfer Accepted: Yes Transfer Accepted at: 20:52 Transfer Reason: Higher level of care Spoke with: Emergency physician (Dr. Richardson) Patient Status: Stable for transfer Patient Informed: Unable Discharge Condition All VS Reviewed: Yes Condition: Stable Referrals: Katrina Dueñas (PCP) Crit Care Except Billable Proc Time Spent: 75-104 minutes Services Performed: Patient management by me, Time spent at bedside, Reviewing test results, Reviewing imaging, Discussing patient care, Documentation in record Scribe Attestation Portions of this note were transcribed by John Castrejon. I, Dr. Avilez personally performed the history, physical exam and medical decision-making; I reviewed and confirmed the accuracy of the information in the transcribed note. Signed by Itzel Silver, 11/07/16 - 0 copies to: Katrina Dueñas Todd P DO Nov 07, 2016 18:33 JOHN CASTREJON Nov 07, 2016 18:41
--- NOTE | 2016-11-07 18:52 | ABG ---
DateTimeAnalyzed 18:49:00 -_ pH ____7.419 - 7.350 7.450 pCO2 ___38.5__ -mmHg 35.0 45.0 pO2 445 -mmHg 69.0 116 HCO3- ___24.4__ -mmol/L 22.0 26.0 ABE ____0.6__ -mmol/L -2.0 2.0 tHb ___13.3__ -g/dL O2Hb ___97.5__ -% COHb ____1.9__ -% MetHb ____0.8__ -% sO2 __100.2__ -% FIO2 __100.0__ -% Drawn By LT - Date/Time Notified____ 18:51:00 -_ Notified By LT - Notified Whom __DR BEIA - B 763 -mmHg tO2 ___19.3__ -Vol% OrderingPhysicianInitials tb - Stan test _Positive -
[2016-11-07 18:56] LABS: EOSINOPHILS % (AUTO) 0 % (0-5)
[2016-11-07 19:01] LABS: BASOPHILS % (AUTO) 0.1 % (0-3); MONOCYTES % (AUTO) 5.6 % (4-12); Mean Corpuscular Hemoglobin 22.2 pg (27.0-35.0); Mean Corpuscular Volume 71.8 fL (81-100); NEUTROPHILS % (AUTO) 89.8 % (40-74); Platelet Count 429 bil/L (150-400)
--- NOTE | 2016-11-07 19:02 | DRSVH ---
PROCEDURE: X-RAY CHEST ONE VIEW, PORTABLE ([id number]) INDICATIONS: 51-year-old comatose female. TECHNIQUE: One view of the chest was acquired. COMPARISON: [facility], CR, XR CHEST 1VW (PORTABLE), 09/23/2016, 4:28. [facility], CR, XR CHEST 1VW (PORTABLE), 09/22/2016, 4:35. [facility], CR, XR CHEST 1VW (REUBEN BLE), 09/21/2016, 4:35. FINDINGS: Surgical changes and devices: Lower cervical spine anterior fixation hardware is again noted. Lungs and pleura: No pleural effusions or pneumothorax. Lungs are clear. Mediastinum: Mediastinal contours appear normal. Heart size is normal. Bones and chest wall: No suspicious bony lesions. Overlying soft tissues appear unremarkable. IMPRESSION: No acute cardiopulmonary disease. Dictated by: Azam Blanchard M.D. on 11/07/2016 at 19:00 Approved by: Azam Blanchard M.D. on 11/07/2016 at 19:00
[2016-11-07] MEDS: Propofol 10 mg/mL 20 mL Inj IVPUSH PRN ×3 (19:05→19:35)
[2016-11-07] MEDS ORDERED: Propofol 10,000 mCg/mL 100 mL Inj ONE (19:07)
[2016-11-07] MEDS ORDERED: Propofol Inj 1,000,000 MCG in IV Premix 1 EACH IV SCH (19:25)
[2016-11-07] MEDS ORDERED: levETIRAcetam Inj 1,000 MG in IV Premix 1 EACH IV ONE (19:25)
[2016-11-07] MEDS ORDERED: Vecuronium 1,000 mCg/mL 10 mL Inj IVPUSH ONE (19:25)
--- NOTE | 2016-11-07 19:28 | DRSVH ---
PROCEDURE: X-RAY CHEST ONE VIEW, PORTABLE ([id number]) INDICATIONS: 51-year-old female status post intubation. TECHNIQUE: One view of the chest was acquired. COMPARISON: [facility], CR, XR CHEST 1VW (PORTABLE), 11/07/2016, 18:34. [facility], CR, XR CHEST 1VW (PORTABLE), 09/23/2016, 4:28. [facility], CR, XR CHEST 1VW (PORT ABLE), 09/22/2016, 4:35. FINDINGS: Surgical changes and devices: New endotracheal tube is present, with tip 2.2 cm above the alisa. N asogastric tube is now present, with tip in the gastric body. Lower cervical spine anterior fixation hardware is again noted, as well as right humeral shaft fracture fixation hardware. Lungs and pleura: No pleural effusions or pneumothorax. Lungs are clear. Mediastinum: Mediastinal contours appear normal. Heart size is normal. Bones and chest wall: No suspicious bony lesions. Overlying soft tissues appear unremarkable. IMPRESSION: 1. Status post interval intubation, with endotracheal tube tip 2.2 cm above the alisa. 2. No acute cardiopulmonary disease. Dictated by: Azam Blanchard M.D. on 11/07/2016 at 19:25 Approved by: Azam Blanchard M.D. on 11/07/2016 at 19:26
--- NOTE | 2016-11-07 19:47 | DRSVH ---
PROCEDURE: CT BRAIN WITHOUT CONTRAST ([id number]) INDICATIONS: 51-year-old comatose intubated female. TECHNIQUE: Noncontrast 4.5 mm thick angled axial sections acquired from the foramen magnum to the vertex, with c oronal reformats. COMPARISON: [facility], CT, CT BRAIN WO CON, 09/17/2016, 14:38. [facility], CT, CT BRAIN WO CON, 09/12/2016, 20:38. [facility], CT, BRAIN W/O CONTRAST, 08/21/2014, 1 6:07. FINDINGS: Image quality: Excellent. CSF spaces: Basal cisterns are patent. No extra-axial fluid collections. Ventricles are normal in size and shape. Brain: No midline shift. No intracranial masses or hemorrhage. Gomes-white matter interface is norm al. Skull and face: Calvarium and visualized facial bones are intact, without suspicious lesions. Sinuses: Visualized sinuses and mastoids are clear. IMPRESSION: No acute intracranial abnormalities. Dictated by: Azam Blanchard M.D. on 11/07/2016 at 19:44 Approved by: Azam Blanchard M.D. on 11/07/2016 at 19:45
--- NOTE | 2016-11-07 20:13 | ABG ---
DateTimeAnalyzed 20:09:00 -_ pH ____7.079 - 7.350 7.450 pCO2 ___99.0__ -mmHg 35.0 45.0 pO2 ___92.9__ -mmHg 69.0 116 HCO3- ___27.9__ -mmol/L 22.0 26.0 ABE ___-5.5__ -mmol/L -2.0 2.0 tHb ___14.2__ -g/dL O2Hb ___90.7__ -% COHb ____1.1__ -% MetHb ____0.9__ -% sO2 ___92.6__ -% FIO2 ___50.0__ -% Drawn By LT - Date/Time Notified____ 20:12:00 -_ Notified By LT - Notified Whom __DR BEIA - B 764 -mmHg tO2 ___18.2__ -Vol% OrderingPhysicianInitials tb - Stan test _Positive -
[2016-11-07] MEDS ORDERED: Piperacillin-Tazo 3.375 Gm Inj 3.375 GM in Dextrose 5% Minibag Plus 50 ML IV ONE (20:20)
[2016-11-07] MEDS ORDERED: 0.9% Sodium Chloride 1,000 ML IV SCH (20:25)
[2016-11-07] MEDS ORDERED: Sodium Bicarb (50 mEq) 8.4% 1 mEq/mL 50 mL Syringe IVPUSH ONE (20:35)
[2016-11-07] MEDS ORDERED: Fosphenytoin Inj 1,000 mgPE in 0.9% Sodium Chloride 50 ML IV ONE (20:45)
--- NOTE | 2016-11-07 20:53 | ABG ---
DateTimeAnalyzed 20:50:00 -_ pH ____7.044 - 7.350 7.450 pCO2 ___16.2__ -mmHg 35.0 45.0 pO2 ___66.0__ -mmHg 69.0 116 HCO3- ____4.2__ -mmol/L 22.0 26.0 ABE __-24.3__ -mmol/L -2.0 2.0 tHb ____2.0__ -g/dL O2Hb ___84.7__ -% COHb ____1.7__ -% MetHb ____1.0__ -% sO2 ___87.1__ -% FIO2 ___50.0__ -% Drawn By LT - Date/Time Notified____ 20:53:00 -_ Notified By LT - Notified Whom __DR BEIA - B 764 -mmHg tO2 ____2.6__ -Vol% OrderingPhysicianInitials tb - Stan test _Positive -
[2016-11-07 21:15] LABS: APPEARANCE,URINE CLEAR (CLEAR,HAZY); COLOR,URINE YELLOW (YELLOW); PH,URINE 6.5 (5.0-8.0)
[2016-11-07 21:16] LABS: OCCULT BLOOD,URINE TRACE (NEGATIVE); UROBILINOGEN,URINE NORMAL (NORMAL)
[2016-11-07] MEDS ORDERED: Norepineph 8,000 mCg/250 mL NS 8,000 MCG in IV Premix 1 EACH IV SCH (21:55)
[2016-11-07] MEDS ORDERED: Succinylcholine Chloride 20 mg/mL 5 mL Inj IVPUSH ONE (22:15)
[2016-11-07] MEDS ORDERED: Etomidate 2 mg/mL 20 mL Inj IV ONE (22:15)
--- NOTE | 2016-11-08 07:26 | DRSVH ---
PROCEDURE: X-RAY CHEST ONE VIEW, PORTABLE ([id number]) INDICATIONS: hypotensive, ventilated TECHNIQUE: One view of the chest was acquired. COMPARISON: [facility], CR, XR CHEST 1VW (PORTABLE), 11/07/2016, 19:00. [facility], CR, XR CHEST 1VW (PORTABLE), 11/07/2016, 18:34. FINDINGS: Surgical changes and devices: Low anterior cervical fusion. NGT and ETT are in expected position. ROSEMARY F of the right proximal humerus. Lungs and pleura: No pleural effusions or pneumothorax. No change in mild diffuse interstitial pulm onary opacity. Mediastinum: Mediastinal contours appear normal. Heart size is normal. Bones and chest wall: No suspicious bony lesions. Overlying soft tissues appear unremarkable. IMPRESSION: No change in mild atypical pneumonia. Dictated by: Blake Hernandez M.D. on 11/08/2016 at 7:22 Approved by: Blake Hernandez M.D. on 11/08/2016 at 7:24
== END 2016-11-07 22:02 | disposition short-term general hospital (02) ==
LOC: SED 18:27
DX: G40.901 Epilepsy, unspecified, not intractable, with status epilepticus (principal); E87.2 Acidosis; R40.2432 Glasgow coma scale score 3-8, at arrival to emergency department; E11.9 Type 2 diabetes mellitus without complications; I10 Essential (primary) hypertension; E78.5 Hyperlipidemia, unspecified; J44.9 Chronic obstructive pulmonary disease, unspecified; K21.9 Gastro-esophageal reflux disease without esophagitis; F17.200 Nicotine dependence, unspecified, uncomplicated; Z85.41 Personal history of malignant neoplasm of cervix uteri; Z79.4 Long term (current) use of insulin; Z79.82 Long term (current) use of aspirin; Z79.84 Long term (current) use of oral hypoglycemic drugs; Z79.51 Long term (current) use of inhaled steroids
CPT/HCPCS: 31500; 36415; 36620; 51702; 70450; 71010; 80053; 81000; 81025; 82375; 82803; 82948; 85025; 87040; 93005; 94002; 94799; 96361; 96365; 96375; 96376; 99291; 99292; G0480; J0330; J1953; J2310; J2543; J7030; Q2009